=== PATIENT | male | born 1965 | race Caucasian/White ===

== ENCOUNTER 2021-01-23 02:07 | Observation (INO) | payer OTHER, SELFPAY ==
[2021-01-23] VITALS (12 sets, daily range): BP systolic 120–166; BP diastolic 83–97; PULSE 53–78; RESP 15–23; TEMP 36.6–36.9; O2SAT 95–98; BMI 32.9; BMI 31.3
--- NOTE | 2021-01-23 02:13 | RAD_ITS ---
STUDY: X-RAY CHEST REASON FOR EXAM: Male, 55 years old. chest pain TECHNIQUE: 1 view COMPARISON: None. FINDINGS: Cardiomediastinal silhouette is unremarkable. Costophrenic angles are sharp. Lungs are clear. The trachea is midline. There is no pneumothorax. The bones are grossly intact. RAD/Chest 1 View (Portable) IMPRESSION: No acute cardiopulmonary process. Electronically Signed: Chapito Boyer MD at 2:52 EDT Tel , Service support ,
--- NOTE | 2021-01-23 02:13 | EKG12_ITS ---
Test Reason : CP Blood Pressure : / mmHG Vent. Rate : 076 BPM Atrial Rate : 076 BPM P-R Int : 196 ms QRS Dur : 082 ms QT Int : 354 ms P-R-T Axes : 034 -07 000 degrees QTc Int : 398 ms Normal sinus rhythm Normal ECG Confirmed by AMBAR CULLEN MD ([id number]), story editor MIREYA GONZALES ([id number]) on 01/24/2021 7:38:47 AM Referred By: KRISH Confirmed By:AMBAR CULLEN MD
--- NOTE | 2021-01-23 02:22 | EDS_ITS ---
HPI History of Present Illness Chief Complaint: Chest Pain Informant: patient Onset/Context/Timing Onset: Today Activity at onset: gradual Timing: Continuous Quality: Positive for Aching Location: Substernal Current Severity: Mild Maximum Severity: 3/10 Worsened By: Nothing Relieved By: NTG Associated Symptoms: Positive for Nausea, Diaphoresis, Dyspnea and Lightheadedness; Negative for Vomiting Narrative Prior Similar Symptoms: Yes Recent Illness/Hospitalization: Yes CVD Risk Factors: Positive for Hypertension, Diabetes and Hypercholesterolemia PE Risk Factors: Positive for Recent Travel/Surgery and Recent Immobilization; Negative for Prior DVT or PE, Cancer and OCP + Smoking + >/=35 TAD Risk Factors: Negative for Marfan's Syndrome PFSH PFSH Medical History Diabetes Hypertension Myocardial infarct Allergy/AdvReac Type Severity Reaction Status Date / Time bupropion Allergy Other Verified 01/23/21 02:13 hydrochlorothiazide Allergy Other Verified 01/23/21 02:13 [From Hyzaar] losartan [From Hyzaar] Allergy Other Verified 01/23/21 02:13 trandolapril [From Mavik] Allergy Other Verified 01/23/21 02:13 Social History Smoking Status: Current every day smoker tobacco type: smokeless tobacco ROS ROS ED ROS Narrative Denies recent illness. Chest pain. Review of Systems ROS Unobtainable: Denies due to encephalopathy Constitutional Constitutional ED: Denies chills or fever(s) Eyes Eyes: Denies none ENT ENT ED: Denies ear pain Cardiovascular Cardiovascular: Reports as per HPI and chest pain; Denies palpitations Respiratory/Chest Respiratory/Chest: Reports dyspnea; Denies cough Gastrointestinal Gastrointestinal: Reports nausea; Denies abdominal pain or vomiting Genitourinary Genitourinary ED: Denies dysuria Musculoskeletal Musculoskeletal: Denies myalgias Integumentary Denies rash Neurologic Neurologic: Denies headache(s) Psychiatric Psychiatric: Denies depression Endocrine Endocrinology: Denies polyuria Hematologic/Lymphatic Hematologic/Lymphatic: Denies easy bruising Allergic/Immunologic Allergic/Immunologic ED: Denies urticaria EXAM Physical Exam Narrative Exam Narrative: Middle-aged male vital signs stable afebrile pulse ox 97% on room air no signs hypoxia. Exam benign. Lungs are clear. Heart regular rhythm. Chest wall nontender. Abdomen soft nontender. Moving all 4 extremities. Equal symmetrical radial pulses. Calves are nontender without edema or cords. He is awake and alert. Const Vital Signs: 01/23/21 02:08 01/23/21 02:13 01/23/21 02:17 Temperature 98.3 F Temperature Source Temporal Pulse Rate 78 Respiratory Rate 15 Respiratory Effort Normal Non-Labored Blood Pressure 166/95 H Blood Pressure Mean 118 Pulse Ox 96 97 Oxygen Delivery Method Room Air Room Air 01/23/21 02:28 01/23/21 02:31 Temperature Temperature Source Pulse Rate 73 77 Respiratory Rate Respiratory Effort Blood Pressure 137/95 H 123/90 H Blood Pressure Mean Pulse Ox Oxygen Delivery Method Positive well nourished and well developed; Negative for contractures or unkempt General Appearance ED: well developed and NAD; Negative for unkempt or contractures HEENT Reports moist mucous membranes normocephalic and atraumatic; Negative for trauma or tenderness Eyes PERRL and EOMs intact bilaterally Neck no lymphadenopathy, supple and no JVD General: Negative for tenderness Chest Wall inspection of chest normal and palpation of chest normal Resp normal respiratory effort and clear to auscultation bilaterally Effort and Inspection: respiratory distress Auscultation: Negative for rales, rhonchi or wheezes Cardio regular rate, regular rhythm, S1 normal heart sound, S2 normal heart sound and no murmurs Rate: Negative for tachycardic GI normal to inspection, nondistended, normoactive bowel sounds, soft to palpation, non-tender, non-distended and no masses Back/Spine no CVA tenderness Extremity normal to inspection General Extremety ED: Negative for edema or tenderness General Extremity: Negative for edema Neuro oriented x3 Sensorium / Orientation: awake, alert, oriented to person, oriented to place and oriented to time Motor Exam: strength 5/5 throughout Psych mental status grossly normal Appearance: Negative for unkempt Skin no rashes or lesions noted and no wounds Heart Score History: Moderately Suspicious ECG: Normal Age: >45 - <65 years Risk Factors: >/= 3 Risk Factors or History of CAD Score: 4 MDM MDM MDM Narrative Medical decision making narrative: 55-year-old male history of CAD with one cardiac stent 1 prior AR. He had a cath 2 to 3 months ago and a second 1 about a month ago. He is currently on Brilinta. He will undergo cardiac work-up most likely will need to be admitted for further evaluation. Sublingual nitroglycerin x2 resolve the patient's pain per nursing staff around 2:35 AM. Repeat exam at 3:08 AM patient is doing well he is pain-free. I spoke to the hospitalist and the patient will be an observation admission to the PCU. Lab Data Attestation: I reviewed the patient's lab results. Lab results narrative: CBC normal white count of 6. Hemoglobin 13. Electrolytes unremarkable gap 7. Creatinine 1. Troponin VIII. Labs: Laboratory Results - last 24 hr 01/23/21 01/23/21 02:20 02:20 WBC 6.3 RBC 4.52 L Hgb 13.3 Hct 40.1 MCV 88.7 MCH 29.4 MCHC 33.2 RDW Std Deviation 41.1 RDW Coeff of Marguerite 12.7 Plt Count 274 MPV 10.3 Immature Gran % (Auto) 0.300 Neut % (Auto) 57.7 Lymph % (Auto) 28.6 [place] % (Auto) 11.0 H Eos % (Auto) 1.6 Baso % (Auto) 0.8 Absolute Neuts (auto) 3.6 Absolute Lymphs (auto) 1.80 Nucleated RBC % 0 Sodium 141 Potassium 4.2 Chloride 109 H Carbon Dioxide 25.0 Anion Gap 7 BUN 21 H Creatinine 1.04 Estim Creat Clear Calc 73.27 Est GFR (MDRD) Af Amer 96 Est GFR (MDRD) Non-Af 79 BUN/Creatinine Ratio 20.2 H Glucose 247 H Calcium 8.9 Troponin I High Sens 8 Radiography Chest X-Ray - ED: 1 View, Read by ED Physician, Heart, Lungs, Mediastinum, Bony Structures, No Acute Disease and Chronic Changes Diagnostic Testing: Radiology Impression Chest X-Ray 01/23/21 02:13 IMPRESSION: No acute cardiopulmonary process. Electronically Signed: Chapito Boyer MD at 2:52 EDT Tel , Service support , Single view chest x-ray interpreted by myself shows no acute abnormality. Rhythm Strip Rhythm Strip: Sinus Rhythm Rate: 76 Ectopy: None EKG Initial EKG: Attestation: I personally reviewed and interpreted this EKG as follows: Interpretation: Sinus Rhythm and No Acute Injury Pattern Comments: Normal sinus rhythm rate of 76 no signs of acute AR or ischemia. No old EKG available for comparison at this time. Prior EKG tracings: not available for review Discharge Plan Triage Chief Complaint: Chest Pain ED Provider: Glynn Lal
[2021-01-23] MEDS: Nitroglycerin SL (ED/IMG/CATH) 0.4 MG TABLET SL ×2 (02:28→02:31)
[2021-01-23 02:39] LABS: Absolute Neutrophil Count 3.6 X10^3/uL (2.0-7.7); Basophil# 0.05 X10^3/uL; Basophil% 0.8 % (0-1); Eosinophils% 1.6 % (0-5); Hematocrit 40.1 % (40-54); Hemoglobin 13.3 g/dL (13.0-16.5); Lymphocyte % 28.6 % (19-41); Mean Corp Hgb Conc 33.2 g/dL (32-36); Mean Corpuscular Hgb 29.4 pg (27.0-32.0); Mean Corpuscular Volume 88.7 fL (80-94); Mean Platelet Vol. 10.3 fl (6.2-12.0); Monocyte# 0.69 X10^3/uL; NRBC Flagged by Analyzer 0 % (0-5); Neutrophil # 3.64 X10^3/uL (2.7-7.7); Neutrophil % 57.7 % (47-70); Platelet Count 274 K/mm3 (150-450); RBC Distribution Width CV 12.7 % (11.6-14.6); RBC Distribution Width SD 41.1 fl (35.1-43.9); Red Blood Count 4.52 M/mm3 (4.6-6.2); White Blood Count 6.3 K/mm3 (4.4-11.0)
[2021-01-23 02:53] LABS: Anion Gap 7 (5-15); BUN 21 mg/dL (7-18); BUN/Creat Ratio 20.2 RATIO (10-20); Calcium,Total 8.9 mg/dL (8.5-10.1); Chloride 109 mmol/L (98-107); Creatinine, Serum 1.04 mg/dL (0.70-1.30); EST Glomerular Filtration Rate 79 mL/min (>60); Est Glom Filt Rate - Afr Amer 96 mL/min (>60); Estimated Creatinine Clearance 73.27 ml/min; Glucose 247 mg/dL (74-106); Potassium 4.2 mmol/L (3.5-5.1); Sodium Level 141 mmol/L (136-145); Troponin-I HS 8 pg/mL (3.0-78.0)
--- NOTE | 2021-01-23 03:17 | HP.PCM.HOS_ITS ---
HPI - General General Date of Admission: 01/23/21 Date of Service: 01/23/21 Chief Complaint: Chest pain HPI Narrative EDITH STACK, is a 55 M with a significant history of diabetes mellitus; hypertension; CAD status post stents who presents with substernal persistent chest pain that started several hours before presentation. The pain started when patient was at home trying to take a nap. He took 1 nitroglycerin which gave him some mild relief. 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 While at work his chest pain persisted. He took 2 more nitroglycerin without any relief. He denies any aggravating factor to the pain. At the emergent department patient was given additional nitroglycerin sublingual. In November 2020 patient had an MD for which he required stent at [facility] at . In December 2020 he had another chest pain so he went to [facility] at [place] and was transferred to [facility] [place]. At the [facility] [place] he had a cardiac cath. He reports that the cardiac cath in December of this year showed small vessel disease at the posterior side of his heart for which there was no amenable intervention. His father had multiple heart attacks with his first heart attack in his 40s. [facility] Medical History (Updated 01/23/21 @ 04:14 by Natty Camejo) Diabetes Hypertension Myocardial infarct Pancreatitis Sleep apnea Home Medications amlodipine 2.5 mg PO DAILY 01/23/21 [History Last Taken 01/22/21 09:00] aspirin 81 mg PO DAILY 01/23/21 [History Last Taken 01/22/21 09:00] atorvastatin 40 mg PO QHS 01/23/21 [History Last Taken 01/22/21 09:00] cinnamon bark 500 mg PO DAILY 01/23/21 [History Last Taken 01/22/21 09:00] empagliflozin [Jardiance] 10 mg PO DAILY 01/23/21 [History Last Taken 01/22/21 09:00] fluticasone propionate [Flonase] 2 spray INTRANASAL DAILY 01/23/21 [History Last Taken 01/22/21 09:00] insulin glargine 40 unit SUBCUT QPM 01/23/21 [History Last Taken 01/22/21 09:00] isosorbide mononitrate 30 mg PO DAILY 01/23/21 [History Last Taken 01/22/21 09:00] lisinopril 5 mg PO DAILY 01/23/21 [History Last Taken 01/22/21 09:00] loratadine 10 mg PO DAILY 01/23/21 [History Last Taken 01/22/21 09:00] metformin 1,000 mg PO BID 01/23/21 [History Last Taken 01/22/21 09:00] metoprolol succinate 25 mg PO DAILY 01/23/21 [History Last Taken 01/22/21 09:00] nitroglycerin 0.4 mg SUBLINGUAL Q5M PRN 01/23/21 [History Last Taken 01/23/21 02:00] therapeutic multivitamin [Theragran] 1 tab PO DAILY 01/23/21 [History Last Taken 01/22/21 09:00] ticagrelor [Brilinta] 90 mg PO BID 01/23/21 [History Last Taken 01/22/21 09:00] Allergy/AdvReac Type Severity Reaction Status Date / Time bupropion Allergy Other Verified 01/23/21 02:13 hydrochlorothiazide Allergy Other Verified 01/23/21 02:13 [From Hyzaar] losartan [From Hyzaar] Allergy Other Verified 01/23/21 02:13 trandolapril [From Mavik] Allergy Other Verified 01/23/21 02:13 Family History Other Heart disease Surgical History History of carpal tunnel surgery History of tonsillectomy Stented coronary artery Social History (Updated 01/23/21 @ 04:15 by Natty Camejo) household members: spouse and family housing: house current occupational status: employed Smoking Status: Current every day smoker tobacco type: smokeless tobacco Smokeless tobacco user: chewing tobacco ROS ROS Narrative Constitutional: Denies fever, chills, fatigue, anorexia and change in weight Eyes: Denies blurry vision, change in eye color, change in vision, discharge from eye(s), double vision, erythema, eye pain, loss of vision or other HEENT: Denies abnormal hearing, dysphagia, ear pain, epistaxis, headache(s), hearing loss, nasal congestion, nasal discharge, post nasal drip, sinus pressure, sore throat or other Cardiovascular: Reports chest pain. Denies palpitations. Respiratory/Chest: Reports shortness of breath. Denies cough, excessive phlegm production. Gastrointestinal: Reports nausea. Reports abdominal discomfort. Denies coffee ground emesis, constipation, diarrhea, dyspepsia, hematemesis, hematochezia, loose stools, melena, or other Genitourinary: Denies burning urination, difficulty urinating, dysuria, hematuria, nocturia, urinary frequency, urinary hesitancy, urinary incontinence, urinary urgency or other Musculoskeletal: Denies arthralgias, back pain, joint pain, joint stiffness, joint swelling, myalgias, neck pain or other Neurologic: Denies abnormal gait, abnormal speech, confusion, disequilibrium, dizziness, focal weakness, headache(s), numbness, paresthesias, seizure-like activity, seizures, syncope, tingling, tremor(s) or other Psychiatric: Denies anxiety, depression, homicidal ideation, suicidal ideation or other Endocrinology: Denies change in body appearance, cold intolerance, excessive sweating, heat intolerance, polydipsia, polyuria or other Hematologic/Lymphatic: Denies anemia, easy bleeding, easy bruising, lymphadenopathy or other Integumentary: Denies rashes Allergic/Immunologic: Denies rhinitis, hives, eczema, asthma or other Vital Signs Vital Signs Vital Signs: 01/23/21 02:08 01/23/21 02:13 01/23/21 02:17 Temperature 98.3 F Temperature Source Temporal Pulse Rate 78 Respiratory Rate 15 Respiratory Effort Normal Non-Labored Blood Pressure 166/95 H Blood Pressure Mean 118 Pulse Ox 96 97 Oxygen Delivery Method Room Air Room Air 01/23/21 02:28 01/23/21 02:31 Temperature Temperature Source Pulse Rate 73 77 Respiratory Rate Respiratory Effort Blood Pressure 137/95 H 123/90 H Blood Pressure Mean Pulse Ox Oxygen Delivery Method Weight Weight: 92.6 kg Body Mass Index (BMI) 32.9 Physical Exam Narrative Physical exam: General: Well-nourished, well-developed. Head: Normocephalic, atraumatic, no tenderness Eyes: PERRLA, EOMI ENT, no trauma, moist mucous membranes, no rhinorrhea Neck: Nontender, full range of motion, no spinal tenderness, deformities, step- off CVS: Regular rate and rhythm. S1-S2 present. No murmur, gallop or rub. Respiratory : clear to auscultation bilaterally, chest wall nontender, no wheezing Abdomen: Soft, nontender, nondistended, normal bowel sounds, no masses : Deferred Back: Nontender, no CVA tenderness, no midline spinal tenderness, deformities, step-offs Extremities: Nontender full range of motion, no trauma Skin: Normal color, no trauma, abrasions Neuro: Alert, oriented, cranial nerves II through XII grossly intact. Psychiatry: Normal mood. Normal affect. Not depressed. Not anxious. Results Lab / Micro Data Result Diagrams: 01/23/21 02:20 01/23/21 02:20 Labs: Laboratory Results - last 24 hr 01/23/21 02:20: WBC 6.3, RBC 4.52 L, Hgb 13.3, Hct 40.1, MCV 88.7, MCH 29.4, MCHC 33.2, RDW Std Deviation 41.1, RDW Coeff of Marguerite 12.7, Plt Count 274, MPV 10. 3, Immature Gran % (Auto) 0.300, Neut % (Auto) 57.7, Lymph % (Auto) 28.6, [place] % (Auto) 11.0 H, Eos % (Auto) 1.6, Baso % (Auto) 0.8, Absolute Neuts (auto) 3.6, Absolute Lymphs (auto) 1.80, Nucleated RBC % 0 01/23/21 02:20: Sodium 141, Potassium 4.2, Chloride 109 H, Carbon Dioxide 25.0, Anion Gap 7, BUN 21 H, Creatinine 1.04, Estim Creat Clear Calc 73.27, Est GFR (MDRD) Af Amer 96, Est GFR (MDRD) Non-Af 79, BUN/Creatinine Ratio 20.2 H, Glucose 247 H, Calcium 8.9, Troponin I High Sens 8 Rhythm Strip Rhythm Strip: Sinus Rhythm Rate: 76 Ectopy: None Radiology Impression Chest X-Ray 01/23/21 02:13 IMPRESSION: No acute cardiopulmonary process. Electronically Signed: Chapito Boyer MD at 2:52 EDT Tel , Service support , Assessment & Plan Assessment/Plan (1) Chest pain: QUALIFIERS: Chest pain type: unspecified Qualified Code(s): R07.9 - Chest pain, unspecified (2) Diabetes mellitus, type 2: QUALIFIERS: Diabetes mellitus complication status: without complication Diabetes mellitus nursing home insulin use: with nursing home use Qualified Code(s): E11.9 - Type 2 diabetes mellitus without complications; Z79.4 - [facility] (current) use of insulin (3) Hypertension: QUALIFIERS: Hypertension type: primary hypertension Qualified Code(s): I10 - Essential (primary) hypertension PLAN: Chest pain Place on a monitored bed at the progressive care unit Actual CXR image was independently visualized. No acute cardiopulmonary process was noted. Actual EKG tracing was independently visualized. EKG tracing showed sinus rhythm with no ST or T wave abnormalities. Q waves in inferior leads were noted. Received full dose aspirin at emergency department. ASA 81 mg p.o. daily and Brilinta continued SL NTG 0.4 mg prn as needed for chest pain ordered We will check lipid panel. Initial high sensitivity troponin was negative. Serial cardiac enzymes ordered Stat EKG as needed for chest pain Imdur; metoprolol and lisinopril continued. High intensity statin continued Cardiology consult Diabetes mellitus Patient with hyperglycemia on presentation Basal insulin adjusted and continued. Jardiance continued. Metformin held. Accu-Chek QA CHS with correction scale insulin ordered. Hypertension Blood pressure is not within goal Amlodipine; lisinopril; Imdur and metoprolol continued. Trend blood pressure and adjust blood pressure medications. DVT prophylaxis SCD ordered Charges/Coding Visit Charges OBSV E&M: [id number] Initial observation care L3
--- NOTE | 2021-01-23 03:57 | EKG12_ITS ---
Test Reason : AM Blood Pressure : / mmHG Vent. Rate : 057 BPM Atrial Rate : 057 BPM P-R Int : 154 ms QRS Dur : 088 ms QT Int : 404 ms P-R-T Axes : 024 -03 -02 degrees QTc Int : 393 ms Sinus bradycardia Septal infarct , age undetermined Inferior infarct , age undetermined Abnormal ECG No previous ECGs available Confirmed by SUBHASH GUZMAN, AMBAR ([id number]), photographic editor MIREYA GONZALES ([id number]) on 01/23/2021 12:54:26 PM Referred By: FESTUS Confirmed By:AMBAR CULLEN MD
[2021-01-23 05:18] LABS: Troponin-I HS 8 pg/mL (3.0-78.0)
[2021-01-23 07:11] LABS: Bedside Glucose 138 mg/dL (70-110)
[2021-01-23 08:59] LABS: Troponin-I HS 8 pg/mL (3.0-78.0)
[2021-01-23] MEDS: amLODIPine 2.5 MG Tablet PO (09:49)
[2021-01-23] MEDS: Lisinopril 5 MG Tablet PO (09:49)
[2021-01-23] MEDS: Empagliflozin 10 MG Tablet PO (09:49)
[2021-01-23] MEDS: Loratadine 10 MG Tablet PO (09:49)
[2021-01-23] MEDS: TICAGRELOR 90 MG TABLET PO (09:49)
[2021-01-23] MEDS: Isosorbide Mononitrate 30 MG Tablet PO (09:49)
[2021-01-23] MEDS: Metoprolol(XL)Succ 25 MG Tablet PO (09:50)
[2021-01-23] MEDS: Multivitamins,Therapeutic Tablet 1 TABLET PO (09:50)
[2021-01-23] MEDS: Fluticasone 0.05% 1 SPRAY NASAL.SRY 2 SPRAY NASAL (09:51)
[2021-01-23] MEDS: Aspirin E.C. 81 MG Tablet PO (09:54)
--- NOTE | 2021-01-23 11:01 | PCM.CONS.C ---
Assessment & Plan Assessment/Plan (1) Chest pain: QUALIFIERS: Chest pain type: unspecified Qualified Code(s): R07.9 - Chest pain, unspecified PLAN: Patient presents with chest discomfort and angina was suspected. He has no EKG changes his troponins are completely negative and at this time I would recommend that with his recent cardiac catheterization within the last month which did not demonstrate any significant obstructive coronary disease we proceed with medical therapy. I would like to increase his amlodipine to 5 mg a day Patient can continue with outpatient medical therapy and follow-up with his primary meteorology faculty member. No further testing is warranted at this time. (2) Hypertension: QUALIFIERS: Hypertension type: primary hypertension Qualified Code(s): I10 - Essential (primary) hypertension PLAN: His blood pressure medications will be optimized with increasing his amlodipine to 5 mg a day. (3) CAD (coronary artery disease): PLAN: He does have evidence of known coronary artery disease as described above. I would recommend that we continue with maximal medical therapy with aspirin, Brilinta, beta-nicole and calcium channel nicole. Weight loss dietary restriction as well as statin use would also be emphasized. At this juncture I think the patient can be managed medically. Thank you for allowing me to participate in the care of your patient. Please don't hesitate to call if any issues arise. HPI Consult Data Date of Consult: 01/23/21 HPI Narrative HPI Narrative: EDITH STACK, is a 55 M who presents to the emergency room for evaluation of chest discomfort. He apparently underwent an initial cardiac catheterization at [facility] earlier this year after presenting with a non-ST elevation myocardial infarction. He was angioplastied and stented. He then presented to [facility] at the end of November with chest discomfort ruled out for myocardial infarction and underwent a repeat cardiac catheterization. This was on 12/14/2020. It demonstrated a patent stent in the LAD, right coronary artery which was a dominant vessel with no significant stenosis, left circumflex artery with a distal circumflex artery with a 2.5 mm vessel which had a diffuse 80% stenosis and a normal left main coronary artery. Left ventricular ejection fraction was normal by catheterization as well as ejection fraction. Medical therapy was recommended. He presents here with chest discomfort and has no EKG changes and normal cardiac enzymes x3. Cardiology was called to evaluate and treat to the patient. He is currently pain-free at this time. [facility] Medical History Diabetes Hypertension Myocardial infarct Pancreatitis Sleep apnea Home Medications amlodipine 2.5 mg PO DAILY 01/23/21 [History Last Taken 01/22/21 09:00] aspirin 81 mg PO DAILY 01/23/21 [History Last Taken 01/22/21 09:00] atorvastatin 40 mg PO QHS 01/23/21 [History Last Taken 01/22/21 09:00] cinnamon bark 500 mg PO DAILY 01/23/21 [History Last Taken 01/22/21 09:00] empagliflozin [Jardiance] 10 mg PO DAILY 01/23/21 [History Last Taken 01/22/21 09:00] fluticasone propionate [Flonase] 2 spray INTRANASAL DAILY 01/23/21 [History Last Taken 01/22/21 09:00] insulin glargine 40 unit SUBCUT QPM 01/23/21 [History Last Taken 01/22/21 09:00] isosorbide mononitrate 30 mg PO DAILY 01/23/21 [History Last Taken 01/22/21 09:00] lisinopril 5 mg PO DAILY 01/23/21 [History Last Taken 01/22/21 09:00] loratadine 10 mg PO DAILY 01/23/21 [History Last Taken 01/22/21 09:00] metformin 1,000 mg PO BID 01/23/21 [History Last Taken 01/22/21 09:00] metoprolol succinate 25 mg PO DAILY 01/23/21 [History Last Taken 01/22/21 09:00] nitroglycerin 0.4 mg SUBLINGUAL Q5M PRN 01/23/21 [History Last Taken 01/23/21 02:00] therapeutic multivitamin [Theragran] 1 tab PO DAILY 01/23/21 [History Last Taken 01/22/21 09:00] ticagrelor [Brilinta] 90 mg PO BID 01/23/21 [History Last Taken 01/22/21 09:00] Allergy/AdvReac Type Severity Reaction Status Date / Time bupropion Allergy Other Verified 01/23/21 02:13 hydrochlorothiazide Allergy Other Verified 01/23/21 02:13 [From Hyzaar] losartan [From Hyzaar] Allergy Other Verified 01/23/21 02:13 trandolapril [From Mavik] Allergy Other Verified 01/23/21 02:13 Family History Other Heart disease Surgical History History of carpal tunnel surgery History of tonsillectomy Stented coronary artery Social History household members: spouse and family housing: house current occupational status: employed Smoking Status: Current every day smoker tobacco type: smokeless tobacco Smokeless tobacco user: chewing tobacco ROS Constitutional Constitutional: Denies fever(s) or weight loss Eyes Eyes: Reports systems reviewed and no addt'l complaints, except as documented ENT HEENT: Reports systems reviewed and no addt'l complaints, except as documented Cardiovascular Cardiovascular: Reports chest pain at rest and chest pain with activity; Denies dyspnea at rest, dyspnea on exertion, edema, palpitations or paroxysmal nocturnal dyspnea Respiratory/Chest Respiratory/Chest: Denies dyspnea on exertion, productive cough, shortness of breath at rest or shortness of breath with exertion Gastrointestinal Gastrointestinal: Denies change in bowel habits, nausea, vomiting or weight changes Genitourinary Genitourinary: Denies difficulty urinating Musculoskeletal Musculoskeletal: Denies joint stiffness or muscle weakness Integumentary Integumentary: Denies lesions Neurologic Neurologic: Denies dizziness or syncope Psychiatric Psychiatric: Denies anxiety Endocrine Endocrinology: Denies excessive sweating or fatigue Hematologic/Lymphatic Hematologic/Lymphatic: Denies anemia Allergic/Immunologic Allergic/Immunologic: Denies seasonal rhinorrhea Physical Exam Const alert, oriented x3 and no apparent distress General Appearance: cooperative HEENT hearing grossly normal bilaterally Head and Scalp: atraumatic Eyes EOMs intact bilaterally Neck General: normal visual inspection Chest inspection of chest normal and palpation of chest normal Resp normal respiratory effort Auscultation: clear to auscultation bilaterally Cardio regular rate, regular rhythm, S1 normal heart sound and S2 normal heart sound Jugular Venous Distention: JVD GI normal to inspection, nondistended, normoactive bowel sounds Extremity normal capillary refill and no pedal edema Peripheral Pulses: Yes pulses 2+ throughout and femoral pulses present Skin no rashes or lesions noted Neuro oriented x3 and CN's II-XII intact bilaterally Psych Appearance: grossly normal and appropriate Objective Data Vital Signs: Vital Signs Temp Pulse Resp BP Pulse Ox 97.8 F 63 16 140/89 H 97 01/23/21 08:41 01/23/21 09:50 01/23/21 08:41 01/23/21 08:41 01/23/21 08:41 Oxygen Delivery Method Room Air Weight: 194 lb 0.108 oz Body Mass Index (BMI) 31.3 Lab / Micro Data Result Diagrams: 01/23/21 02:20 01/23/21 02:20 Labs: Laboratory Results - last 24 hr 01/23/21 02:20: WBC 6.3, RBC 4.52 L, Hgb 13.3, Hct 40.1, MCV 88.7, MCH 29.4, MCHC 33.2, RDW Std Deviation 41.1, RDW Coeff of Marguerite 12.7, Plt Count 274, MPV 10.3, Immature Gran % (Auto) 0.300, Neut % (Auto) 57.7, Lymph % (Auto) 28.6, [place] % (Auto) 11.0 H, Eos % (Auto) 1.6, Baso % (Auto) 0.8, Absolute Neuts (auto) 3.6, Absolute Lymphs (auto) 1.80, Nucleated RBC % 0 01/23/21 02:20: Sodium 141, Potassium 4.2, Chloride 109 H, Carbon Dioxide 25.0, Anion Gap 7, BUN 21 H, Creatinine 1.04, Estim Creat Clear Calc 73.27, Est GFR (MDRD) Af Amer 96, Est GFR (MDRD) Non-Af 79, BUN/Creatinine Ratio 20.2 H, Glucose 247 H, Calcium 8.9, Troponin I High Sens 8 01/23/21 04:50: Troponin I High Sens 8 01/23/21 06:54: POC Glucose 138 H 01/23/21 08:20: Troponin I High Sens 8 Rhythm Strip Rhythm Strip: Sinus Rhythm Rate: 76 Ectopy: None Cardiology Labs/Tests 01/23/21 02:20: WBC 6.3, RBC 4.52 L, Hgb 13.3, Hct 40.1, MCV 88.7, MCH 29.4, MCHC 33.2, Plt Count 274, MPV 10.3, Immature Gran % (Auto) 0.300, Neut % (Auto) 57.7, Lymph % (Auto) 28.6, [place] % (Auto) 11.0 H, Eos % (Auto) 1.6, Baso % (Auto) 0.8, Absolute Neuts (auto) 3.6, Nucleated RBC % 0 01/23/21 02:20: Sodium 141, Potassium 4.2, Chloride 109 H, Carbon Dioxide 25.0, Anion Gap 7, BUN 21 H, Creatinine 1.04, Est GFR (MDRD) Af Amer 96, Est GFR (MDRD) Non-Af 79, BUN/Creatinine Ratio 20.2 H, Glucose 247 H, Calcium 8.9 Rhythm: EKG: Normal sinus rhythm with no acute changes ECHO: Stress Test: Cardiac Cath: PCI: CT Surgery: Holter monitor: EPS: PPM: CXR: Chest CT Scan: Radiography Diagnostic Testing: Radiology Impression Chest X-Ray 01/23/21 02:13 IMPRESSION: No acute cardiopulmonary process. Electronically Signed: Chapito Boyer MD at 2:52 EDT Tel , Service support ,
[2021-01-23] MEDS: Insulin Lispro 100 UNIT/ML INSULN.PEN SC (11:53)
[2021-01-23 11:56] LABS: Bedside Glucose 186 mg/dL (70-110)
--- NOTE | 2021-01-23 12:14 | PCM.DC ---
Discharge Instructions Diet Discharge Diet: No restrictions Activity Discharge Activity: Return to Normal Activity Weight Bearing Status: Weight bearing as tolerated Dressing / Incision Call your doctor if you observe: Fever of 101 or Higher, Numbness or Tingling, Shortness of breath, Dizziness, Chest pain, Increased palpitations (irregular heartbeat) and Calf discomfort Follow Up Care Please Follow Up With: Primary care provider When: Within the next two weeks. Test Results: Test results from this visit will be discussed in further detail at your follow-up appointment, if applicable. Discharge Plan Admission Admit Date/Time: 01/23/21 03:13 Primary Reason for Your Visit: Chest pain Attending Provider: Morgan Borrego Consulting Providers: Marky Mora Discharge Orders/Prescriptions Prescriptions: New amlodipine 5 mg Tablet 5 mg PO DAILY Qty: 30 RF: 0 Continued isosorbide mononitrate 30 mg Tablet Extended Release 24 Hr 30 mg PO DAILY RF: 0 nitroglycerin 0.4 mg Tablet, Sublingual 0.4 mg SUBLINGUAL Q5M PRN (Reason: Chest Pain) RF: 0 aspirin 81 mg Tablet 81 mg PO DAILY RF: 0 lisinopril 5 mg Tablet 5 mg PO DAILY RF: 0 metoprolol succinate 25 mg Tablet Extended Release 24 Hr 25 mg PO DAILY RF: 0 loratadine 10 mg Tablet 10 mg PO DAILY RF: 0 insulin glargine 100 unit/mL Cartridge 40 unit SUBCUT QPM RF: 0 Brilinta 90 mg Tablet 90 mg PO BID RF: 0 Jardiance 10 mg Tablet 10 mg PO DAILY RF: 0 atorvastatin 40 mg Tablet 40 mg PO QHS RF: 0 therapeutic multivitamin Tablet 1 tab PO DAILY RF: 0 metformin 1,000 mg Tablet 1,000 mg PO BID RF: 0 fluticasone propionate 50 mcg/actuation [place],Suspension 2 spray INTRANASAL DAILY RF: 0 cinnamon bark 500 mg Capsule 500 mg PO DAILY RF: 0 Discontinued amlodipine 2.5 mg Tablet 2.5 mg PO DAILY RF: 0 Referrals / Follow Up: MAGGIE MARQUEZ [Other] - Within 2 Weeks Blaise Collins MD [STAFF PHYSICIAN] - Within 2 Weeks Disposition Disposition (needs filled in before D/C Order can be placed): Home, Self Care
--- NOTE | 2021-01-23 12:49 | EKG12_ITS ---
Test Reason : CP Blood Pressure : / mmHG Vent. Rate : 060 BPM Atrial Rate : 060 BPM P-R Int : 170 ms QRS Dur : 080 ms QT Int : 396 ms P-R-T Axes : 029 -04 -09 degrees QTc Int : 396 ms Normal sinus rhythm Septal infarct , age undetermined Abnormal ECG Confirmed by GRAY GUZMAN, SANJUANITA ([id number]), associate editor MIREYA GONZALES ([id number]) on 01/24/2021 10:08:08 AM Referred By: Confirmed By:SANJUANITA CASTELLANO MD
--- NOTE | 2021-01-23 13:45 | PHA.DC.MR ---
Pharmacy Service has performed discharge medication reconciliation for this patient. The patient's discharge medication list was reviewed for discrepancies and discrepancies were resolved. Home Medications Brilinta 90 mg PO BID 01/23/21 Jardiance 10 mg PO DAILY 01/23/21 amlodipine 5 mg PO DAILY #30 tab 01/23/21 aspirin 81 mg PO DAILY 01/23/21 atorvastatin 40 mg PO QHS 01/23/21 cinnamon bark 500 mg PO DAILY 01/23/21 fluticasone propionate 2 spray INTRANASAL DAILY 01/23/21 insulin glargine 40 unit SUBCUT QPM 01/23/21 isosorbide mononitrate 30 mg PO DAILY 01/23/21 lisinopril 5 mg PO DAILY 01/23/21 loratadine 10 mg PO DAILY 01/23/21 metformin 1,000 mg PO BID 01/23/21 metoprolol succinate 25 mg PO DAILY 01/23/21 nitroglycerin 0.4 mg SUBLINGUAL Q5M PRN 01/23/21 therapeutic multivitamin 1 tab PO DAILY 01/23/21
--- NOTE | 2021-01-23 14:12 | CHAPLAIN ---
Type of Pastoral Visit _x__ Initial Visit ___ Follow-up Visit ___ On-call Visit ___ General Patient Visit ___ Spiritual Assessment ___ Family Conference ___ Bereavement ___ Rapid Response ___ Code Blue ___ Other (describe below) Pastoral Care Referral From _x__ Patient ___ Family ___ Nurse ___ Physician ___ Registered Nurse First Assistant ___ [place] Out Worker ___ Other (describe below) Sacrament/Intervention _x__ Active listening ___ Anointing ___ Yazidism ___ Bereavement ___ Communion ___ [place] exploration ___ ___ Life review _x__ Prayer ___ Reconciliation ___ Sacrament of Sick _x__ Supportive presence ___ Wedding ___ Other (describe below) Pastoral Comments patient had a heart attack recently and came in due to chest pains and need for getting it all checked out; pt expecting to go home today
--- NOTE | 2021-01-23 14:18 | DS.PCM_ITS ---
Documented by User: Chemo VICTORIA 01/23/21 14:25 Providers Date of Admission: 01/23/21 Primary Care Physician: MAGGIE MARQUEZ Consultations 01/23/21 03:57 Consult: Cardiology Routine Consulting Provider: Marky Mora Reason for Consult: chest pain with history of stent EMERGENT Consult: No MD Notified: Yes Date Notified: 01/23/21 Time Notified: 08:18 Method of Notification: Verbal Method of Consult:: In-Person Reason For Visit: CHEST PAIN Diagnosis Discharge Diagnosis (1) Chest pain: Status: Acute Code(s): R07.9 - Chest pain, unspecified Qualifiers: Chest pain type: unspecified Qualified Code(s): R07.9 - Chest pain, unspecified (2) Hypertension: Status: Chronic Code(s): I10 - Essential (primary) hypertension Qualifiers: Hypertension type: primary hypertension Qualified Code(s): I10 - Essential (primary) hypertension (3) CAD (coronary artery disease): Status: Acute Code(s): I25.10 - Atherosclerotic heart disease of [place] coronary artery without angina pectoris Medications at Discharge Home Medications Brilinta 90 mg PO BID 01/23/21 Jardiance 10 mg PO DAILY 01/23/21 amlodipine 5 mg PO DAILY #30 tab 01/23/21 aspirin 81 mg PO DAILY 01/23/21 atorvastatin 40 mg PO QHS 01/23/21 cinnamon bark 500 mg PO DAILY 01/23/21 fluticasone propionate 2 spray INTRANASAL DAILY 01/23/21 insulin glargine 40 unit SUBCUT QPM 01/23/21 isosorbide mononitrate 30 mg PO DAILY 01/23/21 lisinopril 5 mg PO DAILY 01/23/21 loratadine 10 mg PO DAILY 01/23/21 metformin 1,000 mg PO BID 01/23/21 metoprolol succinate 25 mg PO DAILY 01/23/21 nitroglycerin 0.4 mg SUBLINGUAL Q5M PRN 01/23/21 therapeutic multivitamin 1 tab PO DAILY 01/23/21 Hospital Course Summary of Care Provided Minutes Spent on Discharge: 35 Hospital Course: Disposition: Patient to be discharged home. 1) chest pain/ACS rule out Cardiac catheterization completed last month did not reveal any evidence of obstructive coronary disease. High-sensitivity troponins not elevated. EKG or chest x-ray did not reveal any acute findings on admission. Cardiology consult obtained and recommends continuing medical therapy. Plan; continue aspirin, Brilinta, beta-nicole and increase amlodipine to 5 mg daily. Follow-up with cardiology and primary care provider within the next 2 weeks. 2) HTN Continue home BP regimen. 3) CAD Does have evidence of known CAD, continue with medical therapy and follow-ups as above. Patient seen by Chemo Garcia PA-C, under the supervision of Dr. Borrego. Physical Exam Narrative Patient is a 55-year-old male comfortably resting in bed, alert and orient x3. Patient still endorses mild chest discomfort which he reports is variable. Denies development of any other symptoms. Does not appear in acute distress. Const alert, oriented x3 and no apparent distress HEENT normocephalic, head/scalp atraumatic and hearing grossly normal bilaterally Eyes PERRL, EOMs intact bilaterally and conjunctivae normal Neck no lymphadenopathy Resp normal respiratory effort, no retractions, no use of accessory muscles and clear to auscultation bilaterally Cardio regular rate, regular rhythm, no murmurs and no JVD GI normal to inspection, nondistended, normoactive bowel sounds, soft to palpation, non-tender and non-distended Extremity normal to inspection, full ROM and no clubbing, cyanosis or edema Skin no rashes or lesions noted, no wounds and skin turgor normal Neuro CN's II-XII intact bilaterally Psych affect normal Weight / BMI Weight Weight: 194 lb 0.108 oz Body Mass Index (BMI) 31.3 ABG / Lab / Microbiology Data Result Diagrams: 01/23/21 02:20 01/23/21 02:20 Laboratory: Laboratory Results - last 24 hr 01/23/21 02:20: WBC 6.3, RBC 4.52 L, Hgb 13.3, Hct 40.1, MCV 88.7, MCH 29.4, MCHC 33.2, RDW Std Deviation 41.1, RDW Coeff of Marguerite 12.7, Plt Count 274, MPV 10.3, Immature Gran % (Auto) 0.300, Neut % (Auto) 57.7, Lymph % (Auto) 28.6, [place] % (Auto) 11.0 H, Eos % (Auto) 1.6, Baso % (Auto) 0.8, Absolute Neuts (auto) 3.6, Absolute Lymphs (auto) 1.80, Nucleated RBC % 0 01/23/21 02:20: Sodium 141, Potassium 4.2, Chloride 109 H, Carbon Dioxide 25.0, Anion Gap 7, BUN 21 H, Creatinine 1.04, Estim Creat Clear Calc 73.27, Est GFR (MDRD) Af Amer 96, Est GFR (MDRD) Non-Af 79, BUN/Creatinine Ratio 20.2 H, Glucose 247 H, Calcium 8.9, Troponin I High Sens 8 01/23/21 04:50: Troponin I High Sens 8 01/23/21 06:54: POC Glucose 138 H 01/23/21 08:20: Troponin I High Sens 8 01/23/21 11:46: POC Glucose 186 H Radiography Diagnostic Testing: Radiology Impression Chest X-Ray 01/23/21 02:13 IMPRESSION: No acute cardiopulmonary process. Electronically Signed: Chapito Boyer MD at 2:52 EDT Tel , Service support , D/C Instructions Discharge Diet: No restrictions Weight Bearing Status: Weight bearing as tolerated Call your doctor if you observe: Fever of 101 or Higher, Numbness or Tingling, Shortness of breath, Dizziness, Chest pain, Increased palpitations (irregular heartbeat) and Calf discomfort Please Follow Up With: Primary care provider When: Within the next two weeks. Meaningful Use Info Meaningful Use Diagnoses (Choose all that apply): None applicable Discharge Plan Admission Admit Date/Time: 01/23/21 03:13 Primary Reason for Your Visit: Chest pain Attending Provider: Morgan Borrego Consulting Providers: Marky Mora Instructions Forms: Work / School Excuse Discharge Orders/Prescriptions Prescriptions: New amlodipine 5 mg Tablet 5 mg PO DAILY Qty: 30 RF: 0 Continued isosorbide mononitrate 30 mg Tablet Extended Release 24 Hr 30 mg PO DAILY RF: 0 nitroglycerin 0.4 mg Tablet, Sublingual 0.4 mg SUBLINGUAL Q5M PRN (Reason: Chest Pain) RF: 0 aspirin 81 mg Tablet 81 mg PO DAILY RF: 0 lisinopril 5 mg Tablet 5 mg PO DAILY RF: 0 metoprolol succinate 25 mg Tablet Extended Release 24 Hr 25 mg PO DAILY RF: 0 loratadine 10 mg Tablet 10 mg PO DAILY RF: 0 insulin glargine 100 unit/mL Cartridge 40 unit SUBCUT QPM RF: 0 Brilinta 90 mg Tablet 90 mg PO BID RF: 0 Jardiance 10 mg Tablet 10 mg PO DAILY RF: 0 atorvastatin 40 mg Tablet 40 mg PO QHS RF: 0 therapeutic multivitamin Tablet 1 tab PO DAILY RF: 0 metformin 1,000 mg Tablet 1,000 mg PO BID RF: 0 fluticasone propionate 50 mcg/actuation [place],Suspension 2 spray INTRANASAL DAILY RF: 0 cinnamon bark 500 mg Capsule 500 mg PO DAILY RF: 0 Discontinued amlodipine 2.5 mg Tablet 2.5 mg PO DAILY RF: 0 Referrals / Follow Up: MAGGIE MARQUEZ [Other] - Within 2 Weeks Blaise Collins MD [STAFF PHYSICIAN] - Within 2 Weeks Disposition Disposition (needs filled in before D/C Order can be placed): Home, Self Care Documented by User: Dr. Morgan Borrego MD 01/23/21 14:53 Providers Date of Admission: 01/23/21 Reason For Visit: CHEST PAIN Medications at Discharge Home Medications Brilinta 90 mg PO BID 01/23/21 Jardiance 10 mg PO DAILY 01/23/21 amlodipine 5 mg PO DAILY #30 tab 01/23/21 aspirin 81 mg PO DAILY 01/23/21 atorvastatin 40 mg PO QHS 01/23/21 cinnamon bark 500 mg PO DAILY 01/23/21 fluticasone propionate 2 spray INTRANASAL DAILY 01/23/21 insulin glargine 40 unit SUBCUT QPM 01/23/21 isosorbide mononitrate 30 mg PO DAILY 01/23/21 lisinopril 5 mg PO DAILY 01/23/21 loratadine 10 mg PO DAILY 01/23/21 metformin 1,000 mg PO BID 01/23/21 metoprolol succinate 25 mg PO DAILY 01/23/21 nitroglycerin 0.4 mg SUBLINGUAL Q5M PRN 01/23/21 therapeutic multivitamin 1 tab PO DAILY 01/23/21 Hospital Course Summary of Care Provided Hospital Course: This patient was seen in conjunction with Chemo Garcia PA-C. I have independently interviewed and examined the patient and reviewed pertinent historical, laboratory, and other data. Please refer to Chemo Garcia PA-C's note for details of this patient's presentation, findings, and recommendations. I have reviewed Chemo Garcia PA-C's note and concur with documented findings. In brief, patient is a 55-year-old gentleman with past medical history segment for coronary artery disease, diabetes mellitus type 2 essential hypertension who presented with chest pain. Patient was placed in a monitored bed for subsequent evaluation [place] was ruled out with serial cardiac enzymes consult was placed to cardiology patient was seen by Dr. Collins who recommended optimization of medical therapy Hospital course; as above ABG / Lab / Microbiology Data Result Diagrams: 01/23/21 02:20 01/23/21 02:20 Discharge Plan Admission Admit Date/Time: 01/23/21 03:13 Primary Reason for Your Visit: Chest pain Attending Provider: Morgan Borrego Consulting Providers: Marky Mora Instructions Forms: Work / School Excuse Discharge Orders/Prescriptions Prescriptions: New amlodipine 5 mg Tablet 5 mg PO DAILY Qty: 30 RF: 0 Continued isosorbide mononitrate 30 mg Tablet Extended Release 24 Hr 30 mg PO DAILY RF: 0 nitroglycerin 0.4 mg Tablet, Sublingual 0.4 mg SUBLINGUAL Q5M PRN (Reason: Chest Pain) RF: 0 aspirin 81 mg Tablet 81 mg PO DAILY RF: 0 lisinopril 5 mg Tablet 5 mg PO DAILY RF: 0 metoprolol succinate 25 mg Tablet Extended Release 24 Hr 25 mg PO DAILY RF: 0 loratadine 10 mg Tablet 10 mg PO DAILY RF: 0 insulin glargine 100 unit/mL [place] 40 unit SUBCUT QPM RF: 0 Brilinta 90 mg Tablet 90 mg PO BID RF: 0 Jardiance 10 mg Tablet 10 mg PO DAILY RF: 0 atorvastatin 40 mg Tablet 40 mg PO QHS RF: 0 therapeutic multivitamin Tablet 1 tab PO DAILY RF: 0 metformin 1,000 mg Tablet 1,000 mg PO BID RF: 0 fluticasone propionate 50 mcg/actuation [place],Suspension 2 spray INTRANASAL DAILY RF: 0 cinnamon bark 500 mg Capsule 500 mg PO DAILY RF: 0 Discontinued amlodipine 2.5 mg Tablet 2.5 mg PO DAILY RF: 0 Referrals / Follow Up: MAGGIE MARQUEZ [Other] - Within 2 Weeks Blaise Collins MD [STAFF PHYSICIAN] - Within 2 Weeks Disposition Disposition (needs filled in before D/C Order can be placed): Home, Self Care Charges/Coding Visit Charges OBSV E&M: 05959 Observation care discharge Hospital Course Consultations Consultations: Consultations 01/23/21 03:57 Consult: Cardiology Routine Consulting Provider: Marky Mora Reason for Consult: chest pain with history of stent EMERGENT Consult: No MD Notified: Yes Date Notified: 01/23/21 Time Notified: 08:18 Method of Notification: Verbal Method of Consult:: In-Person
--- NOTE | 2021-01-23 14:50 | NURSING ---
This RN reviewed all SN charting and was with SN during all medication administration.
== END 2021-01-23 12:19 | disposition home or self-care (01) ==
LOC: ED 02:45 → PCU 03:55
PROVIDERS: Admitting Provider Hospitalist; Emergency Provider Emergency Medicine; Visit Provider Internal Medicine
DX: R07.89 Other chest pain (principal); Z23 Encounter for immunization; I10 Essential (primary) hypertension; E78.00 Pure hypercholesterolemia, unspecified; E11.65 Type 2 diabetes mellitus with hyperglycemia; I25.2 Old myocardial infarction; G47.30 Sleep apnea, unspecified; F17.220 Nicotine dependence, chewing tobacco, uncomplicated; I25.10 Atherosclerotic heart disease of native coronary artery without angina pectoris; Z79.899 Other long term (current) drug therapy; Z79.82 Long term (current) use of aspirin; Z79.84 Long term (current) use of oral hypoglycemic drugs
CPT/HCPCS: 36415; 71045; 80048; 82962; 84484; 85025; 93005; 99218; 99285; 90686; A4216; G0378

== ENCOUNTER 2023-05-31 17:45 | Emergency (ER) | payer OTHER, BC, SELFPAY ==
[2023-05-31 17:46] VITALS: BP 135/88; PULSE 77; RESP 16; TEMP 36.4; O2SAT 98; BMI 33.0
--- NOTE | 2023-05-31 18:41 | CT_ITS ---
STUDY: CT BRAIN WITHOUT CONTRAST REASON FOR EXAM: Male, 58 years old. head injury RADIATION DOSAGE (If Supplied By Facility): CTDIvol = ( 44.99 ) mGy, DLP = ( 829.85 ) mGycm TECHNIQUE: Transaxial CT imaging of the brain was performed without administration of intravenous contrast material. Individualized dose optimization techniques were used for this CT. COMPARISON: No relevant priors. FINDINGS: Normal soft tissue structures. Normal calvarium. Normal size ventricles and extra-axial spaces for the patient''s age. Normal white matter tracts of the cerebral hemispheres. Normal basal ganglia and thalami. Normal brainstem. Normal cerebellum. There is no intracranial hemorrhage. There are no findings of an acute ischemic infarction. Normal visualized paranasal sinuses. CT/Brain/Head without Contrast IMPRESSION: Normal unenhanced CT scan of the brain. Electronically Signed: Aaron Bahena MD at 19:08 EST ,
--- NOTE | 2023-05-31 18:42 | EDS_ITS ---
<Statement entered by Lucita Miller MD - 05/31/23 23:47> I have personally performed a face to face assessment of the patient and have reviewed the NEYMAR Note. Patient presents secondary to head injury. He was at work today and bent over to pick something up. When he stood up he hit his head on a metal bar. He has an abrasion to the top of his scalp. He did reportedly have some nausea and vomiting after the injury, however states that he had some nausea and felt slightly queasy this morning and is not sure if this is related to the injury. Patient sitting upright in bed no acute distress. He was observed ambulating down the [place] without difficulty. Head and neck examination largely unremarkable. No C-spine tenderness. Heart is regular rate and rhythm. Lung sounds are clear. Abdomen is soft and nontender. Neuro exam is unremarkable. CT scan of the head obtained and unremarkable. Patient reassured with findings. He will use Tylenol or ibuprofen as needed at home. He does not report back to work until Saturday. He will follow-up with corporate care. 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 Around 3:30 PM he was leaning over cleaning something off the floor when he stood up and struck his head on an overhead metal bar. No loss of consciousness. Since then has had a throbbing headache that waxes and wanes and vomited x 1. He still feels nauseated. No visual or focal motor or sensory changes. He is not on blood thinners. [facility] Medical History Diabetes Hypertension Myocardial infarct Pancreatitis Sleep apnea Home Medications amlodipine 5 mg tablet 5 mg PO DAILY #30 tabs 01/23/21 [Rx Last Taken Unknown] aspirin 81 mg tablet 81 mg PO DAILY heart health 01/23/21 [History Last Taken 01/22/21 09:00] atorvastatin 40 mg tablet 40 mg PO QHS cholesterol 01/23/21 [History Last Taken 01/22/21 09:00] cinnamon bark 500 mg capsule 500 mg PO DAILY supplement 01/23/21 [History Last Taken 01/22/21 09:00] empagliflozin 10 mg tablet (Jardiance) 10 mg PO DAILY diabetes 01/23/21 [History Last Taken 01/22/21 09:00] fluticasone propionate 50 mcg/actuation nasal spray,suspension 2 spray intranasal DAILY allergies 01/23/21 [History Last Taken 01/22/21 09:00] insulin glargine 100 unit/mL subcutaneous cartridge 40 unit subcut QPM diabetes 01/23/21 [History Last Taken 01/22/21 09:00] isosorbide mononitrate 30 mg tablet,extended release 24 hr 30 mg PO DAILY heart 01/23/21 [History Last Taken 01/22/21 09:00] lisinopril 5 mg tablet 5 mg PO DAILY blood pressure 01/23/21 [History Last Taken 01/22/21 09:00] loratadine 10 mg tablet 10 mg PO DAILY allergies 01/23/21 [History Last Taken 01/22/21 09:00] metformin 1,000 mg tablet 1,000 mg PO BID diabetes 01/23/21 [History Last Taken 01/22/21 09:00] metoprolol succinate 25 mg tablet,extended release 24 hr 25 mg PO DAILY blood pressure 01/23/21 [History Last Taken 01/22/21 09:00] nitroglycerin 0.4 mg sublingual tablet 0.4 mg sublingual Q5M PRN Chest Pain 01/23/21 [History Last Taken 01/23/21 02:00] therapeutic multivitamin 1 tab PO DAILY vitamin 01/23/21 [History Last Taken 01/22/21 09:00] ticagrelor 90 mg tablet (Brilinta) 90 mg PO BID heart 01/23/21 [History Last Taken 01/22/21 09:00] Allergy/AdvReac Type Severity Reaction Status Date / Time bupropion Allergy Other Verified 05/31/23 17:45 hydrochlorothiazide Allergy Other Verified 05/31/23 17:45 [From Hyzaar] losartan [From Hyzaar] Allergy Other Verified 05/31/23 17:45 trandolapril [From Mavik] Allergy Other Verified 05/31/23 17:45 Family History Other Heart disease Surgical History History of carpal tunnel surgery History of tonsillectomy Stented coronary artery Social History household members: spouse and family housing: house current occupational status: employed Smoking Status: Current every day smoker tobacco type: smokeless tobacco Smokeless tobacco user: chewing tobacco ROS ROS ED ROS Narrative Eyes: Negative for visual change. GI: Positive for nausea, vomiting. Neuro: Positive for headache, negative for motor/sensory dysfunction. EXAM Physical Exam Narrative Exam Narrative: CONST: Patient sitting in no acute distress. EYES: Normal inspection. PERRL, EOMI. ENT: Small linear abrasions on left temporoparietal scalp, no deformity or crepitus, no raccoon eyes or schofield sign, no hemotympanum, no nasal septal hematoma, no CSF otorrhea or rhinorrhea. NECK: Normal inspection. No midline spinal tenderness, no step off or crepitus. RESP: No respiratory distress, CTAB. CVS: Regular rate and rhythm, no murmur, no gallop. SKIN: Color normal, no rash, warm, dry, intact. EXTREMITIES: Normal appearance, no pedal edema. NEURO: Oriented x4. PSYCH: Normal affect. Const Vital Signs: 05/31/23 17:46 Temperature 97.6 F L Temperature Source Temporal Pulse Rate 77 Respiratory Rate 16 Blood Pressure 135/88 H Blood Pressure Mean 103 Pulse Ox 98 Oxygen Delivery Method Room Air MDM MDM MDM Narrative Medical decision making narrative: Patient had a closed head injury at work. No LOC or blood thinners. Complains of headache and vomiting x 1. He is awake alert with GCS 15. Vital signs stable. He has left-sided scalp abrasions but no signs of basilar skull fracture and is neurologically intact. CT brain shows no acute process. He was treated with Advil and Zofran and I discussed symptomatic care at home. He is not scheduled again until 06/03/23 and feels he can go back to work with no restrictions at that time. Return precautions were discussed and he was discharged in stable condition. Radiography Diagnostic Testing: Clinical Impression(s) from Imaging Studies Brain CT 05/31/23 18:41 IMPRESSION: Normal unenhanced CT scan of the brain. Electronically Signed: Aaron Bahena MD at 19:08 EST , Discharge Plan Triage Chief Complaint: Head Injury ED Midlevel Provider: Livia Delvalle ED Provider: Lucita Miller Dx/Rx/DC Orders Clinical Impression: Closed head injury, Abrasion of scalp, Concussion Instructions: After a Concussion Prescriptions: No Action isosorbide mononitrate 30 mg Tablet Extended Release 24 Hr 30 mg PO DAILY nitroglycerin 0.4 mg Tablet, Sublingual 0.4 mg SUBLINGUAL Q5M PRN (Reason: Chest Pain) aspirin 81 mg Tablet 81 mg PO DAILY lisinopril 5 mg Tablet 5 mg PO DAILY metoprolol succinate 25 mg Tablet Extended Release 24 Hr 25 mg PO DAILY loratadine 10 mg Tablet 10 mg PO DAILY insulin glargine 100 unit/mL Cartridge 40 unit SUBCUT QPM Brilinta 90 mg Tablet 90 mg PO BID Jardiance 10 mg Tablet 10 mg PO DAILY atorvastatin 40 mg Tablet 40 mg PO QHS therapeutic multivitamin Tablet 1 tab PO DAILY metformin 1,000 mg Tablet 1,000 mg PO BID fluticasone propionate 50 mcg/actuation [place],Suspension 2 spray INTRANASAL DAILY cinnamon bark 500 mg Capsule 500 mg PO DAILY amlodipine 5 mg Tablet 5 mg PO DAILY Qty: 30 0RF Primary Care Provider: MAGGIE MARQUEZ Referrals: [facility] Doctor,Out of [Non-Staff] - Activity Restrictions/Additional Instructions: Your CT scan showed no evidence of internal injuries. Take Tylenol or Advil as needed. Sometimes phone screens or TVs can aggravate concussion symptoms so avoid this if so. If symptoms worsen please be reevaluated.
--- OUTSIDE RECORDS SUMMARY | 2023-05-31 19:16 | XMS RPT_ITS | CCD ---
Author Name Unknown Address [id number] [place] [address] Organization [facility] Care Team Providers Care Postal Clerk Name Role Phone Chemo Drummond Unavailable Ludy GUZMAN, Rashawn Jernigan Primary Care Provide r Free, Text Entry Unavailable Unavailable Kamar Judd Unavailable Kamar Galindo Unavailable Zafar Espinoza Unavailable Unavailable Maggie Marquez MD Primary Care Pro vider Rashawn Boston MD Unavailable Rashawn Boston MD Unavailable Maggie Marquez MD Unavailable MAGGIE MARQUEZ Primary Care Jerrica vailable ROSA CLAY Referring Unavailable ROSA CLAY Admitting Unavailable Maggie Marquez MD Primary Care Pro vider Maggie Marquez MD Unavailable Maggie Marquez MD Primary Care Pro vider Maggie Marquez MD Unavailable Maggie Marquez MD Unavailable Fouzia Montgomery Unavailable Unavailable JIMMY, MAGGIE PRAVEEN MOUNIR Primary Care Jerrica vailable JACKIE MATA Attending Unavailable JIMMY, MAGGIE PRAVEEN MOUNIR Primary Care Jerrica vailable ANNABELLE SONI Attending Unavailab le JIMMY, MAGGIE PRAVEEN MOUNIR Primary Care Jerrica vailable MINDY BOND Attending Unavailable Jimmy MD, Maggie Praveen Mounir Unavailable JIMMY, MAGGIE PRAVEEN MOUNIR Primary Care Jerrica vailable MAEGAN ROCK Attending Unavailable JIMMY, MAGGIE PRAVEEN MOUNIR Primary Care Jerrica vailable MONICA URBANO Attending Unavailable JIMMY, MAGGIE PRAVEEN MOUNIR Primary Care Jerrica vailable JIMMY, MAGGIE PRAVEEN MOUNIR Attending Jerrica vailable JIMMY, MAGGIE PRAVEEN MOUNIR Primary Care Jerrica vailable ALEJANDRO KEENAN Attending Unavailable JIMMY, MAGGIE PRAVEEN MOUNIR Primary Care Jerrica vailable JIMMY, MAGGIE PRAVEEN MOUNIR Attending Jerrica vailable JIMMY, MAGGIE PRAVEEN MOUNIR Referring Jerrica vailable JIMMY, MAGGIE PRAVENE MOUNIR Admitting Jerrica vailable JIMMY, MAGGIE PRAVEEN MOUNIR Primary Care Jerrica vailable AGUSTÍN KNIGHT Attending Unavailable JIMMY, MAGGIE PRAVEEN MOUNIR Primary Care Jerrica vailable JIMMY, MAGGIE PRAVEEN MOUNIR Attending Jerrica vailable JIMMY, MAGGIE PRAVEEN MOUNIR Referring Jerrica vailable JACKELYN GONZALEZ M. Attending Unavailable JIMMY, MAGGIE PRAVEEN MOUNIR Primary Care Jerrica vailable JIMMY, MAGGIE PRAVEEN MOUNIR Attending Jerrica vailable JIMMY, MAGGIE PRAVEEN MOUNIR Primary Care Jerrica vailable JIMMY, MAGGIE PRAVEEN MOUNIR Attending Jerrica vailable JIMMY, MAGGIE PRAVEEN MOUNIR Primary Care Jerrica vailable YUMIKO GONZALEZNKCLARISSA M. Attending Unavailable JIMMY, MAGGIE PRAVEEN MOUNIR Primary Care Jerrica vailable JIMMY, MAGGIE PRAVEEN MOUNIR Primary Care Jerrica vailable CALLIE LANGSTON Attending Unavailable JIMMY, MAGGIE PRAVEEN MOUNIR Primary Care Jerrica vailable JIMMY, MAGGIE PRAVEEN MOUNIR Attending Jerrica vailable GONZALO, GLEN FLEMING Admitting Unavail able GONZALOGLEN DOAN Attending Unavail able JIMMY, MAGGIE PRAVEEN MOUNIR Primary Care Jerrcia vailable JIMMY, MAGGIE PRAVEEN MOUNIR Referring Jerrica vailable JIMMY, MAGGIE PRAVEEN MOUNIR Primary Care Jerrica vailable JIMMY, MAGGIE PRAVEEN MOUNIR Admitting Jerrica vailable JIMMY, MAGGIE PRAVEEN MOUNIR Primary Care Jerrica vailable JIMMY, MAGGIE PRAVEEN MOUNIR Referring Jerrica vailable JIMMY, MAGGIE PRAVEEN MOUNIR Primary Care Jerrica vailable JIMMY, MAGGIE PRAVEEN MOUNIR Attending Jerrica vailable RAE HARLEY Attending Unavailable JACKIE MATA Referring Unavailable DREWNITHYA BEARD Consulting Unavailable PATRICIA LOUIS Admitting Unavailable JIMMY, MAGGIE RPAVEEN MOUNIR Primary Care Jerrica vailable Allergies Allergy Classification Reported Allergen(s) Phong rgy Type Date of Onset Reaction(s) Facility Aminoketones (1 source) buPROPion Drug Allergy 018 Palpitations [facility] Work Phone: Angiotensin Converting Enzyme (MAYTE) Inhibitors (1 source) trandolapril Drug Allergy 016 [facility] hydroCHLOROthiazide / Losartan (1 source) hydroCHLOROthiazide / Losartan Drug Allergy [facility] (20 sources) buPROPion; Translations: [BUPROPION] Drug Allergy 018 Palpitations [facility] (20 sources) hydroCHLOROthiazide / Losartan; Translations: [LOSARTAN-HYDROCHLORO THIAZIDE] Drug Allergy 016 [facility] (20 sources) trandolapril; Translations: [TRANDOLAPRIL] Drug Allergy 016 [facility] (2 sources) hydroCHLOROthiazide / Losartan Drug Allergy Rash [facility] (2 sources) trandolapril Drug Allergy Hives/Urticari a [facility] (20 sources) hydroCHLOROthiazide; Translations: [HYDROCHLOROTHIAZIDE] Drug Allergy 10-04-2 021 Other (See Comments) [facility] (20 sources) Losartan; Translations: [LOSARTAN] Drug Allergy Other (See Comments) [facility] Medications Current Medications Medication Drug Class(es) Dates Sig (Normalized) Sig (Original) amLODIPine 5 mg oral tablet (20 sources) Dihydropyridine Calcium Channel Nicole Start: 11-14-2021 End: 11-06-2023 take 1 tablet by mouth once daily amLODIPine (NORVASC) 5 MG tablet Indications: Essential hypertension Take 1 (one) tablet (5 mg total) by mouth daily . 90 tablet 3 11/06/2022 11/06/2023 Active Completed/Discontinued Medications Medication Drug Class(es) Dates Sig (Normalized) Sig (Original) acetaminophen 325 mg oral tablet (2 sources) Start: 08-31-2022 End: 09-01-2022 take 1 tablet by mouth every four hours as needed for pain and headache acetaminophen (TYLENOL) tablet 650 mg Problems Active Problems Problem Classification Problem Date Documented Date Episodic/Chronic Acute myocardial infarction (1 source) Myocardial infarction; Translations: [Subendocardial infarction, initial episode of care] 12-08-2020 Chronic Anxiety disorders (20 sources) Generalized anxiety disorder; Translations: [Generalized anxiety disorder] Onset: 11-30-2020 11-30-2020 Chronic Aortic; peripheral; and visceral artery aneurysms (20 sources) Dilatation of aorta; Translations: [Aortic ectasia, unspecified site] Onset: 03-19-2022 Chronic Coronary atherosclerosis and other heart disease (20 sources) Coronary arteriosclerosis in [place] artery; Translations: [Atherosclerotic heart disease of [place] coronary artery with unspecified angina pectoris] Onset: 12-13-2020 Chronic Diabetes mellitus with complications (2 sources) Type 2 diabetes mellitus with other specified complication; Translations: [Type 2 diabetes mellitus with other specified complication] Onset: 08-01-2015 Chronic Diabetes mellitus without complication (20 sources) Type 2 diabetes mellitus; Translations: [Diabetes mellitus] Onset: 08-01-2015 08-01-2015 Chronic Disorders of lipid metabolism (20 sources) Mixed hyperlipidemia; Translations: [Hyperlipidemia] Onset: 08-01-2015 08-01-2015 Chronic Esophageal disorders (20 sources) Gastroesophageal reflux disease; Translations: [Gastro-esophageal reflux disease without esophagitis] Onset: 04-18-2018 04-18-2018 Chronic Essential hypertension (20 sources) Hypertensive disorder; Translations: [Essential hypertension] Onset: 12-16-2020 08-01-2015 Chronic Genitourinary symptoms and ill-defined conditions (3 sources) Urge incontinence of urine; Translations: [Urge incontinence] Onset: 11-29-2022 11-29-2022 Chronic Hyperplasia of prostate (3 sources) Benign prostatic hypertrophy with outflow obstruction; Translations: [Benign prostatic hyperplasia with lower urinary tract symptoms] Onset: 11-29-2022 11-29-2022 Chronic Other aftercare (4 sources) long term care administrator (current) use of insulin; Translations: [long term care administrator (current) use of insulin] Onset: 08-01-2015 Episodic Other male genital disorders (3 sources) Male erectile dysfunction, unspecified; Translations: [Impotence of organic origin] Onset: 11-29-2022 11-29-2022 Chronic Other nervous system disorders (20 sources) Bilateral carpal tunnel syndrome; Translations: [Carpal tunnel syndrome, bilateral upper limbs] Onset: 04-18-2018 04-18-2018 Chronic Other nervous system disorders (2 sources) Carpal tunnel syndrome, bilateral upper limbs; Translations: [Carpal tunnel syndrome, bilateral] Onset: 04-18-2018 04-18-2018 Other nutritional; endocrine; and metabolic disorders (20 sources) Obesity; Translations: [Obesity, unspecified] 04-18-2018 Chronic Other upper respiratory disease (20 sources) Allergic rhinitis; Translations: [Allergic rhinitis, unspecified] Onset: 04-18-2018 04-18-2018 Chronic Other upper respiratory disease (4 sources) Seasonal allergic rhinitis; Translations: [Other seasonal allergic rhinitis] Chronic Other upper respiratory disease (2 sources) Other seasonal allergic rhinitis; Translations: [Other seasonal allergic rhinitis] Onset: 04-18-2018 Chronic Residual codes; unclassified (20 sources) Sleep apnea; Translations: [Sleep apnea, unspecified] Onset: 04-22-2001 Chronic Residual codes; unclassified (2 sources) Obstructive sleep apnea syndrome; Translations: [Obstructive sleep apnea (adult) (pediatric)] Chronic Residual codes; unclassified (1 source) Needs influenza immunization; Translations: [Needs flu shot] Episodic Residual codes; unclassified (20 sources) Tobacco use and exposure - finding; Translations: [Tobacco use] 08-01-2015 Episodic Screening and history of mental health and substance abuse codes (1 source) Tobacco use and exposure - finding; Translations: [Tobacco use] 08-01-2015 Chronic Unclassified (1 source) NSTEMI, initial episode of care 12-08-2020 Unclassified (2 sources) ELEVATED TROPONIN I21.4 12-10-2020 Past or Other Problems Problem Classification Problem Date Documented Date Episodic/Chronic Abdominal pain (17 sources) Epigastric pain; Translations: [Epigastric pain] Onset: 02-12-2022 02-12-2022 Episodic Genitourinary symptoms and ill-defined conditions (3 sources) Increased frequency of urination; Translations: [Frequency of micturition] Onset: 11-29-2022 11-29-2022 Episodic Immunizations and screening for infectious disease (11 sources) Patient encounter status; Translations: [Encounter for screening for human immunodeficiency virus [HIV]] Onset: 01-24-2023 Episodic Nausea and vomiting (20 sources) Nausea; Translations: [Nausea] Onset: 03-14-2022 Episodic Nonspecific chest pain (20 sources) Precordial pain; Translations: [Precordial pain] Onset: 08-01-2015 Resolved: 04-18-2018 04-18-2018 Episodic Results Test Name Value Interpretation Reference Range Facil ity Vital Signs Date Time Vital Sign Value Performing Clinician Trina sandoval 05-07-2023 11:18-0500 Body height 167.6 cm Maggie Marquez MD Work Phone: [facility] 05-07-2023 11:18-0500 Body mass index (BMI) [Ratio] 32.77 kg/m2 Maggie Marquez MD Work Phone: [facility] 05-07-2023 11:18-0500 Body temperature 98.01 [degF] Maggie Marquez MD Work Phone: [facility] 05-07-2023 11:18-0500 Body weight 92.08 kg Maggie Marquez MD Work Phone: [facility] 05-07-2023 11:18-0500 Diastolic blood pressure 81 mm[Hg] Maggie Marquez MD Work Phone: [facility] 01-16-2024 11:18-0500 Heart rate 60 /min Maggie Marquez MD Work Phone: [facility] 05-07-2023 11:18-0500 Respiratory rate 16 /min Maggie Marquez MD Work Phone: [facility] 05-07-2023 11:18-0500 SaO2% (BldA) [Mass fraction] 94 % Maggie Marquez MD Work Phone: [facility] 05-07-2023 11:18-0500 Systolic blood pressure 124 mm[Hg] Maggie Marquez MD Work Phone: [facility] 02-26-2023 14:49-0500 Body height 167.6 cm Jackelyn Gonzalez MD Work Phone: [facility] 02-26-2023 14:49-0500 Body mass index (BMI) [Ratio] 30.88 kg/m2 Jackelyn Gonzalez MD Work Phone: [facility] 02-26-2023 14:49-0500 Body weight 86.77 kg Jackelyn Gonzalez MD Work Phone: [facility] 02-26-2023 14:49-0500 Diastolic blood pressure 71 mm[Hg] Jackelyn Gonzalez MD Work Phone: [facility] 02-26-2023 14:49-0500 Heart rate 48 /min Jackelyn Gonzalez MD Work Phone: [facility] 02-26-2023 14:49-0500 SaO2% (BldA) [Mass fraction] 95 % Jackelyn Gonzalez MD Work Phone: [facility] 02-26-2023 14:49-0500 Systolic blood pressure 120 mm[Hg] Jackelyn Gonzalez MD Work Phone: [facility] 01-24-2023 09:06-0400 Body height 167.6 cm Maggie Marquez MD Work Phone: [facility] 01-24-2023 09:06-0400 Body mass index (BMI) [Ratio] 31.31 kg/m2 Maggie Marquez MD Work Phone: [facility] 01-24-2023 09:06-0400 Body temperature 98.01 [degF] Maggie Marquez MD Work Phone: [facility] 01-24-2023 09:06-0400 Body weight 88 kg Maggie Marquez MD Work Phone: [facility] 01-24-2023 09:06-0400 Diastolic blood pressure 76 mm[Hg] Maggie Marquez MD Work Phone: [facility] 01-24-2023 09:06-0400 Heart rate 59 /min Maggie Marquez MD Work Phone: [facility] 01-24-2023 09:06-0400 Respiratory rate 16 /min Maggie Marquez MD Work Phone: [facility] 01-24-2023 09:06-0400 SaO2% (BldA) [Mass fraction] 95 % Maggie Marquez MD Work Phone: [facility] 01-24-2023 09:06-0400 Systolic blood pressure 123 mm[Hg] Maggie Marquez MD Work Phone: [facility] 11-29-2022 08:35-0400 Body mass index (BMI) [Ratio] 33.41 kg/m2 Agustín Knight MD Work Phone: [facility] 11-29-2022 08:35-0400 Body weight 93.89 kg Agustín Knight MD Work Phone: [facility] 11-29-2022 08:35-0400 Diastolic blood pressure 81 mm[Hg] Agustín Knight MD Work Phone: [facility] 11-29-2022 08:35-0400 Heart rate 52 /min Agustín Knight MD Work Phone: [facility] 11-29-2022 08:35-0400 SaO2% (BldA) [Mass fraction] 96 % Agustín Knight MD Work Phone: [facility] 11-29-2022 08:35-0400 Systolic blood pressure 131 mm[Hg] Agustín Knight MD Work Phone: [facility] 11-06-2022 07:42-0400 Diastolic blood pressure 92 mm[Hg] Maggie Marquez MD Work Phone: [facility] 11-06-2022 07:42-0400 Heart rate 58 /min Maggie Marquez MD Work Phone: [facility] 11-06-2022 07:42-0400 Systolic blood pressure 162 mm[Hg] Maggie Marquez MD Work Phone: [facility] 11-06-2022 07:03-0400 Body height 167.6 cm Maggie Marquez MD Work Phone: [facility] 11-06-2022 07:03-0400 Body mass index (BMI) [Ratio] 34.22 kg/m2 Maggie Marquez MD Work Phone: [facility] 11-06-2022 07:03-0400 Body temperature 98.2 [degF] Maggie Marquez MD Work Phone: [facility] 11-06-2022 07:03-0400 Body weight 96.16 kg Maggie Marquez MD Work Phone: [facility] 11-06-2022 07:03-0400 Respiratory rate 16 /min Maggie Marquez MD Work Phone: [facility] 11-06-2022 07:03-0400 SaO2% (BldA) [Mass fraction] 97 % Maggie Marquez MD Work Phone: [facility] 09-01-2022 07:09-0400 Body temperature 97.2 [degF] Generic [facility] Work Phone: [facility] 09-01-2022 07:09-0400 Diastolic blood pressure 75 mm[Hg] Generic [facility] Work Phone: [facility] 09-01-2022 07:09-0400 Heart rate 51 /min [facility] Work Phone: [facility] 09-01-2022 07:09-0400 Respiratory rate 18 /min [facility] Work Phone: [facility] 09-01-2022 07:09-0400 SaO2% (BldA) [Mass fraction] 96 % [facility] Work Phone: [facility] 09-01-2022 07:09-0400 Systolic blood pressure 123 mm[Hg] [facility] Work Phone: [facility] 08-31-2022 12:34-0400 Body height 167.6 cm [facility] Work Phone: [facility] 08-31-2022 12:34-0400 Body mass index (BMI) [Ratio] 34.73 kg/m2 [facility] Work Phone: [facility] 08-31-2022 12:34-0400 Body weight 97.6 kg [facility] Work Phone: [facility] 08-03-2022 09:04-0400 Body height 167.6 cm Callie eHnrybek SADDLE STITCHING MACHINE OPERATOR Work Phone: [facility] 08-03-2022 09:04-0400 Body mass index (BMI) [Ratio] 33.31 kg/m2 Callie Parobek SADDLE STITCHING MACHINE OPERATOR Work Phone: [facility] 08-03-2022 09:04-0400 Body weight 93.62 kg Callie Parobek SADDLE STITCHING MACHINE OPERATOR Work Phone: [facility] 08-03-2022 09:04-0400 Diastolic blood pressure 88 mm[Hg] Callie Parobek SADDLE STITCHING MACHINE OPERATOR Work Phone: [facility] 08-03-2022 09:04-0400 Heart rate 61 /min Callie Parobek SADDLE STITCHING MACHINE OPERATOR Work Phone: [facility] 08-03-2022 09:04-0400 SaO2% (BldA) [Mass fraction] 95 % Callie Parobek SADDLE STITCHING MACHINE OPERATOR Work Phone: [facility] 08-03-2022 09:04-0400 Systolic blood pressure 153 mm[Hg] Callie Langston CNP Work Phone: [facility] 07-23-2022 08:59-0400 Body height 167.6 cm Jackelyn Gonzalez MD Work Phone: [facility] 07-23-2022 08:59-0400 Body mass index (BMI) [Ratio] 32.6 kg/m2 Jackelyn Gonzalez MD Work Phone: [facility] 07-23-2022 08:59-0400 Body weight 91.63 kg Jackelyn Gonzalez MD Work Phone: [facility] 07-23-2022 08:59-0400 Diastolic blood pressure 84 mm[Hg] Jackelyn Gonzalez MD Work Phone: [facility] Encounters Encounter Date Encounter Type Care Provider Facility Start: 05-07-2023 End: 05-11-2023 ambulatory MAGGIE MARQUEZ [facility] Start: 05-07-2023 End: 05-07-2023 Office outpatient visit 25 minutes Maggie Marquez MD Work Phone: [facility] Procedures Date Procedure Procedure Detail Performing Clinician Start: 05-07-2023 Microalbumin [Mass/v olume] in Urine by Test strip Maggie Marquez MD Work Phone: Start: 01-24-2023 Hemoglobin glycosylated a1c Maggie Marquez MD Work Phone: Start: 11-29-2022 Urnls dip stick/tabl et rgnt auto w/o microscopy Agustín Knight MD Work Phone: Start: 11-29-2022 MEASURE POST VOID RESIDUAL Agustín Knight MD Work Phone: Start: 11-06-2022 3 comp foot exam completed Maggie Marquez MD Work Phone: Start: 09-10-2022 Adult depression scr eening assessment Maggie Marquez MD Work Phone: Start: 09-05-2022 Microalbumin [Mass/v olume] in Urine by Test strip Maggie Marquez MD Work Phone: Start: 09-01-2022 Glucose measurement Gen [facility] Work Phone: Start: 09-01-2022 Basic metabolic pane l calcium total Patricia Louis MD Work Phone: Start: 08-31-2022 Glucose measurement [facility] Work Phone: Start: 08-31-2022 Us abdominal real ti me w/image limited Giselle Winsome Denisse Posadas SADDLE STITCHING MACHINE OPERATOR Work Phone: Start: 08-31-2022 Cardiac catheterization Giselle Salcedo Katharina SADDLE STITCHING MACHINE OPERATOR Work Phone: Start: 08-31-2022 Glucose measurement [facility] Work Phone: Start: 08-31-2022 Hemoglobin glycosylated a1c Patricia Louis MD Work Phone: Start: 08-31-2022 Lipid panel Patricia azul MD Work Phone: Start: 07-27-2022 Colonoscopy Callie hernandez [facility] Work Phone: Start: 03-23-2022 Ophthalmic examinati on and evaluation Jackelyn Gonzalez MD Work Phone: Start: 03-19-2022 Hemoglobin glycosylated a1c Maggie Marquez MD Work Phone: Start: 12-06-2021 Microalbumin [Mass/v olume] in Urine by Test strip Maggie Marquez MD Work Phone: Start: 06-23-2021 3 comp foot exam completed Maggie Marquez MD Work Phone: Start: 03-31-2021 Microalbumin [Mass/v olume] in Urine by Test strip Jd Cabrales MD Work Phone: Start: 03-30-2021 Hemoglobin glycosylated a1c Maggie Marquez MD Work Phone: Start: 02-16-2021 Ophthalmic examinati on and evaluation Maggie Marquez MD Work Phone: Start: 12-16-2020 Adult depression scr eening assessment Rashawn Boston MD Work Phone: Start: 12-15-2020 Glucose measurement Brit Smith MD Work Phone: Start: 12-15-2020 Glucose measurement Brit Smith MD Work Phone: Start: 12-14-2020 Glucose measurement Brit Smith MD Work Phone: Start: 12-14-2020 Glucose measurement Brit Smith MD Work Phone: Start: 12-14-2020 Cardiac catheterization Destiney Emerson [facility] Work Phone: Start: 12-14-2020 Glucose measurement Brit Smith MD Work Phone: Start: 12-14-2020 Basic metabolic pane l calcium total Aguila Ortega MD Work Phone: Start: 12-14-2020 End: 12-14-2020 Glucose measurement Ashish Smith MD Work Phone: Start: 12-13-2020 Glucose measurement Brit Smith MD Work Phone: Start: 12-13-2020 Assay of troponin quantitative Aguila Ortega MD Work Phone: Start: 12-13-2020 Glucose measurement Brit Smith MD Work Phone: Start: 12-13-2020 Echo transthorc r-t 2d w/wo m-mode rec f-up/lmtd Aguila Ortega MD Work Phone: Start: 12-13-2020 Ecg routine ecg w/le ast 12 lds trcg only w/o i&r Aguila Ortega MD Work Phone: Start: 12-13-2020 Assay of troponin quantitative Jackelyn Gonzalez MD Work Phone: Start: 12-13-2020 Basic metabolic pane l calcium total Aguila Ortega MD Work Phone: Start: 12-09-2020 End: 12-09-2020 EKG impression Monique Díaz Start: 12-08-2020 End: 12-08-2020 EKG impression Kamar Judd Start: 12-08-2020 End: 12-08-2020 EKG impression Kamar Judd Start: 12-08-2020 End: 12-08-2020 EKG impression Kamar Judd Start: 04-18-2018 End: 04-18-2018 Urine microalbumin/creatinine ratio measurement Chemo Drummond Work Phone: Start: 04-18-2018 End: 04-18-2018 Urinalysis macro (dipstick) panel - Urine Chemo Drummond Work Phone: Start: 04-18-2018 End: 04-18-2018 Glucose [Mass/volume] in Blood Chemo Drummond Work Phone: Start: 04-18-2018 End: 04-18-2018 Hemoglobin A1c/Hemoglobin.total in Blood Chemo Drummond Work Phone: Start: 04-18-2018 Adult depression scr eening assessment Chemo Drummond MD Work Phone: Start: 04-18-2018 Microalbumin [Mass/v olume] in Urine by Test strip Chemo Drummond Start: 02-20-2018 Ophthalmic examinati on and evaluation Chemo Drummond Start: 05-24-2016 Colonoscopy Maggie modi MD Work Phone: Plan of Treatment Date Care Activity Detail Author Start: 01-24-2033 Tetanus vaccination Tetanus: Every 10yrs [facility] Start: 07-27-2032 Screening for malignant neoplasm of colon [facility] Start: 2031 Pneumococcal Vaccine: Ped or At-Risk (2 of 2 - PPSV23) Pneumococcal Vaccine: Ped or At-Risk (2 of 2 - PPSV23) [facility] Start: 05-24-2026 Screening for malignant neoplasm of colon [facility] Start: 05-07-2024 Urine screening for protein Urine Microalbumin [facility] Start: 11-07-2023 Diabetic foot examination [facility] Start: 09-11-2023 Depression screening using PHQ-9 (Patient Health Questionnaire 9) score Depression Screening (PHQ-2/9) [facility] Start: 09-06-2023 Urine screening for protein Urine Microalbumin [facility] Start: 08-19-2023 End: 08-19-2023 Patient encounter procedure 08/19/2023 9:40 AM EDT Office Visit [facility] [address] [place] [address] Jackelyn Gonzalez MD [address] [place] [address] [facility] Start: 08-08-2023 End: 08-08-2023 Patient encounter procedure 08/08/2023 7:00 AM EDT Office Visit [facility] [address] [place] [address] Maggie Marquez MD [address] [place] [id number] [facility] Start: 08-06-2023 Hemoglobin A1c measurement A1C [facility] Start: 07-26-2023 Hemoglobin A1c measurement A1C [facility] Start: 05-07-2023 End: 05-07-2023 Patient encounter procedure 05/07/2023 11:20 AM EST Office Visit [facility] [address] [place] [address] Maggie Marquez MD [facility] [address] [address] [facility] Start: 04-26-2023 Hemoglobin A1c measurement A1C [facility] Start: 03-31-2023 Prostate specific antigen measurement PSA Level [facility] Start: 03-23-2023 Glaucoma screening [facility] Start: 03-11-2023 End: 03-11-2023 Patient encounter procedure 03/11/2023 8:00 AM EST Appointment [facility] [address] [place] [address] Maggie Marquez MD [address] [address] [facility] Start: 02-26-2023 End: 02-26-2023 Patient encounter procedure 02/26/2023 2:40 PM EST Office Visit [facility] [address] [facility] [place] [address] Jackelyn Gonzalez MD [address] [place] [address] [facility] Start: 01-24-2023 End: 01-24-2023 Patient encounter procedure 01/24/2023 9:20 AM EDT Office Visit [facility] [address] [place] [address] Maggie Marquez MD [address] [address] [facility] Start: 12-21-2022 COVID-19 Vaccine () COVID-19 Vaccine () [facility] Start: 12-21-2022 Influenza vaccination Sequential Influenza Vaccine (#1) [facility] Start: 12-06-2022 Hemoglobin A1c measurement A1C [facility] Start: 12-06-2022 Urine screening for protein Urine Microalbumin [facility] Start: 12-01-2022 Hemoglobin A1c measurement A1C [facility] Start: 11-29-2022 End: 11-29-2022 Patient encounter procedure 11/29/2022 8:30 AM EDT Office Visit [facility] [address] [place] [address] Maggie Marquez MD [address] [address] Agustín Knight MD [address] [place] [address] [facility] Start: 09-16-2022 Hemoglobin A1c measurement A1C [facility] Start: 09-10-2022 End: 09-10-2022 Patient encounter procedure [facility] Start: 08-03-2022 End: 08-03-2022 Patient encounter procedure [facility] G[facility] Start: 07-27-2022 End: 07-27-2022 Admission to same day surgery center [facility] Periop Immunizations Immunization Date Immunization Notes Care Provider Fa [facility] 01-24-2023 diphtheria and tetan us toxoids, adsorbed for pediatric use Maggie Marquez MD Work Phone: [facility] 01-24-2023 influenza, injectabl e, quadrivalent, preservative free Maggie Marquez MD Work Phone: [facility] 01-24-2023 Pneumococcal Conjuga te 20-Valent (Prevnar 20) Maggie Marquez MD Work Phone: [facility] 01-24-2023 tetanus and diphther ia toxoids, adsorbed, preservative free, for adult use (2 Lf of tetanus toxoid and 2 Lf of diphtheria toxoid) Maggie Marquez MD Work Phone: [facility] 01-24-2023 flu vacc [id number] 6 mos up,PF, (FLUZONE QUAD/FLULAVAL QUAD/FLUARIX QUAD) 60 mcg (15 mcg x 4)/0.5 mL Syrg syringe Maggie Marquez MD Work Phone: [facility] 01-24-2023 pneumococcal conj. 2 0-valent (PREVNAR 20) 0.5 mL vaccine Maggie Marquez MD Work Phone: [facility] 01-14-2022 Influenza, injectabl e, Madin Radha Canine Kidney, preservative free, quadrivalent Maggie Marquez MD Work Phone: [facility] 01-30-2021 Seasonal, quadrivale nt, recombinant, injectable influenza vaccine, preservative free Qiana Gooden RN [facility] 01-23-2021 influenza, injectabl e, quadrivalent, contains preservative Maggie Marquez MD Work Phone: [facility] 01-23-2021 influenza, seasonal, injectable, preservative free Maggie Marquez MD Work Phone: [facility] 12-08-2020 pneumococcal polysac charide vaccine, 23 valent Maggie Marquez MD Work Phone: [facility] 07-23-2020 Deanna SARS-CoV-2 Vaccination Maggie Marquez MD Work Phone: [facility] 01-09-2020 influenza, injectabl e, quadrivalent, preservative free Maggie Marquez MD Work Phone: [facility] 01-09-2020 zoster vaccine recombinant D yamilka Marquez MD Work Phone: [facility] 05-18-2019 zoster vaccine recombinant D yamilka Marquez MD Work Phone: [facility] 03-09-2019 influenza virus vacc ine, unspecified formulation Maggie Marquez MD Work Phone: [facility] 04-18-2018 influenza, injectabl e, quadrivalent, preservative free; Translations: [INFLUENZA IIV4 3YO OR > FLUARIX/FLUZONE/AFLURIA 38414] Chemo Hoda [facility] 04-18-2018 influenza, seasonal, injectable Maggie Marquez MD Work Phone: [facility] 04-18-2018 flu vaccine qv 2018, 36mos up,,PF, sdv (FLUZONE QUAD) injection; Translations: [Flu Vaccine [id number] (36 Mos Up)(Pf)60 McG (15 McG X4)/0.5 Ml Im Susp] Chemo Hoda [facility] 04-18-2018 HEMOGLOBIN A1C Chemo Hoda [facility] 07-31-2017 influenza, injectabl e, quadrivalent, preservative free Maggie Marquez MD Work Phone: [facility] 07-31-2017 Influenza, Seasonal, Injectable Chemo Drummond [facility] 01-21-2016 influenza virus vacc ine, unspecified formulation Maggie Marquez MD Work Phone: [facility] 01-21-2016 influenza, seasonal, injectable Chemo Drummond [facility] 04-19-2015 influenza virus vacc ine, unspecified formulation Maggie Marquez MD Work Phone: [facility] 04-19-2015 influenza, seasonal, injectable Chemo Drummond [facility] 04-19-2015 influenza, seasonal, injectable, preservative free Maggie Marquez MD Work Phone: [facility] 01-29-2014 influenza virus vacc ine, unspecified formulation Maggie Marquez MD Work Phone: [facility] 01-29-2014 influenza, injectabl e, quadrivalent, preservative free Chemo Hoda [facility] 01-29-2014 influenza, seasonal, injectable, preservative free Maggie Marquez MD Work Phone: [facility] 07-21-2013 diphtheria, tetanus toxoids and acellular pertussis vaccine Chemo Drummond [facility] 07-21-2013 diphtheria, tetanus toxoids and acellular pertussis vaccine, unspecified formulation Maggie Marquez MD Work Phone: [facility] 06-20-2013 influenza virus vacc ine, unspecified formulation Maggie Marquez MD Work Phone: [facility] 06-20-2013 influenza, injectabl e, quadrivalent, preservative free Cheom Drummond [facility] 06-20-2013 pneumococcal polysac charide vaccine, 23 valent Chemo Drummond [facility] 06-20-2013 pneumococcal vaccine , unspecified formulation Maggie Marquez MD Work Phone: [facility] 03-03-2007 influenza virus vacc ine, unspecified formulation Chemo Drummond MD Work Phone: [facility] Payers Date Payer Category Payer Unknown [id number] 2020 Unknown [id number] 2020 Unknown [id number] 2015 Private Health Insurance [id number] 2015 Unknown [id number] 2015 Unknown 1966 Unknown [id number] 2.16. 840.1.035042.3.579.2.356 1966 Unknown [id number] 2.16. 840.1.241814.3.579.2.356 1966 Unknown [id number] 2.16. 840.1.689334.3.579.2.356 1966 Unknown [id number] 2.16. 840.1.106789.3.579.2.356 1966 Unknown [id number] 2.16. 840.1.713561.3.579.2.900 1966 Unknown [id number] 2.16. 840.1.524425.3.579.2.902 1966 Unknown [id number] 2.16. 840.1.878047.3.579.2.902 1966 Unknown [id number] 2.16. 840.1.259305.3.579.2.902 1966 Unknown [id number] 2.16. 840.1.626786.3.579.2.903 1966 Unknown [id number] 2.16. 840.1.451765.3.579.2.903 1966 Unknown [id number] 2.16. 840.1.517660.3.579.2.903 1966 Unknown [id number] 2.16. 840.1.312728.3.579.2.903 1966 Unknown [id number] 2.16. 840.1.778198.3.579.2.903 1966 Unknown [id number] 2.16. 840.1.363344.3.579.2.903 1966 Unknown [id number] 2.16. 840.1.139807.3.579.2.903 1966 Unknown [id number] 2.16. 840.1.181100.3.579.2.903 1966 Unknown [id number] 2.16. 840.1.628414.3.579.2.903 1966 Unknown [id number] 2.16. 840.1.452706.3.579.2.903 1966 Unknown [id number] 2.16. 840.1.317646.3.579.2.903 1966 Unknown [id number] 2.16. 840.1.252134.3.579.2.903 1966 Unknown [id number] 2.16. 840.1.245282.3.579.2.903 1966 Unknown [id number] 2.16. 840.1.836293.3.579.2.903 1966 Unknown [id number] 2.16. 840.1.634824.3.579.2.903 1966 Unknown [id number] 2.16. 840.1.909477.3.579.2.903 1966 Unknown [id number] 2.16. 840.1.214276.3.579.2.903 1966 Unknown [id number] 2.16. 840.1.719204.3.579.2.903 Social History Date Type Detail Facility Start: 04-20-2018 End: 09-10-2022 Tobacco smoking status IAIS Former smoker [facility] Start: 1965 Sex Assigned At Not on file [facility] End: 04-22-2014 History of tobacco use Current smoker [facility] End: 04-22-2014 History of tobacco use Cigarette Smoker [facility] Start: 11-30-2020 End: 09-10-2022 Tobacco use and exposure Current user [facility] History of tobacco use Chews Tobacco [facility] Start: 11-30-2020 End: 01-24-2023 Alcohol intake Current drinker of alcohol (finding) [facility] Start: 11-30-2020 Alcohol Comment rare [facility] Start: 07-11-2021 End: 09-03-2022 Exposure to SARS-CoV-2 (event) Not sure [facility] Tobacco smoking consumption unknown [facility] Start: 06-13-2021 End: 06-23-2021 Exposure to SARS-CoV-2 (event) Yes [facility] Start: 11-30-2020 End: 09-06-2022 Cigarette pack-years [facility] Start: 10-20-2021 End: 01-16-2022 Exposure to SARS-CoV-2 (event) Unable to assess [facility] Start: 03-14-2022 Tobacco Comment Chewing tobacco [facility] Start: 06-18-2022 End: 09-06-2022 Tobacco use panel [facility] Adult Depression Screening Assessment 0 [facility] Start: 04-18-2018 Gender identity Identifies as male gender (finding) [facility] Start: 04-18-2018 Sexual orientation Heterosexual (finding) [facility] How hard is it for y ou to pay for the very basics like food, housing, medical care, and heating Hard [facility] Start: 02-26-2023 End: 05-07-2023 Alcohol intake Ex-drinker (finding) [facility] Medical Equipment Procedure Code Equipment Code Equipment Origin al Text Equipment Identifier Dates by Miscellaneous route daily . [id number] Start: 06-23-2021 by Miscellaneous route daily . [id number] Start: 10-18-2021 1 application by Miscellaneous route nightly . [id number] Start: 11-30-2021 Functional Status Date Assessment Result Facility Functional observable [facility] Mental Status Date Assessment Result Facility 12-09-2020 Cognitive functions [id number] [facility] Clinical Notes 11-30-2020 to 05-08-2023 Addendum Note - Maggie Marquez MD - 05/08/2023 11:18 PM ESTAddendum Note - Maggie Marquez MD - 05/08/2023 11:18 PM Kimberly Gomez MA - 05/07/2023 12:20 PM EST Note Date & Type Note Facility 05-08-2023 Note Addended by: MAGGIE MARQUEZ on: 05/08/2023 11:18 PM Modules accepted: Orders [facility] 05-08-2023 Miscellaneous Notes Addended by: MAGGIE MARQUEZ on: 05/08/2023 11:18 PM Modules accepted: Orders Associated Problem(s): Diabetes mellitus (HCC) Diagnosed 2011. HgbA1c: pending. Will refer to diabetes eduction if the A1c >8. diet modified and discussed in detail today Last full eye exam: Jayne in May 2022. Normal Regular foot self-exams: done and normal today. Neuropathic symptoms: None Microalbumin: Macroalbuminuria, discussed today Statins: Lipitor 80 mg Medications: Levemir increased to 45 units with close monitoring if getting hypoglycemic episodes then decrease down to 38 units, if fasting blood sugars are above 140, Jardiance 25 mg refilled today and metformin 1000 mg twice daily. Please chck your prescriptions at home, might be running out and doesn't know Please take more ownership of diabetes control Freestyle miko 3, ordered today. Referral to diabetes education team ordered today. Patient is not a good candidate for GLP-1 agonist given recurrent pancreatitis Associated Problem(s): Aortic root dilation (HCC) Echo from January 2022 proximal ascending aorta borderline dilated 4.0 cm, we will repeat echo in February 2023 was stable with no worsening documented in this encounter [facility] 05-07-2023 Evaluation + Plan note Associated Problem(s): Diabetes mellitus (HCC) Diagnosed 2011. HgbA1c: pending. Will refer to diabetes eduction if the A1c >8. diet modified and discussed in detail today Last full eye exam: Jayne in May 2022. Normal Regular foot self-exams: done and normal today. Neuropathic symptoms: None Microalbumin: Macroalbuminuria, discussed today Statins: Lipitor 80 mg Medications: Levemir increased to 45 units with close monitoring if getting hypoglycemic episodes then decrease down to 38 units, if fasting blood sugars are above 140, Jardiance 25 mg refilled today and metformin 1000 mg twice daily. Please chck your prescriptions at home, might be running out and doesn't know Please take more ownership of diabetes control FreeINNOBI miko 3, ordered today. Referral to diabetes education team ordered today. Patient is not a good candidate for GLP-1 agonist given recurrent pancreatitis [facility] 05-07-2023 Evaluation + Plan note Associated Problem(s): Aortic root dilation (HCC) Echo from January 2022 proximal ascending aorta borderline dilated 4.0 cm, we will repeat echo in February 2023 was stable with no worsening [facility] 05-07-2023 History of Present illness Narrative Chief Complaint Patient presents with Follow-up HPI: Frederic Wu' is a 58 y.o. male who is presenting today to follow up for routine check. He has a past medical history of Arthritis, Asthma, DDD (degenerative disc disease), lumbar, Depressed, Diabetes mellitus (HCC), Facet arthropathy, lumbar, Hyperlipidemia, Hypertension indiigestion, Obesity, Pancreatitis, Sleep apnea (2001), and Tobacco use. [facility] [place]. Heartburn concerns were discussed today as well, has been taking Pepcid 40 mg once daily and not Prilosec. DM: Since 2011. A1c is 8.3 on 09/05/2022. Today is down to 6.7 % , made great changes in his diet. Metformin 1000 mg BID and lantus 40 units as well as Jardiance 25 mg. Has not been checking his sugars recently. Last eye exam Jayne in May 2022, normal. Foot exam done 07/21/2021 normal, . Eating lo mein noodles at night with beef sticks and BS spiking overnight. Usually dinner is 11 pm after his second shift. 05/07: has gained 12 lbs since the holidays , states has had 2 lbs lost since then. A1c average on [facility] is 8%, has not been evaluated with diabetes educations. Average BS is 180's. HTN Chronic , current regimen lisinopril and amlodipine uncontrolled today not checking at home. Aortic dilatation Echo from January 2022 proximal ascending aorta borderline dilated 4.0 cm, we will repeat echo in February 2023 was stable with no worsening. Past Medical History: Diagnosis Date Arthritis Back and hips Asthma Coronary artery disease COVID-19 04/12/2021 DDD (degenerative disc disease), lumbar [facility] L5-S1 Depressed 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 Diabetes mellitus, type 2 (HCC) Facet arthropathy, lumbar [facility] Lower History of cardiac cath History of stress test Hyperlipidemia 2014 Hypertension 1990 Indigestion 2005 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 Myocardial infarction (HCC) Obesity Pancreatitis 2017 Sleep apnea 2001 [facility] of 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 Sleep apnea, obstructive Tobacco use Past Surgical History: Procedure Laterality Date CARDIAC CATHETERIZATION N/A 08/31/2022 Procedure: Coronary Angiogram; Surgeon: Jb Trujillo MD; 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; Service: Cardiovascular CARPAL TUNNEL RELEASE Right COLONOSCOPY approximately 2017 COLONOSCOPY N/A 07/27/2022 Procedure: COLONOSCOPY; Surgeon: Glen Wasserman MD; Location: [facility]; Service: Gastroenterology CORONARY STENT PLACEMENT EGD N/A 07/27/2022 Procedure: ESOPHAGOGASTRODUODENOSCOPY with biopsy; Surgeon: Glen Wasserman MD; Location: [facility]; Service: Gastroenterology HC LEFT HEART CATH N/A 12/14/2020 Procedure: Left Heart Cath; Surgeon: Jb Trujillo MD; Location: [facility]; Service: Cardiovascular TONSILLECTOMY Family History Problem Relation Age of Onset Diabetes type II Mother Heart failure Father Heart attack Father Diabetes type II Father Stomach cancer Paternal Aunt Social History Tobacco Use Smoking status: Former Types: Cigarettes Quit date: 04/22/2014 Years since quittin.0 Smokeless tobacco: Current Types: Chew Tobacco comments: Chewing tobacco Vaping Use Vaping Use: Every day Substance Use Topics Alcohol use: Not Currently Comment: rare Drug use: No Review of Systems Vitals: 05/07/23 1118 BP: 124/81 BP Location: Right arm Patient Position: Sitting BP Cuff Size: X-large Adult Pulse: 60 Resp: 16 Temp: 98 F (36.7 C) TempSrc: Temporal SpO2: 94% Weight: 92.1 kg (203 lb) Height: 5' 6 Estimated body mass index is 32.77 kg/m as calculated from the following: Height as of this encounter: 5' 6 . Weight as of this encounter: 92.1 kg (203 lb). Physical Exam Constitutional: General: He is not in acute distress. Appearance: He is not ill-appearing. HENT: Head: Normocephalic and atraumatic. Eyes: Extraocular Movements: Extraocular movements intact. Conjunctiva/sclera: Conjunctivae normal. Pupils: Pupils are equal, round, and reactive to light. Cardiovascular: Rate and Rhythm: Normal rate and regular rhythm. Pulses: Normal pulses. Heart sounds: Murmur (Soft ejection systolic murmur) heard. No gallop. Pulmonary: Effort: Pulmonary effort is normal. Breath sounds: Normal breath sounds. No wheezing, rhonchi or rales. Chest: Chest wall: No tenderness. Abdominal: General: Abdomen is flat. Bowel sounds are normal. There is no distension. Palpations: Abdomen is soft. There is no mass. Tenderness: There is no abdominal tenderness. There is no right CVA tenderness, left CVA tenderness, guarding or rebound. Musculoskeletal: General: No tenderness. Normal range of motion. Cervical back: Normal range of motion and neck supple. No rigidity. No muscular tenderness. Right lower leg: No edema. Left lower leg: No edema. Lymphadenopathy: Cervical: No cervical adenopathy. Skin: General: Skin is warm. Findings: No erythema or rash. Neurological: General: No focal deficit present. Mental Status: He is alert and oriented to person, place, and time. Sensory: No sensory deficit. Motor: No weakness. Gait: Gait normal. Psychiatric: Mood and Affect: Mood normal. Behavior: Behavior normal. Thought Content: Thought content normal. Judgment: Judgment normal. OARRS/NARxCHECK Report Received and Assessed: No data found Date controlled substance agreement signed: No data found Date of last drug screen: No data found Functional Assessment: No data found PHQ9: LYNNE-7 Tobacco Counseling: Ready to quit: Not Answered Counseling given: Not Answered Tobacco comments: Chewing tobacco Patient's Medications New Prescriptions No medications on file Previous Medications ALBUTEROL 90 MCG/ACTUATION INHALER Inhale 2 (two) puffs every 6 (six) hours as needed for wheezing . AMLODIPINE (NORVASC) 5 MG TABLET Take 1 (one) tablet (5 mg total) by mouth daily . ASPIRIN 81 MG EC TABLET Take 1 (one) tablet (81 mg total) by mouth daily . ATORVASTATIN (LIPITOR) 80 MG TABLET Take 1 (one) tablet (80 mg total) by mouth daily . BLOOD SUGAR DIAGNOSTIC STRIPS by Miscellaneous route daily . BLOOD-GLUCOSE METER [facility] BLOOD-GLUCOSE SENSOR (FREESTYLE MIKO 3 SENSOR) DANIELA Continuous glucose monitor . CLOPIDOGREL (PLAVIX) 75 MG TABLET Take 1 (one) tablet (75 mg total) by mouth daily . CYCLOBENZAPRINE (FLEXERIL) 5 MG TABLET Take 1 (one) tablet (5 mg total) by mouth 3 (three) times a day as needed for muscle spasms . EMPAGLIFLOZIN 25 MG TAB Take 1 (one) tablet (25 mg total) by mouth daily . FAMOTIDINE (PEPCID) 40 MG TABLET Take 1 (one) tablet (40 mg total) by mouth daily . FLUTICASONE PROPIONATE (FLONASE) 50 MCG/ACTUATION NASAL SPRAY Instill 2 (two) sprays into each nostril daily . ISOSORBIDE MONONITRATE (IMDUR) 120 MG 24 HR TABLET Take 1 (one) tablet (120 mg total) by mouth daily . LISINOPRIL (PRINIVIL,ZESTRIL) 20 MG TABLET Take 1 (one) tablet (20 mg total) by mouth daily . LORATADINE (CLARITIN) 10 MG TABLET Take 1 (one) tablet (10 mg total) by mouth daily . METFORMIN (GLUCOPHAGE) 1000 MG TABLET Take 1 (one) tablet (1,000 mg total) by mouth 2 (two) times a day with meals . METOPROLOL SUCCINATE (TOPROL-XL) 25 MG 24 HR TABLET Take 1 (one) tablet (25 mg total) by mouth nightly . MULTIVITAMIN (THERAGRAN) PER TABLET Take 1 (one) tablet by mouth daily . NITROGLYCERIN (NITROSTAT) 0.4 MG SL TABLET Take 1 (one) tablet (0.4 mg total) by mouth See Admin Instructions DISSOLVE ONE TABLET UNDER THE TONGUE EVERY 5 MINUTES NEEDED FOR CHEST PAIN. DO NOT EXCEED A TOTAL OF 3 DOSES IN 15 MINUTES NOW . PEN NEEDLE, DIABETIC 32 GAUGE X NDLE 1 application by Miscellaneous route nightly . Modified Medications Modified Medication Previous Medication INSULIN DETEMIR U-100 (LEVEMIR) 100 UNIT/ML (3 ML) INPN insulin detemir U-100 (LEVEMIR) 100 unit/mL (3 mL) InPn Inject 45 (forty five) Units under the skin nightly . Inject 40 (forty) Units under the skin nightly . Discontinued Medications No medications on file Health Maintenance Due Topic Date Due Wellness Visit Never done COVID-19 Vaccine (2022-24 season) 2022 Diabetic Eye Exam 03/23/2023 PSA Level 03/31/2023 Assessment & Plan Problem List Items Addressed This Visit Endocrine Diabetes mellitus (HCC) - Primary Diagnosed 2011. HgbA1c: pending. Will refer to diabetes eduction if the A1c >8. diet modified and discussed in detail today Last full eye exam: Jayne in May 2022. Normal Regular foot self-exams: done and normal today. Neuropathic symptoms: None Microalbumin: Macroalbuminuria, discussed today Statins: Lipitor 80 mg Medications: Levemir increased to 45 units with close monitoring if getting hypoglycemic episodes then decrease down to 38 units, if fasting blood sugars are above 140, Jardiance 25 mg refilled today and metformin 1000 mg twice daily. Please chck your prescriptions at home, might be running out and doesn't know Please take more ownership of diabetes control Freestyle miko 3, ordered today. Referral to diabetes education team ordered today. Patient is not a good candidate for GLP-1 agonist given recurrent pancreatitis Relevant Medications insulin detemir U-100 (LEVEMIR) 100 unit/mL (3 mL) InPn Other Relevant Orders TSH with Reflex Free T4 (Completed) Microalbumin/Creatinine Ratio, UR Random (Completed) Hemoglobin A1c Lipid Panel (Completed) Comprehensive Metabolic Panel (Completed) Cardiovascular and Mediastinum Aortic root dilation (HCC) Echo from January 2022 proximal ascending aorta borderline dilated 4.0 cm, we will repeat echo in February 2023 was stable with no worsening I spent 30 minutes with patient reviewing HPI, coordinating plan of care and educating patient on dietary modifications for cholesterol and diabetes Return in about 3 months (around 08/06/2023) for Follow Up. MAGGIE MARQUEZ MD [facility] [address] [facility] [address] [facility] [id number] Dept: [phone] Images from the original note were not included. Maggie Marquez MD Keck, Michelle, MA Please get records from [facility] eye exam for diabetes in June 2022 Faxed for this. documented in this encounter [facility] 02-26-2023 History of Present illness Narrative Cardiology Clinic Visit Heart & Vascular [facility] 02/26/2023 Jackelyn Gonzalez MD [address] [facility] [id number] Patient: Frederic Stack . Date of : 1965 (57 y.o.) Referring Provider: Maggie Marquez PCP: Maggie Marquez MD Assessment & Plan Frederic Stack is a 57 y.o. man with history of coronary artery disease status post PCI to the proximal LAD in November 2020, hyperlipidemia, JAN, and asthma who presents to clinic for follow-up. Coronary artery disease status post PCI to the proximal LAD in November 2020-he underwent repeat left heart catheterization a few days later at [facility] which revealed distal left circumflex disease with 80% stenosis however this was a small vessel. He has been on medical therapy. He did undergo a nuclear stress test in March 2021 which was negative for ischemia. Since last visit he presented to the hospital with chest pain and underwent repeat left heart catheterization which revealed unchanged CAD. He was medically managed. He has not had further episodes of angina. Discussed reduction stress. Continue amlodipine 5 mg daily, aspirin 81 mg daily, atorvastatin 80 mg daily, isosorbide mononitrate 120 mg daily, metoprolol 25 mg daily. Patient reports that Brilinta is expensive on his insurance. We will switch to Plavix. Hyperlipidemia-LDL is at goal-continue atorvastatin 80 mg daily. HTN -at goal, continue lisinopril 20 mg daily, continue amlodipine 5 mg daily. Aortic dilatation - will monitor on subsequent imaging - BP control as above Return in about 6 months (around 08/27/2023). Jackelyn Gonzalez MD [facility] Non-Invasive Cardiology [facility] Heart and Vascular Chief Complaint: Follow-up (S/p hosp for chest pain/ dizziness ) Jonathan Stack is a 57 y.o. man with history of coronary artery disease status post PCI to the proximal LAD in November 2020, hyperlipidemia, JAN, and asthma who presents to clinic for follow-up. Since last visit the patient presented to the hospital with chest pain. He underwent left heart catheterization given his progressive symptoms. Left heart catheterization revealed diffuse disease in the small AV circumflex vessel that was not amenable to PCI. This was unchanged from the prior catheterization. Patient was medically managed and presents to clinic for follow-up. He reports that he has not had any further episodes of chest pain like he did with his hospitalization but does have episodes of chest pain which lasts for a minute at a time. These episodes do not occur with activity or exertion. He denies having shortness of breath with activity. He denies lower extremity swelling, PND and orthopnea. He denies palpitations. He denies lightheadedness and dizziness. He denies any episodes of syncope. Review of Systems: Constitution: Negative. HENT: Negative. Cardiovascular: As above. Respiratory: As above. Endocrine: Negative. Skin: Negative. Musculoskeletal: Negative. Gastrointestinal: Negative. Genitourinary: Negative. Neurological: Negative. Psychiatric/Behavioral: Negative. Past Medical History: Diagnosis Date Arthritis Back and hips Asthma Coronary artery disease COVID-19 04/12/2021 DDD (degenerative disc disease), lumbar [facility] L5-S1 Depressed 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 Diabetes mellitus, type 2 (HCC) Facet arthropathy, lumbar [facility] Lower History of cardiac cath History of stress test Hyperlipidemia 2015 Hypertension 1990 Indigestion 2005 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 Myocardial infarction (HCC) Obesity Pancreatitis 2017 Sleep apnea 2002 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 Sleep apnea, obstructive Tobacco use Past Surgical History: Procedure Laterality Date CARDIAC CATHETERIZATION N/A 08/31/2022 Procedure: Coronary Angiogram; Surgeon: Jb Trujillo MD; 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; Service: Cardiovascular CARPAL TUNNEL RELEASE Right COLONOSCOPY approximately 2017 COLONOSCOPY N/A 07/27/2022 Procedure: COLONOSCOPY; Surgeon: Glen Wasserman MD; Location: [facility]; Service: Gastroenterology CORONARY STENT PLACEMENT EGD N/A 07/27/2022 Procedure: ESOPHAGOGASTRODUODENOSCOPY with biopsy; Surgeon: Glen Wasserman MD; Location: [facility]; Service: Gastroenterology HC LEFT HEART CATH N/A 12/14/2020 Procedure: Left Heart Cath; Surgeon: Jb Trujillo MD; 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; Service: Cardiovascular TONSILLECTOMY Family History Problem Relation Age of Onset Diabetes type II Mother Heart failure Father Heart attack Father Diabetes type II Father Stomach cancer Paternal Aunt Social History Tobacco Use Smoking Status Former Types: Cigarettes Quit date: 04/22/2014 Years since quittin.8 Smokeless Tobacco Current Types: Chew Tobacco Comments Chewing tobacco Allergies: Hydrochlorothiazide, Losartan, Bupropion, Hyzaar [losartan-hydrochlorothiazide], and Mavik [trandolapril] HOME Medications: Current Outpatient Medications on File Prior to Visit Medication Sig albuterol 90 mcg/actuation inhaler Inhale 2 (two) puffs every 6 (six) hours as needed for wheezing . amLODIPine (NORVASC) 5 MG tablet Take 1 (one) tablet (5 mg total) by mouth daily . aspirin 81 MG EC tablet Take 1 (one) tablet (81 mg total) by mouth daily . atorvastatin (LIPITOR) 80 MG tablet Take 1 (one) tablet (80 mg total) by mouth daily . blood sugar diagnostic strips by Miscellaneous route daily . blood-glucose meter [facility] [place] sensor (FreeStyle Miko 3 Sensor) Daniela Continuous glucose monitor . cyclobenzaprine (FLEXERIL) 5 MG tablet Take 1 (one) tablet (5 mg total) by mouth 3 (three) times a day as needed for muscle spasms . empagliflozin 25 mg Tab Take 1 (one) tablet (25 mg total) by mouth daily . famotidine (PEPCID) 40 MG tablet Take 1 (one) tablet (40 mg total) by mouth daily . fluticasone propionate (FLONASE) 50 mcg/actuation nasal spray Instill 2 (two) sprays into each nostril daily . (Patient taking differently: Instill 2 (two) sprays into each nostril 2 (two) times a day as needed .) insulin detemir U-100 (LEVEMIR) 100 unit/mL (3 mL) InPn Inject 40 (forty) Units under the skin nightly . isosorbide mononitrate (IMDUR) 120 MG 24 hr tablet Take 1 (one) tablet (120 mg total) by mouth daily . lisinopriL (PRINIVIL,ZESTRIL) 20 MG tablet Take 1 (one) tablet (20 mg total) by mouth daily . loratadine (CLARITIN) 10 mg tablet Take 1 (one) tablet (10 mg total) by mouth daily . metFORMIN (GLUCOPHAGE) 1000 MG tablet Take 1 (one) tablet (1,000 mg total) by mouth 2 (two) times a day with meals . metoprolol succinate (TOPROL-XL) 25 MG 24 hr tablet Take 1 (one) tablet (25 mg total) by mouth nightly . multivitamin (THERAGRAN) per tablet Take 1 (one) tablet by mouth daily . nitroGLYCERIN (NITROSTAT) 0.4 MG SL tablet Take 1 (one) tablet (0.4 mg total) by mouth See Admin Instructions DISSOLVE ONE TABLET UNDER THE TONGUE EVERY 5 MINUTES NEEDED FOR CHEST PAIN. DO NOT EXCEED A TOTAL OF 3 DOSES IN 15 MINUTES NOW . pen needle, diabetic 32 gauge x 32 Ndle 1 application by Miscellaneous route nightly . ticagrelor (Brilinta) 90 mg Tab tablet Take 1 (one) tablet (90 mg total) by mouth 2 (two) times a day . No current facility-administered medications on file prior to visit. Physical Examination: BP 120/71 (BP Location: Left arm, Patient Position: Sitting, BP Cuff Size: Adult) Pulse (!) 48 Ht 5' 6 Wt 86.8 kg (191 lb 4.8 oz) SpO2 95% BMI 30.88 kg/m Constitutional: Appears well-developed and well-nourished. No distress. HENT: Head: Normocephalic and atraumatic. Eyes: Conjunctivae and EOM are normal. No scleral icterus. Neck: Normal range of motion. Cardiovascular: Normal rate and regular rhythm. Exam reveals no gallop and no friction rub. No murmur heard. No JVP elevation. No LE edema. Pulmonary/Chest: Effort normal and breath sounds normal. No respiratory distress. No wheezes. No rales. Abdominal: Soft. Bowel sounds are normal. There is no abdominal tenderness. Musculoskeletal: Normal range of motion. Neurological: AOx3, moving all ext. Skin: Skin is warm and dry. No rash noted. Psychiatric: Normal mood and affect. Cardiovascular Studies: [facility] 08/31/22 Left Main The vessel was visualized by angiography, is moderate in size and is angiographically normal. Left Anterior Descending The vessel was visualized by angiography and is moderate in size. There is mild diffuse disease throughout the vessel. Previously placed Prox LAD to Mid LAD stent of unknown type is widely patent. Left Circumflex The vessel is small. Mid Cx to Dist Cx lesion is 70% stenosed. Diffuse disease in small AV circumflex. Unchanged from prior cath First Obtuse Marginal Branch The vessel is large. Right Coronary Artery The vessel was visualized by angiography and is moderate in size. The vessel exhibits minimal luminal irregularities. TTE 02/16/22 Summary 1. Left ventricular systolic function is normal with an ejection fraction by Biplane Method of Discs of 61 %. 2. The left ventricular diastolic function is normal. 3. Right ventricle is normal in size with normal systolic function. 4. No significant valvular heart disease is present. 5. The proximal ascending aorta is borderline dilated measuring 4.0 cm with an index of 1.9 cm/m2. 6. There is no pulmonary hypertension, estimated right ventricle systolic pressure is 28 mmHg. [facility] 12/14/20 Coronary Angiographic Findings: Dominance: right Left Main: 4.5 mm vessel, gives rise to the LAD and LCX Arteries, there was no stenosis. There was KVNG 3 flow. Left Anterior Descending Artery: The LAD measures 4 mm proximally and tapers to a 2.5 mm vessel distally. There is KVNG 3 flow in the body of the LAD. The LAD gives rise to 2 diagonal vessels. The LAD is free of significant disease. There is a patent stent in proximal LAD with no significant ISR Left Circumflex Artery: The LCX measures 3 mm proximally and tapers to small vessel coursing along the AV groove. The LCX gives rise to 2 obtuse marginal branches. The distal LCX is a small 2.5mm vessel which has diffuse 80% stenosis. Right Coronary Artery: RCA is a dominant vessel and measures 3.0 mm proximally and tapers to a 2.5 mm vessel distally prior to giving off the PDA. The RCA is free of significant disease. 03/28/21 Nuclear Stress Test Summary 1. Overall this is a normal pharmacologic stress SPECT myocardial perfusion imaging study. 2. The patient exercised for 4:15 min:ss according to the Cody protocol. He was unable to achieve target HR due to leg pain and fatigue. The test was then converted to a pharmacologic study. He achieved a max of 7.0 METS with exercise which represents below average exercise capacity for age and gender. 3. He had no chest pain with exercise. 4. No ST/T wave changes diagnostic of ischemia with exercise/Lexiscan. 5. SPECT images demonstrate homogeneous tracer distribution throughout the myocardium. Myocardial perfusion imaging is normal. No evidence of ischemia or infarction. 6. Overall left ventricular systolic function was normal without regional wall motion abnormalities. Post stress left ventricular ejection fraction is normal, 57 %. Left ventricular cavity size is normal. 7. Overall low-risk study based on SCAI criteria (<1% predicted annual cardiac mortality). Labs: Lab Results Component Value Date GLUCOSE 172 (H) 09/05/2022 CALCIUM 9.2 09/05/2022 NA 137 09/05/2022 K 3.8 09/05/2022 CL 109 (H) 09/05/2022 BUN 14 09/05/2022 CREATININE 0.89 09/05/2022 Lab Results Component Value Date WBC 7.40 09/01/2022 HGB 13.8 09/01/2022 HCT 42.1 09/01/2022 MCV 90.1 09/01/2022 EXTMCV 85.7 11/08/2017 PLT 257 09/01/2022 RBC 4.67 09/01/2022 Lab Results Component Value Date CHOL 87 (L) 09/05/2022 LDLCALC 32 09/05/2022 TRIG 136 09/05/2022 HDL 28 (L) 09/05/2022 documented in this encounter [facility] 02-26-2023 Instructions Jem Hercules RN - 02/26/2023 2:31 PM EST How to contact your Care Team: Provider: Jackelyn Gonzalez MD Nurse: Jem Hercules RN In case of an emergency please call [phone]. REFILLS: When in need for refills please call your care team or the office at [phone]. Please include medication name, pharmacy name, and specify 30-day or 90-day supply. Please check with your pharmacy within 24 hours of request for your refill. You must follow up as directed to continue current refills. Thank you documented in this encounter [facility] 01-24-2023 Evaluation + Plan note Associated Problem(s): Aortic root dilation (HCC) Echo from January 2022 proximal ascending aorta borderline dilated 4.0 cm, we will repeat echo in January 2023 this month . [facility] 01-24-2023 Miscellaneous Notes Associated Problem(s): Aortic root dilation (HCC) Echo from January 2022 proximal ascending aorta borderline dilated 4.0 cm, we will repeat echo in January 2023 this month . Associated Problem(s): Diabetes mellitus (HCC) Diagnosed 2011. HgbA1c: 8.3 on 08/31/2022, 6.7 % 01/24/23 , diet modified and discussed in detail today Last full eye exam: [facility] in May 2022. Normal Regular foot self-exams: done and normal today. Neuropathic symptoms: None Microalbumin: Macroalbuminuria, discussed today Statins: Lipitor 80 mg Medications: Levemir decreased to 40 units with close monitoring if getting hypoglycemic episodes then decrease down to 38 units, if fasting blood sugars are above 140, Jardiance 25 mg refilled today and metformin 1000 mg twice daily. Please chck your prescriptions at home, might be running out and doesn't know Please take more ownership of diabetes control Freestyle miko 3, ordered today. Referral to diabetes education team ordered today. Patient is not a good candidate for GLP-1 agonist given recurrent pancreatitis documented in this encounter [facility] 01-24-2023 Evaluation + Plan note Associated Problem(s): Diabetes mellitus (HCC) Diagnosed 2011. HgbA1c: 8.3 on 08/31/2022, 6.7 % 01/24/23 , diet modified and discussed in detail today Last full eye exam: [facility] in May 2022. Normal Regular foot self-exams: done and normal today. Neuropathic symptoms: None Microalbumin: Macroalbuminuria, discussed today Statins: Lipitor 80 mg Medications: Levemir decreased to 40 units with close monitoring if getting hypoglycemic episodes then decrease down to 38 units, if fasting blood sugars are above 140, Jardiance 25 mg refilled today and metformin 1000 mg twice daily. Please chck your prescriptions at home, might be running out and doesn't know Please take more ownership of diabetes control Freestyle miko 3, ordered today. Referral to diabetes education team ordered today. Patient is not a good candidate for GLP-1 agonist given recurrent pancreatitis [facility] 01-24-2023 History of Present illness Narrative Chief Complaint Patient presents with Follow-up 2 mon fu Gap Closure (Health Maintenance) A1C due on 12/06/2022 HPI: Frederic Stack (Bill) is a 57 y.o. male who is presenting today to follow up for routine check. He has a past medical history of Arthritis, Asthma, DDD (degenerative disc disease), lumbar, Depressed, Diabetes mellitus (HCC), Facet arthropathy, lumbar, Hyperlipidemia, Hypertension indiigestion, Obesity, Pancreatitis, Sleep apnea (2001), and Tobacco use. [facility] [place]. Heartburn concerns were discussed today as well, has been taking Pepcid 40 mg once daily and not Prilosec. DM: Since 2011. A1c is 8.3 on 09/05/2022. Today is down to 6.7 % , made great changes in his diet. Metformin 1000 mg BID and lantus 40 units as well as Jardiance 25 mg. Has not been checking his sugars recently. Last eye exam [facility] in May 2022, normal. Foot exam done 07/21/2021 normal, . Eating lo mein noodles at night with beef sticks and BS spiking overnight. Usually dinner is 11 pm after his second shift. HTN Chronic , current regimen lisinopril and amlodipine uncontrolled today not checking at home. Aortic dilatation Echo from January 2022 proximal ascending aorta borderline dilated 4.0 cm, we will repeat echo in January 2023. Past Medical History: Diagnosis Date Arthritis Back and hips Asthma Coronary artery disease COVID-19 04/12/2021 DDD (degenerative disc disease), lumbar [facility] [facility] L5-S1 Depressed 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 Diabetes mellitus, type 2 (HCC) Facet arthropathy, lumbar [facility]/[place] Lower History of cardiac cath History of stress test Hyperlipidemia 2015 Hypertension 1990 Indigestion 2005 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 Myocardial infarction (HCC) Obesity Pancreatitis 2017 Sleep apnea 2001 Department 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 Sleep apnea, obstructive Tobacco use Past Surgical History: Procedure Laterality Date CARDIAC CATHETERIZATION N/A 08/31/2022 Procedure: Coronary Angiogram; Surgeon: Jb Trujillo MD; 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; Service: Cardiovascular CARPAL TUNNEL RELEASE Right COLONOSCOPY approximately 2017 COLONOSCOPY N/A 07/27/2022 Procedure: COLONOSCOPY; Surgeon: Glen Wasserman MD; Location: [facility]; Service: Gastroenterology CORONARY STENT PLACEMENT EGD N/A 07/27/2022 Procedure: ESOPHAGOGASTRODUODENOSCOPY with biopsy; Surgeon: Glen Wasserman MD; Location: [facility]; Service: Gastroenterology HC LEFT HEART CATH N/A 12/14/2020 Procedure: Left Heart Cath; Surgeon: Jb Trujillo MD; 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; Service: Cardiovascular TONSILLECTOMY Family History Problem Relation Age of Onset Diabetes type II Mother Heart failure Father Heart attack Father Diabetes type II Father Stomach cancer Paternal Aunt Social History Tobacco Use Smoking status: Former Types: Cigarettes Quit date: 04/22/2014 Years since quittin.7 Smokeless tobacco: Current Types: Chew Tobacco comments: Chewing tobacco Vaping Use Vaping Use: Former Substance Use Topics Alcohol use: Yes Comment: rare Drug use: No Review of Systems Vitals: 01/24/23 0906 BP: 123/76 BP Location: Left arm Patient Position: Sitting BP Cuff Size: X-large Adult Pulse: (!) 59 Resp: 16 Temp: 98 F (36.7 C) TempSrc: Temporal SpO2: 95% Weight: 88 kg (194 lb) Height: 5' 6 Estimated body mass index is 31.31 kg/m as calculated from the following: Height as of this encounter: 5' 6 . Weight as of this encounter: 88 kg (194 lb). Physical Exam Constitutional: General: He is not in acute distress. Appearance: He is not ill-appearing. HENT: Head: Normocephalic and atraumatic. Eyes: Extraocular Movements: Extraocular movements intact. Conjunctiva/sclera: Conjunctivae normal. Pupils: Pupils are equal, round, and reactive to light. Cardiovascular: Rate and Rhythm: Normal rate and regular rhythm. Pulses: Normal pulses. Heart sounds: Murmur (Soft ejection systolic murmur) heard. No gallop. Pulmonary: Effort: Pulmonary effort is normal. Breath sounds: Normal breath sounds. No wheezing, rhonchi or rales. Chest: Chest wall: No tenderness. Abdominal: General: Abdomen is flat. Bowel sounds are normal. There is no distension. Palpations: Abdomen is soft. There is no mass. Tenderness: There is no abdominal tenderness. There is no right CVA tenderness, left CVA tenderness, guarding or rebound. Musculoskeletal: General: No tenderness. Normal range of motion. Cervical back: Normal range of motion and neck supple. No rigidity. No muscular tenderness. Right lower leg: No edema. Left lower leg: No edema. Lymphadenopathy: Cervical: No cervical adenopathy. Skin: General: Skin is warm. Findings: No erythema or rash. Comments: No swelling/edema bilaterally, no abnormal discoloration/erythema or varicosities appreciated. Normal pedal pulses 2/2 bilaterally. Monofilament testing normal bilaterally. Neurological: General: No focal deficit present. Mental Status: He is alert and oriented to person, place, and time. Sensory: No sensory deficit. Motor: No weakness. Gait: Gait normal. Psychiatric: Mood and Affect: Mood normal. Behavior: Behavior normal. Thought Content: Thought content normal. Judgment: Judgment normal. OARRS/NARxCHECK Report Received and Assessed: No data found Date controlled substance agreement signed: No data found Date of last drug screen: No data found Functional Assessment: No data found PHQ9: LYNNE-7 Tobacco Counseling: Ready to quit: Not Answered Counseling given: Not Answered Tobacco comments: Chewing tobacco Patient's Medications New Prescriptions No medications on file Previous Medications ALBUTEROL 90 MCG/ACTUATION INHALER Inhale 2 (two) puffs every 6 (six) hours as needed for wheezing . AMLODIPINE (NORVASC) 5 MG TABLET Take 1 (one) tablet (5 mg total) by mouth daily . ASPIRIN 81 MG EC TABLET Take 1 (one) tablet (81 mg total) by mouth daily . ATORVASTATIN (LIPITOR) 80 MG TABLET Take 1 (one) tablet (80 mg total) by mouth daily . BLOOD SUGAR DIAGNOSTIC STRIPS by Miscellaneous route daily . BLOOD-GLUCOSE METER [facility] [place] CYCLOBENZAPRINE (FLEXERIL) 5 MG TABLET Take 1 (one) tablet (5 mg total) by mouth 3 (three) times a day as needed for muscle spasms . EMPAGLIFLOZIN 25 MG TAB Take 1 (one) tablet (25 mg total) by mouth daily . FLU VACC [id number] 6MOS UP,PF, (FLUZONE QUAD/FLULAVAL QUAD/FLUARIX QUAD) 60 MCG (15 MCG X 4)/0.5 ML SYRG SYRINGE Sign this order in conjunction with the immunization order to satisfy [facility] of Pharmacy Positive ID requirements for immunization orders. . FLUTICASONE PROPIONATE (FLONASE) 50 MCG/ACTUATION NASAL SPRAY Instill 2 (two) sprays into each nostril daily . ISOSORBIDE MONONITRATE (IMDUR) 120 MG 24 HR TABLET Take 1 (one) tablet (120 mg total) by mouth daily . LISINOPRIL (PRINIVIL,ZESTRIL) 20 MG TABLET Take 1 (one) tablet (20 mg total) by mouth daily . METFORMIN (GLUCOPHAGE) 1000 MG TABLET Take 1 (one) tablet (1,000 mg total) by mouth 2 (two) times a day with meals . MULTIVITAMIN (THERAGRAN) PER TABLET Take 1 (one) tablet by mouth daily . NITROGLYCERIN (NITROSTAT) 0.4 MG SL TABLET Take 1 (one) tablet (0.4 mg total) by mouth See Admin Instructions DISSOLVE ONE TABLET UNDER THE TONGUE EVERY 5 MINUTES NEEDED FOR CHEST PAIN. DO NOT EXCEED A TOTAL OF 3 DOSES IN 15 MINUTES NOW . PEN NEEDLE, DIABETIC 32 GAUGE X 5/32 NDLE 1 application by Miscellaneous route nightly . PNEUMOCOCCAL CONJ. 20-VALENT (PREVNAR 20) 0.5 ML VACCINE Inject 0.5 mL into the shoulder, thigh, or buttocks Sign this order in conjunction with the immunization order to satisfy [place] Board of Pharmacy Positive ID requirements for immunization orders . TETANUS-DIPHTHERIA TOXOIDS (DECAVAC 2-2) INJECTION Sign this order in conjunction with the immunization order to satisfy [place] Board of Pharmacy Positive ID requirements for immunization orders . TICAGRELOR (BRILINTA) 90 MG TAB TABLET Take 1 (one) tablet (90 mg total) by mouth 2 (two) times a day . Modified Medications Modified Medication Previous Medication BLOOD-GLUCOSE SENSOR (FREESTYLE MIKO 3 SENSOR) DANIELA blood-glucose sensor (FreeStyle Miko 3 Sensor) Daniela Continuous glucose monitor . Continuous glucose monitor . FAMOTIDINE (PEPCID) 40 MG TABLET famotidine (PEPCID) 40 MG tablet Take 1 (one) tablet (40 mg total) by mouth daily . Take 1 (one) tablet (40 mg total) by mouth daily . INSULIN DETEMIR U-100 (LEVEMIR) 100 UNIT/ML (3 ML) INPN insulin detemir U-100 (LEVEMIR) 100 unit/mL (3 mL) InPn Inject 40 (forty) Units under the skin nightly . Inject 45 (forty five) Units under the skin nightly . LORATADINE (CLARITIN) 10 MG TABLET loratadine (CLARITIN) 10 mg tablet Take 1 (one) tablet (10 mg total) by mouth daily . Take 1 (one) tablet (10 mg total) by mouth daily . METOPROLOL SUCCINATE (TOPROL-XL) 25 MG 24 HR TABLET metoprolol succinate (TOPROL-XL) 25 MG 24 hr tablet Take 1 (one) tablet (25 mg total) by mouth nightly . Take 1 (one) tablet (25 mg total) by mouth nightly . Discontinued Medications OMEPRAZOLE (PRILOSEC) 40 MG CAPSULE Take 1 (one) capsule (40 mg total) by mouth daily . Health Maintenance Due Topic Date Due Wellness Visit Never done Assessment & Plan Problem List Items Addressed This Visit Endocrine Diabetes mellitus (HCC) - Primary Diagnosed 2011. HgbA1c: 8.3 on 08/31/2022, 6.7 % 01/24/23 , diet modified and discussed in detail today Last full eye exam: Jayne in May 2022. Normal Regular foot self-exams: done and normal today. Neuropathic symptoms: None Microalbumin: Macroalbuminuria, discussed today Statins: Lipitor 80 mg Medications: Levemir decreased to 40 units with close monitoring if getting hypoglycemic episodes then decrease down to 38 units, if fasting blood sugars are above 140, Jardiance 25 mg refilled today and metformin 1000 mg twice daily. Please chck your prescriptions at home, might be running out and doesn't know Please take more ownership of diabetes control Freestyle miko 3, ordered today. Referral to diabetes education team ordered today. Patient is not a good candidate for GLP-1 agonist given recurrent pancreatitis Relevant Medications blood-glucose sensor (FreeStyle Miko 3 Sensor) Daniela insulin detemir U-100 (LEVEMIR) 100 unit/mL (3 mL) InPn Other Relevant Orders POC Glycosylated Hemoglobin (Hb A1C) (Completed) Respiratory Allergic rhinitis Relevant Medications loratadine (CLARITIN) 10 mg tablet Cardiovascular and Mediastinum Aortic root dilation (HCC) Echo from January 2022 proximal ascending aorta borderline dilated 4.0 cm, we will repeat echo in January 2023 this month . Relevant Orders Echocardiogram complete Other Chest pain Relevant Medications famotidine (PEPCID) 40 MG tablet Other Visit Diagnoses Encounter for immunization Relevant Medications flu vacc [id number] 6mos up,PF, (FLUZONE QUAD/FLULAVAL QUAD/FLUARIX QUAD) 60 mcg (15 mcg x 4)/0.5 mL Syrg syringe pneumococcal conj. 20-valent (PREVNAR 20) 0.5 mL vaccine tetanus-diphtheria toxoids (DECAVAC 2-2) injection Other Relevant Orders Influenza IIV4 6mo or >,Fluzone Quad (Completed) Pneumococcal conjugate vaccine 20-valent (Completed) Td vaccine greater than or equal to 7yo preservative free IM (Completed) I spent 40 minutes with patient reviewing HPI, coordinating plan of care and educating patient on dietary modifications for cholesterol and diabetes Return in about 3 months (around 04/26/2023) for Follow Up or when availbale . MAGGIE MARQUEZ MD [place] [id number] [facility] [address] [place] [id number] Dept: [phone] documented in this encounter [facility] 01-09-2023 Telephone encounter Note Last OV 11/06/22. Next OV 01/24/23. [facility] 01-09-2023 Miscellaneous Notes Last OV 11/06/22. Next OV 01/24/23. ----- Message from Migdalia Block MA sent at 01/09/2023 11:08 AM EDT ----- Regarding: Rx refill Contact: Natty MEDICATION REFILL REQUEST: PCP: Maggie Marquez MD Natty/spouse called 01/09/23 and is requesting a medication refill for insulin detemir U-100 (LEVEMIR) 100 unit/mL (3 mL) InPn This was confirmed from the current medication list found in the patients chart. Supply Requested: # of days: 90 days Method of receiving: Send to pharmacy Last set of flowsheet rows for OARRS report: OARRS/NARxCHECK Report Received and Assessed: No data found Date controlled substance agreement signed: No data found Date of last drug screen: No data found Functional Assessment: No data found Will this refill be sent to the preferred pharmacy listed below? Yes Preferred pharmacies: [facility]/pharmacy #[id number] [place] [address] Pt Call Back Number Work Phone Not on file. Patient call back message sent to the primary care clinical pool. Migdalia Block documented in this encounter [facility] 01-09-2023 Telephone encounter Note ----- Message from Migdalia Block MA sent at 01/09/2023 11:08 AM EDT ----- Regarding: Rx refill Contact: Natty MEDICATION REFILL REQUEST: PCP: Maggie Marquez MD Natty/spouse called 01/09/23 and is requesting a medication refill for insulin detemir U-100 (LEVEMIR) 100 unit/mL (3 mL) InPn This was confirmed from the current medication list found in the patients chart. Supply Requested: # of days: 90 days Method of receiving: Send to pharmacy Last set of flowsheet rows for OARRS report: OARRS/NARxCHECK Report Received and Assessed: No data found Date controlled substance agreement signed: No data found Date of last drug screen: No data found Functional Assessment: No data found Will this refill be sent to the preferred pharmacy listed below? Yes Preferred pharmacies: [facility]/pharmacy #[id number] - [place] [address] Pt Call Back Number Work Phone Not on file. Patient call back message sent to the primary care clinical pool. Migdalia Block [facility] 11-29-2022 History of Present illness Narrative [facility] Urology [facility] Patient / Consultation Patient Name: Frederic Stack Jr. Admit Date: MR #: [id number] : 1965 Physicians: Maggie Marquez MD (Family); Maggie Marquez (Referring) Chief Complaint/Reason for Visit: ED History of Present Illness: 57 y.o. male referred for ED. Erectile Dysfunction - Onset: few years, worse over the last 6-9mo - Strength of erections: 50 % - Durations of erections: several minutes - Morning erections: occasionally - Penetrative sex: yes but difficult - Orgasm: yes - Ejaculation: yes - Curvature: no - Pain: no - Hx prior sexual dysfunction: no - Preceding trauma: no - Preceding medication changes: dx with DM a few years prior to onset; now insulin dependent - Current medications possibly / suspected to be contributing to symptoms: multiple - Preceding or current relationship changes / conflict: none - Bother: yes - Seeking treatment: yes - Prior treatment: yes, tadalafil - If yes, symptom improvement: yes, but unable to take now due to NTG use - Current treatment: none - Prior evaluation for hypogonadism: yes, [facility], was told testosterone levels were within normal range. - If yes, TRT or other treatment prescribed: N/a, see above. - DARIO 13 - IPSS 9 / QoL 2 / No meds - Some post void dribbling; occasional rare small volume UUI. - No GH. Record Review: - I reviewed patient's records from PCP Maggie Marquez MD. History: Past Medical History: Diagnosis Date Arthritis Back and hips Asthma Coronary artery disease COVID-19 04/12/2021 DDD (degenerative disc disease), lumbar [facility] Chronically Illy L5-S1 Depressed [facility] 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 Diabetes mellitus, type 2 (HCC) Facet arthropathy, lumbar [facility] Lower History of cardiac cath History of stress test Hyperlipidemia 2014 Hypertension 1989 Indigestion 2004 [facility] 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 Myocardial infarction (HCC) Obesity Pancreatitis 2017 Sleep apnea 2001 Department 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 Sleep apnea, obstructive Tobacco use Past Surgical History: Procedure Laterality Date CARDIAC CATHETERIZATION N/A 08/31/2022 Procedure: Coronary Angiogram; Surgeon: bJ Trujillo MD; 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; Service: Cardiovascular CARPAL TUNNEL RELEASE Right COLONOSCOPY approximately 2017 COLONOSCOPY N/A 07/27/2022 Procedure: COLONOSCOPY; Surgeon: Glen Wasserman MD; Location: [facility]; Service: Gastroenterology CORONARY STENT PLACEMENT EGD N/A 07/27/2022 Procedure: ESOPHAGOGASTRODUODENOSCOPY with biopsy; Surgeon: Glen Wasserman MD; Location: [facility]; Service: Gastroenterology HC LEFT HEART CATH N/A 12/14/2020 Procedure: Left Heart Cath; Surgeon: Jb Trujillo MD; 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 Social Determinants of Health Financial Resource Strain: High Risk (09/06/2022) Overall Financial Resource Strain (CARDIA) Difficulty of Paying Living Expenses: Hard Transportation Needs: No Transportation Needs (09/06/2022) PRAPARE - Transportation Lack of Transportation (Medical): No Lack of Transportation (Non-Medical): No Allergies: I have reviewed the patient's allergies. Hydrochlorothiazide, Losartan, Bupropion, Hyzaar [losartan-hydrochlorothiazide], and Mavik [trandolapril] Home Medications: Outpatient Medications as of 11/29/2022 Medication Sig albuterol 90 mcg/actuation inhaler Inhale 2 (two) puffs every 6 (six) hours as needed for wheezing . amLODIPine (NORVASC) 5 MG tablet Take 1 (one) tablet (5 mg total) by mouth daily . aspirin 81 MG EC tablet Take 1 (one) tablet (81 mg total) by mouth daily . atorvastatin (LIPITOR) 80 MG tablet Take 1 (one) tablet (80 mg total) by mouth daily . blood sugar diagnostic strips by Miscellaneous route daily . blood-glucose meter [facility] blood-glucose sensor (FreeStyle Miko 3 Sensor) Daniela Continuous glucose monitor . cyclobenzaprine (FLEXERIL) 5 MG tablet Take 1 (one) tablet (5 mg total) by mouth 3 (three) times a day as needed for muscle spasms . empagliflozin 25 mg Tab Take 1 (one) tablet (25 mg total) by mouth daily . isosorbide mononitrate (IMDUR) 120 MG 24 hr tablet Take 1 (one) tablet (120 mg total) by mouth daily . lisinopriL (PRINIVIL,ZESTRIL) 20 MG tablet Take 1 (one) tablet (20 mg total) by mouth daily . loratadine (CLARITIN) 10 mg tablet Take 1 (one) tablet (10 mg total) by mouth daily . metFORMIN (GLUCOPHAGE) 1000 MG tablet Take 1 (one) tablet (1,000 mg total) by mouth 2 (two) times a day with meals . metoprolol succinate (TOPROL-XL) 25 MG 24 hr tablet Take 1 (one) tablet (25 mg total) by mouth nightly . multivitamin (THERAGRAN) per tablet Take 1 (one) tablet by mouth daily . pen needle, diabetic 32 gauge x 5/32 Ndle 1 application by Miscellaneous route nightly . ticagrelor (Brilinta) 90 mg Tab tablet Take 1 (one) tablet (90 mg total) by mouth 2 (two) times a day . famotidine (PEPCID) 40 MG tablet Take 1 (one) tablet (40 mg total) by mouth daily . fluticasone propionate (FLONASE) 50 mcg/actuation nasal spray Instill 2 (two) sprays into each nostril daily . (Patient taking differently: Instill 2 (two) sprays into each nostril 2 (two) times a day as needed .) insulin detemir U-100 (LEVEMIR) 100 unit/mL (3 mL) InPn Inject 45 (forty five) Units under the skin nightly . nitroGLYCERIN (NITROSTAT) 0.4 MG SL tablet Take 1 (one) tablet (0.4 mg total) by mouth See Admin Instructions DISSOLVE ONE TABLET UNDER THE TONGUE EVERY 5 MINUTES NEEDED FOR CHEST PAIN. DO NOT EXCEED A TOTAL OF 3 DOSES IN 15 MINUTES NOW . omeprazole (PRILOSEC) 40 MG capsule Take 1 (one) capsule (40 mg total) by mouth daily . Review of Systems: The following system(s) were reviewed and pertinent findings noted: Review of Systems Constitutional: Negative for activity change, chills, fever and unexpected weight change. Gastrointestinal: Negative for abdominal pain, diarrhea, nausea and vomiting. Objective: Vital Signs: BP 131/81 (BP Location: Left arm, Patient Position: Sitting, BP Cuff Size: Adult) Pulse (!) 52 Wt 93.9 kg (207 lb) SpO2 96% BMI 33.41 kg/m Physical Exam Vitals reviewed. Constitutional: General: He is not in acute distress. Appearance: He is not diaphoretic. Pulmonary: Effort: Pulmonary effort is normal. No respiratory distress. Abdominal: General: There is no distension. Palpations: Abdomen is soft. Tenderness: There is no abdominal tenderness. Neurological: General: No focal deficit present. Mental Status: He is alert and oriented to person, place, and time. Psychiatric: Mood and Affect: Mood normal. Behavior: Behavior normal. Laboratory Results Reviewed: PSA Date Value Ref Range Status 03/31/2021 0.36 0.00 - 0.99 ng/mL Final No results found for: TESTOSTERONE , E2 Lab Results Component Value Date WBC 7.40 09/01/2022 HGB 13.8 09/01/2022 HCT 42.1 09/01/2022 MCV 90.1 09/01/2022 PLT 257 09/01/2022 Lab Results Component Value Date GLUCOSE 172 (H) 09/05/2022 CALCIUM 9.2 09/05/2022 NA 137 09/05/2022 K 3.8 09/05/2022 CL 109 (H) 09/05/2022 BUN 14 09/05/2022 CREATININE 0.89 09/05/2022 Recent Results (from the past 24 hour(s)) Measure post void residual Collection Time: 11/29/22 8:38 AM Result Value Ref Range Measure Post Void Residual 66 POC Urinalysis Dipstick, Auto Collection Time: 11/29/22 8:38 AM Result Value Ref Range Glucose, UA 1000 (A) Normal, Negative mg/dL Bilirubin, UA Negative Negative Ketones, UA Negative Negative mg/dL Spec Grav, UA 1.030 (A) 1.005 - 1.025 Blood, UA Negative Negative pH, UA 5.5 5.0 - 7.0 Protein, UA Negative Negative mg/dL Urobilinogen, UA 0.2 <2.0, 0.2, Normal, Negative, 1.0, 2.0, <1.0 mg/dL Nitrite, UA Negative Negative Leukocyte Esterase, UA Negative Negative International Prostate Symptom Score (IPSS) Date: 11/29/22 Over the last month: 1. How often have you had a sensation of not emptying your bladder completely after you finish urinating? 3 - About half the time 2. How often have you had to urinate again less than two hours after you finished urinating? 3 - About half the time 3. How often have you found you stopped and started again several times when you urinated? 1 - Less than 1 time in 5 4. How difficult have you found it to postpone urination? 1 - Less than 1 time in 5 5. How often have you had a weak urinary stream? 0 - Not at all 6. How often have you had to push or strain to begin urination? 0 - Not at all 7. How many times did you most typically get up to urinate from the time you went to bed until the time you got up in the morning? 1 - 1 time Total score: - 9 0-7 - Mildly symptomatic 8-19 - Moderately symptomatic 20-35 - Severely symptomatic Bother / Quality of Life: 8. If you were to spend the rest of your life with your urinary condition just the way it is now, how would you feel about that? 2 - Mostly Satisfied Additional Questions: 9a. Have you tried medications to help your symptoms? 9b. Did these medications help your symptoms? (1-10; 1 - no relief, 10 - complete relief) No N/A 10. Would you be interested in learning about a minimally invasive option that could allow you to avoid or discontinue enlarged prostate medications? Yes Trends: Sexual Health Inventory for Men (DARIO) Date: 11/29/22 Over the past 6 months: 1. How do you rate your confidence that you could get and keep an erection? 2 - Low 2. When you had erections with sexual stimulation, how often were your erections hard enough for penetration? 3 - Sometimes (~1/2) 3. During sexual intercourse, how often were you able to maintain your erection after initial penetration? 2 - A few times (much less than 1/2) 4. During sexual intercourse, how difficult was it to maintain your erection to completion of intercourse? 3 - Difficult 5. When you attempted sexual intercourse, how often was it satisfactory for you? 3 - Sometimes (~1/2) Total score: - 13 1-7 - Severe ED 8-11 - Moderate ED 12-16 - Mild to Moderate ED 17-21 - Mild ED Trends: N/a Imaging Reviewed: Images & report independently reviewed; images independently interpreted by me: - Multiple small bilateral renal cortical cysts; no stones; no hydroureteronephrosis; bladder under distended without obvious focal wall abnormality; mild prostatomegaly with estimated volume ~28.15cc CT Dissection With Pelvis 05/31/2022 Status: Final result Study Result Narrative & Impression EXAMINATION: CT DISSECTION WITH PELVIS HISTORY: ORDERING SYSTEM PROVIDED HISTORY: Chest pain and back pain, TECHNOLOGIST PROVIDED HISTORY: Illness/Other Reason for Exam: Right mid back pain Encounter Type: Initial Additional Signs and Symptoms: Back pain ORDERING SYSTEM PROVIDED DIAGNOSIS CODES: COMPARISON: None. TECHNIQUE: Dose reduction techniques were achieved by using automated exposure control and/or adjustment of mA and/or kV according to patient size and/or use of iterative reconstruction technique. Coronal and sagittal MIP (maximum intensity projection) images were performed. Contiguous axial images were obtained through the chest without IV contrast. Subsequent axial images were obtained through the chest, abdomen and pelvis utilizing IV contrast. Multiplanar reconstructions performed. CONTRAST: IOPAMIDOL 370 MG IODINE/ML (76%) INTRAVENOUS SOLUTION - 75 mL FINDINGS: CT CHEST: There are mild pulmonary emphysematous changes. No consolidations or effusions. The heart size is within normal limits and there is no pericardial effusion. There are atherosclerotic vascular calcifications within the coronary arteries. No mediastinal or hilar adenopathy. No aortic aneurysm or dissection. The major takeoff vessels of the aortic arch are patent as are the celiac axis, SMA, renal arteries and AYUSH. CT ABDOMEN: The liver, gallbladder, spleen, pancreas and adrenal glands are normal. Perinephric inflammatory stranding can be seen with underlying medical renal disease. There are small focal regions of bilateral renal cortical scarring. No retroperitoneal adenopathy. CT PELVIS: The bladder is moderately distended, without an intrinsic abnormality. There are small- to moderate-sized fat-containing inguinal hernias, left greater than right. There are multiple colonic diverticula with much of the colon mildly distended with stool. No dilated loops of small bowel, with the appendix visualized and normal. Multilevel [id number] degenerative changes of the spine with mild curvature to the right centered at L2. IMPRESSION: 1. No acute findings within the chest, abdomen or pelvis. No aortic aneurysm or dissection identified. 2. Coronary atherosclerotic vascular disease. 3. Mild pulmonary emphysematous changes. 4. Small focal regions of bilateral renal cortical scarring. 5. Colonic diverticulosis. [employer] Workstation ID: [id number] Signed by Signed Date/Time Phone Pager INO BERGMAN 05/31/2022 9:59 PM [phone] Assessment: Frederic Stack is a 57 y.o. y/o male Diagnoses and all orders for this visit: Erectile dysfunction, unspecified erectile dysfunction type - Ambulatory referral to Urology - POC Urinalysis Dipstick, Auto - Measure post void residual BPH with obstruction/lower urinary tract symptoms Frequency of urination Urge incontinence - UA today shows neg RBC, neg LE, neg nitrite. No further workup today. - PVR today by bladder scan: 66 cc - Discussed dietary & lifestyle changes for overall health & its contribution to erections, including weight loss, increasing / regular physical activity, heart-healthy / low-salt / low-fat diet, adequate glycemic control for diabetics, smoking cessation for smokers. - Discussed the importance of mental / emotional / behavioral health & its contribution to sexual health, confidence & healthy erectile function / sexual performance. - Discussed the negative impacts of stress & anxiety on sexual health. - Discussed that ED is a risk marker for cardiovascular disease among other health conditions that may warrant screening evaluation & workup through primary care. - Discussed the recommendations for screening for hypogonadism in patients with ED as it can be the only presenting symptom of low testosterone & may resolve with TRT. - Discussed risks/benefits/alternatives to oral therapy for ED. - Discussed appropriate dosing / timing of sildenafil allowing at least 30-60 minutes prior to sexual encounter for sildenafil & 1-2 hours for tadalafil, avoiding fatty meal prior to use of sildenafil, possible side affects. - Discussed cost-savings resources for oral medications. - Discussed alternative treatments for ED including ALBA +/- constriction ring, intraurethral medication, ICI, penile prosthesis. - Discussed BPH & associated LUTS, risks/benefits/alternatives to medical management options for symptoms. - Discussed side effects of alpha blockers including but not limited to dizziness / lightheadedness / orthostasis, rhinitis, retrograde ejaculation, floppy iris syndrome. - Discussed side effects of 5aRI including but not limited to decreased libido, ED, ejaculatory dysfunction, gynecomastia. - Discussed the role of additional medical management options including PDE5i, anticholinergics, beta3 agonists based on response to first line medications and/or specific symptomatic scenarios. - Discussed potential additional diagnostic evaluation including CT/US imaging, TRUS for prostate volume, cystoscopy (urethral & bladder neck obstruction, median lobe evaluation, bladder sequelae of longstanding obstruction including trabeculations, diverticula, stones), cystometrics / urodynamics for bladder function - Discussed potential progression / complications of BPH & associated indications for outlet procedures including recurrent UTI, persistent urinary retention, bladder stones, recurrent / refractory hematuria, upper tract deterioration, LUTS refractory to medical management. - Discussed urgency / frequency / urge incontinence & risks/benefits/alternatives to management options. - Discussed the first line treatments including behavioral / dietary modifications, bladder diet / avoiding bladder irritants, double voiding, timed voiding, bladder diary. - Discussed the second line treatments including anticholinergics & beta-3 agonists. - Discussed the third line treatments including sacral neuromodulation & intravesical onabotulinum toxin A injections. - Discussed constipation & how it relates to & typically exacerbates frequency / urgency symptoms. Recommended OTC Miralax 1-2x daily until having at least one soft bowel movement daily. Offered prescription for this if needed. - Discussed potential additional diagnostic evaluation including cystoscopy & urodynamics. - Discussed that in men, these symptoms are often the classic storage symptoms attributed to BPH & that treatment with an alpha nicole often produces significant improvement in both storage & obstructive/voiding symptoms in these patients. - LUTS / frequency mild at this point with minimal bother; prefers observation. Plan: - Trial ICI; Rx faxed to compounding pharmacy; patient to call for appointment for test dose / injection once received. - He will look [facility] online or [facility] - Behavior / dietary / lifestyle modifications for frequency, urge incontinence, and erectile dysfunction. - F/u ~ TBD as above for ICI test dose; sooner if issues / concerns / worsening or new symptoms. - Patient expressed understanding of the above discussion. All questions answered. Assessment Detail: The total time spent for this visit was 50 minutes. Greater than 50% of the time was spent in counseling and coordination of care regarding ED, BPH, OAB, followup plan. Agustín Knight MD [facility] - Urology 9:04 AM 11/29/22 documented in this encounter [facility] 11-06-2022 Instructions Maggie Marquez MD - 11/06/2022 7:45 AM EDT Problem List Items Addressed This Visit Endocrine Diabetes mellitus (HCC) - Primary Diagnosed 2011. HgbA1c: 8.3 on 08/31/2022, diet uncontrolled discussed in detail today Last full eye exam: [facility] in May 2022. Normal Regular foot self-exams: done and normal today. Neuropathic symptoms: None Microalbumin: Macroalbuminuria, discussed today Statins: Lipitor 80 mg Medications: Levemir increased to 42 units with close monitoring, if fasting blood sugars are above 140 will increase to 45 units, Jardiance 25 mg refilled today and metformin 1000 mg twice daily. Please chck your prescriptions at home, might be running out and doesn't know Please take more ownership of diabetes control Freestyle miko 3, ordered today. Referral to diabetes education team ordered today. Patient is not a good candidate for GLP-1 agonist given recurrent pancreatitis. Relevant Medications empagliflozin 25 mg Tab Other Relevant Orders Ambulatory referral to Nutrition Services DIABETES FOOT EXAM (Completed) Ambulatory referral to Diabetic Education Cardiovascular and Mediastinum Essential hypertension Uncontrolled BP , increasing lisinopril 20 mg today refills sent Relevant Medications amLODIPine (NORVASC) 5 MG tablet lisinopriL (PRINIVIL,ZESTRIL) 20 MG tablet If any referrals were placed at the time of your visit please allow 2 weeks for processing. If you haven't heard from anyone within 2 weeks please contact my office so we can look into the status of your referral. If you were given any labs today please ensure they are completed according to the directions given. Once labs are completed please allow 1-2 weeks for us to receive the results, review them, and let you know what steps, if any, are needed next. If you haven't heard from us after that please call to inquire. If labs were ordered to be done PRIOR to your next visit we will discuss the results at the time of your office visit. If any procedures or imaging studies were ordered that must be prior authorized please give us 2 weeks to get them approved. Once approved someone should call you to schedule them or give you a date and time that they were scheduled for. If you haven't heard anything within 2 weeks of the office visit please call the office so we can look into their status. Customer Service/Billing Questions: [phone] MyChart Assistance: [phone] or [phone] Financial Assistance: [phone] or [phone] As of April 27, 2019 my schedule will be changing: Saturday 7 am to 5 pm Saturday 7 am to 5 pm Saturday closed 7 am to 5 pm Saturday 7 am to 1 pm documented in this encounter [facility] 11-06-2022 Evaluation + Plan note Associated Problem(s): Essential hypertension Uncontrolled BP , increasing lisinopril 20 mg today refills sent [facility] 11-06-2022 Miscellaneous Notes Associated Problem(s): Essential hypertension Uncontrolled BP , increasing lisinopril 20 mg today refills sent Associated Problem(s): Diabetes mellitus (HCC) Diagnosed 2011. HgbA1c: 8.3 on 08/31/2022, diet uncontrolled discussed in detail today Last full eye exam: [facility] in May 2022. Normal Regular foot self-exams: done and normal today. Neuropathic symptoms: None Microalbumin: Macroalbuminuria, discussed today Statins: Lipitor 80 mg Medications: Levemir increased to 42 units with close monitoring, if fasting blood sugars are above 140 will increase to 45 units, Jardiance 25 mg refilled today and metformin 1000 mg twice daily. Please chck your prescriptions at home, might be running out and doesn't know Please take more ownership of diabetes control Freestyle miko 3, ordered today. Referral to diabetes education team ordered today. Patient is not a good candidate for GLP-1 agonist given recurrent pancreatitis. documented in this encounter [facility] 11-06-2022 Evaluation + Plan note Associated Problem(s): Diabetes mellitus (HCC) Diagnosed 2011. HgbA1c: 8.3 on 08/31/2022, diet uncontrolled discussed in detail today Last full eye exam: [facility] in May 2022. Normal Regular foot self-exams: done and normal today. Neuropathic symptoms: None Microalbumin: Macroalbuminuria, discussed today Statins: Lipitor 80 mg Medications: Levemir increased to 42 units with close monitoring, if fasting blood sugars are above 140 will increase to 45 units, Jardiance 25 mg refilled today and metformin 1000 mg twice daily. Please chck your prescriptions at home, might be running out and doesn't know Please take more ownership of diabetes control Freestyle miko 3, ordered today. Referral to diabetes education team ordered today. Patient is not a good candidate for GLP-1 agonist given recurrent pancreatitis. [facility] 11-06-2022 History of Present illness Narrative Chief Complaint Patient presents with Follow-up 6 week f/u Gap Closure (Health Maintenance) Foot Exam due on 06/23/2022 HPI: Frederic Stack (Bill) is a 57 y.o. male who is presenting today to follow up for routine check. He has a past medical history of Arthritis, Asthma, DDD (degenerative disc disease), lumbar, Depressed, Diabetes mellitus (HCC), Facet arthropathy, lumbar, Hyperlipidemia, Hypertension indiigestion, Obesity, Pancreatitis, Sleep apnea (2001), and Tobacco use. [facility] [place] No [facility] from the [facility] on [facility]. Heartburn concerns were discussed today as well, has been taking Pepcid 40 mg once daily and not Prilosec. ED: Chronic , struggling and yet to meet with urology. DM: Since 2011. A1c is 8.3 on 09/05/2022. Metformin 1000 mg BID and lantus 40 units as well as Jardiance 25 mg. Has not been checking his sugars recently. Last eye exam [facility] in May 2022, normal. Foot exam done 07/21/2021 normal, . Eating lo mein noodles at night with beef sticks and BS spiking overnight. Usually dinner is 11 pm after his second shift. HTN Chronic , current regimen lisinopril and amlodipine uncontrolled today not checking at home. Aortic dilatation Echo from January 2022 proximal ascending aorta borderline dilated 4.0 cm, we will repeat echo in January 2023. Past Medical History: Diagnosis Date Arthritis Back and hips Asthma Coronary artery disease COVID-19 04/12/2021 DDD (degenerative disc disease), lumbar [facility] L5-S1 Depressed 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 Diabetes mellitus, type 2 (HCC) Facet arthropathy, lumbar [facility] Lower History of cardiac cath History of stress test Hyperlipidemia 2015 Hypertension 1990 Indigestion 2004 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 Myocardial infarction (HCC) Obesity Pancreatitis 2017 Sleep apnea 2001 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 Sleep apnea, obstructive Tobacco use Past Surgical History: Procedure Laterality Date CARDIAC CATHETERIZATION N/A 08/31/2022 Procedure: Coronary Angiogram; Surgeon: Jb Trujillo MD; 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; Service: Cardiovascular CARPAL TUNNEL RELEASE Right COLONOSCOPY approximately 2016 COLONOSCOPY N/A 07/27/2022 Procedure: COLONOSCOPY; Surgeon: Glen Wasserman MD; Location: [facility]; Service: Gastroenterology CORONARY STENT PLACEMENT EGD N/A 07/27/2022 Procedure: ESOPHAGOGASTRODUODENOSCOPY with biopsy; Surgeon: Glen Wasserman MD; Location: [facility]; Service: Gastroenterology HC LEFT HEART CATH N/A 12/14/2020 Procedure: Left Heart Cath; Surgeon: Jb Trujillo MD; 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; Service: Cardiovascular TONSILLECTOMY Family History Problem Relation Age of Onset Diabetes type II Mother Heart failure Father Heart attack Father Diabetes type II Father Stomach cancer Paternal Aunt Social History Tobacco Use Smoking status: Former Types: Cigarettes Quit date: 04/22/2014 Years since quittin.5 Smokeless tobacco: Current Types: Chew Tobacco comments: Chewing tobacco Vaping Use Vaping Use: Former Substance Use Topics Alcohol use: Yes Comment: rare Drug use: No Review of Systems Vitals: 11/06/22 0703 11/06/22 0705 11/06/22 0742 BP: (!) 152/92 (!) 143/88 (!) 162/92 BP Location: Right arm Right arm Right arm Patient Position: Sitting Sitting Sitting BP Cuff Size: X-large Adult X-large Adult X-large Adult Pulse: (!) 59 60 (!) 58 Resp: 16 Temp: 98.2 F (36.8 C) TempSrc: Temporal SpO2: 97% Weight: 96.2 kg (212 lb) Height: 5' 6 Estimated body mass index is 34.22 kg/m as calculated from the following: Height as of this encounter: 5' 6 . Weight as of this encounter: 96.2 kg (212 lb). Physical Exam Constitutional: General: He is not in acute distress. Appearance: He is not ill-appearing. HENT: Head: Normocephalic and atraumatic. Eyes: Extraocular Movements: Extraocular movements intact. Conjunctiva/sclera: Conjunctivae normal. Pupils: Pupils are equal, round, and reactive to light. Cardiovascular: Rate and Rhythm: Normal rate and regular rhythm. Pulses: Normal pulses. Heart sounds: Murmur (Soft ejection systolic murmur) heard. No gallop. Pulmonary: Effort: Pulmonary effort is normal. Breath sounds: Normal breath sounds. No wheezing, rhonchi or rales. Chest: Chest wall: No tenderness. Abdominal: General: Abdomen is flat. Bowel sounds are normal. There is no distension. Palpations: Abdomen is soft. There is no mass. Tenderness: There is no abdominal tenderness. There is no right CVA tenderness, left CVA tenderness, guarding or rebound. Musculoskeletal: General: No tenderness. Normal range of motion. Cervical back: Normal range of motion and neck supple. No rigidity. No muscular tenderness. Right lower leg: No edema. Left lower leg: No edema. Lymphadenopathy: Cervical: No cervical adenopathy. Skin: General: Skin is warm. Findings: No erythema or rash. Comments: No swelling/edema bilaterally, no abnormal discoloration/erythema or varicosities appreciated. Normal pedal pulses 2/2 bilaterally. Monofilament testing normal bilaterally. Neurological: General: No focal deficit present. Mental Status: He is alert and oriented to person, place, and time. Sensory: No sensory deficit. Motor: No weakness. Gait: Gait normal. Psychiatric: Mood and Affect: Mood normal. Behavior: Behavior normal. Thought Content: Thought content normal. Judgment: Judgment normal. OARRS/NARxCHECK Report Received and Assessed: No data found Date controlled substance agreement signed: No data found Date of last drug screen: No data found Functional Assessment: No data found PHQ9: LYNNE-7 Tobacco Counseling: Ready to quit: Not Answered Counseling given: Not Answered Tobacco comments: Chewing tobacco Patient's Medications New Prescriptions No medications on file Previous Medications ALBUTEROL 90 MCG/ACTUATION INHALER Inhale 2 (two) puffs every 6 (six) hours as needed for wheezing . ASPIRIN 81 MG EC TABLET Take 1 (one) tablet (81 mg total) by mouth daily . ATORVASTATIN (LIPITOR) 80 MG TABLET Take 1 (one) tablet (80 mg total) by mouth daily . BLOOD SUGAR DIAGNOSTIC STRIPS by Miscellaneous route daily . BLOOD-GLUCOSE METER [facility] [place]LOOD-GLUCOSE SENSOR (FREESTYLE MIKO 3 SENSOR) DANIELA Continuous glucose monitor . CYCLOBENZAPRINE (FLEXERIL) 5 MG TABLET Take 1 (one) tablet (5 mg total) by mouth 3 (three) times a day as needed for muscle spasms . FAMOTIDINE (PEPCID) 40 MG TABLET Take 1 (one) tablet (40 mg total) by mouth daily . FLUTICASONE PROPIONATE (FLONASE) 50 MCG/ACTUATION NASAL SPRAY Instill 2 (two) sprays into each nostril daily . INSULIN DETEMIR U-100 (LEVEMIR) 100 UNIT/ML (3 ML) INPN Inject 45 (forty five) Units under the skin nightly . ISOSORBIDE MONONITRATE (IMDUR) 120 MG 24 HR TABLET Take 1 (one) tablet (120 mg total) by mouth daily . LORATADINE (CLARITIN) 10 MG TABLET Take 1 (one) tablet (10 mg total) by mouth daily . METFORMIN (GLUCOPHAGE) 1000 MG TABLET Take 1 (one) tablet (1,000 mg total) by mouth 2 (two) times a day with meals . METOPROLOL SUCCINATE (TOPROL-XL) 25 MG 24 HR TABLET Take 1 (one) tablet (25 mg total) by mouth nightly . MULTIVITAMIN (THERAGRAN) PER TABLET Take 1 (one) tablet by mouth daily . NITROGLYCERIN (NITROSTAT) 0.4 MG SL TABLET Take 1 (one) tablet (0.4 mg total) by mouth See Admin Instructions DISSOLVE ONE TABLET UNDER THE TONGUE EVERY 5 MINUTES NEEDED FOR CHEST PAIN. DO NOT EXCEED A TOTAL OF 3 DOSES IN 15 MINUTES NOW . OMEPRAZOLE (PRILOSEC) 40 MG CAPSULE Take 1 (one) capsule (40 mg total) by mouth daily . PEN NEEDLE, DIABETIC 32 GAUGE X 5/32 NDLE 1 application by Miscellaneous route nightly . Modified Medications Modified Medication Previous Medication AMLODIPINE (NORVASC) 5 MG TABLET amLODIPine (NORVASC) 5 MG tablet Take 1 (one) tablet (5 mg total) by mouth daily . Take 1 (one) tablet (5 mg total) by mouth daily . EMPAGLIFLOZIN 25 MG TAB empagliflozin 25 mg Tab Take 1 (one) tablet (25 mg total) by mouth daily . Take 1 (one) tablet (25 mg total) by mouth daily . LISINOPRIL (PRINIVIL,ZESTRIL) 20 MG TABLET lisinopriL (PRINIVIL,ZESTRIL) 10 MG tablet Take 1 (one) tablet (20 mg total) by mouth daily . Take 1 (one) tablet (10 mg total) by mouth daily . TICAGRELOR (BRILINTA) 90 MG TAB TABLET ticagrelor (Brilinta) 90 mg Tab tablet Take 1 (one) tablet (90 mg total) by mouth 2 (two) times a day . Take 1 (one) tablet (90 mg total) by mouth 2 (two) times a day . Discontinued Medications No medications on file Health Maintenance Due Topic Date Due Tetanus: Every 10yrs Never done Wellness Visit Never done Pneumococcal Vaccine: Ped or At-Risk (2 - PCV) 12/08/2021 Assessment & Plan Problem List Items Addressed This Visit Endocrine Diabetes mellitus (HCC) - Primary Diagnosed 2011. HgbA1c: 8.3 on 08/31/2022, diet uncontrolled discussed in detail today Last full eye exam: [facility] in May 2022. Normal Regular foot self-exams: done and normal today. Neuropathic symptoms: None Microalbumin: Macroalbuminuria, discussed today Statins: Lipitor 80 mg Medications: Levemir increased to 42 units with close monitoring, if fasting blood sugars are above 140 will increase to 45 units, Jardiance 25 mg refilled today and metformin 1000 mg twice daily. Please chck your prescriptions at home, might be running out and doesn't know Please take more ownership of diabetes control Freestyle miko 3, ordered today. Referral to diabetes education team ordered today. Patient is not a good candidate for GLP-1 agonist given recurrent pancreatitis. Relevant Medications empagliflozin 25 mg Tab Other Relevant Orders Ambulatory referral to Nutrition Services DIABETES FOOT EXAM (Completed) Ambulatory referral to Diabetic Education Cardiovascular and Mediastinum Essential hypertension Uncontrolled BP , increasing lisinopril 20 mg today refills sent Relevant Medications amLODIPine (NORVASC) 5 MG tablet lisinopriL (PRINIVIL,ZESTRIL) 20 MG tablet I spent 40 minutes with patient reviewing HPI, coordinating plan of care and educating patient on dietary modifications for cholesterol and diabetes Return in about 2 months (around 01/07/2023) for Follow Up. MAGGIE MARQUEZ MD [facility] [address] [facility] [address] [facility] [id number] Dept: [phone] documented in this encounter [facility] 09-01-2022 Note Formatting of this n ote might be different from the original. Problem: Actual or potential alteration in health Goal: Absence of healthcare acquired conditions 09/01/2022 1132 by Renan Rice RN Outcome: Completed 09/01/2022 1130 by Renan Rice RN Outcome: Partially Met Goal: Knowledge of Interdisciplinary Plan of Care 09/01/2022 1132 by Renan Rice RN Outcome: Completed 09/01/2022 1130 by Renan Rice RN Outcome: Partially Met Goal: Knowledge of Enviroment 09/01/2022 1132 by Renan Rice RN Outcome: Completed 09/01/2022 1130 by Renan Rice RN Outcome: Partially Met [facility] 09-01-2022 Miscellaneous Notes Problem: Actual or potential alteration in health Goal: Absence of healthcare acquired conditions 09/01/2022 1132 by Renan Rice RN Outcome: Completed 09/01/2022 1130 by Renan Rice RN Outcome: Partially Met Goal: Knowledge of Interdisciplinary Plan of Care 09/01/2022 1132 by Renan Rice RN Outcome: Completed 09/01/2022 1130 by Renan Rice RN Outcome: Partially Met Goal: Knowledge of Enviroment 09/01/2022 1132 by Renan Rice RN Outcome: Completed 09/01/2022 1130 by Renan Rice RN Outcome: Partially Met Problem: Actual or potential alteration in health Goal: Absence of healthcare acquired conditions Outcome: Partially Met Goal: Knowledge of Interdisciplinary Plan of Care Outcome: Partially Met Goal: Knowledge of Enviroment Outcome: Partially Met Cardiology Progress Note [facility] Cardiology Sign-Off Discharge Medications: Continue aspirin 81 mg daily, Brilinta 90 mg twice daily, atorvastatin 80 mg daily, Norvasc 5 mg daily, Imdur 60 mg daily, lisinopril 10 mg daily, metoprolol succinate 25 mg nightly, nitroglycerin SL as needed Follow-up Imaging, Testing: No additional outpatient testing is recommended at this time. Follow-up Appointments: See AVS Additional Instructions Reviewed with Patient and/or Family: Compliance with follow-up. Compliance with medications. Assessment/Plan: Coronary artery disease status post PCI to the proximal LAD in November 2020 Chest pain -Relook cath November 2020 with patent LAD stent, 80% stenosis to LCx however this was small vessel therefore he was medically managed he has been on medical therapy. -Nuclear stress test in March 2021 was negative for ischemia -Patient transferred here for c/o left chest pain with radiation to L shoulder improved with Nitropaste -Troponins negative -ECHO Feb 10 EF 61% -We proceeded with [facility] yesterday 08/31/2022 which showed patent stent to the LAD, single small vessel coronary artery disease not suitable for intervention, continue medical therapy recommended -Abdominal ultrasound showed normal gallbladder, hepatic steatosis, nonobstructing right renal calculi Plan: Reviewed with Dr. Drew Continue aspirin 81 mg daily, Brilinta 90 mg twice daily, Atorvastatin 80 mg daily Patient bradycardic with heart rate in the 40s this morning we will decrease his metoprolol succinate to 25 mg daily Continue Imdur 60 mg daily If continued complaints with chest discomfort could consider addition of Ranexa to his regimen for small branch vessel disease. Will leave to his primary shoe maker Dr. Gonzalez's discretion Follow-up with Dr. Gonzalez as scheduled From cardiology standpoint patient okay to DC home today Hyperlipidemia -Most recent lipid panel from today showed total cholesterol 91, triglycerides 74, HDL 32, LDL 44 -Continue statin therapy HTN -Goal BP 120/80 -Continue lisinopril and amlodipine, advance as needed for goal BP Aortic dilatation -Per echo from January 2022 proximal ascending aorta borderline dilated 4.0 cm -BP control as above No further suggestions at this time we will sign off. Please call with further questions or concerns Subjective: Mr. Stack denies chest pain, dyspnea, palpitations, peripheral swelling, or dizziness Objective: SB on tele no arrhythmias Vital signs in last 24 hours: Temp: [97.2 F (36.2 C)-98.3 F (36.8 C)] 97.2 F (36.2 C) Heart Rate: [48-59] 51 Resp: [12-18] 18 BP: (115-161)/(73-100) 123/75 Physical Exam: Constitutional: Appears well-developed and well-nourished. No distress. Head: Normocephalic and atraumatic. Eyes: Conjunctivae and EOM are normal. No scleral icterus. Neck: Normal range of motion. Cardiovascular: Normal rate and regular rhythm. Exam reveals no gallop and no friction rub. No murmur heard. No peripheral edema Pulmonary/Chest: Effort normal and breath sounds normal. No respiratory distress. No wheezes. No rales. Room air Abdominal: Soft. Bowel sounds are normal. There is no abdominal tenderness. Musculoskeletal: Normal range of motion. Neurological: AOx3, moving all ext. Skin: Skin is warm and dry. No rash noted. Right wrist without hematoma or neurovascular compromise Psychiatric: Normal mood and affect. Lab Review Today's available lab reviewed. Cardiac Testing: [facility] 08/31/22 Impression: Single small vessel coronary artery disease not for intervention Patent stent in LAD with no significant ISR No bleeding tr band reduced 5 ml No bleeding R wrist TR band reduced by 5 ml POC imitated. Problem: Actual or potential alteration in health Goal: Absence of healthcare acquired conditions Outcome: Partially Met Goal: Knowledge of Interdisciplinary Plan of Care Outcome: Partially Met Goal: Knowledge of Enviroment Outcome: Partially Met documented in this encounter [facility] 09-01-2022 Note Formatting of this n ote might be different from the original. Problem: Actual or potential alteration in health Goal: Absence of healthcare acquired conditions Outcome: Partially Met Goal: Knowledge of Interdisciplinary Plan of Care Outcome: Partially Met Goal: Knowledge of Enviroment Outcome: Partially Met [facility] 09-01-2022 Hospital course Narrative [facility] [place] DIS[place]GE SUMMARY -- [facility] Frederic Stack Admitted: 08/31/2022 Discharge Date: 09/01/22 PCP Handoff Recommended Outpatient Testing none Results Pending At Discharge none Clinical Summary Frederic Stack is a 57 y.o. male patient of Maggie Marquez MD with history of coronary artery disease s/p PCI, proximal LAD in 2020, hyperlipidemia, JAN, asthma, who presented to [place] for chest pain. Midsternal chest pressure that radiates toward the left shoulder started about 3 PM yesterday at work, related to exertion, and subsided with nitroglycerin patch at the emergency room, patient denies cough, shortness of breath, palpitations. Chest pain Coronary artery disease s/p PCI proximal LAD [address] or T wave changes Troponin negative x3, recheck troponin Left cardiac cath in 2020, single-vessel disease s/p PCI stent placement LAD Nuclear stress test in March 2020 negative for ischemia, echocardiogram in 01/2022, normal EF 61%, Consulted cardiology S/p C 08/31/2022 which showed patent stent to the LAD, single small vessel coronary artery disease not suitable for intervention, continue medical therapy recommended -Abdominal ultrasound showed normal gallbladder, hepatic steatosis, nonobstructing right renal calculi -Agree with cardiology decreasing metoprolol to 25mg daily -Continue aspirin 81 mg daily Brilinta 90 mg twice daily atorvastatin 80 mg daily Imdur 60 mg daily -Work with cardiology as an outpatient Asthma, albuterol as needed JAN, CPAP nightly Hyperlipidemia -Most recent lipid panel from today showed total cholesterol 91, triglycerides 74, HDL 32, LDL 44 -Continue statin therapy HTN -Goal BP 120/80 -Continue lisinopril and amlodipine, advance as needed for goal BP Aortic dilatation -Per echo from January 2022 proximal ascending aorta borderline dilated 4.0 cm -BP control as above Discharge Medications Discharge Medications Modified Medications Details metoprolol succinate 25 MG 24 hr tablet Commonly known as: TOPROL-XL What changed: medication strength how much to take Take 1 (one) tablet (25 mg total) by mouth nightly . Quantity: 30 tablet Medications To Continue Details albuterol 90 mcg/actuation inhaler Inhale 2 (two) puffs every 6 (six) hours as needed for wheezing . Quantity: 18 g amLODIPine 5 MG tablet Commonly known as: NORVASC Take 1 (one) tablet (5 mg total) by mouth daily . Quantity: 90 tablet aspirin 81 MG EC tablet Take 1 (one) tablet (81 mg total) by mouth daily . Quantity: 90 tablet atorvastatin 80 MG tablet Commonly known as: LIPITOR Take 1 (one) tablet (80 mg total) by mouth daily . Quantity: 90 tablet blood sugar diagnostic strips by Miscellaneous route daily . Quantity: 100 each blood-[place] [facility] [place]: 1 each cyclobenzaprine 5 MG tablet Commonly known as: FLEXERIL Take 1 (one) tablet (5 mg total) by mouth 3 (three) times a day as needed for muscle spasms . Quantity: 15 tablet empagliflozin 25 mg Tab Take 1 (one) tablet (25 mg total) by mouth daily . Quantity: 90 tablet famotidine 40 MG tablet Commonly known as: PEPCID Take 1 (one) tablet (40 mg total) by mouth daily . Quantity: 90 tablet fluticasone propionate 50 mcg/actuation nasal spray Commonly known as: FLONASE Instill 2 (two) sprays into each nostril daily . Quantity: 48 g insulin detemir U-100 100 unit/mL (3 mL) Inpn Commonly known as: LEVEMIR Inject 40 (forty) Units under the skin nightly . Quantity: 12 mL isosorbide mononitrate 60 MG 24 hr tablet Commonly known as: IMDUR Take 1 (one) tablet (60 mg total) by mouth daily . Quantity: 90 tablet lisinopriL 10 MG tablet Commonly known as: PRINIVIL,ZESTRIL Take 1 (one) tablet (10 mg total) by mouth daily . Quantity: 90 tablet loratadine 10 mg tablet Commonly known as: CLARITIN Take 1 (one) tablet (10 mg total) by mouth daily . Quantity: 90 tablet metFORMIN 1000 MG tablet Commonly known as: GLUCOPHAGE Take 1 (one) tablet (1,000 mg total) by mouth 2 (two) times a day with meals . Quantity: 180 tablet multivitamin per tablet Commonly known as: THERAGRAN Take 1 (one) tablet by mouth daily . nitroGLYCERIN 0.4 MG SL tablet Commonly known as: NITROSTAT Take 1 (one) tablet (0.4 mg total) by mouth See Admin Instructions DISSOLVE ONE TABLET UNDER THE TONGUE EVERY 5 MINUTES NEEDED FOR CHEST PAIN. DO NOT EXCEED A TOTAL OF 3 DOSES IN 15 MINUTES NOW . Quantity: 30 tablet omeprazole 40 MG capsule Commonly known as: PRILOSEC Take 1 (one) capsule (40 mg total) by mouth daily . Quantity: 30 capsule pen needle, diabetic 32 gauge x 5/32 Ndle 1 application by Miscellaneous route nightly . Quantity: 100 each ticagrelor 90 mg Tab tablet Commonly known as: Brilinta Take 1 (one) tablet (90 mg total) by mouth 2 (two) times a day . Quantity: 60 tablet Physician(s) Follow Up: No follow-up provider specified. Condition at Discharge:stable Disposition: Home I reviewed discharge recommendations with the patient in person. Patient instructions, including activity, were given to the patient/family at discharge. On day of discharge I saw Frederic Stack and spent: > 30 minutes on discharge. Completed by: Rae Harley on 09/01/22, 11:18 AM documented in this encounter [facility] 09-01-2022 Hospital Discharge instructions Giselle Posadas CNP - 09/01/2022 10:11 AM EDT Please ensure you are taking your aspirin and Brilinta therapy as prescribed Decrease your metoprolol succinate to 25 mg daily due to heart rate noted to be in the 40 to 50s on telemetry Hold your metformin for 48 hours, can resume on 09/03/2022 [facility] Post Cardiac Catheterization Discharge Instructions Site Care Watch for any bleeding or oozing from the site. If this occurs, lie flat and place direct pressure on the bandage for 20 minutes. If bleeding reoccurs call [facility]. For wrist and arms, remove your bandage with your next shower and apply a band aid or can leave open to air. Soreness and bruising are to be expected. Do not submerge catheterization site in water for 5 to 7 days following the procedure. Examples include bathing, swimming, sitting in a Jacuzzi or dishwashing. You may shower 24 hours after the procedure. Call [facility] at [phone] if you notice any of the following: Bleeding or increased swelling at the puncture site Redness Drainage (either pus or blood) Increased soreness around the wound A fever over 100 F Numbness, coldness, color change, or tingling pain in your arm or leg below the wound Light headedness, dizziness, weakness of arms or legs, or difficulty with speech Chest pain, pressure, tightness or burning in the chest, arm jaw or stomach Activity Limit your activity following the catheterization as follows: No lifting over 10 pounds for 2 days if done by groin No lifting over 5 pounds for 7 days if done by wrist. Do not manipulate the wrist for 24 hours No running, jogging, climbing (more than a few stairs) for 7 days No driving or operating heavy machinery for a minimum of 48 hours Do Not Smoke or use tobacco products for 24 hours after the procedure Discuss any other activity concerns with the nurse or physician Medications Continue taking all the current medications as directed on medication reconciliation record or unless otherwise instructed to by your physician. If you do not have prescription coverage and are in need of prescription assistance, please notify the [facility] nurse or call the office. If you were prescribed Plavix (clopidogrel), Effient (prasugrel), or Brilinta (ticagrelar) after your procedure, DO NOT STOP taking this medication unless told to do so by your [facility] shoe maker. documented in this encounter [facility] 09-01-2022 Note Formatting of this n ote is different from the original. Cardiology Progress Note [facility] Cardiology Sign-Off Discharge Medications: Continue aspirin 81 mg daily, Brilinta 90 mg twice daily, atorvastatin 80 mg daily, Norvasc 5 mg daily, Imdur 60 mg daily, lisinopril 10 mg daily, metoprolol succinate 25 mg nightly, nitroglycerin SL as needed Follow-up Imaging, Testing: No additional outpatient testing is recommended at this time. Follow-up Appointments: See AVS Additional Instructions Reviewed with Patient and/or Family: Compliance with follow-up. Compliance with medications. Assessment/Plan: Coronary artery disease status post PCI to the proximal LAD in November 2020 Chest pain -Relook cath November 2020 with patent LAD stent, 80% stenosis to LCx however this was small vessel therefore he was medically managed he has been on medical therapy. -Nuclear stress test in March 2021 was negative for ischemia -Patient transferred here for c/o left chest pain with radiation to L shoulder improved with Nitropaste -Troponins negative -ECHO Feb 10 EF 61% -We proceeded with [facility] yesterday 08/31/2022 which showed patent stent to the LAD, single small vessel coronary artery disease not suitable for intervention, continue medical therapy recommended -Abdominal ultrasound showed normal gallbladder, hepatic steatosis, nonobstructing right renal calculi Plan: Reviewed with Dr. Drew Continue aspirin 81 mg daily, Brilinta 90 mg twice daily, Atorvastatin 80 mg daily Patient bradycardic with heart rate in the 40s this morning we will decrease his metoprolol succinate to 25 mg daily Continue Imdur 60 mg daily If continued complaints with chest discomfort could consider addition of Ranexa to his regimen for small branch vessel disease. Will leave to his primary shoe maker Dr. Gonzalez's discretion Follow-up with Dr. Gonzalez as scheduled From cardiology standpoint patient okay to [place] home today Hyperlipidemia -Most recent lipid panel from today showed total cholesterol 91, triglycerides 74, HDL 32, LDL 44 -Continue statin therapy HTN -Goal BP 120/80 -Continue lisinopril and amlodipine, advance as needed for goal BP Aortic dilatation -Per echo from January 2022 proximal ascending aorta borderline dilated 4.0 cm -BP control as above No further suggestions at this time we will sign off. Please call with further questions or concerns Subjective: Mr. Stack denies chest pain, dyspnea, palpitations, peripheral swelling, or dizziness Objective: SB on tele no arrhythmias Vital signs in last 24 hours: Temp: [97.2 F (36.2 C)-98.3 F (36.8 C)] 97.2 F (36.2 C) Heart Rate: [48-59] 51 Resp: [12-18] 18 BP: (115-161)/(73-100) 123/75 Physical Exam: Constitutional: Appears well-developed and well-nourished. No distress. Head: Normocephalic and atraumatic. Eyes: Conjunctivae and EOM are normal. No scleral icterus. Neck: Normal range of motion. Cardiovascular: Normal rate and regular rhythm. Exam reveals no gallop and no friction rub. No murmur heard. No peripheral edema Pulmonary/Chest: Effort normal and breath sounds normal. No respiratory distress. No wheezes. No rales. Room air Abdominal: Soft. Bowel sounds are normal. There is no abdominal tenderness. Musculoskeletal: Normal range of motion. Neurological: AOx3, moving all ext. Skin: Skin is warm and dry. No rash noted. Right wrist without hematoma or neurovascular compromise Psychiatric: Normal mood and affect. Lab Review Today's available lab reviewed. Cardiac Testing: [facility] 08/31/22 Impression: Single small vessel coronary artery disease not for intervention Patent stent in LAD with no significant ISR [facility] 08-31-2022 Note Formatting of this n ote might be different from the original. No bleeding tr band reduced 5 ml T [facility] 08-31-2022 Note Formatting of this n ote might be different from the original. No bleeding R wrist TR band reduced by 5 ml T [facility] 08-31-2022 Procedure note Images from the original note were not included. Procedure Laterality Anesthesia Coronary Angiogram N/A PACS Images Show images for Cardiac Catheterization Pre Procedure Diagnosis CP Post Procedure Diagnosis CAD Conclusion Impression: Single small vessel coronary artery disease not for intervention Patent stent in LAD with no significant ISR Recommendations: Continue medical therapy Aggressive GDMT for SIHD Coronary Findings suggestion The vessel findings have changed since the last refresh. Diagnostic Dominance: Right Left Main The vessel was visualized by angiography, is moderate in size and is angiographically normal. Left Anterior Descending The vessel was visualized by angiography and is moderate in size. There is mild diffuse disease throughout the vessel. Previously placed Prox LAD to Mid LAD stent of unknown type is widely patent. Left Circumflex The vessel is small. Mid Cx to Dist Cx lesion is 70% stenosed. Diffuse disease in small AV circumflex. Unchanged from prior cath First Obtuse Marginal Branch The vessel is large. Right Coronary Artery The vessel was visualized by angiography and is moderate in size. The vessel exhibits minimal luminal irregularities. Intervention No interventions have been documented. Complications No complications were associated with this study. Documented by Jb Trujillo MD - 08/31/2022 6:08 PM [employer] Work Phone: 08-31-2022 Procedure note Images from the original note were not included. Procedure Laterality Anesthesia Coronary Angiogram N/A PACS Images Show images for Cardiac Catheterization Pre Procedure Diagnosis CP Post Procedure Diagnosis CAD Conclusion Impression: Single small vessel coronary artery disease not for intervention Patent stent in LAD with no significant ISR Recommendations: Continue medical therapy Aggressive GDMT for SIHD Coronary Findings suggestion The vessel findings have changed since the last refresh. Diagnostic Dominance: Right Left Main The vessel was visualized by angiography, is moderate in size and is angiographically normal. Left Anterior Descending The vessel was visualized by angiography and is moderate in size. There is mild diffuse disease throughout the vessel. Previously placed Prox LAD to Mid LAD stent of unknown type is widely patent. Left Circumflex The vessel is small. Mid Cx to Dist Cx lesion is 70% stenosed. Diffuse disease in small AV circumflex. Unchanged from prior cath First Obtuse Marginal Branch The vessel is large. Right Coronary Artery The vessel was visualized by angiography and is moderate in size. The vessel exhibits minimal luminal irregularities. Intervention No interventions have been documented. Complications No complications were associated with this study. Documented by Jb Trujillo MD - 08/31/2022 6:08 PM documented in this encounter [facility] 08-31-2022 Consult note Formatting of th is note is different from the original. General Cardiology Inpatient Consult Heart & Vascular [facility] 08/31/2022 Giselle Posadas CNP [facility] Patient: Frederic Stack Jr. Date of : 1965 (57 y.o.) Referring Provider: Jackie Mata MD PCP: Maggie Marquez MD Assessment/Plan: Coronary artery disease status post PCI to the proximal LAD in November 2020 Chest pain -Relook cath November 2020 with patent LAD stent, 80% stenosis to LCx however this was small vessel therefore he was medically managed he has been on medical therapy. -Nuclear stress test in March 2021 was negative for ischemia -Patient transferred here for c/o left chest pain with radiation to L shoulder improved with Nitropaste -Troponins negative -ECHO Feb 10 EF 61% Plan: Reviewed with Dr. Gonzalez Will proceed with [facility] to rule out ISR or progression in CAD Continue aspirin 81 mg daily, Brilinta 90 mg twice daily, Atorvastatin 80 mg daily Continue metoprolol succinate 50 mg daily Continue Imdur 60 mg daily Update RUQ US to rule out GB disease Hyperlipidemia -Most recent lipid panel from today showed total cholesterol 91, triglycerides 74, HDL 32, LDL 44 -Continue statin therapy HTN -Goal BP 120/80 -Continue lisinopril and amlodipine, advance as needed for goal BP Aortic dilatation -Per echo from January 2022 proximal ascending aorta borderline dilated 4.0 cm -BP control as above Reason for Consultation: Chest pain, CAD History of Present Illness: Frederic Stack is a 57 y.o. man with history of coronary artery disease status post PCI to the proximal LAD in 2020 at [place], re-look cath November 2020 patent stent, 80% stenosis LCX small vessel disease medically managed negative SPECT Mar 2021. He also has PMH of hyperlipidemia, hypertension, aortic dilatation, JAN, and asthma who presented to [facility] ER with complaints of chest pain. He was transferred over here for cardiology evaluation for he follows with Dr. Gonzalez. Patient states over the last week he has had intermittent chest pain. He states it does not necessarily seem to be with exertion it appears random. He states he was at work yesterday when he developed left chest pain that radiated to his shoulder. He states that the pain was pretty persistent and was relieved after he received Nitropaste in the emergency room. He does have sublingual nitroglycerin at home however he could not find his supply. He denies any worsening shortness of breath, WAYNE, lightheadedness, dizziness, syncope, peripheral edema. He states at times he gets occasional nausea and dry heaves and abdominal pain after eating. He had a gastric emptying study done in March 2022 which was normal. His spouse at the bedside is insistent that she believes he has gallbladder issues for his symptoms mimic hers when she had GB disease. He did have a CT dissection in May 2022 which showed no acute findings and a normal gallbladder. He denies any smoking, alcohol or drug use. Currently he rates his chest pain 1 out of 10 on exam. He has been up ambulating in the room today, does not worsen with exertion. His troponins have been negative. His telemetry is currently on standby The following Vizient risk variables were noted and present on admission: No Vizient risk variables were present on admission Please see assessment and plan for further details. Past Medical History: Diagnosis Date Arthritis Back and hips Asthma Coronary artery disease COVID-19 04/12/2021 DDD (degenerative disc disease), lumbar [facility] L5-S1 Depressed 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 Diabetes mellitus, type 2 (HCC) Facet arthropathy, lumbar [facility] Lower History of cardiac cath History of stress test Hyperlipidemia 2015 Indigestion 2005 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 Obesity Pancreatitis 2017 Sleep apnea 2001 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 Sleep apnea, obstructive Tobacco use Past Surgical History: Procedure Laterality Date CARPAL TUNNEL RELEASE Right COLONOSCOPY approximately 2017 COLONOSCOPY N/A 07/27/2022 Procedure: COLONOSCOPY; Surgeon: Glen Wasserman MD; Location: [facility] [place]; Service: Gastroenterology CORONARY STENT PLACEMENT EGD N/A 07/27/2022 Procedure: ESOPHAGOGASTRODUODENOSCOPY with biopsy; Surgeon: Glen Wasserman MD; Location: [facility] [place] [facility]; Service: Gastroenterology HC LEFT HEART CATH N/A 12/14/2020 Procedure: Left Heart Cath; Surgeon: Jb Trujillo MD; 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 Authorizing Provider amLODIPine (NORVASC) 5 MG tablet Take 1 (one) tablet (5 mg total) by mouth daily . 11/14/21 11/14/22 Yes Jackelyn Gonzalez MD aspirin 81 MG EC tablet Take 1 (one) tablet (81 mg total) by mouth daily . 08/14/21 Yes Maggie Marquez MD atorvastatin (LIPITOR) 80 MG tablet Take 1 (one) tablet (80 mg total) by mouth daily . 07/23/22 07/23/23 Yes Jackelyn Gonzalez MD cyclobenzaprine (FLEXERIL) 5 MG tablet Take 1 (one) tablet (5 mg total) by mouth 3 (three) times a day as needed for muscle spasms . 05/31/22 Yes Mindy Bond MD isosorbide mononitrate (IMDUR) 60 MG 24 hr tablet Take 1 (one) tablet (60 mg total) by mouth daily . 03/12/22 03/12/23 Yes Jackelyn Gonzalez MD lisinopriL (PRINIVIL,ZESTRIL) 10 MG tablet Take 1 (one) tablet (10 mg total) by mouth daily . 09/21/21 09/21/22 Yes Maggie Marquez MD loratadine (CLARITIN) 10 mg tablet Take 1 (one) tablet (10 mg total) by mouth daily . 08/14/21 Yes Maggie Marquez MD metoprolol succinate (TOPROL-XL) 50 MG 24 hr tablet Take 1 (one) tablet (50 mg total) by mouth nightly . 08/14/21 Yes Maggie Marquez MD multivitamin (THERAGRAN) per tablet Take 1 (one) tablet by mouth daily . Yes Historical Provider, ticagrelor (Brilinta) 90 mg Tab tablet Take 1 (one) tablet (90 mg total) by mouth 2 (two) times a day . 10/30/21 Yes Jackelyn Gonzalez MD albuterol 90 mcg/actuation inhaler Inhale 2 (two) puffs every 6 (six) hours as needed for wheezing . Patient not taking: Reported on 08/03/2022 . 06/18/22 06/18/23 Maggie Marquez MD blood sugar diagnostic strips by Miscellaneous route daily . 10/18/21 Maggie Marquez MD blood-glucose [place] [facility] [place] Maggie Marquez MD empagliflozin 25 mg Tab Take 1 (one) tablet (25 mg total) by mouth daily . 08/14/21 08/14/22 Maggie Marquez MD famotidine (PEPCID) 40 MG tablet Take 1 (one) tablet (40 mg total) by mouth daily . 09/20/21 08/03/22 Maggie Marquez MD fluticasone propionate (FLONASE) 50 mcg/actuation nasal spray Instill 2 (two) sprays into each nostril daily . Patient taking differently: Instill 2 (two) sprays into each nostril 2 (two) times a day as needed . 08/14/21 08/14/22 Maggie Marquez MD insulin detemir U-100 (LEVEMIR) 100 unit/mL (3 mL) InPn Inject 30 (thirty) Units under the skin nightly PT REPORTS THAT HE'S BEEN TAKING 40 . Patient taking differently: Inject 40 (forty) Units under the skin nightly . 07/18/22 10/16/22 Maggie Marquez MD metFORMIN (GLUCOPHAGE) 1000 MG tablet Take 1 (one) tablet (1,000 mg total) by mouth 2 (two) times a day with meals . 08/14/21 08/14/22 Maggie Marquez MD nitroGLYCERIN (NITROSTAT) 0.4 MG SL tablet Take 1 (one) tablet (0.4 mg total) by mouth See Admin Instructions DISSOLVE ONE TABLET UNDER THE TONGUE EVERY 5 MINUTES NEEDED FOR CHEST PAIN. DO NOT EXCEED A TOTAL OF 3 DOSES IN 15 MINUTES NOW . 08/14/21 Maggie Marquez MD omeprazole (PRILOSEC) 40 MG capsule Take 1 (one) capsule (40 mg total) by mouth daily . 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 11/30/21 Maggie Marquez MD Current Facility-Administered Medications Medication Dose Route Frequency Provider Last Rate Last Admin acetaminophen (TYLENOL) tablet 650 mg 650 mg Oral Q4H PRN Patricia Louis MD albuterol inhaler 2 puff 2 puff Inhalation Q6H PRN Patricia Louis MD amLODIPine (NORVASC) tablet 5 mg 5 mg Oral Daily Patricia Louis MD aspirin EC tablet 81 mg 81 mg Oral Daily Patricia Louis MD atorvastatin (LIPITOR) tablet 80 mg 80 mg Oral Daily Patricia Louis MD cyclobenzaprine (FLEXERIL) tablet 5 mg 5 mg Oral TID PRN Patricia Louis MD insulin glargine (LANTUS) injection 40 Units 40 Units Subcutaneous Nightly Patricia Louis MD insulin lispro (AdmeLOG,HumaLOG) injection 0-15 Units 0-15 Units Subcutaneous at bedtime Patricia Louis MD insulin lispro (AdmeLOG,HumaLOG) injection 0-30 Units 0-30 Units Subcutaneous TID AC Patricia Louis MD isosorbide mononitrate (IMDUR) 24 hr tablet 60 mg 60 mg Oral Daily Patricia Louis MD lisinopriL (PRINIVIL,ZESTRIL) tablet 10 mg 10 mg Oral Daily Patricia Louis MD metoprolol succinate (TOPROL-XL) 24 hr tablet 50 mg 50 mg Oral Nightly Patricia Louis MD nitroGLYCERIN (NITROSTAT) SL tablet 0.4 mg 0.4 mg Sublingual Q5 Min PRN Patricia Louis MD ondansetron (ZOFRAN) injection 4 mg 4 mg Intravenous Q6H PRN Patricia Louis MD pantoprazole (PROTONIX) EC tablet 40 mg 40 mg Oral Nightly Patricia Louis MD sodium chloride (PF) (NS) flush 5 mL 5 mL Intravenous PRN Patricia Louis MD And sodium chloride (PF) (NS) flush 5 mL 5 mL Intravenous Q8H JARRETT Patricia Louis MD And sodium chloride 0.9% (NS) 0-150 mL/hr Intravenous PRN Patricia Louis MD ticagrelor (BriLINTA) tablet 90 mg 90 mg Oral BID Patricia Louis MD Review of Systems: All systems reviewed and are negative except for the pertinent positives listed above Objective: Vital Signs: BP (!) 152/89 Pulse (!) 50 Temp 97.4 F (36.3 C) (Oral) Resp 18 Ht 5' 6 Wt 97.6 kg (215 lb 2.7 oz) SpO2 96% BMI 34.73 kg/m Physical Examination: Constitutional: Appears well-developed and well-nourished. No distress. Head: Normocephalic and atraumatic. Eyes: Conjunctivae and EOM are normal. No scleral icterus. Neck: Normal range of motion. Cardiovascular: Normal rate and regular rhythm. Exam reveals no gallop and no friction rub. No murmur heard. No lower extremity edema, no JVP Pulmonary/Chest: Effort normal and breath sounds normal. No respiratory distress. No wheezes. No rales. Room air Abdominal: Soft. Bowel sounds are normal. There is no abdominal tenderness. Musculoskeletal: Normal range of motion. Neurological: AOx3, moving all ext. Skin: Skin is warm and dry. No rash noted. Psychiatric: Normal mood and affect. Lab Results Component Value Date WBC 7.36 08/30/2022 HGB 13.7 08/30/2022 HCT 40.7 (L) 08/30/2022 MCV 89.3 08/30/2022 EXTMCV 85.7 11/08/2017 PLT 261 08/30/2022 RBC 4.56 08/30/2022 Lab Results Component Value Date CREATININE 0.90 08/30/2022 BUN 24 08/30/2022 NA 140 12/06/2021 K 4.1 12/06/2021 CL 107 12/06/2021 BICARB 27 12/06/2021 Lab Results Component Value Date NA 140 12/06/2021 K 4.1 12/06/2021 CL 107 12/06/2021 Lab Results Component Value Date TROPONINI 7 08/31/2022 EKG 12-lead Final Result by Interface, Lab Results In [place] [facility] (08/31/2022 1325) Normal sinus rhythm Minimal voltage criteria for LVH, may be normal variant ( R in aVL ) Septal infarct , age undetermined Inferior infarct , age undetermined Abnormal ECG ECG Cart Interpretation - see physician note for interpretation. Confirmed by Shanika Boss ([id number]) on 08/31/2022 1:25:11 PM Giselle Posadas Associated attestation - Jackelyn Gonzalez MD - 08/31/2022 4:39 PM EDT I personally performed a [id number] diagnostic evaluation on this patient on the same calendar day as the NEYMAR's evaluation. I agree with the care plan documented by the NEYMAR with the following additions/comments. Assessment/Plan: Mr. Lobo is a 57-year-old gentleman with history of coronary artery disease status post PCI to proximal LAD in November 2020, hyperlipidemia, JAN and asthma who presented to the hospital with chest pain. He reports that over the last 2 weeks he has had episodes of chest pain which come on with activity exertion. He reports that over the last 2 weeks the chest pain has gotten worse in intensity and frequency. Yesterday he started to have chest pain while at work. He cannot find his sublingual nitroglycerin. He reports that when he got to the emergency room he was given sublingual nitroglycerin which resolved his pain. He denies feeling short of breath. He denies lower extremity swelling, PND and orthopnea. He denies palpitations. He denies lightheadedness. In addition of this he does report abdominal pain after eating which is different than the chest pain. Given his progressive anginal symptoms we did discuss an invasive ischemic evaluation. Patient was agreeable. Plan for left heart catheterization. Continue medical management the time being with aspirin milligrams daily, atorvastatin 80 mg daily, lisinopril 10 mg daily, isosorbide mononitrate 60 mg daily, metoprolol 50 mg daily and ticagrelor 90 mg twice daily. Further management pending left heart catheterization. Jackelyn Gonzalez MD [facility] Non-Invasive Cardiology [facility] Heart and Vascular [facility] 08-31-2022 Consult note Formatting of th is note is different from the original. General Cardiology Inpatient Consult Heart & Vascular [facility] 08/31/2022 Giselle Posadas [facility] Patient: Frederic Stack Jr. Date of : 1965 (57 y.o.) Referring Provider: Jackie Mata MD PCP: Maggie Marquez MD Assessment/Plan: Coronary artery disease status post PCI to the proximal LAD in November 2020 Chest pain -Relook cath November 2020 with patent LAD stent, 80% stenosis to LCx however this was small vessel therefore he was medically managed he has been on medical therapy. -Nuclear stress test in March 2021 was negative for ischemia -Patient transferred here for c/o left chest pain with radiation to L shoulder improved with Nitropaste -Troponins negative -ECHO Feb 10 EF 61% Plan: Reviewed with Dr. Gonzalez Will proceed with [facility] to rule out ISR or progression in CAD Continue aspirin 81 mg daily, Brilinta 90 mg twice daily, Atorvastatin 80 mg daily Continue metoprolol succinate 50 mg daily Continue Imdur 60 mg daily Update RUQ US to rule out GB disease Hyperlipidemia -Most recent lipid panel from today showed total cholesterol 91, triglycerides 74, HDL 32, LDL 44 -Continue statin therapy HTN -Goal BP 120/80 -Continue lisinopril and amlodipine, advance as needed for goal BP Aortic dilatation -Per echo from January 2022 proximal ascending aorta borderline dilated 4.0 cm -BP control as above Reason for Consultation: Chest pain, CAD History of Present Illness: Frederic Stack is a 57 y.o. man with history of coronary artery disease status post PCI to the proximal LAD in 2020 at [place], re-look cath November 2020 patent stent, 80% stenosis LCX small vessel disease medically managed negative SPECT Mar 2021. He also has PMH of hyperlipidemia, hypertension, aortic dilatation, JAN, and asthma who presented to [facility] ER with complaints of chest pain. He was transferred over here for cardiology evaluation for he follows with Dr. Gonzalez. Patient states over the last week he has had intermittent chest pain. He states it does not necessarily seem to be with exertion it appears random. He states he was at work yesterday when he developed left chest pain that radiated to his shoulder. He states that the pain was pretty persistent and was relieved after he received Nitropaste in the emergency room. He does have sublingual nitroglycerin at home however he could not find his supply. He denies any worsening shortness of breath, WAYNE, lightheadedness, dizziness, syncope, peripheral edema. He states at times he gets occasional nausea and dry heaves and abdominal pain after eating. He had a gastric emptying study done in March 2022 which was normal. His spouse at the bedside is insistent that she believes he has gallbladder issues for his symptoms mimic hers when she had GB disease. He did have a CT dissection in May 2022 which showed no acute findings and a normal gallbladder. He denies any smoking, alcohol or drug use. Currently he rates his chest pain 1 out of 10 on exam. He has been up ambulating in the room today, does not worsen with exertion. His troponins have been negative. His telemetry is currently on standby The following Vizient risk variables were noted and present on admission: No Vizient risk variables were present on admission Please see assessment and plan for further details. Past Medical History: Diagnosis Date Arthritis Back and hips Asthma Coronary artery disease COVID-19 04/12/2021 DDD (degenerative disc disease), lumbar [facility] L5-S1 Depressed 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 Diabetes mellitus, type 2 (HCC) Facet arthropathy, lumbar [facility] History of cardiac cath History of stress test Hyperlipidemia 2015 Indigestion 2005 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 Obesity Pancreatitis 2017 Sleep apnea 2001 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 Sleep apnea, obstructive Tobacco use Past Surgical History: Procedure Laterality Date CARPAL TUNNEL RELEASE Right COLONOSCOPY approximately 2017 COLONOSCOPY N/A 07/27/2022 Procedure: COLONOSCOPY; Surgeon: Glen Wasserman MD; Location: [facility]; Service: Gastroenterology CORONARY STENT PLACEMENT EGD N/A 07/27/2022 Procedure: ESOPHAGOGASTRODUODENOSCOPY with biopsy; Surgeon: Glen Wasserman MD; Location: [facility]; Service: Gastroenterology HC LEFT HEART CATH N/A 12/14/2020 Procedure: Left Heart Cath; Surgeon: Jb Trujillo MD; 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 Authorizing Provider amLODIPine (NORVASC) 5 MG tablet Take 1 (one) tablet (5 mg total) by mouth daily . 11/14/21 11/14/22 Yes Jackelyn Gonzalez MD aspirin 81 MG EC tablet Take 1 (one) tablet (81 mg total) by mouth daily . 08/14/21 Yes Maggie Marquez MD atorvastatin (LIPITOR) 80 MG tablet Take 1 (one) tablet (80 mg total) by mouth daily . 07/23/22 07/23/23 Yes Jackelyn Gonzalez MD cyclobenzaprine (FLEXERIL) 5 MG tablet Take 1 (one) tablet (5 mg total) by mouth 3 (three) times a day as needed for muscle spasms . 05/31/22 Yes Mindy Bond MD isosorbide mononitrate (IMDUR) 60 MG 24 hr tablet Take 1 (one) tablet (60 mg total) by mouth daily . 03/12/22 03/12/23 Yes Jackelyn Gonzalez MD lisinopriL (PRINIVIL,ZESTRIL) 10 MG tablet Take 1 (one) tablet (10 mg total) by mouth daily . 09/21/21 09/21/22 Yes Maggie Marquez MD loratadine (CLARITIN) 10 mg tablet Take 1 (one) tablet (10 mg total) by mouth daily . 08/14/21 Yes Maggie Marquez MD metoprolol succinate (TOPROL-XL) 50 MG 24 hr tablet Take 1 (one) tablet (50 mg total) by mouth nightly . 08/14/21 Yes Maggie Marquez MD multivitamin (THERAGRAN) per tablet Take 1 (one) tablet by mouth daily . Yes Sandra Geiger MD ticagrelor (Brilinta) 90 mg Tab tablet Take 1 (one) tablet (90 mg total) by mouth 2 (two) times a day . 10/30/21 Yes Jackelyn Gonzalez MD albuterol 90 mcg/actuation inhaler Inhale 2 (two) puffs every 6 (six) hours as needed for wheezing . Patient not taking: Reported on 08/03/2022 . 06/18/22 06/18/23 Maggie Marquez MD blood sugar diagnostic strips by Miscellaneous route daily . 10/18/21 Maggie Marquez MD blood-glucose meter [facility] [place] Maggie Marquez MD empagliflozin 25 mg Tab Take 1 (one) tablet (25 mg total) by mouth daily . 08/14/21 08/14/22 Maggie Marquez MD famotidine (PEPCID) 40 MG tablet Take 1 (one) tablet (40 mg total) by mouth daily . 09/20/21 08/03/22 Maggie Marquez MD fluticasone propionate (FLONASE) 50 mcg/actuation nasal spray Instill 2 (two) sprays into each nostril daily . Patient taking differently: Instill 2 (two) sprays into each nostril 2 (two) times a day as needed . 08/14/21 08/14/22 Maggie Marquez MD insulin detemir U-100 (LEVEMIR) 100 unit/mL (3 mL) InPn Inject 30 (thirty) Units under the skin nightly PT REPORTS THAT HE'S BEEN TAKING 40 . Patient taking differently: Inject 40 (forty) Units under the skin nightly . 07/18/22 10/16/22 Maggie Marquez MD metFORMIN (GLUCOPHAGE) 1000 MG tablet Take 1 (one) tablet (1,000 mg total) by mouth 2 (two) times a day with meals . 08/14/21 08/14/22 Maggie Marquez MD nitroGLYCERIN (NITROSTAT) 0.4 MG SL tablet Take 1 (one) tablet (0.4 mg total) by mouth See Admin Instructions DISSOLVE ONE TABLET UNDER THE TONGUE EVERY 5 MINUTES NEEDED FOR CHEST PAIN. DO NOT EXCEED A TOTAL OF 3 DOSES IN 15 MINUTES NOW . 08/14/21 Maggie Marquez MD omeprazole (PRILOSEC) 40 MG capsule Take 1 (one) capsule (40 mg total) by mouth daily . 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 11/30/21 Maggie Marquez MD Current Facility-Administered Medications Medication Dose Route Frequency Provider Last Rate Last Admin acetaminophen (TYLENOL) tablet 650 mg 650 mg Oral Q4H PRN Patricia Louis MD albuterol inhaler 2 puff 2 puff Inhalation Q6H PRN Patricia Louis MD amLODIPine (NORVASC) tablet 5 mg 5 mg Oral Daily Patricia Louis MD aspirin EC tablet 81 mg 81 mg Oral Daily Patricia Louis MD atorvastatin (LIPITOR) tablet 80 mg 80 mg Oral Daily Patricia Louis MD cyclobenzaprine (FLEXERIL) tablet 5 mg 5 mg Oral TID PRN Patricia Louis MD insulin glargine (LANTUS) injection 40 Units 40 Units Subcutaneous Nightly Patricia Louis MD insulin lispro (AdmeLOG,HumaLOG) injection 0-15 Units 0-15 Units Subcutaneous at bedtime Patricia Louis MD insulin lispro (AdmeLOG,HumaLOG) injection 0-30 Units 0-30 Units Subcutaneous TID AC Patricia Louis MD isosorbide mononitrate (IMDUR) 24 hr tablet 60 mg 60 mg Oral Daily Patricia Louis MD lisinopriL (PRINIVIL,ZESTRIL) tablet 10 mg 10 mg Oral Daily Patricia Louis MD metoprolol succinate (TOPROL-XL) 24 hr tablet 50 mg 50 mg Oral Nightly Patricia Louis MD nitroGLYCERIN (NITROSTAT) SL tablet 0.4 mg 0.4 mg Sublingual Q5 Min PRN Patricia Louis MD ondansetron (ZOFRAN) injection 4 mg 4 mg Intravenous Q6H PRN Patricia Louis MD pantoprazole (PROTONIX) EC tablet 40 mg 40 mg Oral Nightly Patricia Louis MD sodium chloride (PF) (NS) flush 5 mL 5 mL Intravenous PRN Patricia Louis MD And sodium chloride (PF) (NS) flush 5 mL 5 mL Intravenous Q8H JARRETT Patricia Louis MD And sodium chloride 0.9% (NS) 0-150 mL/hr Intravenous PRN Patricia Louis MD ticagrelor (BriLINTA) tablet 90 mg 90 mg Oral BID Patricia Louis MD Review of Systems: All systems reviewed and are negative except for the pertinent positives listed above Objective: Vital Signs: BP (!) 152/89 Pulse (!) 50 Temp 97.4 F (36.3 C) (Oral) Resp 18 Ht 5' 6 Wt 97.6 kg (215 lb 2.7 oz) SpO2 96% BMI 34.73 kg/m Physical Examination: Constitutional: Appears well-developed and well-nourished. No distress. Head: Normocephalic and atraumatic. Eyes: Conjunctivae and EOM are normal. No scleral icterus. Neck: Normal range of motion. Cardiovascular: Normal rate and regular rhythm. Exam reveals no gallop and no friction rub. No murmur heard. No lower extremity edema, no JVP Pulmonary/Chest: Effort normal and breath sounds normal. No respiratory distress. No wheezes. No rales. Room air Abdominal: Soft. Bowel sounds are normal. There is no abdominal tenderness. Musculoskeletal: Normal range of motion. Neurological: AOx3, moving all ext. Skin: Skin is warm and dry. No rash noted. Psychiatric: Normal mood and affect. Lab Results Component Value Date WBC 7.36 08/30/2022 HGB 13.7 08/30/2022 HCT 40.7 (L) 08/30/2022 MCV 89.3 08/30/2022 EXTMCV 85.7 11/08/2017 PLT 261 08/30/2022 RBC 4.56 08/30/2022 Lab Results Component Value Date CREATININE 0.90 08/30/2022 BUN 24 08/30/2022 NA 140 12/06/2021 K 4.1 12/06/2021 CL 107 12/06/2021 BICARB 27 12/06/2021 Lab Results Component Value Date NA 140 12/06/2021 K 4.1 12/06/2021 CL 107 12/06/2021 Lab Results Component Value Date TROPONINI 7 08/31/2022 EKG 12-lead Final Result by Interface, Lab Results In [place] [facility] (08/31/2022 1325) Normal sinus rhythm Minimal voltage criteria for LVH, may be normal variant ( R in aVL ) Septal infarct , age undetermined Inferior infarct , age undetermined Abnormal ECG ECG Cart Interpretation - see physician note for interpretation. Confirmed by Shanika Boss ([id number]) on 08/31/2022 1:25:11 PM Giselle Posadas Associated attestation - Jackelyn Gonzalez MD - 08/31/2022 4:39 PM EDT I personally performed a [id number] diagnostic evaluation on this patient on the same calendar day as the NEYMAR's evaluation. I agree with the care plan documented by the NEYMAR with the following additions/comments. Assessment/Plan: Mr. Lobo is a 57-year-old gentleman with history of coronary artery disease status post PCI to proximal LAD in November 2020, hyperlipidemia, JAN and asthma who presented to the hospital with chest pain. He reports that over the last 2 weeks he has had episodes of chest pain which come on with activity exertion. He reports that over the last 2 weeks the chest pain has gotten worse in intensity and frequency. Yesterday he started to have chest pain while at work. He cannot find his sublingual nitroglycerin. He reports that when he got to the emergency room he was given sublingual nitroglycerin which resolved his pain. He denies feeling short of breath. He denies lower extremity swelling, PND and orthopnea. He denies palpitations. He denies lightheadedness. In addition of this he does report abdominal pain after eating which is different than the chest pain. Given his progressive anginal symptoms we did discuss an invasive ischemic evaluation. Patient was agreeable. Plan for left heart catheterization. Continue medical management the time being with aspirin milligrams daily, atorvastatin 80 mg daily, lisinopril 10 mg daily, isosorbide mononitrate 60 mg daily, metoprolol 50 mg daily and ticagrelor 90 mg twice daily. Further management pending left heart catheterization. Jackelyn Gonzalez MD [facility] Non-Invasive Cardiology [facility] Heart and Vascular documented in this encounter [facility] 08-31-2022 History and physical note [facility] [place] AND [place]YSICAL -- [facility] Patient Name: Frederic Stack Jr. : 1965 MR #: [id number] Admit Date: 08/31/2022 Physicians: Maggie Marquez MD (Family); Jackie Mata MD (Referring) Frederic Stack is a 57 y.o. male patient of Maggie Marquez MD with history of coronary artery disease s/p PCI, proximal LAD in 2020, hyperlipidemia, JAN, asthma, who presented to [place] for chest pain. Midsternal chest pressure that radiates toward the left shoulder started about 3 PM yesterday at work, related to exertion, and subsided with nitroglycerin patch at the emergency room, patient denies cough, shortness of breath, palpitations. Chest pain Coronary artery disease s/p PCI proximal LAD [address] or T wave changes Troponin negative x3, recheck troponin Left cardiac cath in 2020, single-vessel disease s/p PCI stent placement LAD Nuclear stress test in March 2020 negative for ischemia, echocardiogram in 01/2022, normal EF 61%, Aspirin, Brilinta, metoprolol, statin Consult cardiology Asthma, albuterol as needed JAN, CPAP nightly Residence prior to admission: house or apartment Was patient transferred from outlying hospital or ED no Quality Measures DVT Prophylaxis: lovenox Chambers Catheter: absent Medication Reconciliation: Verified Risk variables present on admission: None. Please see assessment and plan for further details. Code Status Full Code; unverified Chief Complaint midsternal chest pressure History of Present Illness Frederic Stack is a 57 y.o. male patient of Maggie Marquez MD with history of coronary artery disease s/p PCI, proximal LAD in 2020, hyperlipidemia, JAN, asthma, who presented to [place] for chest pain. Midsternal chest pressure that radiates toward the left shoulder started about 3 PM yesterday at work, related to exertion, and subsided with nitroglycerin patch at the emergency room, patient denies cough, shortness of breath, palpitations. Past Medical History Past Medical History: Diagnosis Date Arthritis Back and hips Asthma Coronary artery disease COVID-19 04/12/2021 DDD (degenerative disc disease), lumbar [facility] L5-S1 Depressed 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 Diabetes mellitus, type 2 (HCC) Facet arthropathy, lumbar [facility] Lower History of cardiac cath History of stress test Hyperlipidemia 2015 Indigestion 2005 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 Obesity Pancreatitis 2017 Sleep apnea 2001 [facility] 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 Sleep apnea, obstructive Tobacco use Past Surgical History Past Surgical History: Procedure Laterality Date CARPAL TUNNEL RELEASE Right COLONOSCOPY approximately 2017 COLONOSCOPY N/A 07/27/2022 Procedure: COLONOSCOPY; Surgeon: Glen Wasserman MD; Location: [facility] [facility]; Service: Gastroenterology CORONARY STENT PLACEMENT EGD N/A 07/27/2022 Procedure: ESOPHAGOGASTRODUODENOSCOPY with biopsy; Surgeon: Glen Wasserman MD; Location: [facility]; Service: Gastroenterology HC LEFT HEART CATH N/A 12/14/2020 Procedure: Left Heart Cath; Surgeon: Jb Trujillo MD; 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; Service: Cardiovascular TONSILLECTOMY Family History Family History Problem Relation Age of Onset Diabetes type II Mother Heart failure Father Heart attack Father Diabetes type II Father Stomach cancer Paternal Aunt Social History Social History Tobacco Use Smoking Status Former Types: Cigarettes Quit date: 2014 Years since quittin.3 Smokeless Tobacco Current Types: Chew Tobacco Comments Chewing tobacco Vaping Use Vaping Use: Former Social History Substance and Sexual Activity Alcohol Use Yes Comment: rare Social History Substance and Sexual Activity Drug Use No Allergy Information I have reviewed the patient's allergies. Hydrochlorothiazide, Losartan, Bupropion, Hyzaar [losartan-hydrochlorothiazide], and Mavik [trandolapril] Home Medications Home medications were reviewed. Review Of Systems All relevant systems have been reviewed and are negative except as noted in HPI or below Physical Examination BP (!) 152/89 Pulse (!) 50 Temp 97.4 F (36.3 C) (Oral) Resp 18 Ht 5' 6 Wt 97.6 kg (215 lb 2.7 oz) SpO2 96% BMI 34.73 kg/m General Appearance: alert; well appearing; in no acute distress HEENT: Head- normocephalic; Eyes- EOMI, sclera anicteric; Throat- mucous membranes moist Cardiovascular: regular rate and rhythm; normal S1, S2; no murmurs, rubs, clicks or gallops; peripheral edema absent Respiratory: lungs clear to auscultation; without wheezes, rales or rhonchi; on room air Abdomen: soft, non-tender, non-distended Neurological: oriented x 3; normal speech; no focal findings or movement disorder noted Musculoskeletal: no significant deformity or tenderness to palpation Skin: normal coloration Psych: normal mood and affect [facility] 08-31-2022 History and physical note [facility] [place] AND [place]YSICAL -- [facility] Patient Name: Frederic Stack Jr. : 1965 MR #: [id number] Admit Date: 08/31/2022 Physicians: Maggie Marquez MD (Family); Jackie Mata MD (Referring) Frederic Stack is a 57 y.o. male patient of Maggie Marquez MD with history of coronary artery disease s/p PCI, proximal LAD in 2020, hyperlipidemia, JAN, asthma, who presented to [place] for chest pain. Midsternal chest pressure that radiates toward the left shoulder started about 3 PM yesterday at work, related to exertion, and subsided with nitroglycerin patch at the emergency room, patient denies cough, shortness of breath, palpitations. Chest pain Coronary artery disease s/p PCI proximal LAD [address] or T wave changes Troponin negative x3, recheck troponin Left cardiac cath in 2020, single-vessel disease s/p PCI stent placement LAD Nuclear stress test in March 2020 negative for ischemia, echocardiogram in 01/2022, normal EF 61%, Aspirin, Brilinta, metoprolol, statin Consult cardiology Asthma, albuterol as needed JAN, CPAP nightly Residence prior to admission: house or apartment Was patient transferred from outlying hospital or ED no Quality Measures DVT Prophylaxis: lovenox Chambers Catheter: absent Medication Reconciliation: Verified Risk variables present on admission: None. Please see assessment and plan for further details. Code Status Full Code; unverified Chief Complaint midsternal chest pressure History of Present Illness Frederic Stack is a 57 y.o. male patient of Maggie Marquez MD with history of coronary artery disease s/p PCI, proximal LAD in 2020, hyperlipidemia, JAN, asthma, who presented to [place] for chest pain. Midsternal chest pressure that radiates toward the left shoulder started about 3 PM yesterday at work, related to exertion, and subsided with nitroglycerin patch at the emergency room, patient denies cough, shortness of breath, palpitations. Past Medical History Past Medical History: Diagnosis Date Arthritis Back and hips Asthma Coronary artery disease COVID-19 04/12/2021 DDD (degenerative disc disease), lumbar [facility] L5-S1 Depressed [facility]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 Diabetes mellitus, type 2 (HCC) Facet arthropathy, lumbar [facility] [facility] History of cardiac cath History of stress test Hyperlipidemia 2014 Indigestion 2004 [facility] of [facility]/Livia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 Obesity Pancreatitis 2017 Sleep apnea 2001 [facility] of [facility]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 Sleep apnea, obstructive Tobacco use Past Surgical History Past Surgical History: Procedure Laterality Date CARPAL TUNNEL RELEASE Right COLONOSCOPY approximately 2017 COLONOSCOPY N/A 07/27/2022 Procedure: COLONOSCOPY; Surgeon: Glen Wasserman MD; Location: [facility]; Service: Gastroenterology CORONARY STENT PLACEMENT EGD N/A 07/27/2022 Procedure: ESOPHAGOGASTRODUODENOSCOPY with biopsy; Surgeon: Glen Wasserman MD; Location: [facility]; Service: Gastroenterology HC LEFT HEART CATH N/A 12/14/2020 Procedure: Left Heart Cath; Surgeon: Jb Trujillo MD; 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; Service: Cardiovascular TONSILLECTOMY Family History Family History Problem Relation Age of Onset Diabetes type II Mother Heart failure Father Heart attack Father Diabetes type II Father Stomach cancer Paternal Aunt Social History Social History Tobacco Use Smoking Status Former Types: Cigarettes Quit date: 2014 Years since quittin.3 Smokeless Tobacco Current Types: Chew Tobacco Comments Chewing tobacco Vaping Use Vaping Use: Former Social History Substance and Sexual Activity Alcohol Use Yes Comment: rare Social History Substance and Sexual Activity Drug Use No Allergy Information I have reviewed the patient's allergies. Hydrochlorothiazide, Losartan, Bupropion, Hyzaar [losartan-hydrochlorothiazide], and Mavik [trandolapril] Home Medications Home medications were reviewed. Review Of Systems All relevant systems have been reviewed and are negative except as noted in HPI or below Physical Examination BP (!) 152/89 Pulse (!) 50 Temp 97.4 F (36.3 C) (Oral) Resp 18 Ht 5' 6 Wt 97.6 kg (215 lb 2.7 oz) SpO2 96% BMI 34.73 kg/m General Appearance: alert; well appearing; in no acute distress HEENT: Head- normocephalic; Eyes- EOMI, sclera anicteric; Throat- mucous membranes moist Cardiovascular: regular rate and rhythm; normal S1, S2; no murmurs, rubs, clicks or gallops; peripheral edema absent Respiratory: lungs clear to auscultation; without wheezes, rales or rhonchi; on room air Abdomen: soft, non-tender, non-distended Neurological: oriented x 3; normal speech; no focal findings or movement disorder noted Musculoskeletal: no significant deformity or tenderness to palpation Skin: normal coloration Psych: normal mood and affect documented in this encounter [facility] 08-31-2022 Note Formatting of this n ote might be different from the original. POC imitated. Problem: Actual or potential alteration in health Goal: Absence of healthcare acquired conditions Outcome: Partially Met Goal: Knowledge of Interdisciplinary Plan of Care Outcome: Partially Met Goal: Knowledge of Enviroment Outcome: Partially Met [facility] 08-03-2022 History of Present illness Narrative Frederic Stack Jr. 57 y.o. 1965 male Changes since last visit: Following up after having colonoscopy for colon cancer screening and EGD for nausea and epigastric pain and early satiety. Occasional nausea but has significantly improved. No significant GERD symptoms since started taking omeprazole, denies weight loss, vomiting or change in bowel. Endoscopy reports reviewed, normal colonoscopy. EGD was normal gastric biopsy negative for H. pylori, distal esophageal biopsy showed no evidence of Finley's esophagus or dysphagia only mild reflux type changes. He also had gastric emptying study which was normal. Past Medical History: Past Medical History: Diagnosis Date Arthritis Back and hips Asthma Coronary artery disease COVID-19 04/12/2021 DDD (degenerative disc disease), lumbar [facility] Myles L5-S1 Depressed 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 Diabetes mellitus, type 2 (HCC) Facet arthropathy, lumbar [facility] History of cardiac cath History of stress test Hyperlipidemia 2015 Indigestion 2005 [facility]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 Obesity Pancreatitis 2017 Sleep apnea 2001 [facility] of [facility]/Livia Chavez NP Sleep apnea, obstructive Tobacco use Surgical History & Procedures: Past Surgical History: Procedure Laterality Date CARPAL TUNNEL RELEASE Right COLONOSCOPY approximately 2017 COLONOSCOPY N/A 07/27/2022 Procedure: COLONOSCOPY; Surgeon: Glen Wasserman MD; Location: [facility]; Service: Gastroenterology CORONARY STENT PLACEMENT EGD N/A 07/27/2022 Procedure: ESOPHAGOGASTRODUODENOSCOPY with biopsy; Surgeon: Glen Wasserman MD; Location: [facility]; Service: Gastroenterology HC LEFT HEART CATH N/A 12/14/2020 Procedure: Left Heart Cath; Surgeon: Jb Trujillo MD; 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 Current Medications: Current Outpatient Medications Medication Sig Dispense Refill amLODIPine (NORVASC) 5 MG tablet Take 1 (one) tablet (5 mg total) by mouth daily . 90 tablet 3 aspirin 81 MG EC tablet Take 1 (one) tablet (81 mg total) by mouth daily . 90 tablet 3 atorvastatin (LIPITOR) 80 MG tablet Take 1 (one) tablet (80 mg total) by mouth daily . 90 tablet 3 empagliflozin 25 mg Tab Take 1 (one) tablet (25 mg total) by mouth daily . 90 tablet 3 famotidine (PEPCID) 40 MG tablet Take 1 (one) tablet (40 mg total) by mouth daily . 90 tablet 3 fluticasone propionate (FLONASE) 50 mcg/actuation nasal spray Instill 2 (two) sprays into each nostril daily . (Patient taking differently: Instill 2 (two) sprays into each nostril 2 (two) times a day as needed .) 48 g 3 insulin detemir U-100 (LEVEMIR) 100 unit/mL (3 mL) InPn Inject 30 (thirty) Units under the skin nightly PT REPORTS THAT HE'S BEEN TAKING 40 . (Patient taking differently: Inject 40 (forty) Units under the skin nightly .) 27 mL 1 isosorbide mononitrate (IMDUR) 60 MG 24 hr tablet Take 1 (one) tablet (60 mg total) by mouth daily . 90 tablet 3 lisinopriL (PRINIVIL,ZESTRIL) 10 MG tablet Take 1 (one) tablet (10 mg total) by mouth daily . 90 tablet 3 loratadine (CLARITIN) 10 mg tablet Take 1 (one) tablet (10 mg total) by mouth daily . 90 tablet 3 metFORMIN (GLUCOPHAGE) 1000 MG tablet Take 1 (one) tablet (1,000 mg total) by mouth 2 (two) times a day with meals . 180 tablet 3 metoprolol succinate (TOPROL-XL) 50 MG 24 hr tablet Take 1 (one) tablet (50 mg total) by mouth nightly . 90 tablet 3 nitroGLYCERIN (NITROSTAT) 0.4 MG SL tablet Take 1 (one) tablet (0.4 mg total) by mouth See Admin Instructions DISSOLVE ONE TABLET UNDER THE TONGUE EVERY 5 MINUTES NEEDED FOR CHEST PAIN. DO NOT EXCEED A TOTAL OF 3 DOSES IN 15 MINUTES NOW . 25 tablet 4 omeprazole (PRILOSEC) 40 MG capsule Take 1 (one) capsule (40 mg total) by mouth daily . 30 capsule 0 ticagrelor (Brilinta) 90 mg Tab tablet Take 1 (one) tablet (90 mg total) by mouth 2 (two) times a day . 60 tablet 11 albuterol 90 mcg/actuation inhaler Inhale 2 (two) puffs every 6 (six) hours as needed for wheezing . (Patient not taking: Reported on 08/03/2022 .) 18 g 0 blood sugar diagnostic strips by Miscellaneous route daily . 100 each 1 blood-glucose meter Misc 1 each 0 cyclobenzaprine (FLEXERIL) 5 MG tablet Take 1 (one) tablet (5 mg total) by mouth 3 (three) times a day as needed for muscle spasms . (Patient not taking: Reported on 08/03/2022 .) 15 tablet 0 multivitamin (THERAGRAN) per tablet Take 1 (one) tablet by mouth daily . pen needle, diabetic 32 gauge x 532 Ndle 1 application by Miscellaneous route nightly . 100 each 1 No current facility-administered medications for this visit. Review of Systems Constitutional: Negative for appetite change, fatigue, fever and unexpected weight change. HENT: Negative for mouth sores, trouble swallowing and voice change. Eyes: Negative for redness. Respiratory: Negative for cough, choking and shortness of breath. Cardiovascular: Negative for chest pain and palpitations. Gastrointestinal: Positive for nausea (Occasional, improved from previously). Negative for abdominal pain, blood in stool, constipation, diarrhea and vomiting. Endocrine: Negative. Genitourinary: Negative for difficulty urinating. Musculoskeletal: Negative for arthralgias and joint swelling. Skin: Negative for color change and pallor. Allergic/Immunologic: Negative. Neurological: Negative for dizziness, syncope and light-headedness. Hematological: Negative. Psychiatric/Behavioral: Negative. Physical Exam Constitutional: General: He is not in acute distress. Appearance: Normal appearance. He is not ill-appearing. HENT: Head: Normocephalic and atraumatic. Right Ear: External ear normal. Left Ear: External ear normal. Nose: Nose normal. Mouth/Throat: Mouth: Mucous membranes are moist. Pharynx: No posterior oropharyngeal erythema. Eyes: General: No scleral icterus. Pupils: Pupils are equal, round, and reactive to light. Cardiovascular: Rate and Rhythm: Normal rate and regular rhythm. Heart sounds: No murmur heard. No gallop. Pulmonary: Effort: Pulmonary effort is normal. No respiratory distress. Breath sounds: Normal breath sounds. No wheezing. Abdominal: General: Abdomen is flat. Bowel sounds are normal. There is no distension. Palpations: Abdomen is soft. There is no mass. Tenderness: There is no abdominal tenderness. Musculoskeletal: General: No deformity. Normal range of motion. Cervical back: Normal range of motion and neck supple. Skin: General: Skin is warm and dry. Coloration: Skin is not jaundiced or pale. Neurological: General: No focal deficit present. Mental Status: He is alert and oriented to person, place, and time. Psychiatric: Mood and Affect: Mood normal. Behavior: Behavior normal. Admission on 07/27/2022, Discharged on 07/27/2022 Component Date Value Ref Range Status Glucose 07/27/2022 114 (H) 65 - 99 mg/dL Final Case Report 07/27/2022 Final Value:Surgical Pathology Report Case: [id number] Authorizing Provider: Glen Wasserman, Collected: 07/27/2022 08:59 AM Ordering Location: [facility] Surgery Received: 07/27/2022 09:58 AM Center Periop Pathologist: Casey Paige MD Specimen: Esophagus, distal Final Diagnosis 07/27/2022 Final Value:This result contains rich text formatting which cannot be displayed here. Clinical Information 07/27/2022 Final Value:This result contains rich text formatting which cannot be displayed here. Gross Description 07/27/2022 Final Value:This result contains rich text formatting which cannot be displayed here. Microscopic Description 07/27/2022 Final Value:This result contains rich text formatting which cannot be displayed here. POC H. Pylori 07/27/2022 Negative Negative Final Internal Control 07/27/2022 Pass Final Lot Number 07/27/2022 [id number] Final Assessment & Plan: Colon cancer screening- Colonoscopy normal, no family history of colon cancer. Repeat screening colonoscopy recommended in 10 years. Nausea- GERD- Early satiety- Gastric emptying study within normal limits. EGD normal, no evidence of H. pylori Finley's esophagus or dysplasia on biopsies. Only mild reflux type changes on distal esophageal biopsy. Nausea significantly improved no recent GERD/epigastric pain since starting omeprazole. Continue PPI Can follow-up with PCP Callie Langston CNP documented in this encounter [facility] 07-23-2022 History of Present illness Narrative Cardiology Clinic Visit Heart & Vascular [facility] 07/23/2022 Jackelyn Gonzalez MD [address] [place] [address] [id number] Patient: Frederic Stack Jr. Date of : 1965 (57 y.o.) Referring Provider: No ref. provider found PCP: Maggie Marquez MD Assessment & Plan Frederic Stack is a 57 y.o. man with history of coronary artery disease status post PCI to the proximal LAD in November 2020, hyperlipidemia, JAN, and asthma who presents to clinic for follow-up. Coronary artery disease status post PCI to the proximal LAD in November 2020-he underwent repeat left heart catheterization a few days later at [facility] which revealed distal left circumflex disease with 80% stenosis however this was a small vessel. He has been on medical therapy. He did undergo a nuclear stress test in March 2021 which was negative for ischemia. He denies symptoms of angina. However has had chest pain which is atypical/noncardiac in nature. Continue aspirin 81 mg daily. Continue Brilinta 90 mg twice daily. Continue metoprolol succinate 50 mg daily. Increase atorvastatin to 80 mg daily. Continue amlodipine 5 mg daily. Continue isosorbide mononitrate 60 mg daily Hyperlipidemia-above goal. At the last visit we discussed compliance with atorvastatin and diet. Patient reports that has been hard to be compliant with his diet given his work hours. We will increase atorvastatin to 80 mg daily. Repeat lipid panel at the next visit. HTN -at goal, continue lisinopril 10 mg daily, continue amlodipine 5 mg daily. Aortic dilatation - will monitor on subsequent imaging - BP control as above Return in about 6 months (around 01/22/2023). Jackelyn Gonzalez MD [facility] Non-Invasive Cardiology [facility] Heart and Vascular Chief Complaint: Follow-up (3 mo/no cardiac concerns today) Subjective Frederic Stack is a 57 y.o. man with history of coronary artery disease status post PCI to the proximal LAD in November 2020, hyperlipidemia, JAN, and asthma who presents to clinic for follow-up. Reports that his episodes of back to gastric pain have resolved. He is having episodes of chest pain which are sharp in nature and do not occur with activity or exertion. He reports that these episodes last for 1 to 2 seconds. He reports that he has these episodes about about once a month. He denies other episodes of chest pain or pressure. He denies feeling short of breath. He denies lower extremity swelling, PND and orthopnea. He denies palpitations. He denies lightheadedness and dizziness. He denies any episodes. Review of Systems: Constitution: Negative. HENT: Negative. Cardiovascular: As above. Respiratory: As above. Endocrine: Negative. Skin: Negative. Musculoskeletal: Negative. Gastrointestinal: Negative. Genitourinary: Negative. Neurological: Negative. Psychiatric/Behavioral: Negative. 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; Service: Cardiovascular TONSILLECTOMY Family History Problem Relation Age of Onset Diabetes type II Mother Heart failure Father Heart attack Father Diabetes type II Father Stomach cancer Paternal Aunt Social History Tobacco Use Smoking Status Former Types: Cigarettes Quit date: 2014 Years since quittin.2 Smokeless Tobacco Current Types: Chew Tobacco Comments Chewing tobacco Vaping Use Vaping Status Former Allergies: Hydrochlorothiazide, Losartan, Bupropion, Hyzaar [losartan-hydrochlorothiazide], and Mavik [trandolapril] HOME Medications: Current Outpatient Medications on File Prior to Visit Medication Sig albuterol 90 mcg/actuation inhaler Inhale 2 (two) puffs every 6 (six) hours as needed for wheezing . amLODIPine (NORVASC) 5 MG tablet Take 1 (one) tablet (5 mg total) by mouth daily . aspirin 81 MG EC tablet Take 1 (one) tablet (81 mg total) by mouth daily . atorvastatin (LIPITOR) 40 MG tablet Take 1 (one) tablet (40 mg total) by mouth daily . cyclobenzaprine (FLEXERIL) 5 MG tablet Take 1 (one) tablet (5 mg total) by mouth 3 (three) times a day as needed for muscle spasms . empagliflozin 25 mg Tab Take 1 (one) tablet (25 mg total) by mouth daily . famotidine (PEPCID) 40 MG tablet Take 1 (one) tablet (40 mg total) by mouth daily . fluticasone propionate (FLONASE) 50 mcg/actuation nasal spray Instill 2 (two) sprays into each nostril daily . (Patient taking differently: Instill 2 (two) sprays into each nostril 2 (two) times a day as needed .) insulin detemir U-100 (LEVEMIR) 100 unit/mL (3 mL) InPn Inject 30 (thirty) Units under the skin nightly PT REPORTS THAT HE'S BEEN TAKING 40 . isosorbide mononitrate (IMDUR) 60 MG 24 hr tablet Take 1 (one) tablet (60 mg total) by mouth daily . lisinopriL (PRINIVIL,ZESTRIL) 10 MG tablet Take 1 (one) tablet (10 mg total) by mouth daily . loratadine (CLARITIN) 10 mg tablet Take 1 (one) tablet (10 mg total) by mouth daily . metFORMIN (GLUCOPHAGE) 1000 MG tablet Take 1 (one) tablet (1,000 mg total) by mouth 2 (two) times a day with meals . metoprolol succinate (TOPROL-XL) 50 MG 24 hr tablet Take 1 (one) tablet (50 mg total) by mouth nightly . multivitamin (THERAGRAN) per tablet Take 1 (one) tablet by mouth daily . nitroGLYCERIN (NITROSTAT) 0.4 MG SL tablet Take 1 (one) tablet (0.4 mg total) by mouth See Admin Instructions DISSOLVE ONE TABLET UNDER THE TONGUE EVERY 5 MINUTES NEEDED FOR CHEST PAIN. DO NOT EXCEED A TOTAL OF 3 DOSES IN 15 MINUTES NOW . omeprazole (PRILOSEC) 40 MG capsule Take 1 (one) capsule (40 mg total) by mouth daily . ticagrelor (Brilinta) 90 mg Tab tablet Take 1 (one) tablet (90 mg total) by mouth 2 (two) times a day . blood sugar diagnostic strips by Miscellaneous route daily . blood-glucose meter [facility] pen needle, diabetic 32 gauge x 5/32 Ndle 1 application by Miscellaneous route nightly . No current facility-administered medications on file prior to visit. Physical Examination: BP 120/84 (BP Location: Left arm) Comment: Manual Pulse (!) 59 Ht 5' 6 Wt 91.6 kg (202 lb) SpO2 97% BMI 32.60 kg/m Constitutional: Appears well-developed and well-nourished. No distress. HENT: Head: Normocephalic and atraumatic. Eyes: Conjunctivae and EOM are normal. No scleral icterus. Neck: Normal range of motion. Cardiovascular: Normal rate and regular rhythm. Exam reveals no gallop and no friction rub. No murmur heard. No JVP elevation. No LE edema. Pulmonary/Chest: Effort normal and breath sounds normal. No respiratory distress. No wheezes. No rales. Abdominal: Soft. Bowel sounds are normal. There is no abdominal tenderness. Musculoskeletal: Normal range of motion. Neurological: AOx3, moving all ext. Skin: Skin is warm and dry. No rash noted. Psychiatric: Normal mood and affect. Cardiovascular Studies: TTE 02/16/22 Summary 1. Left ventricular systolic function is normal with an ejection fraction by Biplane Method of Discs of 61 %. 2. The left ventricular diastolic function is normal. 3. Right ventricle is normal in size with normal systolic function. 4. No significant valvular heart disease is present. 5. The proximal ascending aorta is borderline dilated measuring 4.0 cm with an index of 1.9 cm/m2. 6. There is no pulmonary hypertension, estimated right ventricle systolic pressure is 28 mmHg. [facility] 12/14/20 Coronary Angiographic Findings: Dominance: right Left Main: 4.5 mm vessel, gives rise to the LAD and LCX Arteries, there was no stenosis. There was KVNG 3 flow. Left Anterior Descending Artery: The LAD measures 4 mm proximally and tapers to a 2.5 mm vessel distally. There is KVNG 3 flow in the body of the LAD. The LAD gives rise to 2 diagonal vessels. The LAD is free of significant disease. There is a patent stent in proximal LAD with no significant ISR Left Circumflex Artery: The LCX measures 3 mm proximally and tapers to small vessel coursing along the AV groove. The LCX gives rise to 2 obtuse marginal branches. The distal LCX is a small 2.5mm vessel which has diffuse 80% stenosis. Right Coronary Artery: RCA is a dominant vessel and measures 3.0 mm proximally and tapers to a 2.5 mm vessel distally prior to giving off the PDA. The RCA is free of significant disease. 03/28/21 Nuclear Stress Test Summary 1. Overall this is a normal pharmacologic stress SPECT myocardial perfusion imaging study. 2. The patient exercised for 4:15 min:ss according to the [place] protocol. He was unable to achieve target HR due to leg pain and fatigue. The test was then converted to a pharmacologic study. He achieved a max of 7.0 METS with exercise which represents below average exercise capacity for age and gender. 3. He had no chest pain with exercise. 4. No ST/T wave changes diagnostic of ischemia with exercise/Lexiscan. 5. SPECT images demonstrate homogeneous tracer distribution throughout the myocardium. Myocardial perfusion imaging is normal. No evidence of ischemia or infarction. 6. Overall left ventricular systolic function was normal without regional wall motion abnormalities. Post stress left ventricular ejection fraction is normal, 57 %. Left ventricular cavity size is normal. 7. Overall low-risk study based on SCAI criteria (<1% predicted annual cardiac mortality). Labs: Lab Results Component Value Date GLUCOSE 74 12/06/2021 CALCIUM 9.2 12/06/2021 NA 140 12/06/2021 K 4.1 12/06/2021 CL 107 12/06/2021 BUN 14 05/31/2022 CREATININE 0.80 05/31/2022 Lab Results Component Value Date WBC 7.62 05/31/2022 HGB 14.4 05/31/2022 HCT 43.0 05/31/2022 MCV 87.9 05/31/2022 EXTMCV 85.7 11/08/2017 PLT 261 05/31/2022 RBC 4.89 05/31/2022 Lab Results Component Value Date CHOL 136 12/06/2021 LDLCALC 82 12/06/2021 TRIG 99 12/06/2021 HDL 34 (L) 12/06/2021 documented in this encounter [facility] 06-18-2022 Evaluation + Plan note Associated Problem(s): Wheezing Does have emphysematous changes on his CT from the ER visit and is getting over a cold, I believe patient has possible mild COPD changes from history of smoking and currently having reactive airway changes with viral infections. Ordered albuterol inhaler to see if it helps with some of his wheezing symptoms and follow-up as needed. [facility] 06-18-2022 Miscellaneous Notes Associated Problem(s): Wheezing Does have emphysematous changes on his CT from the ER visit and is getting over a cold, I believe patient has possible mild COPD changes from history of smoking and currently having reactive airway changes with viral infections. Ordered albuterol inhaler to see if it helps with some of his wheezing symptoms and follow-up as needed. Associated Problem(s): Mid back pain Most likely related to muscle spasms flaring up with overuse and increased weight gain. Heat , icing and massage Stretching exercises at home Topicals as lidocaine, biofreeze , bengay . Voltaren gel 4 times a day as needed Tylenol 1000 mg every 8 hours , and ibuprofen 600 mg for breakthrough pain Flexeril as needed documented in this encounter [facility] 06-18-2022 Instructions Maggie Marquez MD - 06/18/2022 12:08 PM EST Problem List Items Addressed This Visit Other Mid back pain Most likely related to muscle spasms flaring up with overuse and increased weight gain. Heat , icing and massage Stretching exercises at home Topicals as lidocaine, biofreeze , bengay . Voltaren gel 4 times a day as needed Tylenol 1000 mg every 8 hours , and ibuprofen 600 mg for breakthrough pain Flexeril as needed Other Visit Diagnoses Wheezing - Primary Relevant Medications albuterol 90 mcg/actuation inhaler If any referrals were placed at the time of your visit please allow 2 weeks for processing. If you haven't heard from anyone within 2 weeks please contact my office so we can look into the status of your referral. If you were given any labs today please ensure they are completed according to the directions given. Once labs are completed please allow 1-2 weeks for us to receive the results, review them, and let you know what steps, if any, are needed next. If you haven't heard from us after that please call to inquire. If labs were ordered to be done PRIOR to your next visit we will discuss the results at the time of your office visit. If any procedures or imaging studies were ordered that must be prior authorized please give us 2 weeks to get them approved. Once approved someone should call you to schedule them or give you a date and time that they were scheduled for. If you haven't heard anything within 2 weeks of the office visit please call the office so we can look into their status. Customer Service/Billing Questions: [phone] [facility] Assistance: [phone] or [phone] Financial Assistance: [phone] or [phone] As of April 27, 2019 my schedule will be changing: Saturday 7 am to 5 pm Saturday 7 am to 5 pm Saturday closed 7 am to 5 pm Saturday 7 am to 1 pm documented in this encounter [facility] 06-18-2022 Evaluation + Plan note Associated Problem(s): Mid back pain Most likely related to muscle spasms flaring up with overuse and increased weight gain. Heat , icing and massage Stretching exercises at home Topicals as lidocaine, biofreeze , bengay . Voltaren gel 4 times a day as needed Tylenol 1000 mg every 8 hours , and ibuprofen 600 mg for breakthrough pain Flexeril as needed [facility] 06-18-2022 History of Present illness Narrative Chief Complaint Patient presents with Abdominal Pain Gap Closure (Health Maintenance) Ophthalmology Exam due on 10/04/2021 HPI: Frederic Stack (Bill) is a 57 y.o. male who is presenting today to follow up for back pain. He has a past medical history of Arthritis, Asthma, DDD (degenerative disc disease), lumbar, Depressed, Diabetes mellitus (HCC), Facet arthropathy, lumbar, Hyperlipidemia, Hypertension indiigestion, Obesity, Pancreatitis, Sleep apnea (2001), and Tobacco use. [facility] [place] No [facility] the [facility] on patient[facility]. Back pain: 2 weeks ago , was at work when he started having some right sided mid back pain that was starting to get worse over the week. Denies any trauma Worse with walking that it would be shooting pains down his spine and almost fell. Has been feeling better since then. Patient presented to the ER on 05/31/2021 with the symptoms, cardiac work-up including EKG CBC chemistries troponin and CTA came back negative with no signs of PE. Has been taking meloxicam and cyclobenzaprine, since being on the medications symptoms have been resolving and has been skipping days without meloxicam and not having much of the back pain. URI: Has been getting over a common cold for the past 1 to 2 weeks, having mild wheezing in his chest. Previous CT showed emphysematous changes. Most likely related to previous smoking history. Denies any chest pain or shortness of breath at this time. Past Medical History: Diagnosis Date Arthritis Back and hips Asthma COVID-19 04/12/2021 DDD (degenerative disc disease), lumbar [facility] Shameka L5-S1 Depressed 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 Facet arthropathy, lumbar [facility] Hyperlipidemia 2015 Indigestion 2005 [facility]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 Obesity Pancreatitis 2017 Sleep apnea 2001 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 Tobacco use Past Surgical History: Procedure Laterality Date CARPAL TUNNEL RELEASE Right COLONOSCOPY approximately 2017 CORONARY STENT PLACEMENT HC LEFT HEART CATH N/A 12/14/2020 Procedure: Left Heart Cath; Surgeon: Jb Trujillo MD; 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; Service: Cardiovascular TONSILLECTOMY Family History Problem Relation Age of Onset Diabetes type II Mother Heart failure Father Heart attack Father Diabetes type II Father Stomach cancer Paternal Aunt Social History Tobacco Use Smoking status: Former Types: Cigarettes Quit date: 2014 Years since quittin.1 Smokeless tobacco: Current Types: Chew Tobacco comments: Chewing tobacco Vaping Use Vaping Use: Former Substance Use Topics Alcohol use: Yes Comment: rare Drug use: No Review of Systems Vitals: 06/18/22 1115 06/18/22 1117 BP: (!) 156/90 (!) 146/86 BP Location: Right arm Right arm Patient Position: Sitting Sitting BP Cuff Size: X-large Adult X-large Adult Pulse: 63 61 Resp: 16 Temp: 98 F (36.7 C) TempSrc: Temporal SpO2: 97% Weight: 92.1 kg (203 lb) Height: 5' 6 Estimated body mass index is 32.77 kg/m as calculated from the following: Height as of this encounter: 5' 6 . Weight as of this encounter: 92.1 kg (203 lb). Physical Exam Constitutional: General: He is not in acute distress. Appearance: He is not ill-appearing. HENT: Head: Normocephalic and atraumatic. Eyes: Extraocular Movements: Extraocular movements intact. Conjunctiva/sclera: Conjunctivae normal. Pupils: Pupils are equal, round, and reactive to light. Cardiovascular: Rate and Rhythm: Normal rate and regular rhythm. Pulses: Normal pulses. Heart sounds: Murmur (Soft ejection systolic murmur) heard. No gallop. Pulmonary: Effort: Pulmonary effort is normal. Breath sounds: Normal breath sounds. No wheezing, rhonchi or rales. Chest: Chest wall: No tenderness. Abdominal: General: Abdomen is flat. Bowel sounds are normal. There is no distension. Palpations: Abdomen is soft. There is no mass. Tenderness: There is no abdominal tenderness. There is no right CVA tenderness, left CVA tenderness, guarding or rebound. Musculoskeletal: General: No tenderness. Normal range of motion. Cervical back: Normal range of motion and neck supple. No rigidity. No muscular tenderness. Right lower leg: No edema. Left lower leg: No edema. Comments: Negative straight leg raising test bilaterally. Lymphadenopathy: Cervical: No cervical adenopathy. Skin: General: Skin is warm. Findings: No erythema or rash. Neurological: General: No focal deficit present. Mental Status: He is alert and oriented to person, place, and time. Sensory: No sensory deficit. Motor: No weakness. Gait: Gait normal. Psychiatric: Mood and Affect: Mood normal. Behavior: Behavior normal. Thought Content: Thought content normal. Judgment: Judgment normal. OARRS/NARxCHECK Report Received and Assessed: No data found Date controlled substance agreement signed: No data found Date of last drug screen: No data found Functional Assessment: No data found PHQ9: LYNNE-7 Tobacco Counseling: Ready to quit: Not Answered Counseling given: Not Answered Tobacco comments: Chewing tobacco Patient's Medications New Prescriptions ALBUTEROL 90 MCG/ACTUATION INHALER Inhale 2 (two) puffs every 6 (six) hours as needed for wheezing . Previous Medications AMLODIPINE (NORVASC) 5 MG TABLET Take 1 (one) tablet (5 mg total) by mouth daily . ASPIRIN 81 MG EC TABLET Take 1 (one) tablet (81 mg total) by mouth daily . ATORVASTATIN (LIPITOR) 40 MG TABLET Take 1 (one) tablet (40 mg total) by mouth daily . BLOOD SUGAR DIAGNOSTIC STRIPS by Miscellaneous route daily . BLOOD-GLUCOSE METER MIS CYCLOBENZAPRINE (FLEXERIL) 5 MG TABLET Take 1 (one) tablet (5 mg total) by mouth 3 (three) times a day as needed for muscle spasms . EMPAGLIFLOZIN 25 MG TAB Take 1 (one) tablet (25 mg total) by mouth daily . FAMOTIDINE (PEPCID) 40 MG TABLET Take 1 (one) tablet (40 mg total) by mouth daily . FLUTICASONE PROPIONATE (FLONASE) 50 MCG/ACTUATION NASAL SPRAY Instill 2 (two) sprays into each nostril daily . INSULIN DETEMIR U-100 (LEVEMIR) 100 UNIT/ML (3 ML) INPN Inject 30 (thirty) Units under the skin nightly PT REPORTS THAT HE'S BEEN TAKING 40 . ISOSORBIDE MONONITRATE (IMDUR) 60 MG 24 HR TABLET Take 1 (one) tablet (60 mg total) by mouth daily . LISINOPRIL (PRINIVIL,ZESTRIL) 10 MG TABLET Take 1 (one) tablet (10 mg total) by mouth daily . LORATADINE (CLARITIN) 10 MG TABLET Take 1 (one) tablet (10 mg total) by mouth daily . METFORMIN (GLUCOPHAGE) 1000 MG TABLET Take 1 (one) tablet (1,000 mg total) by mouth 2 (two) times a day with meals . METOPROLOL SUCCINATE (TOPROL-XL) 50 MG 24 HR TABLET Take 1 (one) tablet (50 mg total) by mouth nightly . MULTIVITAMIN (THERAGRAN) PER TABLET Take 1 (one) tablet by mouth daily . NITROGLYCERIN (NITROSTAT) 0.4 MG SL TABLET Take 1 (one) tablet (0.4 mg total) by mouth See Admin Instructions DISSOLVE ONE TABLET UNDER THE TONGUE EVERY 5 MINUTES NEEDED FOR CHEST PAIN. DO NOT EXCEED A TOTAL OF 3 DOSES IN 15 MINUTES NOW . OMEPRAZOLE (PRILOSEC) 40 MG CAPSULE Take 1 (one) capsule (40 mg total) by mouth daily . PEN NEEDLE, DIABETIC 32 GAUGE X 5/32 NDLE 1 application by Miscellaneous route nightly . TICAGRELOR (BRILINTA) 90 MG TAB TABLET Take 1 (one) tablet (90 mg total) by mouth 2 (two) times a day . Modified Medications No medications on file Discontinued Medications BUSPIRONE (BUSPAR) 7.5 MG TABLET Take 1 (one) tablet (7.5 mg total) by mouth 3 (three) times a day . Health Maintenance Due Topic Date Due Tetanus: Every 10yrs Never done Wellness Visit Never done Ophthalmology Exam 10/04/2021 Pneumococcal Vaccine: Ped or At-Risk (2 - PCV) 12/08/2021 Depression Screening (PHQ-2/9) 12/16/2021 Assessment & Plan Problem List Items Addressed This Visit Other Mid back pain Most likely related to muscle spasms flaring up with overuse and increased weight gain. Heat , icing and massage Stretching exercises at home Topicals as lidocaine, biofreeze , bengay . Voltaren gel 4 times a day as needed Tylenol 1000 mg every 8 hours , and ibuprofen 600 mg for breakthrough pain Flexeril as needed Wheezing - Primary Does have emphysematous changes on his CT from the ER visit and is getting over a cold, I believe patient has possible mild COPD changes from history of smoking and currently having reactive airway changes with viral infections. Ordered albuterol inhaler to see if it helps with some of his wheezing symptoms and follow-up as needed. Relevant Medications albuterol 90 mcg/actuation inhaler I spent 20 minutes with patient reviewing HPI, coordinating plan of care and educating patient on dietary modifications for cholesterol and diabetes No follow-ups on file. MAGGIE MARQUEZ MD [facility] [address] [facility] [id number] Dept: [phone] documented in this encounter [facility] 03-27-2022 Note Addended by: CALLIE WILLS on: 03/27/2022 02:46 PM Modules accepted: Orders [facility] 03-27-2022 Note Addended by: CALLIE WILLS on: 03/27/2022 02:46 PM Modules accepted: Orders [facility] 03-27-2022 Miscellaneous Notes Addended by: CALLIE MAXWELL on: 03/27/2022 02:46 PM Modules accepted: Orders documented in this encounter [facility] 03-27-2022 Miscellaneous Notes Addended by: CALLIE MAXWELL on: 03/27/2022 02:46 PM Modules accepted: Orders documented in this encounter [facility] 03-21-2022 Note Addended by: MAGGIE MARQUEZ on: 03/21/2022 08:48 PM Modules accepted: Orders [facility] 03-21-2022 Miscellaneous Notes Addended by: MAGGIE MARQUEZ on: 03/21/2022 08:48 PM Modules accepted: Orders Associated Problem(s): Chest pain due to coronary artery disease (HCC) Imdur has been increased by his shoe maker Dr. Gonzalez to 60 mg. Associated Problem(s): GERD (gastroesophageal reflux disease) Met with GI, given ongoing chest pains is scheduled to have EGD done in May 2022. Continue to follow with GI. Associated Problem(s): Essential hypertension Well-controlled on the current regimen of amlodipine 5 mg and lisinopril 10 mg. Continue the same dose no refills today Blood work prior to next lab check Associated Problem(s): Diabetes mellitus (HCC) Diagnosed 2011. HgbA1c: 6.7 on 03/19 Last full eye exam: Not done this year, [facility] Regular foot self-exams: Done this year normal, new foot concerns: None Neuropathic symptoms: None Microalbumin: Mildly elevated Statins: Lipitor 40 mg Medications: Levemir 40 units, Jardiance 25 mg and metformin 1000 mg twice daily. Associated Problem(s): Aortic root dilation (HCC) proximal ascending aorta is borderline dilated measuring 4.0 cm checked in January 2022 Continue to monitor underlying diabetes control and HTN control. documented in this encounter [facility] 03-19-2022 Evaluation + Plan note Associated Problem(s): Chest pain due to coronary artery disease (HCC) Imdur has been increased by his shoe maker Dr. Gonzalez to 60 mg. [facility] 03-19-2022 Miscellaneous Notes Associated Problem(s): Chest pain due to coronary artery disease (HCC) Imdur has been increased by his shoe maker Dr. Gonzalez to 60 mg. Associated Problem(s): GERD (gastroesophageal reflux disease) Met with GI, given ongoing chest pains is scheduled to have EGD done in May 2022. Continue to follow with GI. Associated Problem(s): Essential hypertension Well-controlled on the current regimen of amlodipine 5 mg and lisinopril 10 mg. Continue the same dose no refills today Blood work prior to next lab check Associated Problem(s): Diabetes mellitus (HCC) Diagnosed 2011. HgbA1c: 6.7 on 03/19 Last full eye exam: Not done this year, encouraged to [facility]. Regular foot self-exams: Done this year normal, new foot concerns: None Neuropathic symptoms: None Microalbumin: Mildly elevated Statins: Lipitor 40 mg Medications: Levemir 40 units, Jardiance 25 mg and metformin 1000 mg twice daily. Associated Problem(s): Aortic root dilation (HCC) proximal ascending aorta is borderline dilated measuring 4.0 cm checked in January 2022 Continue to monitor underlying diabetes control and HTN control. documented in this encounter [facility] 03-19-2022 Evaluation + Plan note Associated Problem(s): GERD (gastroesophageal reflux disease) Met with GI, given ongoing chest pains is scheduled to have EGD done in May 2022. Continue to follow with GI. [facility] 03-19-2022 Evaluation + Plan note Associated Problem(s): Essential hypertension Well-controlled on the current regimen of amlodipine 5 mg and lisinopril 10 mg. Continue the same dose no refills today Blood work prior to next lab check [facility] 03-19-2022 Evaluation + Plan note Associated Problem(s): Diabetes mellitus (HCC) Diagnosed 2011. HgbA1c: 6.7 on 03/19 Last full eye exam: Not done this year, encouraged to [facility]. Regular foot self-exams: Done this year normal, new foot concerns: None Neuropathic symptoms: None Microalbumin: Mildly elevated Statins: Lipitor 40 mg Medications: Levemir 40 units, Jardiance 25 mg and metformin 1000 mg twice daily. [facility] 03-19-2022 Evaluation + Plan note Associated Problem(s): Aortic root dilation (HCC) proximal ascending aorta is borderline dilated measuring 4.0 cm checked in January 2022 Continue to monitor underlying diabetes control and HTN control. [facility] 03-19-2022 History of Present illness Narrative Chief Complaint Patient presents with Follow-up 4 week f/u HPI: Frederic Stack (Bill) is a 55 y.o. male who is presenting today to follow up on his diabetes. He has a past medical history of Arthritis, Asthma, DDD (degenerative disc disease), lumbar, Depressed, Diabetes mellitus (HCC), Facet arthropathy, lumbar, Hyperlipidemia, Hypertension indiigestion, Obesity, Pancreatitis, Sleep apnea (2001), and Tobacco use. [facility] [place]. No records has been sent from the [facility] on patient's behalf. DM: Since 2011. A1c is 8.6 in 07/19. New A1c is 7.1 in 12/06. Metformin 1000 mg BID and lantus 40 units as well as Jardiance 25 mg. Was not taking his lantus for the past month then started taking it again in the last two days. Drinks about 4-5 pop drinks a day not drinking any water. Has had one episode at work where he felt nauseous and shaky that resolved after eating. Has not been checking his sugars recently. Last eye exam in [place] , normal, recommend to get another one this year. [facility]. Foot exam done 07/21/2021 normal. Nausea and chest pain: For the past month has been getting a lot of nausea and forcing himself to eat . Usually happens randomly daily. Not associated with any abdominal pain , heart burn or vomiting. Has had diarrhea but has not changes recently. Not associated with exertion but occasionally getting chest pain anywhere from 2 times per week and then can space out to twice a month. Usually mid sternal and sometimes radiates to the left side and left arm. Feels that he doesn't get hungry 4 hours from getting his first meal which is unsual for him. Patient met with GI, going for EGD in June 06. At this time with his recurrent chest pain his shoe maker Dr. Gonzalez increased his Imdur to 60 mg and he is doing fine with that. Essential hypertension: Chronic, controlled with lisinopril 10 mg and amlodipine 5 mg. Past Medical History: Diagnosis Date Arthritis Back and hips Asthma COVID-19 04/12/2021 DDD (degenerative disc disease), lumbar [facility] Myles L5-S1 Depressed 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 Facet arthropathy, lumbar [facility] Myles Lower Hyperlipidemia 2015 Indigestion 2005 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 Obesity Pancreatitis 2017 Sleep apnea 2002 [facility]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 Tobacco use Past Surgical History: Procedure Laterality Date CARPAL TUNNEL RELEASE Right COLONOSCOPY approximately 2017 CORONARY STENT PLACEMENT HC LEFT HEART CATH N/A 12/14/2020 Procedure: Left Heart Cath; Surgeon: Jb Trujillo MD; 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; Service: Cardiovascular TONSILLECTOMY Family History Problem Relation Age of Onset Diabetes type II Mother Heart failure Father Heart attack Father Diabetes type II Father Stomach cancer Paternal Aunt Social History Tobacco Use Smoking status: Former Types: Cigarettes Quit date: 2014 Years since quittin.9 Smokeless tobacco: Current Types: Chew Tobacco comments: Chewing tobacco Vaping Use Vaping Use: Former Substance Use Topics Alcohol use: Yes Comment: rare Drug use: No Review of Systems Vitals: 03/19/22 0742 BP: 130/83 BP Location: Right arm Patient Position: Sitting BP Cuff Size: X-large Adult Pulse: 66 Resp: 16 Temp: 98 F (36.7 C) TempSrc: Temporal SpO2: 96% Weight: 92.5 kg (204 lb) Height: 5' 6 Estimated body mass index is 32.93 kg/m as calculated from the following: Height as of this encounter: 5' 6 . Weight as of this encounter: 92.5 kg (204 lb). Physical Exam Constitutional: General: He is not in acute distress. Appearance: He is not ill-appearing. HENT: Head: Normocephalic and atraumatic. Eyes: Extraocular Movements: Extraocular movements intact. Conjunctiva/sclera: Conjunctivae normal. Pupils: Pupils are equal, round, and reactive to light. Cardiovascular: Rate and Rhythm: Normal rate and regular rhythm. Pulses: Normal pulses. Heart sounds: Murmur (Soft ejection systolic murmur) heard. No gallop. Pulmonary: Effort: Pulmonary effort is normal. Breath sounds: Normal breath sounds. No wheezing, rhonchi or rales. Chest: Chest wall: No tenderness. Abdominal: General: Abdomen is flat. Bowel sounds are normal. There is no distension. Palpations: Abdomen is soft. There is no mass. Tenderness: There is no abdominal tenderness. There is no right CVA tenderness, left CVA tenderness, guarding or rebound. Musculoskeletal: General: No tenderness. Normal range of motion. Cervical back: Normal range of motion and neck supple. No rigidity. No muscular tenderness. Right lower leg: No edema. Left lower leg: No edema. Lymphadenopathy: Cervical: No cervical adenopathy. Skin: General: Skin is warm. Findings: No erythema or rash. Neurological: General: No focal deficit present. Mental Status: He is alert and oriented to person, place, and time. Sensory: No sensory deficit. Motor: No weakness. Gait: Gait normal. Psychiatric: Mood and Affect: Mood normal. Behavior: Behavior normal. Thought Content: Thought content normal. Judgment: Judgment normal. OARRS/NARxCHECK Report Received and Assessed: No data found Date controlled substance agreement signed: No data found Date of last drug screen: No data found Functional Assessment: No data found PHQ9: LYNNE-7 Tobacco Counseling: Ready to quit: Not Answered Counseling given: Not Answered Tobacco comments: Chewing tobacco Patient's Medications New Prescriptions No medications on file Previous Medications AMLODIPINE (NORVASC) 5 MG TABLET Take 1 (one) tablet (5 mg total) by mouth daily . ASPIRIN 81 MG EC TABLET Take 1 (one) tablet (81 mg total) by mouth daily . ATORVASTATIN (LIPITOR) 40 MG TABLET Take 1 (one) tablet (40 mg total) by mouth daily . BLOOD SUGAR DIAGNOSTIC STRIPS by Miscellaneous route daily . BLOOD-GLUCOSE METER [facility] BUSPIRONE (BUSPAR) 7.5 MG TABLET Take 1 (one) tablet (7.5 mg total) by mouth 3 (three) times a day . EMPAGLIFLOZIN 25 MG TAB Take 1 (one) tablet (25 mg total) by mouth daily . FAMOTIDINE (PEPCID) 40 MG TABLET Take 1 (one) tablet (40 mg total) by mouth daily . FLUTICASONE PROPIONATE (FLONASE) 50 MCG/ACTUATION NASAL SPRAY Instill 2 (two) sprays into each nostril daily . INSULIN DETEMIR U-100 (LEVEMIR) 100 UNIT/ML (3 ML) INPN Inject 30 (thirty) Units under the skin nightly . ISOSORBIDE MONONITRATE (IMDUR) 60 MG 24 HR TABLET Take 1 (one) tablet (60 mg total) by mouth daily . LISINOPRIL (PRINIVIL,ZESTRIL) 10 MG TABLET Take 1 (one) tablet (10 mg total) by mouth daily . LORATADINE (CLARITIN) 10 MG TABLET Take 1 (one) tablet (10 mg total) by mouth daily . METFORMIN (GLUCOPHAGE) 1000 MG TABLET Take 1 (one) tablet (1,000 mg total) by mouth 2 (two) times a day with meals . METOPROLOL SUCCINATE (TOPROL-XL) 50 MG 24 HR TABLET Take 1 (one) tablet (50 mg total) by mouth nightly . MULTIVITAMIN (THERAGRAN) PER TABLET Take 1 (one) tablet by mouth daily . NITROGLYCERIN (NITROSTAT) 0.4 MG SL TABLET Take 1 (one) tablet (0.4 mg total) by mouth See Admin Instructions DISSOLVE ONE TABLET UNDER THE TONGUE EVERY 5 MINUTES NEEDED FOR CHEST PAIN. DO NOT EXCEED A TOTAL OF 3 DOSES IN 15 MINUTES NOW . OMEPRAZOLE (PRILOSEC) 40 MG CAPSULE Take 1 (one) capsule (40 mg total) by mouth daily . PEN NEEDLE, DIABETIC 32 GAUGE X 5/32 NDLE 1 application by Miscellaneous route nightly . TICAGRELOR (BRILINTA) 90 MG TAB TABLET Take 1 (one) tablet (90 mg total) by mouth 2 (two) times a day . Modified Medications No medications on file Discontinued Medications No medications on file Health Maintenance Due Topic Date Due Tetanus: Every 10yrs Never done Colorectal Cancer Screening/Monitoring Never done Wellness Visit Never done Zoster Vaccines (1 of 2) Never done Ophthalmology Exam 10/04/2021 Pneumococcal Vaccine: Ped or At-Risk (2 - PCV) 12/08/2021 Depression Screening (PHQ-2/9) 12/16/2021 Assessment & Plan Problem List Items Addressed This Visit Digestive GERD (gastroesophageal reflux disease) Met with GI, given ongoing chest pains is scheduled to have EGD done in May 2022. Continue to follow with GI. Endocrine Diabetes mellitus (HCC) - Primary Diagnosed 2011. HgbA1c: 6.7 on 03/19 Last full eye exam: Not done this year, [facility] Regular foot self-exams: Done this year normal, new foot concerns: None Neuropathic symptoms: None Microalbumin: Mildly elevated Statins: Lipitor 40 mg Medications: Levemir 40 units, Jardiance 25 mg and metformin 1000 mg twice daily. Relevant Orders Microalbumin/Creatinine Ratio, UR Random Hemoglobin A1c Lipid Panel Comprehensive Metabolic Panel Cardiovascular and Mediastinum Essential hypertension Well-controlled on the current regimen of amlodipine 5 mg and lisinopril 10 mg. Continue the same dose no refills today Blood work prior to next lab check Relevant Orders TSH with Reflex Free T4 Chest pain due to coronary artery disease (HCC) Imdur has been increased by his shoe maker Dr. Gonzalez to 60 mg. Aortic root dilation (HCC) proximal ascending aorta is borderline dilated measuring 4.0 cm checked in January 2022 Continue to monitor underlying diabetes control and HTN control. Other Visit Diagnoses Colon cancer screening Relevant Orders Ambulatory referral to Gastroenterology I spent 35 minutes with patient reviewing HPI, coordinating plan of care and educating patient on dietary modifications for cholesterol and diabetes Return in about 6 months (around 09/16/2022) for Follow Up. MAGGIE MARQUEZ MD [facility] [address] [facility] [id number] Dept: [phone] documented in this encounter [facility] 03-19-2022 History of Present illness Narrative Chief Complaint Patient presents with Follow-up 4 week f/u HPI: Frederic Stack (Bill) is a 55 y.o. male who is presenting today to follow up on his diabetes. He has a past medical history of Arthritis, Asthma, DDD (degenerative disc disease), lumbar, Depressed, Diabetes mellitus (HCC), Facet arthropathy, lumbar, Hyperlipidemia, Hypertension indiigestion, Obesity, Pancreatitis, Sleep apnea (2001), and Tobacco use. [facility] [place] No [facility] has [facility] from the [facility] on patient's behalf. DM: Since 2011. A1c is 8.6 in 07/19. New A1c is 7.1 in 12/06. Metformin 1000 mg BID and lantus 40 units as well as Jardiance 25 mg. Was not taking his lantus for the past month then started taking it again in the last two days. Drinks about 4-5 pop drinks a day not drinking any water. Has had one episode at work where he felt nauseous and shaky that resolved after eating. Has not been checking his sugars recently. Last eye exam in [place] , normal, recommend to get another one this year. Trying to schedule with the [place] for this year. Foot exam done 07/21/2021 normal. Nausea and chest pain: For the past month has been getting a lot of nausea and forcing himself to eat . Usually happens randomly daily. Not associated with any abdominal pain , heart burn or vomiting. Has had diarrhea but has not changes recently. Not associated with exertion but occasionally getting chest pain anywhere from 2 times per week and then can space out to twice a month. Usually mid sternal and sometimes radiates to the left side and left arm. Feels that he doesn't get hungry 4 hours from getting his first meal which is unsual for him. Patient met with GI, going for EGD in June 06. At this time with his recurrent chest pain his shoe maker Dr. Gonzalez increased his Imdur to 60 mg and he is doing fine with that. Essential hypertension: Chronic, controlled with lisinopril 10 mg and amlodipine 5 mg. 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 Tobacco use Past Surgical History: Procedure Laterality Date CARPAL TUNNEL RELEASE Right COLONOSCOPY approximately 2017 CORONARY STENT PLACEMENT HC LEFT HEART CATH N/A 12/14/2020 Procedure: Left Heart Cath; Surgeon: Jb Trujillo MD; 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; Service: Cardiovascular TONSILLECTOMY Family History Problem Relation Age of Onset Diabetes type II Mother Heart failure Father Heart attack Father Diabetes type II Father Stomach cancer Paternal Aunt Social History Tobacco Use Smoking status: Former Types: Cigarettes Quit date: 2014 Years since quittin.9 Smokeless tobacco: Current Types: Chew Tobacco comments: Chewing tobacco Vaping Use Vaping Use: Former Substance Use Topics Alcohol use: Yes Comment: rare Drug use: No Review of Systems Vitals: 03/19/22 0742 BP: 130/83 BP Location: Right arm Patient Position: Sitting BP Cuff Size: X-large Adult Pulse: 66 Resp: 16 Temp: 98 F (36.7 C) TempSrc: Temporal SpO2: 96% Weight: 92.5 kg (204 lb) Height: 5' 6 Estimated body mass index is 32.93 kg/m as calculated from the following: Height as of this encounter: 5' 6 . Weight as of this encounter: 92.5 kg (204 lb). Physical Exam Constitutional: General: He is not in acute distress. Appearance: He is not ill-appearing. HENT: Head: Normocephalic and atraumatic. Eyes: Extraocular Movements: Extraocular movements intact. Conjunctiva/sclera: Conjunctivae normal. Pupils: Pupils are equal, round, and reactive to light. Cardiovascular: Rate and Rhythm: Normal rate and regular rhythm. Pulses: Normal pulses. Heart sounds: Murmur (Soft ejection systolic murmur) heard. No gallop. Pulmonary: Effort: Pulmonary effort is normal. Breath sounds: Normal breath sounds. No wheezing, rhonchi or rales. Chest: Chest wall: No tenderness. Abdominal: General: Abdomen is flat. Bowel sounds are normal. There is no distension. Palpations: Abdomen is soft. There is no mass. Tenderness: There is no abdominal tenderness. There is no right CVA tenderness, left CVA tenderness, guarding or rebound. Musculoskeletal: General: No tenderness. Normal range of motion. Cervical back: Normal range of motion and neck supple. No rigidity. No muscular tenderness. Right lower leg: No edema. Left lower leg: No edema. Lymphadenopathy: Cervical: No cervical adenopathy. Skin: General: Skin is warm. Findings: No erythema or rash. Neurological: General: No focal deficit present. Mental Status: He is alert and oriented to person, place, and time. Sensory: No sensory deficit. Motor: No weakness. Gait: Gait normal. Psychiatric: Mood and Affect: Mood normal. Behavior: Behavior normal. Thought Content: Thought content normal. Judgment: Judgment normal. OARRS/NARxCHECK Report Received and Assessed: No data found Date controlled substance agreement signed: No data found Date of last drug screen: No data found Functional Assessment: No data found PHQ9: LYNNE-7 Tobacco Counseling: Ready to quit: Not Answered Counseling given: Not Answered Tobacco comments: Chewing tobacco Patient's Medications New Prescriptions No medications on file Previous Medications AMLODIPINE (NORVASC) 5 MG TABLET Take 1 (one) tablet (5 mg total) by mouth daily . ASPIRIN 81 MG EC TABLET Take 1 (one) tablet (81 mg total) by mouth daily . ATORVASTATIN (LIPITOR) 40 MG TABLET Take 1 (one) tablet (40 mg total) by mouth daily . BLOOD SUGAR DIAGNOSTIC STRIPS by Miscellaneous route daily . BLOOD-GLUCOSE METER MIS BUSPIRONE (BUSPAR) 7.5 MG TABLET Take 1 (one) tablet (7.5 mg total) by mouth 3 (three) times a day . EMPAGLIFLOZIN 25 MG TAB Take 1 (one) tablet (25 mg total) by mouth daily . FAMOTIDINE (PEPCID) 40 MG TABLET Take 1 (one) tablet (40 mg total) by mouth daily . FLUTICASONE PROPIONATE (FLONASE) 50 MCG/ACTUATION NASAL SPRAY Instill 2 (two) sprays into each nostril daily . INSULIN DETEMIR U-100 (LEVEMIR) 100 UNIT/ML (3 ML) INPN Inject 30 (thirty) Units under the skin nightly . ISOSORBIDE MONONITRATE (IMDUR) 60 MG 24 HR TABLET Take 1 (one) tablet (60 mg total) by mouth daily . LISINOPRIL (PRINIVIL,ZESTRIL) 10 MG TABLET Take 1 (one) tablet (10 mg total) by mouth daily . LORATADINE (CLARITIN) 10 MG TABLET Take 1 (one) tablet (10 mg total) by mouth daily . METFORMIN (GLUCOPHAGE) 1000 MG TABLET Take 1 (one) tablet (1,000 mg total) by mouth 2 (two) times a day with meals . METOPROLOL SUCCINATE (TOPROL-XL) 50 MG 24 HR TABLET Take 1 (one) tablet (50 mg total) by mouth nightly . MULTIVITAMIN (THERAGRAN) PER TABLET Take 1 (one) tablet by mouth daily . NITROGLYCERIN (NITROSTAT) 0.4 MG SL TABLET Take 1 (one) tablet (0.4 mg total) by mouth See Admin Instructions DISSOLVE ONE TABLET UNDER THE TONGUE EVERY 5 MINUTES NEEDED FOR CHEST PAIN. DO NOT EXCEED A TOTAL OF 3 DOSES IN 15 MINUTES NOW . OMEPRAZOLE (PRILOSEC) 40 MG CAPSULE Take 1 (one) capsule (40 mg total) by mouth daily . PEN NEEDLE, DIABETIC 32 GAUGE X 5/32 NDLE 1 application by Miscellaneous route nightly . TICAGRELOR (BRILINTA) 90 MG TAB TABLET Take 1 (one) tablet (90 mg total) by mouth 2 (two) times a day . Modified Medications No medications on file Discontinued Medications No medications on file Health Maintenance Due Topic Date Due Tetanus: Every 10yrs Never done Colorectal Cancer Screening/Monitoring Never done Wellness Visit Never done Zoster Vaccines (1 of 2) Never done Ophthalmology Exam 10/04/2021 Pneumococcal Vaccine: Ped or At-Risk (2 - PCV) 12/08/2021 Depression Screening (PHQ-2/9) 12/16/2021 Assessment & Plan Problem List Items Addressed This Visit Digestive GERD (gastroesophageal reflux disease) Met with GI, given ongoing chest pains is scheduled to have EGD done in May 2022. Continue to follow with GI. Endocrine Diabetes mellitus (HCC) - Primary Diagnosed 2011. HgbA1c: 6.7 on 03/19 Last full eye exam: Not done this year, [facility] Regular foot self-exams: Done this year normal, new foot concerns: None Neuropathic symptoms: None Microalbumin: Mildly elevated Statins: Lipitor 40 mg Medications: Levemir 40 units, Jardiance 25 mg and metformin 1000 mg twice daily. Relevant Orders Microalbumin/Creatinine Ratio, UR Random Hemoglobin A1c Lipid Panel Comprehensive Metabolic Panel Cardiovascular and Mediastinum Essential hypertension Well-controlled on the current regimen of amlodipine 5 mg and lisinopril 10 mg. Continue the same dose no refills today Blood work prior to next lab check Relevant Orders TSH with Reflex Free T4 Chest pain due to coronary artery disease (HCC) Imdur has been increased by his shoe maker Dr. Gonzalez to 60 mg. Aortic root dilation (HCC) proximal ascending aorta is borderline dilated measuring 4.0 cm checked in January 2022 Continue to monitor underlying diabetes control and HTN control. Other Visit Diagnoses Colon cancer screening Relevant Orders Ambulatory referral to Gastroenterology I spent 35 minutes with patient reviewing HPI, coordinating plan of care and educating patient on dietary modifications for cholesterol and diabetes Return in about 6 months (around 09/16/2022) for Follow Up. MAGGIE MARQUEZ MD [facility] [address] [facility] [address] [place] [id number] Dept: [phone] documented in this encounter [facility] 03-14-2022 History of Present illness Narrative Frederic Stack Jr. 56 y.o. 1965 male Reason for Consult: Nausea HPI: 56-year-old male with history of arthritis, asthma, DDD, pancreatitis, DM, HTN, HDL, CAD s/p stent referred by PCP for nausea. Patient reports history of persistent nausea for the past several months. Has had similar bouts of in the past. Wakes up feeling nauseated and forces himself to eat, feels like's food sits in his stomach and reports indigestion. Occasional nonradiating dull epigastric pain, taking Pepcid for a long time but recently started omeprazole around a month ago with mild improvement. Long history of diabetes with suboptimal control, uses smokeless tobacco. No fever, weight loss, vomiting, black tarry stools or blood in the stool. Paternal aunt with stomach cancer, denies family history all other GI associated cancers. 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 Family History Problem Relation Age of Onset Diabetes type II Mother Heart failure Father Heart attack Father Diabetes type II Father Stomach cancer Paternal Aunt Current Medications: Current Outpatient Medications Medication Sig Dispense Refill amLODIPine (NORVASC) 5 MG tablet Take 1 (one) tablet (5 mg total) by mouth daily . 90 tablet 3 aspirin 81 MG EC tablet Take 1 (one) tablet (81 mg total) by mouth daily . 90 tablet 3 atorvastatin (LIPITOR) 40 MG tablet Take 1 (one) tablet (40 mg total) by mouth daily . 90 tablet 3 busPIRone (BUSPAR) 7.5 MG tablet Take 1 (one) tablet (7.5 mg total) by mouth 3 (three) times a day . 90 tablet 0 empagliflozin 25 mg Tab Take 1 (one) tablet (25 mg total) by mouth daily . 90 tablet 3 famotidine (PEPCID) 40 MG tablet Take 1 (one) tablet (40 mg total) by mouth daily . 90 tablet 3 fluticasone propionate (FLONASE) 50 mcg/actuation nasal spray Instill 2 (two) sprays into each nostril daily . (Patient taking differently: Instill 2 (two) sprays into each nostril 2 (two) times a day as needed .) 48 g 3 insulin detemir U-100 (LEVEMIR) 100 unit/mL (3 mL) InPn Inject 30 (thirty) Units under the skin nightly . (Patient taking differently: Inject 30 (thirty) Units under the skin nightly PT REPORTS THAT HE'S BEEN TAKING 40 .) 9 mL 2 isosorbide mononitrate (IMDUR) 60 MG 24 hr tablet Take 1 (one) tablet (60 mg total) by mouth daily . 90 tablet 3 lisinopriL (PRINIVIL,ZESTRIL) 10 MG tablet Take 1 (one) tablet (10 mg total) by mouth daily . 90 tablet 3 loratadine (CLARITIN) 10 mg tablet Take 1 (one) tablet (10 mg total) by mouth daily . 90 tablet 3 metFORMIN (GLUCOPHAGE) 1000 MG tablet Take 1 (one) tablet (1,000 mg total) by mouth 2 (two) times a day with meals . 180 tablet 3 metoprolol succinate (TOPROL-XL) 50 MG 24 hr tablet Take 1 (one) tablet (50 mg total) by mouth nightly . 90 tablet 3 multivitamin (THERAGRAN) per tablet Take 1 (one) tablet by mouth daily . nitroGLYCERIN (NITROSTAT) 0.4 MG SL tablet Take 1 (one) tablet (0.4 mg total) by mouth See Admin Instructions DISSOLVE ONE TABLET UNDER THE TONGUE EVERY 5 MINUTES NEEDED FOR CHEST PAIN. DO NOT EXCEED A TOTAL OF 3 DOSES IN 15 MINUTES NOW . 25 tablet 4 ticagrelor (Brilinta) 90 mg Tab tablet Take 1 (one) tablet (90 mg total) by mouth 2 (two) times a day . 60 tablet 11 blood sugar diagnostic strips by Miscellaneous route daily . 100 each 1 blood-glucose meter Mis 1 each 0 omeprazole (PRILOSEC) 40 MG capsule Take 1 (one) capsule (40 mg total) by mouth daily . 30 capsule 0 pen needle, diabetic 32 gauge x 5/32 Ndle 1 application by Miscellaneous route nightly . 100 each 1 No current facility-administered medications for this visit. Review of Systems Constitutional: Negative for appetite change, fatigue, fever and unexpected weight change. HENT: Negative for mouth sores, trouble swallowing and voice change. Eyes: Negative for redness. Respiratory: Negative for cough, choking and shortness of breath. Cardiovascular: Negative for chest pain and palpitations. Gastrointestinal: Positive for abdominal distention, abdominal pain and nausea. Negative for blood in stool, constipation, diarrhea and vomiting. Endocrine: Negative. Genitourinary: Negative for difficulty urinating. Musculoskeletal: Negative for arthralgias and joint swelling. Skin: Negative for color change and pallor. Allergic/Immunologic: Negative. Neurological: Negative for dizziness, syncope and light-headedness. Hematological: Negative. Psychiatric/Behavioral: Negative. Physical Exam Constitutional: General: He is not in acute distress. Appearance: Normal appearance. He is not ill-appearing or diaphoretic. HENT: Head: Normocephalic and atraumatic. Right Ear: External ear normal. Left Ear: External ear normal. Nose: Nose normal. Mouth/Throat: Mouth: Mucous membranes are moist. Pharynx: No posterior oropharyngeal erythema. Eyes: General: No scleral icterus. Pupils: Pupils are equal, round, and reactive to light. Cardiovascular: Rate and Rhythm: Normal rate and regular rhythm. Heart sounds: No murmur heard. No gallop. Pulmonary: Effort: Pulmonary effort is normal. No respiratory distress. Breath sounds: Normal breath sounds. No wheezing. Abdominal: General: Bowel sounds are normal. There is no distension. Palpations: Abdomen is soft. There is no mass. Tenderness: There is no abdominal tenderness. There is no guarding. Musculoskeletal: General: No deformity. Normal range of motion. Cervical back: Normal range of motion and neck supple. Skin: General: Skin is warm and dry. Coloration: Skin is not jaundiced or pale. Neurological: General: No focal deficit present. Mental Status: He is alert and oriented to person, place, and time. Psychiatric: Mood and Affect: Mood normal. Behavior: Behavior normal. Hospital Outpatient Visit on 02/16/2022 Component Date Value Ref Range Status EF 02/16/2022 60.7989 % Final AV mean gradient 02/16/2022 6 mmHg Final Aortic valve area 02/16/2022 2.106 cm Final Assessment & Plan: GERD- Chronic nausea- Indigestion- Long history of diabetes suboptimal control. Will order gastric emptying study to evaluate for gastroparesis. History of GERD, intermittent epigastric discomfort mild improvement with omeprazole, was on Pepcid for a long time. Uses smokeless tobacco. Has never had EGD. Will refill omeprazole for an additional 30 days and schedule for EGD to rule out any Finley's esophagus, gastritis or H. pylori infection that could be contributing to his chronic symptoms. EGD scheduled with Dr. Wasserman 06/06/2021 at 8:30 AM at surgery center. Schedule follow-up in office after EGD and will call in the meantime for any abnormal gastric emptying study results. Callie Langston CNP documented in this encounter [facility] 03-14-2022 History of Present illness Narrative Frederic Stack Jr. 56 y.o. 1965 male Reason for Consult: Nausea HPI: 56-year-old male with history of arthritis, asthma, DDD, pancreatitis, DM, HTN, HDL, CAD s/p stent referred by PCP for screening colonoscpopy and nausea. Patient reports history of persistent nausea for the past several months. Has had similar bouts of in the past. Wakes up feeling nauseated and forces himself to eat, feels like's food sits in his stomach and reports indigestion. Occasional nonradiating dull epigastric pain, taking Pepcid for a long time but recently started omeprazole around a month ago with mild improvement. Long history of diabetes with suboptimal control, uses smokeless tobacco. No fever, weight loss, vomiting, black tarry stools or blood in the stool. Paternal aunt with stomach cancer, denies family history all other GI associated cancers. Has never had screening colonoscopy. Denies abdominal pain, change of bowel, or blood in the stool. No family history of colon cancer. 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 Family History Problem Relation Age of Onset Diabetes type II Mother Heart failure Father Heart attack Father Diabetes type II Father Stomach cancer Paternal Aunt Current Medications: Current Outpatient Medications Medication Sig Dispense Refill amLODIPine (NORVASC) 5 MG tablet Take 1 (one) tablet (5 mg total) by mouth daily . 90 tablet 3 aspirin 81 MG EC tablet Take 1 (one) tablet (81 mg total) by mouth daily . 90 tablet 3 atorvastatin (LIPITOR) 40 MG tablet Take 1 (one) tablet (40 mg total) by mouth daily . 90 tablet 3 busPIRone (BUSPAR) 7.5 MG tablet Take 1 (one) tablet (7.5 mg total) by mouth 3 (three) times a day . 90 tablet 0 empagliflozin 25 mg Tab Take 1 (one) tablet (25 mg total) by mouth daily . 90 tablet 3 famotidine (PEPCID) 40 MG tablet Take 1 (one) tablet (40 mg total) by mouth daily . 90 tablet 3 fluticasone propionate (FLONASE) 50 mcg/actuation nasal spray Instill 2 (two) sprays into each nostril daily . (Patient taking differently: Instill 2 (two) sprays into each nostril 2 (two) times a day as needed .) 48 g 3 insulin detemir U-100 (LEVEMIR) 100 unit/mL (3 mL) InPn Inject 30 (thirty) Units under the skin nightly . (Patient taking differently: Inject 30 (thirty) Units under the skin nightly PT REPORTS THAT HE'S BEEN TAKING 40 .) 9 mL 2 isosorbide mononitrate (IMDUR) 60 MG 24 hr tablet Take 1 (one) tablet (60 mg total) by mouth daily . 90 tablet 3 lisinopriL (PRINIVIL,ZESTRIL) 10 MG tablet Take 1 (one) tablet (10 mg total) by mouth daily . 90 tablet 3 loratadine (CLARITIN) 10 mg tablet Take 1 (one) tablet (10 mg total) by mouth daily . 90 tablet 3 metFORMIN (GLUCOPHAGE) 1000 MG tablet Take 1 (one) tablet (1,000 mg total) by mouth 2 (two) times a day with meals . 180 tablet 3 metoprolol succinate (TOPROL-XL) 50 MG 24 hr tablet Take 1 (one) tablet (50 mg total) by mouth nightly . 90 tablet 3 multivitamin (THERAGRAN) per tablet Take 1 (one) tablet by mouth daily . nitroGLYCERIN (NITROSTAT) 0.4 MG SL tablet Take 1 (one) tablet (0.4 mg total) by mouth See Admin Instructions DISSOLVE ONE TABLET UNDER THE TONGUE EVERY 5 MINUTES NEEDED FOR CHEST PAIN. DO NOT EXCEED A TOTAL OF 3 DOSES IN 15 MINUTES NOW . 25 tablet 4 ticagrelor (Brilinta) 90 mg Tab tablet Take 1 (one) tablet (90 mg total) by mouth 2 (two) times a day . 60 tablet 11 blood sugar diagnostic strips by Miscellaneous route daily . 100 each 1 blood-glucose meter Mis 1 each 0 omeprazole (PRILOSEC) 40 MG capsule Take 1 (one) capsule (40 mg total) by mouth daily . 30 capsule 0 pen needle, diabetic 32 gauge x Ndle 1 application by Miscellaneous route nightly . 100 each 1 No current facility-administered medications for this visit. Review of Systems Constitutional: Negative for appetite change, fatigue, fever and unexpected weight change. HENT: Negative for mouth sores, trouble swallowing and voice change. Eyes: Negative for redness. Respiratory: Negative for cough, choking and shortness of breath. Cardiovascular: Negative for chest pain and palpitations. Gastrointestinal: Positive for abdominal distention, abdominal pain and nausea. Negative for blood in stool, constipation, diarrhea and vomiting. Endocrine: Negative. Genitourinary: Negative for difficulty urinating. Musculoskeletal: Negative for arthralgias and joint swelling. Skin: Negative for color change and pallor. Allergic/Immunologic: Negative. Neurological: Negative for dizziness, syncope and light-headedness. Hematological: Negative. Psychiatric/Behavioral: Negative. Physical Exam Constitutional: General: He is not in acute distress. Appearance: Normal appearance. He is not ill-appearing or diaphoretic. HENT: Head: Normocephalic and atraumatic. Right Ear: External ear normal. Left Ear: External ear normal. Nose: Nose normal. Mouth/Throat: Mouth: Mucous membranes are moist. Pharynx: No posterior oropharyngeal erythema. Eyes: General: No scleral icterus. Pupils: Pupils are equal, round, and reactive to light. Cardiovascular: Rate and Rhythm: Normal rate and regular rhythm. Heart sounds: No murmur heard. No gallop. Pulmonary: Effort: Pulmonary effort is normal. No respiratory distress. Breath sounds: Normal breath sounds. No wheezing. Abdominal: General: Bowel sounds are normal. There is no distension. Palpations: Abdomen is soft. There is no mass. Tenderness: There is no abdominal tenderness. There is no guarding. Musculoskeletal: General: No deformity. Normal range of motion. Cervical back: Normal range of motion and neck supple. Skin: General: Skin is warm and dry. Coloration: Skin is not jaundiced or pale. Neurological: General: No focal deficit present. Mental Status: He is alert and oriented to person, place, and time. Psychiatric: Mood and Affect: Mood normal. Behavior: Behavior normal. Hospital Outpatient Visit on 02/16/2022 Component Date Value Ref Range Status EF 02/16/2022 60.7989 % Final AV mean gradient 02/16/2022 6 mmHg Final Aortic valve area 02/16/2022 2.106 cm Final Assessment & Plan: Colon cancer screening- Colonoscopy scheduled with Dr. Wasserman on 06/06/21 at 8:30am GERD- Chronic nausea- Indigestion- Long history of diabetes suboptimal control. Will order gastric emptying study to evaluate for gastroparesis. History of GERD, intermittent epigastric discomfort mild improvement with omeprazole, was on Pepcid for a long time. Uses smokeless tobacco. Has never had EGD. Will refill omeprazole for an additional 30 days and schedule for EGD to rule out any Finley's esophagus, gastritis or H. pylori infection that could be contributing to his chronic symptoms. EGD also scheduled with Dr. Wasserman 06/06/2021 at 8:30 AM at surgery center. Schedule follow-up in office after colonoscopy and EGD and will call in the meantime for any abnormal gastric emptying study results. Callie Langston CNP documented in this encounter [facility] 03-14-2022 History of Present illness Narrative Frederic Stack Jr. 56 y.o. 1965 male Reason for Consult: Nausea HPI: 56-year-old male with history of arthritis, asthma, DDD, pancreatitis, DM, HTN, HDL, CAD s/p stent referred by PCP for screening colonoscpopy and nausea. Patient reports history of persistent nausea for the past several months. Has had similar bouts of in the past. Wakes up feeling nauseated and forces himself to eat, feels like's food sits in his stomach and reports indigestion. Occasional nonradiating dull epigastric pain, taking Pepcid for a long time but recently started omeprazole around a month ago with mild improvement. Long history of diabetes with suboptimal control, uses smokeless tobacco. No fever, weight loss, vomiting, black tarry stools or blood in the stool. Paternal aunt with stomach cancer, denies family history all other GI associated cancers. Has never had screening colonoscopy. Denies abdominal pain, change of bowel, or blood in the stool. No family history of colon cancer. Past Medical History: Past Medical History: Diagnosis Date Arthritis Back and hips Asthma COVID-19 04/12/2021 DDD (degenerative disc disease), lumbar [facility] L5-S1 Depressed 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 Facet arthropathy, lumbar [facility] Lower Hyperlipidemia 2015 Indigestion 2005 [facility] NP Obesity Pancreatitis 2017 Sleep apnea 2001 [facility] NP Tobacco use Surgical History & Procedures: Past Surgical History: Procedure Laterality Date CARPAL TUNNEL RELEASE Right COLONOSCOPY approximately 2017 CORONARY STENT PLACEMENT HC LEFT HEART CATH N/A 12/14/2020 Procedure: Left Heart Cath; Surgeon: Jb Trujillo MD; 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; Service: Cardiovascular TONSILLECTOMY Social History: Social History Socioeconomic History Marital status: Spouse name: Natty 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 Family History Problem Relation Age of Onset Diabetes type II Mother Heart failure Father Heart attack Father Diabetes type II Father Stomach cancer Paternal Aunt Current Medications: Current Outpatient Medications Medication Sig Dispense Refill amLODIPine (NORVASC) 5 MG tablet Take 1 (one) tablet (5 mg total) by mouth daily . 90 tablet 3 aspirin 81 MG EC tablet Take 1 (one) tablet (81 mg total) by mouth daily . 90 tablet 3 atorvastatin (LIPITOR) 40 MG tablet Take 1 (one) tablet (40 mg total) by mouth daily . 90 tablet 3 busPIRone (BUSPAR) 7.5 MG tablet Take 1 (one) tablet (7.5 mg total) by mouth 3 (three) times a day . 90 tablet 0 empagliflozin 25 mg Tab Take 1 (one) tablet (25 mg total) by mouth daily . 90 tablet 3 famotidine (PEPCID) 40 MG tablet Take 1 (one) tablet (40 mg total) by mouth daily . 90 tablet 3 fluticasone propionate (FLONASE) 50 mcg/actuation nasal spray Instill 2 (two) sprays into each nostril daily . (Patient taking differently: Instill 2 (two) sprays into each nostril 2 (two) times a day as needed .) 48 g 3 insulin detemir U-100 (LEVEMIR) 100 unit/mL (3 mL) InPn Inject 30 (thirty) Units under the skin nightly . (Patient taking differently: Inject 30 (thirty) Units under the skin nightly PT REPORTS THAT HE'S BEEN TAKING 40 .) 9 mL 2 isosorbide mononitrate (IMDUR) 60 MG 24 hr tablet Take 1 (one) tablet (60 mg total) by mouth daily . 90 tablet 3 lisinopriL (PRINIVIL,ZESTRIL) 10 MG tablet Take 1 (one) tablet (10 mg total) by mouth daily . 90 tablet 3 loratadine (CLARITIN) 10 mg tablet Take 1 (one) tablet (10 mg total) by mouth daily . 90 tablet 3 metFORMIN (GLUCOPHAGE) 1000 MG tablet Take 1 (one) tablet (1,000 mg total) by mouth 2 (two) times a day with meals . 180 tablet 3 metoprolol succinate (TOPROL-XL) 50 MG 24 hr tablet Take 1 (one) tablet (50 mg total) by mouth nightly . 90 tablet 3 multivitamin (THERAGRAN) per tablet Take 1 (one) tablet by mouth daily . nitroGLYCERIN (NITROSTAT) 0.4 MG SL tablet Take 1 (one) tablet (0.4 mg total) by mouth See Admin Instructions DISSOLVE ONE TABLET UNDER THE TONGUE EVERY 5 MINUTES NEEDED FOR CHEST PAIN. DO NOT EXCEED A TOTAL OF 3 DOSES IN 15 MINUTES NOW . 25 tablet 4 ticagrelor (Brilinta) 90 mg Tab tablet Take 1 (one) tablet (90 mg total) by mouth 2 (two) times a day . 60 tablet 11 blood sugar diagnostic strips by Miscellaneous route daily . 100 each 1 blood-glucose meter Misc 1 each 0 omeprazole (PRILOSEC) 40 MG capsule Take 1 (one) capsule (40 mg total) by mouth daily . 30 capsule 0 pen needle, diabetic 32 gauge x 5/32 Ndle 1 application by Miscellaneous route nightly . 100 each 1 No current facility-administered medications for this visit. Review of Systems Constitutional: Negative for appetite change, fatigue, fever and unexpected weight change. HENT: Negative for mouth sores, trouble swallowing and voice change. Eyes: Negative for redness. Respiratory: Negative for cough, choking and shortness of breath. Cardiovascular: Negative for chest pain and palpitations. Gastrointestinal: Positive for abdominal distention, abdominal pain and nausea. Negative for blood in stool, constipation, diarrhea and vomiting. Endocrine: Negative. Genitourinary: Negative for difficulty urinating. Musculoskeletal: Negative for arthralgias and joint swelling. Skin: Negative for color change and pallor. Allergic/Immunologic: Negative. Neurological: Negative for dizziness, syncope and light-headedness. Hematological: Negative. Psychiatric/Behavioral: Negative. Physical Exam Constitutional: General: He is not in acute distress. Appearance: Normal appearance. He is not ill-appearing or diaphoretic. HENT: Head: Normocephalic and atraumatic. Right Ear: External ear normal. Left Ear: External ear normal. Nose: Nose normal. Mouth/Throat: Mouth: Mucous membranes are moist. Pharynx: No posterior oropharyngeal erythema. Eyes: General: No scleral icterus. Pupils: Pupils are equal, round, and reactive to light. Cardiovascular: Rate and Rhythm: Normal rate and regular rhythm. Heart sounds: No murmur heard. No gallop. Pulmonary: Effort: Pulmonary effort is normal. No respiratory distress. Breath sounds: Normal breath sounds. No wheezing. Abdominal: General: Bowel sounds are normal. There is no distension. Palpations: Abdomen is soft. There is no mass. Tenderness: There is no abdominal tenderness. There is no guarding. Musculoskeletal: General: No deformity. Normal range of motion. Cervical back: Normal range of motion and neck supple. Skin: General: Skin is warm and dry. Coloration: Skin is not jaundiced or pale. Neurological: General: No focal deficit present. Mental Status: He is alert and oriented to person, place, and time. Psychiatric: Mood and Affect: Mood normal. Behavior: Behavior normal. Hospital Outpatient Visit on 02/16/2022 Component Date Value Ref Range Status EF 02/16/2022 60.7989 % Final AV mean gradient 02/16/2022 6 mmHg Final Aortic valve area 02/16/2022 2.106 cm Final Assessment & Plan: Colon cancer screening- Colonoscopy scheduled with Dr. Wasserman on 06/06/21 at 8:30am GERD- Chronic nausea- Indigestion- Long history of diabetes suboptimal control. Will order gastric emptying study to evaluate for gastroparesis. History of GERD, intermittent epigastric discomfort mild improvement with omeprazole, was on Pepcid for a long time. Uses smokeless tobacco. Has never had EGD. Will refill omeprazole for an additional 30 days and schedule for EGD to rule out any Finley's esophagus, gastritis or H. pylori infection that could be contributing to his chronic symptoms. EGD also scheduled with Dr. Wasserman 06/06/2021 at 8:30 AM at surgery center. Schedule follow-up in office after colonoscopy and EGD and will call in the meantime for any abnormal gastric emptying study results. Callie Langston CNP documented in this encounter [facility] 03-12-2022 History of Present illness Narrative Cardiology Clinic Visit Heart & Vascular [facility] 03/12/2022 Jackelyn Gonzalez MD [address] [facility] [id number] Patient: Frederic Stack Jr. Date of : 1965 (56 y.o.) Referring Provider: No ref. provider found PCP: Maggie Marquez MD Assessment & Plan Frederic Stack is a 56 y.o. man with history of coronary artery disease status post PCI to the proximal LAD in November 2020, hyperlipidemia, JAN, and asthma who presents to clinic for follow-up. Coronary artery disease status post PCI to the proximal LAD in November 2020-he underwent repeat left heart catheterization a few days later at [facility] which revealed distal left circumflex disease with 80% stenosis however this was a small vessel. He has been on medical therapy. He did undergo a nuclear stress test in March 2021 which was negative for ischemia. He denies symptoms of angina. However has had chest pain which is atypical/noncardiac in nature. Continue aspirin 81 mg daily. Continue Brilinta 90 mg twice daily. Continue atorvastatin 40 mg daily and metoprolol succinate 50 mg daily. Continue amlodipine 5 mg daily. We will increase isosorbide mononitrate to 60 mg daily to see if this helps with his symptoms Hyperlipidemia-previously at goal. We did discuss compliance with atorvastatin. We discussed low-fat diet. -Continue current dose of atorvastatin, will reevaluate at the next visit HTN - improved with amlodipine 5 mg daily. Continue lisinopril 10 mg daily. Aortic dilatation - will monitor on subsequent imaging - BP control as above Return in about 3 months (around 06/12/2022). Jackelyn Gonzalez MD [facility] Non-Invasive Cardiology [facility] Heart and Vascular Chief Complaint: Follow-up (4 mo/no cardiac concerns today) Subjective Frederic Stack is a 56 y.o. man with history of coronary artery disease status post PCI to the proximal LAD in November 2020, hyperlipidemia, JAN, and asthma who presents to clinic for follow-up. The patient was last seen by telehealth visit. Over the past few months he has had episodes of epigastric pain. He reports that these episodes are not exertional. He reports that he can have them while sitting and resting. At times these episodes last for few seconds. However other times they last for hours. Does not seem to be provoked by a particular type of food. They do not come on with activity or exertion. He denies having episodes of chest pain. He denies feeling short of breath. He denies lower extremity swelling, PND and orthopnea. He denies palpitations. He reports that he is to have GI evaluation in the next few days. Review of Systems: Constitution: Negative. HENT: Negative. Cardiovascular: As above. Respiratory: As above. Endocrine: Negative. Skin: Negative. Musculoskeletal: Negative. Gastrointestinal: Negative. Genitourinary: Negative. Neurological: Negative. Psychiatric/Behavioral: Negative. 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 Facet arthropathy, lumbar [facility] Lower Hyperlipidemia 2015 Indigestion 2005 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 Obesity Pancreatitis 2017 Sleep apnea 2001 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 Tobacco use Past Surgical History: Procedure Laterality Date CARPAL TUNNEL RELEASE Right CORONARY STENT PLACEMENT HC LEFT HEART CATH N/A 12/14/2020 Procedure: Left Heart Cath; Surgeon: Jb Trujillo MD; 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; Service: Cardiovascular TONSILLECTOMY Family History Problem Relation Age of Onset Diabetes type II Mother Heart failure Father Heart attack Father Diabetes type II Father Social History Tobacco Use Smoking Status Former Types: Cigarettes Quit date: 2014 Years since quittin.8 Smokeless Tobacco Current Types: Chew Allergies: Hydrochlorothiazide, Losartan, Bupropion, Hyzaar [losartan-hydrochlorothiazide], and Mavik [trandolapril] HOME Medications: Current Outpatient Medications on File Prior to Visit Medication Sig amLODIPine (NORVASC) 5 MG tablet Take 1 (one) tablet (5 mg total) by mouth daily . aspirin 81 MG EC tablet Take 1 (one) tablet (81 mg total) by mouth daily . atorvastatin (LIPITOR) 40 MG tablet Take 1 (one) tablet (40 mg total) by mouth daily . busPIRone (BUSPAR) 7.5 MG tablet Take 1 (one) tablet (7.5 mg total) by mouth 3 (three) times a day . empagliflozin 25 mg Tab Take 1 (one) tablet (25 mg total) by mouth daily . famotidine (PEPCID) 40 MG tablet Take 1 (one) tablet (40 mg total) by mouth daily . fluticasone propionate (FLONASE) 50 mcg/actuation nasal spray Instill 2 (two) sprays into each nostril daily . insulin detemir U-100 (LEVEMIR) 100 unit/mL (3 mL) InPn Inject 30 (thirty) Units under the skin nightly . (Patient taking differently: Inject 30 (thirty) Units under the skin nightly PT REPORTS THAT HE'S BEEN TAKING 40 .) isosorbide mononitrate (IMDUR) 30 MG 24 hr tablet Take 1 (one) tablet (30 mg total) by mouth daily . lisinopriL (PRINIVIL,ZESTRIL) 10 MG tablet Take 1 (one) tablet (10 mg total) by mouth daily . loratadine (CLARITIN) 10 mg tablet Take 1 (one) tablet (10 mg total) by mouth daily . metFORMIN (GLUCOPHAGE) 1000 MG tablet Take 1 (one) tablet (1,000 mg total) by mouth 2 (two) times a day with meals . metoprolol succinate (TOPROL-XL) 50 MG 24 hr tablet Take 1 (one) tablet (50 mg total) by mouth nightly . multivitamin (THERAGRAN) per tablet Take 1 (one) tablet by mouth daily . nitroGLYCERIN (NITROSTAT) 0.4 MG SL tablet Take 1 (one) tablet (0.4 mg total) by mouth See Admin Instructions DISSOLVE ONE TABLET UNDER THE TONGUE EVERY 5 MINUTES NEEDED FOR CHEST PAIN. DO NOT EXCEED A TOTAL OF 3 DOSES IN 15 MINUTES NOW . omeprazole (PRILOSEC) 40 MG capsule Take 1 (one) capsule (40 mg total) by mouth daily . ticagrelor (Brilinta) 90 mg Tab tablet Take 1 (one) tablet (90 mg total) by mouth 2 (two) times a day . blood sugar diagnostic strips by Miscellaneous route daily . blood-glucose meter [facility] [place], diabetic 32 gauge x 5/32 Ndle 1 application by Miscellaneous route nightly . No current facility-administered medications on file prior to visit. Physical Examination: BP 130/86 (BP Location: Right arm) Pulse 68 Ht 5' 6 Wt 91.2 kg (201 lb) SpO2 95% BMI 32.44 kg/m Constitutional: Appears well-developed and well-nourished. No distress. HENT: Head: Normocephalic and atraumatic. Eyes: Conjunctivae and EOM are normal. No scleral icterus. Neck: Normal range of motion. Cardiovascular: Normal rate and regular rhythm. Exam reveals no gallop and no friction rub. No murmur heard. No JVP elevation. No LE edema. Pulmonary/Chest: Effort normal and breath sounds normal. No respiratory distress. No wheezes. No rales. Abdominal: Soft. Bowel sounds are normal. There is no abdominal tenderness. Musculoskeletal: Normal range of motion. Neurological: AOx3, moving all ext. Skin: Skin is warm and dry. No rash noted. Psychiatric: Normal mood and affect. Cardiovascular Studies: TTE 02/16/22 Summary 1. Left ventricular systolic function is normal with an ejection fraction by Biplane Method of Discs of 61 %. 2. The left ventricular diastolic function is normal. 3. Right ventricle is normal in size with normal systolic function. 4. No significant valvular heart disease is present. 5. The proximal ascending aorta is borderline dilated measuring 4.0 cm with an index of 1.9 cm/m2. 6. There is no pulmonary hypertension, estimated right ventricle systolic pressure is 28 mmHg. [facility] 12/14/20 Coronary Angiographic Findings: Dominance: right Left Main: 4.5 mm vessel, gives rise to the LAD and LCX Arteries, there was no stenosis. There was KVNG 3 flow. Left Anterior Descending Artery: The LAD measures 4 mm proximally and tapers to a 2.5 mm vessel distally. There is KVNG 3 flow in the body of the LAD. The LAD gives rise to 2 diagonal vessels. The LAD is free of significant disease. There is a patent stent in proximal LAD with no significant ISR Left Circumflex Artery: The LCX measures 3 mm proximally and tapers to small vessel coursing along the AV groove. The LCX gives rise to 2 obtuse marginal branches. The distal LCX is a small 2.5mm vessel which has diffuse 80% stenosis. Right Coronary Artery: RCA is a dominant vessel and measures 3.0 mm proximally and tapers to a 2.5 mm vessel distally prior to giving off the PDA. The RCA is free of significant disease. 03/28/21 Nuclear Stress Test Summary 1. Overall this is a normal pharmacologic stress SPECT myocardial perfusion imaging study. 2. The patient exercised for 4:15 min:ss according to the [place] protocol. He was unable to achieve target HR due to leg pain and fatigue. The test was then converted to a pharmacologic study. He achieved a max of 7.0 METS with exercise which represents below average exercise capacity for age and gender. 3. He had no chest pain with exercise. 4. No ST/T wave changes diagnostic of ischemia with exercise/Lexiscan. 5. SPECT images demonstrate homogeneous tracer distribution throughout the myocardium. Myocardial perfusion imaging is normal. No evidence of ischemia or infarction. 6. Overall left ventricular systolic function was normal without regional wall motion abnormalities. Post stress left ventricular ejection fraction is normal, 57 %. Left ventricular cavity size is normal. 7. Overall low-risk study based on SCAI criteria (<1% predicted annual cardiac mortality). Labs: Lab Results Component Value Date GLUCOSE 74 12/06/2021 CALCIUM 9.2 12/06/2021 NA 140 12/06/2021 K 4.1 12/06/2021 CL 107 12/06/2021 BUN 24 12/07/2021 CREATININE 1.03 12/07/2021 Lab Results Component Value Date WBC 8.28 12/07/2021 HGB 15.6 12/07/2021 HCT 46.0 12/07/2021 MCV 87.0 12/07/2021 EXTMCV 85.7 11/08/2017 PLT 301 12/07/2021 RBC 5.29 12/07/2021 Lab Results Component Value Date CHOL 136 12/06/2021 LDLCALC 82 12/06/2021 TRIG 99 12/06/2021 HDL 34 (L) 12/06/2021 documented in this encounter [facility] 03-12-2022 Instructions Jem Hercules RN - 03/12/2022 10:20 AM EST How to contact your Care Team: Provider: Jackelyn Gonzalez MD Nurse: Jem Hercules RN In case of an emergency please call 911. REFILLS: When in need for refills please call your care team or the office at [phone]. Please include medication name, pharmacy name, and specify 30-day or 90-day supply. Please check with your pharmacy within 24 hours of request for your refill. You must follow up as directed to continue current refills. Thank you documented in this encounter [facility] 12-29-2021 Telephone encounter Note Last OV 12/07/21. Next OV 01/16/22. [facility] 12-29-2021 Miscellaneous Notes Last OV 12/07/21. Next OV 01/16/22. documented in this encounter [facility] 12-07-2021 Evaluation + Plan note Associated Problem(s): Generalized anxiety disorder Increase stress with his job, currently not on any medication to help with his anxiety symptoms. With the current chest pains that he is getting I believe it is more anxiety driven rather than true anginal symptoms. Treating underlying anxiety with starting on BuSpar 5 mg 3 times daily. If still persistent patient will let me know and we will proceed with further cardiac work-up. [facility] 12-07-2021 Evaluation + Plan note Associated Problem(s): Essential hypertension Well-controlled on the current regimen of amlodipine 5 mg and lisinopril 10 mg. Continue the same dose no refills today [facility] 12-07-2021 Miscellaneous Notes Associated Problem(s): Generalized anxiety disorder Increase stress with his job, currently not on any medication to help with his anxiety symptoms. With the current chest pains that he is getting I believe it is more anxiety driven rather than true anginal symptoms. Treating underlying anxiety with starting on BuSpar 5 mg 3 times daily. If still persistent patient will let me know and we will proceed with further cardiac work-up. Associated Problem(s): Essential hypertension Well-controlled on the current regimen of amlodipine 5 mg and lisinopril 10 mg. Continue the same dose no refills today Associated Problem(s): Sleep apnea Still having disturbed sleep and awaiting CPAP supplies to come Associated Problem(s): Diabetes mellitus (HCC) Diagnosed 2011. HgbA1c: 7.1 on 12/06 which is down from 8.6 last checked in June full eye exam: Not done this year, [facility], any new vision concerns: Regular foot self-exams: Done this year normal, new foot concerns: None Neuropathic symptoms: None Microalbumin: Mildly elevated Statins: Lipitor 40 mg Medications: Levemir 40 units, Jardiance 25 mg and metformin 1000 mg twice daily. documented in this encounter [facility] 12-07-2021 Evaluation + Plan note Associated Problem(s): Sleep apnea Still having disturbed sleep and awaiting CPAP supplies to come [facility] 12-07-2021 Evaluation + Plan note Associated Problem(s): Diabetes mellitus (HCC) Diagnosed 2011. HgbA1c: 7.1 on 12/06 which is down from 8.6 last checked in June full eye exam: Not done this year, encouraged to [facility], any new vision concerns: Regular foot self-exams: Done this year normal, new foot concerns: None Neuropathic symptoms: None Microalbumin: Mildly elevated Statins: Lipitor 40 mg Medications: Levemir 40 units, Jardiance 25 mg and metformin 1000 mg twice daily. [facility] 12-07-2021 History of Present illness Narrative Chief Complaint Patient presents with Follow-up 4 week fu htn, dm review labs HPI: Frederic Stack (Bill) is a 55 y.o. male who is presenting today to follow up on his diabetes. He has a past medical history of Arthritis, Asthma, DDD (degenerative disc disease), lumbar, Depressed, Diabetes mellitus (HCC), Facet arthropathy, lumbar, Hyperlipidemia, Hypertension indiigestion, Obesity, Pancreatitis, Sleep apnea (2001), and Tobacco use. [facility] [place]. No records has been sent from the [facility] on patient's behalf. DM: Since 2011. A1c is 8.6 in 07/19. New A1c is 7.1 in 12/06. Metformin 1000 mg BID and lantus 40 units as well as Jardiance 25 mg. Was not taking his lantus for the past month then started taking it again in the last two days. Drinks about 4-5 pop drinks a day not drinking any water. Has had one episode at work where he felt nauseous and shaky that resolved after eating. Has not been checking his sugars recently. Last eye exam in [place] , normal, recommend to get another one this year. [facility]. Foot exam done 07/21/2021 normal. Sleep apnea: Diagnosed in 2001, has not used CPAP for the past year, reported that it has gotten bad. Severe sleep apnea suggested through sleep study done in May [address] Stephens. Still waiting for recommendations on CPAP supply, still awaiting CPAP supplies from [facility], encouraged to keep following up with them.. Essential hypertension: Chronic, controlled with lisinopril 10 mg and amlodipine 5 mg. Anxiety: Stressed out about his job wanting him to do extra work in a different department which she is not happy about. Whenever he works in the other department he started endorsing chest pains going down to his left shoulder and his back , even thinking about it makes it hurt, his extra work is heavier and more demanding than his usual work and he believes it is all related to stress and not necessarily his heart as it happens even at rest without exertion. Hyperlipidemia: On Lipitor 40 mg. Last checked was in March 2022 showing LDL close to goal at 84 mg for diabetes. 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 Tobacco use Past Surgical History: Procedure Laterality Date CARPAL TUNNEL RELEASE Right CORONARY STENT PLACEMENT HC LEFT HEART CATH N/A 12/14/2020 Procedure: Left Heart Cath; Surgeon: Jb Trujillo MD; 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; Service: Cardiovascular TONSILLECTOMY Family History Problem Relation Age of Onset Diabetes type II Mother Heart failure Father Heart attack Father Diabetes type II Father Social History Tobacco Use Smoking status: Former Types: Cigarettes Quit date: 2014 Years since quittin.6 Smokeless tobacco: Current Types: Chew Vaping Use Vaping Use: Former Substance Use Topics Alcohol use: Yes Comment: rare Drug use: No Review of Systems Vitals: 12/07/21 0747 BP: 118/77 BP Location: Right arm Patient Position: Sitting BP Cuff Size: X-large Adult Pulse: (!) 56 Resp: 16 Temp: 97.6 F (36.4 C) TempSrc: Temporal SpO2: 97% Weight: 89.6 kg (197 lb 9.6 oz) Height: 5' 6 Estimated body mass index is 31.89 kg/m as calculated from the following: Height as of this encounter: 5' 6 . Weight as of this encounter: 89.6 kg (197 lb 9.6 oz). Physical Exam Constitutional: General: He is not in acute distress. Appearance: He is not ill-appearing. HENT: Head: Normocephalic and atraumatic. Eyes: Extraocular Movements: Extraocular movements intact. Conjunctiva/sclera: Conjunctivae normal. Pupils: Pupils are equal, round, and reactive to light. Cardiovascular: Rate and Rhythm: Normal rate and regular rhythm. Pulses: Normal pulses. Heart sounds: Murmur (Soft ejection systolic murmur) heard. No gallop. Pulmonary: Effort: Pulmonary effort is normal. Breath sounds: Normal breath sounds. No wheezing, rhonchi or rales. Chest: Chest wall: No tenderness. Abdominal: General: Abdomen is flat. Bowel sounds are normal. There is no distension. Palpations: Abdomen is soft. There is no mass. Tenderness: There is no abdominal tenderness. There is no right CVA tenderness, left CVA tenderness, guarding or rebound. Musculoskeletal: General: No tenderness. Normal range of motion. Cervical back: Normal range of motion and neck supple. No rigidity. No muscular tenderness. Right lower leg: No edema. Left lower leg: No edema. Lymphadenopathy: Cervical: No cervical adenopathy. Skin: General: Skin is warm. Findings: No erythema or rash. Neurological: General: No focal deficit present. Mental Status: He is alert and oriented to person, place, and time. Sensory: No sensory deficit. Motor: No weakness. Gait: Gait normal. Psychiatric: Mood and Affect: Mood normal. Behavior: Behavior normal. Thought Content: Thought content normal. Judgment: Judgment normal. OARRS/NARxCHECK Report Received and Assessed: No data found Date controlled substance agreement signed: No data found Date of last drug screen: No data found Functional Assessment: No data found PHQ9: LYNNE-7 Tobacco Counseling: Ready to quit: Not Answered Counseling given: Not Answered Patient's Medications New Prescriptions BUSPIRONE (BUSPAR) 5 MG TABLET Take 1 (one) tablet (5 mg total) by mouth 3 (three) times a day . Previous Medications AMLODIPINE (NORVASC) 5 MG TABLET Take 1 (one) tablet (5 mg total) by mouth daily . ASPIRIN 81 MG EC TABLET Take 1 (one) tablet (81 mg total) by mouth daily . ATORVASTATIN (LIPITOR) 40 MG TABLET Take 1 (one) tablet (40 mg total) by mouth daily . BLOOD SUGAR DIAGNOSTIC STRIPS by Miscellaneous route daily . BLOOD-GLUCOSE METER [facility] 25 MG TAB Take 1 (one) tablet (25 mg total) by mouth daily . FAMOTIDINE (PEPCID) 40 MG TABLET Take 1 (one) tablet (40 mg total) by mouth daily . FLUTICASONE PROPIONATE (FLONASE) 50 MCG/ACTUATION NASAL SPRAY Instill 2 (two) sprays into each nostril daily . INSULIN DETEMIR U-100 (LEVEMIR) 100 UNIT/ML (3 ML) INPN Inject 30 (thirty) Units under the skin nightly . ISOSORBIDE MONONITRATE (IMDUR) 30 MG 24 HR TABLET Take 1 (one) tablet (30 mg total) by mouth daily . LISINOPRIL (PRINIVIL,ZESTRIL) 10 MG TABLET Take 1 (one) tablet (10 mg total) by mouth daily . LORATADINE (CLARITIN) 10 MG TABLET Take 1 (one) tablet (10 mg total) by mouth daily . METFORMIN (GLUCOPHAGE) 1000 MG TABLET Take 1 (one) tablet (1,000 mg total) by mouth 2 (two) times a day with meals . METOPROLOL SUCCINATE (TOPROL-XL) 50 MG 24 HR TABLET Take 1 (one) tablet (50 mg total) by mouth nightly . MULTIVITAMIN (THERAGRAN) PER TABLET Take 1 tablet by mouth daily . NITROGLYCERIN (NITROSTAT) 0.4 MG SL TABLET Take 1 (one) tablet (0.4 mg total) by mouth See Admin Instructions DISSOLVE ONE TABLET UNDER THE TONGUE EVERY 5 MINUTES NEEDED FOR CHEST PAIN. DO NOT EXCEED A TOTAL OF 3 DOSES IN 15 MINUTES NOW . PEN NEEDLE, DIABETIC 32 GAUGE X NDLE 1 application by Miscellaneous route nightly . TICAGRELOR (BRILINTA) 90 MG TAB TABLET Take 1 (one) tablet (90 mg total) by mouth 2 (two) times a day . Modified Medications No medications on file Discontinued Medications No medications on file Health Maintenance Due Topic Date Due Tetanus: Every 10yrs Never done Colorectal Cancer Screening Never done Wellness Visit Never done Zoster Vaccines (1 of 2) Never done COVID-19 Vaccine (3 - Booster for Deanna series) 08/26/2021 Ophthalmology Exam 10/04/2021 Pneumococcal Vaccine: Ped or At-Risk (2 - PCV) 12/08/2021 Depression Screening (PHQ-2/9) 12/16/2021 Assessment & Plan Problem List Items Addressed This Visit Endocrine Diabetes mellitus (HCC) Diagnosed 2011. HgbA1c: 7.1 on 12/06 which is down from 8.6 last checked in June Last full eye exam: Not done this year, encouraged to [facility], any new vision concerns: Regular foot self-exams: Done this year normal, new foot concerns: None Neuropathic symptoms: None Microalbumin: Mildly elevated Statins: Lipitor 40 mg Medications: Levemir 40 units, Jardiance 25 mg and metformin 1000 mg twice daily. Respiratory Sleep apnea Still having disturbed sleep and awaiting CPAP supplies to come Cardiovascular and Mediastinum Essential hypertension Well-controlled on the current regimen of amlodipine 5 mg and lisinopril 10 mg. Continue the same dose no refills today Other Generalized anxiety disorder Increase stress with his job, currently not on any medication to help with his anxiety symptoms. With the current chest pains that he is getting I believe it is more anxiety driven rather than true anginal symptoms. Treating underlying anxiety with starting on BuSpar 5 mg 3 times daily. If still persistent patient will let me know and we will proceed with further cardiac work-up. Relevant Medications busPIRone (BUSPAR) 5 MG tablet Other Visit Diagnoses Anxiety - Primary Relevant Medications busPIRone (BUSPAR) 5 MG tablet I spent 35 minutes with patient reviewing HPI, coordinating plan of care and educating patient on dietary modifications for cholesterol and diabetes Return in about 4 weeks (around 01/04/2022) for Follow Up, can be virtual 20 mins . MAGGIE MARQUEZ MD [facility] [address] [facility] [address] [facility] [id number] Dept: [phone] documented in this encounter [facility] 11-14-2021 History of Present illness Narrative Lets increase amlodipine to 5mg daily. Does, he still need a letter, saw he sent a patient message, if so ok to write a letter for him. BP CHECK. PLEASE REVIEW documented in this encounter [facility] 11-05-2021 History of Present illness Narrative Please see office visit note from 10/30/21. documented in this encounter [facility] 10-30-2021 History of Present illness Narrative General Cardiology Virtual Visit Consult -Telephone Heart & Vascular [facility] 10/30/2021 Jackelyn Gonzalez MD [address] [facility] [id number] Patient: Frederic Stack . Date of : 1965 (56 y.o.) Referring Provider: No ref. provider found PCP: Maggie Marquez MD Patient Location: Patient's Home Telephone Visit Consent Statement: I discussed risks, benefits and alternatives of a telemedicine consultation with the patient (and any accompanying persons) including the risks that the patient s personal health details and medical records will be discussed over real-time, synchronous, interactive video/audio/telecommunication technology, the visit will not be recorded without the express consent of both the provider and the patient, and that there are inherent diagnostic limitations compared to [id number] evaluations. We elected to proceed with the telemedicine consultation. Patient was exposed to COVID on Saturday - Daughter tested positive on Saturday. Assessment & Plan Frederic Stack is a 56 y.o. male with history of coronary artery disease status post PCI to the proximal LAD in November 2020, hyperlipidemia, JAN, and asthma who presents to clinic for follow-up. He previously saw Dr. Cabrales. Coronary artery disease status post PCI to the proximal LAD in November 2020-he underwent repeat left heart catheterization a few days later at [facility] which revealed distal left circumflex disease with 80% stenosis however this was a small vessel. He has been on medical therapy. He did undergo a nuclear stress test in March which was negative for ischemia. He denies symptoms of angina. Continue aspirin 81 mg daily. Given that he is less than 1 year from his PCI given the location of his PCI we discussed restarting Brilinta which he was agreeable to. Continue atorvastatin 40 mg daily, isosorbide mononitrate 30 mg daily, and metoprolol succinate 50 mg daily. Hyperlipidemia-LDL at goal -Continue current dose of atorvastatin Visit time - 15mins Follow-up: Return in about 4 months (around 03/02/2022). Chief Complaint: Follow-up (6 mo/ Keron - no new cardiac concerns ) Subjective History of Present Illness: Frederic Stack is a 56 y.o. male with history of coronary artery disease status post PCI to the proximal LAD in November 2020, hyperlipidemia, JAN, and asthma who presents to clinic for follow-up. He previously saw Dr. Cabrales. He reports that he has been feeling well. He denies having chest pain, shortness of breath, lower extremity swelling, PND orthopnea. He denies palpitations. He denies lightheadedness and dizziness. He denies any episodes syncope. He is not having any fevers. He reports that he was taken off of Brilinta by his primary care. He reports that he was not having an issue with the medication. He denies having any bleeding issues Objective TTE 12/13/20 Summary 1. A Limited transthoracic echocardiographic study was performed to reassess LV function. Complete Doppler exam was not performed. 2. Left ventricular systolic function is normal with an ejection fraction by Biplane Method of Discs of 57 %. 3. Normal wall motion. 4. RV not well visualized. Appears grossly normal in size and function based on visual estimate. 5. The left ventricular diastolic function is normal. 6. There is no pulmonary hypertension, estimated right ventricle systolic pressure is 23 mmHg. [facility] 12/14/20 Coronary Angiographic Findings: Dominance: right Left Main: 4.5 mm vessel, gives rise to the LAD and LCX Arteries, there was no stenosis. There was KVNG 3 flow. Left Anterior Descending Artery: The LAD measures 4 mm proximally and tapers to a 2.5 mm vessel distally. There is KVGN 3 flow in the body of the LAD. The LAD gives rise to 2 diagonal vessels. The LAD is free of significant disease. There is a patent stent in proximal LAD with no significant ISR Left Circumflex Artery: The LCX measures 3 mm proximally and tapers to small vessel coursing along the AV groove. The LCX gives rise to 2 obtuse marginal branches. The distal LCX is a small 2.5mm vessel which has diffuse 80% stenosis. Right Coronary Artery: RCA is a dominant vessel and measures 3.0 mm proximally and tapers to a 2.5 mm vessel distally prior to giving off the PDA. The RCA is free of significant disease. 03/28/21 Nuclear Stress Test Summary 1. Overall this is a normal pharmacologic stress SPECT myocardial perfusion imaging study. 2. The patient exercised for 4:15 min:ss according to the [place] protocol. He was unable to achieve target HR due to leg pain and fatigue. The test was then converted to a pharmacologic study. He achieved a max of 7.0 METS with exercise which represents below average exercise capacity for age and gender. 3. He had no chest pain with exercise. 4. No ST/T wave changes diagnostic of ischemia with exercise/Lexiscan. 5. SPECT images demonstrate homogeneous tracer distribution throughout the myocardium. Myocardial perfusion imaging is normal. No evidence of ischemia or infarction. 6. Overall left ventricular systolic function was normal without regional wall motion abnormalities. Post stress left ventricular ejection fraction is normal, 57 %. Left ventricular cavity size is normal. 7. Overall low-risk study based on SCAI criteria (<1% predicted annual cardiac mortality). Review of Systems: Constitution: Negative. HENT: Negative. Cardiovascular: As above. Respiratory: As above. Endocrine: Negative. Skin: Negative. Musculoskeletal: Negative. Gastrointestinal: Negative. Genitourinary: Negative. Neurological: Negative. Psychiatric/Behavioral: Negative. 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 Facet arthropathy, lumbar [facility] Lower Hyperlipidemia 2015 Indigestion 2005 [facility] 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 Obesity Pancreatitis 2017 Sleep apnea 2001 [facility]/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 Tobacco use Past Surgical History: Procedure Laterality Date CARPAL TUNNEL RELEASE Right CORONARY STENT PLACEMENT HC LEFT HEART CATH N/A 12/14/2020 Procedure: Left Heart Cath; Surgeon: Jb Trujillo MD; 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; Service: Cardiovascular TONSILLECTOMY Family History Problem Relation Age of Onset Diabetes type II Mother Heart failure Father Heart attack Father Diabetes type II Father Social History Tobacco Use Smoking Status Former Types: Cigarettes Quit date: 2014 Years since quittin.5 Smokeless Tobacco Current Types: Chew Allergies: Hydrochlorothiazide, Losartan, Bupropion, Hyzaar [losartan-hydrochlorothiazide], and Mavik [trandolapril] HOME Medications: Current Outpatient Medications on File Prior to Visit Medication Sig amLODIPine (NORVASC) 2.5 MG tablet Take 1 (one) tablet (2.5 mg total) by mouth daily . aspirin 81 MG EC tablet Take 1 (one) tablet (81 mg total) by mouth daily . atorvastatin (LIPITOR) 40 MG tablet Take 1 (one) tablet (40 mg total) by mouth daily . blood sugar diagnostic strips by Miscellaneous route daily . blood-glucose meter Misc empagliflozin 25 mg Tab Take 1 (one) tablet (25 mg total) by mouth daily . famotidine (PEPCID) 40 MG tablet Take 1 (one) tablet (40 mg total) by mouth daily . fluticasone propionate (FLONASE) 50 mcg/actuation nasal spray Instill 2 (two) sprays into each nostril daily . insulin detemir U-100 (LEVEMIR) 100 unit/mL (3 mL) InPn Inject 30 (thirty) Units under the skin nightly . isosorbide mononitrate (IMDUR) 30 MG 24 hr tablet Take 1 (one) tablet (30 mg total) by mouth daily . lisinopriL (PRINIVIL,ZESTRIL) 10 MG tablet Take 1 (one) tablet (10 mg total) by mouth daily . loratadine (CLARITIN) 10 mg tablet Take 1 (one) tablet (10 mg total) by mouth daily . metFORMIN (GLUCOPHAGE) 1000 MG tablet Take 1 (one) tablet (1,000 mg total) by mouth 2 (two) times a day with meals . metoprolol succinate (TOPROL-XL) 50 MG 24 hr tablet Take 1 (one) tablet (50 mg total) by mouth nightly . multivitamin (THERAGRAN) per tablet Take 1 tablet by mouth daily . nitroGLYCERIN (NITROSTAT) 0.4 MG SL tablet Take 1 (one) tablet (0.4 mg total) by mouth See Admin Instructions DISSOLVE ONE TABLET UNDER THE TONGUE EVERY 5 MINUTES NEEDED FOR CHEST PAIN. DO NOT EXCEED A TOTAL OF 3 DOSES IN 15 MINUTES NOW . [DISCONTINUED] Brilinta 90 mg Tab tablet Take 1 (one) tablet (90 mg total) by mouth 2 (two) times a day . [DISCONTINUED] cinnamon bark 500 mg capsule Take 500 mg by mouth daily . No current facility-administered medications on file prior to visit. Lab Results Component Value Date GLUCOSE 155 (H) 07/19/2021 CALCIUM 9.7 07/19/2021 NA 138 07/19/2021 K 4.3 07/19/2021 CL 104 07/19/2021 BUN 17 07/19/2021 CREATININE 0.95 07/19/2021 Lab Results Component Value Date WBC 7.34 02/22/2021 HGB 14.4 02/22/2021 HCT 41.1 02/22/2021 MCV 86.3 02/22/2021 EXTMCV 85.7 11/08/2017 PLT 298 02/22/2021 RBC 4.76 02/22/2021 Lab Results Component Value Date CHOL 109 03/31/2021 Lab Results Component Value Date HDL 30 (L) 03/31/2021 Lab Results Component Value Date LDLCALC 40 03/31/2021 Lab Results Component Value Date TRIG 197 (H) 03/31/2021 Lab Results Component Value Date CHOLHDL 3.6 03/31/2021 Lab Results Component Value Date TROPONINI 5 02/22/2021 TROPONINI 5 02/22/2021 TROPONINI 137 (CH) 12/13/2020 No results found for: NTPROBNP documented in this encounter [facility] 10-30-2021 Instructions Jem Hercules RN - 10/30/2021 10:50 AM EDT How to contact your Care Team: Provider: Jackelyn Gonzalez MD Nurse: Jem Hercules RN In case of an emergency please call 911. REFILLS: When in need for refills please call your care team or the office at [phone]. Please include medication name, pharmacy name, and specify 30-day or 90-day supply. Please check with your pharmacy within 24 hours of request for your refill. You must follow up as directed to continue current refills. Thank you documented in this encounter [facility] 09-21-2021 Evaluation + Plan note Associated Problem(s): Essential hypertension Would benefit from further control with increasing lisinopril to 10 mg. Keeping amlodipine at 2.5 mg today. Continue to monitor, repeat blood work with next A1c in 1 month. [facility] 09-21-2021 Miscellaneous Notes Associated Problem(s): Essential hypertension Would benefit from further control with increasing lisinopril to 10 mg. Keeping amlodipine at 2.5 mg today. Continue to monitor, repeat blood work with next A1c in 1 month. Associated Problem(s): Sleep apnea Sent prescription for CPAP supplies to patient. Severe sleep apnea on sleep study testing back in May 2021 Associated Problem(s): Diabetes mellitus (HCC) A1c 8.6 done on 07/17 worsening from previous A1c. Patient has not been taking his Lantus 40 mg. Had 1 episode that most likely related to hypoglycemia. Continue on the current regimen with Metformin 1000 mg twice daily advised to take it with food, decreased Lantus to 30 instead of 40 mg and Jardiance 25 mg. [facility] Continue on atorvastatin 40 mg. LDL at goal at this time Urine microalbumin normal. Recommend to start taking his blood sugars fasting. Recommend to cut back on pop drinks and start replacing some of the drinks with water/Gatorade Foot exam done today and is within normal limits A1c in the next visit. documented in this encounter [facility] 09-21-2021 Evaluation + Plan note Associated Problem(s): Sleep apnea Sent prescription for CPAP supplies to patient. Severe sleep apnea on sleep study testing back in May 2021 T [facility] 09-21-2021 Evaluation + Plan note Associated Problem(s): Diabetes mellitus (HCC) A1c 8.6 done on 07/17 worsening from previous A1c. Patient has not been taking his Lantus 40 mg. Had 1 episode that most likely related to hypoglycemia. Continue on the current regimen with Metformin 1000 mg twice daily advised to take it with food, decreased Lantus to 30 instead of 40 mg and Jardiance 25 mg. [facility] Continue on atorvastatin 40 mg. LDL at goal at this time Urine microalbumin normal. Recommend to start taking his blood sugars fasting. Recommend to cut back on pop drinks and start replacing some of the drinks with water/Gatorade Foot exam done today and is within normal limits A1c in the next visit. T [facility] 09-21-2021 History of Present illness Narrative Chief Complaint Patient presents with Follow-up 2 month f/u HPI: Frederic Stack (Bill) is a 55 y.o. male who is presenting today to follow up on his diabetes. He has a past medical history of Arthritis, Asthma, DDD (degenerative disc disease), lumbar, Depressed, Diabetes mellitus (HCC), Facet arthropathy, lumbar, Hyperlipidemia, Hypertension indiigestion, Obesity, Pancreatitis, Sleep apnea (2001), and Tobacco use. [facility] [place]. DM: Since 2011. A1c is 8.6 in 07/19. Metformin 1000 mg BID and lantus 40 units as well as Jardiance 25 mg. Was not taking his lantus for the past month then started taking it again in the last two days. Drinks about 4-5 pop drinks a day not drinking any water. Has had one episode at work where he felt nauseous and shaky that resolved after eating. Has not been checking his sugars recently. Last eye exam in [place] , normal. Trying to schedule with the [place] for this year. Foot exam done 07/21/2021 normal. Sleep apnea: Diagnosed in 2001, has not used CPAP for the past year, reported that it has gotten bad. Severe sleep apnea suggested through sleep study done in May [address] Stephens. Still waiting for recommendations on CPAP supply, I offered to give it to him and patient was thankful and agreeable. Essential hypertension: Chronic, controlled with lisinopril 5 mg and amlodipine 2.5 mg. Hyperlipidemia: On Lipitor 40 mg. Last checked was in March 2022 showing LDL within goal at 40 mg for diabetes. Past Medical History: Diagnosis Date Arthritis Back and hips Asthma DDD (degenerative disc disease), lumbar Department of [facility] Emergency Department L5-S1 Depressed Department of 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 Facet arthropathy, lumbar Department of [facility] Emergency Department Lower Hyperlipidemia 2015 Indigestion 2005 Department of 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 Obesity Pancreatitis 2017 Sleep apnea 2002 Department of 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 Tobacco use Past Surgical History: Procedure Laterality Date CARPAL TUNNEL RELEASE Right CORONARY STENT PLACEMENT HC LEFT HEART CATH N/A 12/14/2020 Procedure: Left Heart Cath; Surgeon: Jb Trujillo MD; 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; Service: Cardiovascular TONSILLECTOMY Family History Problem Relation Age of Onset Diabetes type II Mother Heart failure Father Heart attack Father Diabetes type II Father Social History Tobacco Use Smoking status: Former Pack years: 0.00 Types: Cigarettes Quit date: 2014 Years since quittin.4 Smokeless tobacco: Current Types: Chew Vaping Use Vaping Use: Former Substance Use Topics Alcohol use: Yes Comment: rare Drug use: No Review of Systems Vitals: 09/21/21 0903 09/21/21 0905 09/21/21 0941 BP: (!) 155/91 (!) 151/92 (!) 145/84 BP Location: Left arm Left arm Patient Position: Sitting Sitting BP Cuff Size: X-large Adult X-large Adult Pulse: (!) 57 62 Resp: 16 Temp: 97.9 F (36.6 C) TempSrc: Temporal SpO2: 95% Weight: 88.5 kg (195 lb) Height: 5' 6 Estimated body mass index is 31.47 kg/m as calculated from the following: Height as of this encounter: 5' 6 . Weight as of this encounter: 88.5 kg (195 lb). Physical Exam Constitutional: General: He is not in acute distress. Appearance: He is not ill-appearing. HENT: Head: Normocephalic and atraumatic. Eyes: Extraocular Movements: Extraocular movements intact. Conjunctiva/sclera: Conjunctivae normal. Pupils: Pupils are equal, round, and reactive to light. Cardiovascular: Rate and Rhythm: Normal rate and regular rhythm. Pulses: Normal pulses. Heart sounds: Normal heart sounds. No murmur heard. No gallop. Pulmonary: Effort: Pulmonary effort is normal. Breath sounds: Normal breath sounds. No wheezing, rhonchi or rales. Chest: Chest wall: No tenderness. Abdominal: General: Abdomen is flat. Bowel sounds are normal. There is no distension. Palpations: Abdomen is soft. There is no mass. Tenderness: There is no abdominal tenderness. There is no right CVA tenderness, left CVA tenderness, guarding or rebound. Musculoskeletal: General: No tenderness. Normal range of motion. Cervical back: Normal range of motion and neck supple. No rigidity. No muscular tenderness. Right lower leg: No edema. Left lower leg: No edema. Lymphadenopathy: Cervical: No cervical adenopathy. Skin: General: Skin is warm. Findings: No erythema or rash. Neurological: General: No focal deficit present. Mental Status: He is alert and oriented to person, place, and time. Sensory: No sensory deficit. Motor: No weakness. Gait: Gait normal. Psychiatric: Mood and Affect: Mood normal. Behavior: Behavior normal. Thought Content: Thought content normal. Judgment: Judgment normal. OARRS/NARxCHECK Report Received and Assessed: No data found Date controlled substance agreement signed: No data found Date of last drug screen: No data found Functional Assessment: No data found PHQ9: LYNNE-7 Tobacco Counseling: Ready to quit: Not Answered Counseling given: Not Answered Patient's Medications New Prescriptions No medications on file Previous Medications AMLODIPINE (NORVASC) 2.5 MG TABLET Take 1 (one) tablet (2.5 mg total) by mouth daily . ASPIRIN 81 MG EC TABLET Take 1 (one) tablet (81 mg total) by mouth daily . ATORVASTATIN (LIPITOR) 40 MG TABLET Take 1 (one) tablet (40 mg total) by mouth daily . BLOOD SUGAR DIAGNOSTIC STRIPS by Miscellaneous route daily . BLOOD-GLUCOSE METER [facility] 90 MG TAB TABLET Take 1 (one) tablet (90 mg total) by mouth 2 (two) times a day . CINNAMON BARK 500 MG CAPSULE Take 500 mg by mouth daily . EMPAGLIFLOZIN 25 MG TAB Take 1 (one) tablet (25 mg total) by mouth daily . FAMOTIDINE (PEPCID) 40 MG TABLET Take 1 (one) tablet (40 mg total) by mouth daily . FLUTICASONE PROPIONATE (FLONASE) 50 MCG/ACTUATION NASAL SPRAY Instill 2 (two) sprays into each nostril daily . INSULIN DETEMIR U-100 (LEVEMIR) 100 UNIT/ML (3 ML) INPN Inject 30 (thirty) Units under the skin nightly . ISOSORBIDE MONONITRATE (IMDUR) 30 MG 24 HR TABLET Take 1 (one) tablet (30 mg total) by mouth daily . LORATADINE (CLARITIN) 10 MG TABLET Take 1 (one) tablet (10 mg total) by mouth daily . METFORMIN (GLUCOPHAGE) 1000 MG TABLET Take 1 (one) tablet (1,000 mg total) by mouth 2 (two) times a day with meals . METOPROLOL SUCCINATE (TOPROL-XL) 50 MG 24 HR TABLET Take 1 (one) tablet (50 mg total) by mouth nightly . MULTIVITAMIN (THERAGRAN) PER TABLET Take 1 tablet by mouth daily . NITROGLYCERIN (NITROSTAT) 0.4 MG SL TABLET Take 1 (one) tablet (0.4 mg total) by mouth See Admin Instructions DISSOLVE ONE TABLET UNDER THE TONGUE EVERY 5 MINUTES NEEDED FOR CHEST PAIN. DO NOT EXCEED A TOTAL OF 3 DOSES IN 15 MINUTES NOW . Modified Medications Modified Medication Previous Medication LISINOPRIL (PRINIVIL,ZESTRIL) 10 MG TABLET lisinopriL (PRINIVIL,ZESTRIL) 5 MG tablet Take 1 (one) tablet (10 mg total) by mouth daily . Take 1 (one) tablet (5 mg total) by mouth daily . Discontinued Medications No medications on file Health Maintenance Due Topic Date Due Tetanus: Every 10yrs Never done Wellness Visit Never done Colorectal Cancer Screening Never done Zoster Vaccines (1 of 2) Never done COVID-19 Vaccine (3 - Booster for Deanna series) 08/26/2021 Pneumococcal Vaccine: Ped or At-Risk (2 - PCV) 12/08/2021 Assessment & Plan Problem List Items Addressed This Visit Endocrine Diabetes mellitus (HCC) A1c 8.6 done on 07/17 worsening from previous A1c. Patient has not been taking his Lantus 40 mg. Had 1 episode that most likely related to hypoglycemia. Continue on the current regimen with Metformin 1000 mg twice daily advised to take it with food, decreased Lantus to 30 instead of 40 mg and Jardiance 25 mg. [facility]. Continue on atorvastatin 40 mg. LDL at goal at this time Urine microalbumin normal. Recommend to start taking his blood sugars fasting. Recommend to cut back on pop drinks and start replacing some of the drinks with water/Gatorade Foot exam done today and is within normal limits A1c in the next visit. Relevant Orders Comprehensive Metabolic Panel Hemoglobin A1c Lipid Panel Microalbumin/Creatinine Ratio, UR Random Respiratory Sleep apnea Sent prescription for CPAP supplies to patient. Severe sleep apnea on sleep study testing back in May 2021 Relevant Orders CPAP Breathing Machine Supplies Cardiovascular and Mediastinum Essential hypertension - Primary Would benefit from further control with increasing lisinopril to 10 mg. Keeping amlodipine at 2.5 mg today. Continue to monitor, repeat blood work with next A1c in 1 month. Relevant Medications lisinopriL (PRINIVIL,ZESTRIL) 10 MG tablet Other Hyperlipidemia I spent 35 minutes with patient reviewing HPI, coordinating plan of care and educating patient on dietary modifications for cholesterol and diabetes Return in about 4 weeks (around 10/19/2021) for Follow Up. MAGGIE MARQUEZ MD [facility] [address] [facility] [address] [facility] [id number] Dept: [phone] documented in this encounter [facility] 07-21-2021 Evaluation + Plan note Associated Problem(s): Diabetes mellitus (HCC) A1c 8.6 done on 07/17 worsening from previous A1c. Patient has not been taking his Lantus 40 mg. Had 1 episode that most likely related to hypoglycemia. Continue on the current regimen with Metformin 1000 mg twice daily advised to take it with food, decreased Lantus to 30 instead of 40 mg and Jardiance 25 mg. [facility]. Continue on atorvastatin 40 mg. LDL at goal at this time Urine microalbumin normal. Recommend to start taking his blood sugars fasting. Recommend to cut back on pop drinks and start replacing some of the drinks with water/Gatorade Foot exam done today and is within normal limits [facility] 07-21-2021 Miscellaneous Notes Associated Problem(s): Diabetes mellitus (HCC) A1c 8.6 done on 07/17 worsening from previous A1c. Patient has not been taking his Lantus 40 mg. Had 1 episode that most likely related to hypoglycemia. Continue on the current regimen with Metformin 1000 mg twice daily advised to take it with food, decreased Lantus to 30 instead of 40 mg and Jardiance 25 mg. [facility]ham. Continue on atorvastatin 40 mg. LDL at goal at this time Urine microalbumin normal. Recommend to start taking his blood sugars fasting. Recommend to cut back on pop drinks and start replacing some of the drinks with water/Gatorade Foot exam done today and is within normal limits documented in this encounter [facility] 07-21-2021 History of Present illness Narrative Chief Complaint Patient presents with Diabetes HPI: Frederic Stack (Bill) is a 55 y.o. male who is presenting today to follow up on his diabetes. He has a past medical history of Arthritis, Asthma, DDD (degenerative disc disease), lumbar, Depressed, Diabetes mellitus (HCC), Facet arthropathy, lumbar, Hyperlipidemia, Hypertension indiigestion, Obesity, Pancreatitis, Sleep apnea (2001), and Tobacco use. [facility] [place] No [facility]. DM: Since 2011. A1c is 8.6 in 07/19. Metformin 1000 mg BID and lantus 40 units as well as Jardiance 25 mg. Was not taking his lantus for the past month then started taking it again in the last two days. Drinks about 4-5 pop drinks a day not drinking any water. Has had one episode at work where he felt nauseous and shaky that resolved after eating. Has not been checking his sugars recently. Last eye exam in [place] , normal. Foot exam done last visit. Past Medical History: Diagnosis Date Arthritis Back and hips Asthma DDD (degenerative disc disease), lumbar Department of [facility] Emergency Department L5-S1 Depressed Department of 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 Facet arthropathy, lumbar Department of [facility] Emergency Department Lower Hyperlipidemia 2015 Indigestion 2005 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 Obesity Pancreatitis 2017 Sleep apnea 2002 [facility] of [facility]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 Tobacco use Past Surgical History: Procedure Laterality Date CARPAL TUNNEL RELEASE Right CORONARY STENT PLACEMENT HC LEFT HEART CATH N/A 12/14/2020 Procedure: Left Heart Cath; Surgeon: Jb Trujillo MD; 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; Service: Cardiovascular TONSILLECTOMY Family History Problem Relation Age of Onset Diabetes type II Mother Heart failure Father Heart attack Father Diabetes type II Father Social History Tobacco Use Smoking status: Former Smoker Types: Cigarettes Quit date: 2014 Years since quittin.2 Smokeless tobacco: Current User Types: Chew Vaping Use Vaping Use: Former Substance Use Topics Alcohol use: Yes Comment: rare Drug use: No Review of Systems Vitals: 07/21/21 1024 07/21/21 1027 BP: (!) 152/91 132/85 BP Location: Right arm Right arm Patient Position: Sitting Sitting BP Cuff Size: Adult Adult Pulse: 81 71 Resp: 16 Temp: 97.1 F (36.2 C) TempSrc: Temporal SpO2: 96% Weight: 85.7 kg (189 lb) Height: 5' 6 Estimated body mass index is 30.51 kg/m as calculated from the following: Height as of this encounter: 5' 6 . Weight as of this encounter: 85.7 kg (189 lb). Physical Exam Constitutional: General: He is not in acute distress. Appearance: He is not ill-appearing. HENT: Head: Normocephalic and atraumatic. Eyes: Extraocular Movements: Extraocular movements intact. Conjunctiva/sclera: Conjunctivae normal. Pupils: Pupils are equal, round, and reactive to light. Cardiovascular: Rate and Rhythm: Normal rate and regular rhythm. Pulses: Normal pulses. Heart sounds: Normal heart sounds. No murmur heard. No gallop. Pulmonary: Effort: Pulmonary effort is normal. Breath sounds: Normal breath sounds. No wheezing, rhonchi or rales. Chest: Chest wall: No tenderness. Abdominal: General: Abdomen is flat. Bowel sounds are normal. There is no distension. Palpations: Abdomen is soft. There is no mass. Tenderness: There is no abdominal tenderness. There is no right CVA tenderness, left CVA tenderness, guarding or rebound. Musculoskeletal: General: No tenderness. Normal range of motion. Cervical back: Normal range of motion and neck supple. No rigidity. No muscular tenderness. Right lower leg: No edema. Left lower leg: No edema. Lymphadenopathy: Cervical: No cervical adenopathy. Skin: General: Skin is warm. Findings: No erythema or rash. Neurological: General: No focal deficit present. Mental Status: He is alert and oriented to person, place, and time. Sensory: No sensory deficit. Motor: No weakness. Gait: Gait normal. Psychiatric: Mood and Affect: Mood normal. Behavior: Behavior normal. Thought Content: Thought content normal. Judgment: Judgment normal. OARRS/NARxCHECK Report Received and Assessed: No data found Date controlled substance agreement signed: No data found Date of last drug screen: No data found Functional Assessment: No data found PHQ9: LYNNE-7 Tobacco Counseling: Ready to quit: Not Answered Counseling given: Not Answered Patient's Medications New Prescriptions No medications on file Previous Medications AMLODIPINE (NORVASC) 2.5 MG TABLET Take 1 (one) tablet (2.5 mg total) by mouth daily . ASPIRIN 81 MG EC TABLET Take 81 mg by mouth daily . ATORVASTATIN (LIPITOR) 40 MG TABLET Take 1 (one) tablet (40 mg total) by mouth daily . BLOOD SUGAR DIAGNOSTIC STRIPS by Miscellaneous route daily . BLOOD-GLUCOSE METER [facility] 90 MG TAB TABLET Take 90 mg by mouth 2 (two) times a day . CINNAMON BARK 500 MG CAPSULE Take 500 mg by mouth daily . EMPAGLIFLOZIN 25 MG TAB Take 1 (one) tablet (25 mg total) by mouth daily . FAMOTIDINE (PEPCID) 40 MG TABLET Take 1 (one) tablet (40 mg total) by mouth daily . FLUTICASONE (FLONASE) 50 MCG/ACTUATION NASAL SPRAY Instill 2 (two) sprays into each nostril daily . ISOSORBIDE MONONITRATE (IMDUR) 30 MG 24 HR TABLET Take 1 (one) tablet (30 mg total) by mouth daily . LISINOPRIL (PRINIVIL,ZESTRIL) 5 MG TABLET Take 1 (one) tablet (5 mg total) by mouth daily . LORATADINE (CLARITIN) 10 MG TABLET Take 1 (one) tablet (10 mg total) by mouth daily . METFORMIN (GLUCOPHAGE) 1000 MG TABLET Take 1 (one) tablet (1,000 mg total) by mouth 2 (two) times a day with meals . METOPROLOL SUCCINATE (TOPROL-XL) 50 MG 24 HR TABLET Take 1 (one) tablet (50 mg total) by mouth nightly . MULTIVITAMIN (THERAGRAN) PER TABLET Take 1 tablet by mouth daily . NITROGLYCERIN (NITROSTAT) 0.4 MG SL TABLET Take 0.4 mg by mouth See Admin Instructions DISSOLVE ONE TABLET UNDER THE TONGUE EVERY 5 MINUTES NEEDED FOR CHEST PAIN. DO NOT EXCEED A TOTAL OF 3 DOSES IN 15 MINUTES NOW . Modified Medications Modified Medication Previous Medication INSULIN GLARGINE (LANTUS SOLOSTAR/BASAGLAR KWIKPEN) 100 UNIT/ML (3 ML) INPN insulin glargine (LANTUS SOLOSTAR/BASAGLAR KWIKPEN) 100 unit/mL (3 mL) InPn Inject 30 (thirty) Units under the skin nightly . Inject 40 (forty) Units under the skin nightly . Discontinued Medications No medications on file Health Maintenance Due Topic Date Due Tetanus: Every 10yrs Never done Wellness Visit Never done Colorectal Cancer Screening Never done Zoster Vaccines (1 of 2) Never done Assessment & Plan Problem List Items Addressed This Visit Endocrine Diabetes mellitus (HCC) - Primary A1c 8.6 done on 07/17 worsening from previous A1c. Patient has not been taking his Lantus 40 mg. Had 1 episode that most likely related to hypoglycemia. Continue on the current regimen with Metformin 1000 mg twice daily advised to take it with food, decreased Lantus to 30 instead of 40 mg and Jardiance 25 mg. [facility] Continue on atorvastatin 40 mg. LDL at goal at this time Urine microalbumin normal. Recommend to start taking his blood sugars fasting. Recommend to cut back on pop drinks and start replacing some of the drinks with water/Gatorade Foot exam done today and is within normal limits Relevant Medications insulin glargine (LANTUS SOLOSTAR/BASAGLAR KWIKPEN) 100 unit/mL (3 mL) InPn I spent 40 minutes with patient reviewing HPI, coordinating plan of care and educating patient on dietary modifications for cholesterol and diabetes Return in about 3 months (around 10/20/2021) for Follow Up. MAGGIE MARQUEZ MD [facility] [address] [facility] [id number] Dept: [phone] documented in this encounter [facility] 06-23-2021 Evaluation + Plan note Associated Problem(s): Sleep apnea Severe sleep apnea based on sleep study done in May 2021. Patient is to follow-up with sleep medicine for CPAP supplies. Settings recommended is 14 cmH2o. [facility] 06-23-2021 Evaluation + Plan note Associated Problem(s): Essential hypertension Controlled on the current regimen with lisinopril 5 mg and amlodipine 2.5 mg. Continue to monitor blood pressure. [facility] 06-23-2021 Miscellaneous Notes Associated Problem(s): Sleep apnea Severe sleep apnea based on sleep study done in May 2021. Patient is to follow-up with sleep medicine for CPAP supplies. Settings recommended is 14 cmH2o. Associated Problem(s): Essential hypertension Controlled on the current regimen with lisinopril 5 mg and amlodipine 2.5 mg. Continue to monitor blood pressure. Associated Problem(s): Diabetes mellitus (HCC) A1c pending labs to be done later this month. Continue on the current regimen with Metformin 1000 mg twice daily, Lantus 40 mg without missing it and Jardiance 25 mg. [facility]. Continue on atorvastatin 40 mg, refill today, unsure if he was taking it in the last 2 to 3 months. Urine microalbumin normal. Foot exam done today and is within normal limits documented in this encounter [facility] 06-23-2021 Evaluation + Plan note Associated Problem(s): Diabetes mellitus (HCC) A1c pending labs to be done later this month. Continue on the current regimen with Metformin 1000 mg twice daily, Lantus 40 mg without missing it and Jardiance 25 mg. [facility]ham. Continue on atorvastatin 40 mg, refill today, unsure if he was taking it in the last 2 to 3 months. Urine microalbumin normal. Foot exam done today and is within normal limits [facility] 06-23-2021 History of Present illness Narrative Chief Complaint Patient presents with Diabetes HPI: Frederic Wu' is a 55 y.o. male who is presenting today to follow up on his diabetes. He has a past medical history of Arthritis, Asthma, DDD (degenerative disc disease), lumbar, Depressed, Diabetes mellitus (HCC), Facet arthropathy, lumbar, Hyperlipidemia, Hypertension indiigestion, Obesity, Pancreatitis, Sleep apnea (2001), and Tobacco use. [facility] [place] No [facility] on [facility]. Sleep apnea: Diagnosed in 2001, has not used CPAP for the past year, reported that it has gotten bad. Severe sleep apnea suggested through sleep study done in [place] [address] Stephens. Still waiting for recommendations on CPAP supply. DM: Since 2011. A1c is 7.6 in 03/2021. Metformin 1000 mg BID and lantus 40 units as well as Jardiance 25 mg. Last eye exam in [place] , normal. Foot exam: Past Medical History: Diagnosis Date Arthritis Back and hips Asthma DDD (degenerative disc disease), lumbar Department of [facility] Emergency Department L5-S1 Depressed Department of 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 Facet arthropathy, lumbar Department [facility] Emergency Department Lower Hyperlipidemia 2015 Indigestion 2005 [facility] of 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 Obesity Pancreatitis 2017 Sleep apnea 2002 Department 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 Tobacco use Past Surgical History: Procedure Laterality Date CARPAL TUNNEL RELEASE Right CORONARY STENT PLACEMENT HC LEFT HEART CATH N/A 12/14/2020 Procedure: Left Heart Cath; Surgeon: Jb rTujillo MD; 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; Service: Cardiovascular TONSILLECTOMY Family History Problem Relation Age of Onset Diabetes type II Mother Heart failure Father Heart attack Father Diabetes type II Father Social History Tobacco Use Smoking status: Former Smoker Types: Cigarettes Quit date: 2014 Years since quittin.1 Smokeless tobacco: Current User Types: Chew Vaping Use Vaping Use: Former Substance Use Topics Alcohol use: Yes Comment: rare Drug use: No Review of Systems Vitals: 06/23/21 0725 BP: 127/82 BP Location: Right arm Patient Position: Sitting BP Cuff Size: X-large Adult Pulse: 77 Resp: 16 Temp: 98 F (36.7 C) TempSrc: Temporal SpO2: 96% Weight: 87.1 kg (192 lb) Height: 5' 6 Estimated body mass index is 30.99 kg/m as calculated from the following: Height as of this encounter: 5' 6 . Weight as of this encounter: 87.1 kg (192 lb). Physical Exam Constitutional: General: He is not in acute distress. Appearance: He is not ill-appearing. HENT: Head: Normocephalic and atraumatic. Eyes: Extraocular Movements: Extraocular movements intact. Conjunctiva/sclera: Conjunctivae normal. Pupils: Pupils are equal, round, and reactive to light. Cardiovascular: Rate and Rhythm: Normal rate and regular rhythm. Pulses: Normal pulses. Heart sounds: Normal heart sounds. No murmur heard. No gallop. Pulmonary: Effort: Pulmonary effort is normal. Breath sounds: Normal breath sounds. No wheezing, rhonchi or rales. Chest: Chest wall: No tenderness. Abdominal: General: Abdomen is flat. Bowel sounds are normal. There is no distension. Palpations: Abdomen is soft. There is no mass. Tenderness: There is no abdominal tenderness. There is no right CVA tenderness, left CVA tenderness, guarding or rebound. Musculoskeletal: General: No tenderness. Normal range of motion. Cervical back: Normal range of motion and neck supple. No rigidity. No muscular tenderness. Right lower leg: No edema. Left lower leg: No edema. Lymphadenopathy: Cervical: No cervical adenopathy. Skin: General: Skin is warm. Findings: No erythema or rash. Comments: Foot exam Normal blood flow and warmth bilaterally, normal pedal pulses 2/2 Monofilament testing within normal limits. Neurological: General: No focal deficit present. Mental Status: He is alert and oriented to person, place, and time. Sensory: No sensory deficit. Motor: No weakness. Gait: Gait normal. Psychiatric: Mood and Affect: Mood normal. Behavior: Behavior normal. Thought Content: Thought content normal. Judgment: Judgment normal. OARRS/NARxCHECK Report Received and Assessed: No data found Date controlled substance agreement signed: No data found Date of last drug screen: No data found Functional Assessment: No data found PHQ9: LYNNE-7 Tobacco Counseling: Ready to quit: Not Answered Counseling given: Not Answered Patient's Medications New Prescriptions BLOOD SUGAR DIAGNOSTIC STRIPS by Miscellaneous route daily . Previous Medications ASPIRIN 81 MG EC TABLET Take 81 mg by mouth daily . BLOOD-GLUCOSE METER MISC BRILINTA 90 MG TAB TABLET Take 90 mg by mouth 2 (two) times a day . CINNAMON BARK 500 MG CAPSULE Take 500 mg by mouth daily . FAMOTIDINE (PEPCID) 40 MG TABLET Take 1 (one) tablet (40 mg total) by mouth daily . FLUTICASONE (FLONASE) 50 MCG/ACTUATION NASAL SPRAY Instill 2 (two) sprays into each nostril daily . INSULIN GLARGINE (LANTUS SOLOSTAR/BASAGLAR KWIKPEN) 100 UNIT/ML (3 ML) INPN Inject 40 (forty) Units under the skin nightly . ISOSORBIDE MONONITRATE (IMDUR) 30 MG 24 HR TABLET Take 1 (one) tablet (30 mg total) by mouth daily . LORATADINE (CLARITIN) 10 MG TABLET Take 1 (one) tablet (10 mg total) by mouth daily . METOPROLOL SUCCINATE (TOPROL-XL) 50 MG 24 HR TABLET Take 1 (one) tablet (50 mg total) by mouth nightly . MULTIVITAMIN (THERAGRAN) PER TABLET Take 1 tablet by mouth daily . NITROGLYCERIN (NITROSTAT) 0.4 MG SL TABLET Take 0.4 mg by mouth See Admin Instructions DISSOLVE ONE TABLET UNDER THE TONGUE EVERY 5 MINUTES NEEDED FOR CHEST PAIN. DO NOT EXCEED A TOTAL OF 3 DOSES IN 15 MINUTES NOW . Modified Medications Modified Medication Previous Medication AMLODIPINE (NORVASC) 2.5 MG TABLET amLODIPine (NORVASC) 2.5 MG tablet Take 1 (one) tablet (2.5 mg total) by mouth daily . Take 1 (one) tablet (2.5 mg total) by mouth daily . ATORVASTATIN (LIPITOR) 40 MG TABLET atorvastatin (LIPITOR) 40 MG tablet Take 1 (one) tablet (40 mg total) by mouth daily . Take 1 (one) tablet (40 mg total) by mouth daily . EMPAGLIFLOZIN 25 MG TAB empagliflozin 25 mg Tab Take 1 (one) tablet (25 mg total) by mouth daily . Take 1 (one) tablet (25 mg total) by mouth daily . LISINOPRIL (PRINIVIL,ZESTRIL) 5 MG TABLET lisinopriL (PRINIVIL,ZESTRIL) 5 MG tablet Take 1 (one) tablet (5 mg total) by mouth daily . Take 1 (one) tablet (5 mg total) by mouth daily . METFORMIN (GLUCOPHAGE) 1000 MG TABLET metFORMIN (GLUCOPHAGE) 1000 MG tablet Take 1 (one) tablet (1,000 mg total) by mouth 2 (two) times a day with meals . Take 1 (one) tablet (1,000 mg total) by mouth 2 (two) times a day with meals . Discontinued Medications No medications on file Health Maintenance Due Topic Date Due Tetanus: Every 10yrs Never done Wellness Visit Never done Colorectal Cancer Screening Never done Zoster Vaccines (1 of 2) Never done Assessment & Plan Problem List Items Addressed This Visit Endocrine Diabetes mellitus (HCC) - Primary A1c pending labs to be done later this month. Continue on the current regimen with Metformin 1000 mg twice daily, Lantus 40 mg without missing it and Jardiance 25 mg. [facility]. Continue on atorvastatin 40 mg, refill today, unsure if he was taking it in the last 2 to 3 months. Urine microalbumin normal. Foot exam done today and is within normal limits Relevant Medications blood sugar diagnostic strips metFORMIN (GLUCOPHAGE) 1000 MG tablet empagliflozin 25 mg Tab Other Relevant Orders Basic Metabolic Panel Hemoglobin A1c HM DIABETES FOOT EXAM (Completed) Respiratory Sleep apnea Severe sleep apnea based on sleep study done in May 2021. Patient is to follow-up with sleep medicine for CPAP supplies. Settings recommended is 14 cmH2o. Cardiovascular and Mediastinum Essential hypertension Controlled on the current regimen with lisinopril 5 mg and amlodipine 2.5 mg. Continue to monitor blood pressure. Relevant Medications lisinopriL (PRINIVIL,ZESTRIL) 5 MG tablet amLODIPine (NORVASC) 2.5 MG tablet Other Hyperlipidemia Relevant Medications atorvastatin (LIPITOR) 40 MG tablet Return in about 4 weeks (around 07/21/2021) for Follow Up. MAGGIE MARQUEZ MD [facility] [address] [facility] [address] [facility] [id number] Dept: [phone] documented in this encounter [facility] 04-19-2021 Instructions Bryant Chopra CNP - 04/19/2021 6:54 PM EST Images from the original note were not included. 9 Things To Do If You've Been Exposed to COVID-19 If you are fully vaccinated or have recently been sick with COVID-19, you may not need to quarantine. But you may need to be tested and wear a mask in public indoor spaces for 14 days or until you test negative for COVID-19. Stay home. If you've been exposed to the virus but don't have symptoms, you may need to stay in quarantine for up to 14 days. In some cases it may be shorter. Ask your doctor when it's safe to end your quarantine. Be sure to follow all instructions from your local health authorities. Don't go to school, work, or public areas. And don't use public transportation, ride-shares, or taxis unless you have no choice. Leave your home only if you need to get medical care. But call the doctor's office first so they know you're coming. Call your doctor. Call your doctor or other health professional to let them know that you've been exposed. They might want you to be tested, or they may have other instructions for you. Wear a mask when you are around other people. It can help stop the spread of the virus. Limit contact with people in your home. If possible, stay in a separate bedroom and use a separate bathroom. Avoid contact with pets and other animals. Cover your mouth and nose with a tissue when you cough or sneeze. Then throw it in the trash right away. Wash your hands often, especially after you cough or sneeze. Use soap and water, and scrub for at least 20 seconds. If soap and water aren't available, use an alcohol-based hand jockey valet. Don't share personal household items. These include bedding, towels, cups and glasses, and eating utensils. Clean and disinfect your home every day. Use household specialty department supervisor or disinfectant wipes or sprays. Current as of: July 15, 2020 Content Version: 13.1 [employer]. Care instructions adapted under license by your healthcare professional. If you have questions about a medical condition or this instruction, always ask your healthcare professional. [employer] disclaims any warranty or liability for your use of this information. documented in this encounter [facility] 04-19-2021 History of Present illness Narrative Video Visit [facility] CALL C[facility] [address] [place] [address] [facility] [id number] Via Real-time Synchronous Audiovisual [facility] 04/19/2021 Bryant Chopra CNP Provider Location: Home Patient Location Volunteer Services Assistant: None Patient Location: Patient's Home Patient: Frederic Stack Jr. Date of : 1965 (55 y.o. male) PCP: Maggie Marquez MD Video Visit Consent Statement: I discussed risks, benefits and alternatives of a real-time synchronous audiovisual consultation with the patient (and any accompanying persons) including the risks that the patient s personal health details and medical records will be discussed over real-time, synchronous, interactive video/audio/telecommunication technology, the visit will not be recorded without the express consent of both the provider and the patient, and that there are some limitations compared to [id number] evaluations. We elected to proceed. Diagnoses and all orders for this visit: COVID-19 OARRS/NARxCHECK Report Received and Assessed: No data found Date controlled substance agreement signed: No data found Date of last drug screen: No data found Functional Assessment: No data found [place] Risk No documentation. There were no vitals filed for this visit. Patient ID: Frederic Stack Jr. is a 55 y.o. male. HPI/Assessment/Plan: HPI Patient presents for work release. He tested positive 04/07/2021. He states symptoms are waxing and waning but for the most part improving. He states he needs a doctors note to go back to work. He denies any shortness of breath or chest pain. 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 Negative for chills, fatigue and fever. Respiratory: Negative for cough, chest tightness and shortness of breath. Cardiovascular: Negative. Negative for chest pain, palpitations and leg swelling. Gastrointestinal: Positive for diarrhea. Negative for constipation, nausea and vomiting. Neurological: Positive for headaches. Negative for dizziness and light-headedness. Psychiatric/Behavioral: Negative for decreased concentration and dysphoric mood. Objective: There were no vitals taken for this visit. Ready to quit: Not Answered Counseling given: Not Answered Physical Exam Constitutional: General: He is not in acute distress. Appearance: Normal appearance. He is not ill-appearing. Pulmonary: Effort: Pulmonary effort is normal. No respiratory distress. Neurological: General: No focal deficit present. Mental Status: He is alert and oriented to person, place, and time. Psychiatric: Mood and Affect: Mood normal. Behavior: Behavior normal. Ortho Exam Ortho Exam Plan: 1. COVID-19 -work excuse given, ok to go back to work. The following portions of the patient's history were reviewed and updated as appropriate: allergies, current medications, past family history, past medical history, past social history, past surgical history and problem list. Continue medications as ordered that were not discontinued, adjusted, or completed by today's visit. Bryant Chopra CNP Family Medicine [facility] documented in this encounter [facility] 04-11-2021 Miscellaneous Notes Associated Problem(s): COVID-19 Plan: -Tylenol prn for pain/fever -Saline nasal rinses BID or nai pod -Antihistamine claritin/zyrtec to help with congestion -Flonase daily - avoid using afrin or sudaphed with nose bleeds -Use mucinex for mucous thinning as needed -Hydration, air humidifier and rest promoted. documented in this encounter [facility] 04-11-2021 History of Present illness Narrative Video Visit Via Phone Call [facility] [address] [facility] [address] [facility] [id number] Video Visit [facility] 04/11/2021 Maggie Marquez MD Provider Location: [address] [place], [place] Patient Location Volunteer Services Assistant: None Patient Location: Patient's Home Patient: Frederic Stack Jr. Date of : 1965 (55 y.o. male) PCP: Maggie Marquez MD I discussed risks, benefits and alternatives of a video visit telemedicine consultation with the patient (and any accompanying persons) including the risks that the patient's personal health details and medical records will be discussed over real-time, synchronous, interactive audio technology, the visit will not be recorded without the express consent of both the provider and the patient, and that there are inherent diagnostic limitations compared to [id number] evaluations. We elected to proceed with the video visit telemedicine consultation. HPI Frederic Stack ' Neftali' is 55-year-old male presenting today via video visit to discuss Covid symptoms. 5 days ago , started getting congested , coughing , got tested on Saturday after getting off work, usrpired it was positive. No fevers, SOB , wheezing, or chest tightness. tested positive too. Have been taking OTC sinus medication, tylenol. Has been blowing blood in the right nostril every time. [facility] Saturday assessed him for double ear infection and is taking amoxicillin. The following portions of the patient's history were reviewed and updated as appropriate: allergies, current medications, past family history, past medical history, past social history, past surgical history and problem list. Review of Systems Patient's Medications New Prescriptions No medications on file Previous Medications AMLODIPINE (NORVASC) 2.5 MG TABLET Take 1 (one) tablet (2.5 mg total) by mouth daily . ASPIRIN 81 MG EC TABLET Take 81 mg by mouth daily . ATORVASTATIN (LIPITOR) 40 MG TABLET Take 1 (one) tablet (40 mg total) by mouth daily . BLOOD-GLUCOSE METER MISC BRILINTA 90 MG TAB TABLET Take 90 mg by mouth 2 (two) times a day . CINNAMON BARK (CINNAMON) 500 MG CAPSULE Take 500 mg by mouth daily . EMPAGLIFLOZIN 25 MG TAB Take 1 (one) tablet (25 mg total) by mouth daily . FAMOTIDINE (PEPCID) 40 MG TABLET Take 1 (one) tablet (40 mg total) by mouth daily . FLUTICASONE (FLONASE) 50 MCG/ACTUATION NASAL SPRAY Instill 2 (two) sprays into each nostril daily . INSULIN GLARGINE (LANTUS SOLOSTAR/BASAGLAR KWIKPEN) 100 UNIT/ML (3 ML) INPN Inject 40 (forty) Units under the skin nightly . ISOSORBIDE MONONITRATE (IMDUR) 30 MG 24 HR TABLET Take 1 (one) tablet (30 mg total) by mouth daily . LISINOPRIL (PRINIVIL,ZESTRIL) 5 MG TABLET Take 1 (one) tablet (5 mg total) by mouth daily . LORATADINE (CLARITIN) 10 MG TABLET Take 1 (one) tablet (10 mg total) by mouth daily . METFORMIN (GLUCOPHAGE) 1000 MG TABLET Take 1 (one) tablet (1,000 mg total) by mouth 2 (two) times a day with meals . METOPROLOL SUCCINATE (TOPROL-XL) 50 MG 24 HR TABLET Take 1 (one) tablet (50 mg total) by mouth nightly . MULTIVITAMIN (THERAGRAN) PER TABLET Take 1 tablet by mouth daily . NITROGLYCERIN (NITROSTAT) 0.4 MG SL TABLET Take 0.4 mg by mouth See Admin Instructions DISSOLVE ONE TABLET UNDER THE TONGUE EVERY 5 MINUTES NEEDED FOR CHEST PAIN. DO NOT EXCEED A TOTAL OF 3 DOSES IN 15 MINUTES NOW . Modified Medications No medications on file Discontinued Medications No medications on file Assessment/Plan: Problem List Items Addressed This Visit Other COVID-19 - Primary Plan: -Tylenol prn for pain/fever -Saline nasal rinses BID or nai pod -Antihistamine claritin/zyrtec to help with congestion -Flonase daily - avoid using afrin or sudaphed with nose bleeds -Use mucinex for mucous thinning as needed -Hydration, air humidifier and rest promoted. I have spent 11 minutes with the patient reviewing the HPI and Plan of Care. MAGGIE MARQUEZ MD Family Medicine Physician [place] [phone] documented in this encounter [facility] 12-17-2021 Miscellaneous Notes Associated Problem(s): Coronary artery disease involving [place] coronary artery of [place] heart with angina pectoris (HCC) Patient has noncardiac sharp chest discomfort been evaluated with repeat left heart cath in late November 2020 and nuclear stress testing in March 2021. No evidence of any obstructive coronary artery disease. Previous stenting the LAD patent non-ST AL treated at [facility] summer 2020. In no uncertain terms discussed the importance of stopping all tobacco abuse. Continues to chew tobacco and described how that works against his medications certainly could cause small vessel spasm and chest pain. Increase metoprolol XL to 50 mg at bedtime pulse 90 and regular today. Continue present medications. See back in 6 months. Continue dual antiplatelet therapy for 1 year. Tobacco user. Diabetes. documented in this encounter [facility] 04-07-2021 History of Present illness Narrative [facility] [address] [facility] [address] [facility] [id number] Subjective: Frederic Stack is a 55 y.o. male seen in the office today for Chief Complaint Patient presents with Follow-up 3 mo -pt states he has a cold, he started coughing last night due to cold which brought on a dull ache across chest, dizziness -ED 02/22/21 chest pain Overview of Problems Addressed: Problem Coronary Artery Disease Involving [place] Coronary Artery of [place] Heart With Angina Pectoris (Hcc) Repeat heart cath at [facility] late November 2020 medical therapy Single small vessel obstructive CAD. Patent stent in LAD Normal Left Heart Filling pressures Nuclear stress test March 2021 normal perfusion normal ejection fraction. Overall low risk study. Medical therapy Diabetic with chewing tobacco use. In summer 2020 non-ST AL treated at [facility] with coronary intervention. Assessment & Plan: Coronary artery disease involving [place] coronary artery of [place] heart with angina pectoris (HCC) Patient has noncardiac sharp chest discomfort been evaluated with repeat left heart cath in late November 2020 and nuclear stress testing in March 2021. No evidence of any obstructive coronary artery disease. Previous stenting the LAD patent non-ST AL treated at [facility] summer 2020. In no uncertain terms discussed the importance of stopping all tobacco abuse. Continues to chew tobacco and described how that works against his medications certainly could cause small vessel spasm and chest pain. Increase metoprolol XL to 50 mg at bedtime pulse 90 and regular today. Continue present medications. See back in 6 months. Continue dual antiplatelet therapy for 1 year. Tobacco user. Diabetes. 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 Diabetes mellitus (HCC) 2012 Facet arthropathy, lumbar [facility] Lower Hyperlipidemia 2015 Hypertension 1990 Indigestion 2004 [facility] 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 Obesity Pancreatitis 2017 Sleep apnea 2001 [facility] 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 Tobacco use Past Surgical History: Procedure Laterality Date CARPAL TUNNEL RELEASE Right CORONARY STENT PLACEMENT HC LEFT HEART CATH N/A 12/14/2020 Procedure: Left Heart Cath; Surgeon: Jb Trujillo MD; 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 ASPIRIN 81 MG EC TABLET Take 81 mg by mouth daily . ATORVASTATIN (LIPITOR) 40 MG TABLET Take 1 (one) tablet (40 mg total) by mouth daily . BLOOD-GLUCOSE METER MISC BRILINTA 90 MG TAB TABLET Take 90 mg by mouth 2 (two) times a day . CINNAMON BARK (CINNAMON) 500 MG CAPSULE Take 500 mg by mouth daily . EMPAGLIFLOZIN 25 MG TAB Take 1 (one) tablet (25 mg total) by mouth daily . FAMOTIDINE (PEPCID) 40 MG TABLET Take 1 (one) tablet (40 mg total) by mouth daily . FLUTICASONE (FLONASE) 50 MCG/ACTUATION NASAL SPRAY Instill 2 (two) sprays into each nostril daily . INSULIN GLARGINE (LANTUS SOLOSTAR/BASAGLAR KWIKPEN) 100 UNIT/ML (3 ML) INPN Inject 40 (forty) Units under the skin nightly . ISOSORBIDE MONONITRATE (IMDUR) 30 MG 24 HR TABLET Take 1 (one) tablet (30 mg total) by mouth daily . LISINOPRIL (PRINIVIL,ZESTRIL) 5 MG TABLET Take 1 (one) tablet (5 mg total) by mouth daily . LORATADINE (CLARITIN) 10 MG TABLET Take 1 (one) tablet (10 mg total) by mouth daily . METFORMIN (GLUCOPHAGE) 1000 MG TABLET Take 1 (one) tablet (1,000 mg total) by mouth 2 (two) times a day with meals . MULTIVITAMIN (THERAGRAN) PER TABLET Take 1 tablet by mouth daily . NITROGLYCERIN (NITROSTAT) 0.4 MG SL TABLET Take 0.4 mg by mouth See Admin Instructions DISSOLVE ONE TABLET UNDER THE TONGUE EVERY 5 MINUTES NEEDED FOR CHEST PAIN. DO NOT EXCEED A TOTAL OF 3 DOSES IN 15 MINUTES NOW . Modified Medications Modified Medication Previous Medication METOPROLOL SUCCINATE (TOPROL-XL) 50 MG 24 HR TABLET metoprolol succinate (TOPROL-XL) 25 MG 24 hr tablet Take 1 (one) tablet (50 mg total) by mouth nightly . Take 25 mg by mouth nightly . Discontinued Medications No medications on file Allergies Allergen Reactions Hydrochlorothiazide Other (See Comments) Losartan Other (See Comments) Bupropion Palpitations Hyzaar [Losartan-Hydrochlorothiazide] Hives Mavik [Trandolapril] Hives Review of Systems Constitutional: Negative for malaise/fatigue. Cardiovascular: Positive for chest pain. Negative for dyspnea on exertion, leg swelling and palpitations. Sharp atypical Neurological: Negative for dizziness. Objective: Physical Exam Vitals and nursing note reviewed. Constitutional: General: He is not in acute distress. Appearance: He is well-developed. He is not diaphoretic. Comments: No acute distress HENT: Head: Normocephalic. Eyes: General: No scleral icterus. Comments: Pupils equal. Neck: Vascular: No JVD. Cardiovascular: Rate and Rhythm: Regular rhythm. Pulses: Radial pulses are 2+ on the right side and 2+ on the left side. Heart sounds: S1 normal and S2 normal. No murmur heard. No gallop. No S3 or S4 sounds. Comments: Feet warm bilateral. Pulmonary: Effort: No respiratory distress. Breath sounds: Normal breath sounds. No stridor. No wheezing or rales. Abdominal: General: There is no distension. Palpations: Abdomen is soft. Tenderness: There is no abdominal tenderness. There is no guarding. Musculoskeletal: General: No tenderness or edema. Skin: General: Skin is warm and dry. Neurological: Mental Status: He is alert and oriented to person, place, and time. Psychiatric: Mood and Affect: Mood and affect normal. Vitals: Vitals: 04/07/21 0809 04/07/21 0816 BP: (!) 155/91 (!) 158/89 BP Location: Right arm Left arm Patient Position: Sitting BP Cuff Size: Adult Pulse: 84 SpO2: 96% Weight: 87.1 kg (192 lb) Height: 5' 6 Body mass index is 30.99 kg/m . No orders of the defined types were placed in this encounter. Follow Up Ordered: Return in about 6 months (around 10/06/2021). Jd Cabrales MD Review of Systems Constitutional: Negative for malaise/fatigue. Cardiovascular: Positive for chest pain. Negative for dyspnea on exertion, leg swelling and palpitations. Neurological: Negative for dizziness. documented in this encounter [facility] 04-07-2021 Instructions Lissette Sánchez MA - 04/07/2021 8:08 AM EST How to Contact your Care Team: Provider: Dr. Jd Cabrales MD Sheet Metal Supervisor: Mavis Carbajal RN REFILLS: When in need for refills please call your care team or the office at [phone]. Please include medication name, pharmacy name, and specify 30-day or 90-day supply. Please check with your pharmacy within 24 hours of request for your refill. You must follow up as directed to continue current refills. Thank you! documented in this encounter [facility] 03-30-2021 Miscellaneous Notes Associated Problem(s): Chest pain Looking into other causes of chest pain including GERD, counseled about using Pepcid and dietary modifications listed in GERD section. Continue to monitor. Associated Problem(s): Coronary artery disease involving [place] coronary artery of [place] heart with angina pectoris (HCC) New episode on 02/22/2021, so far unremarkable work-up with serial troponin negative, no EKG changes and SPECT done 03/28 within normal limits. Following up with cardiology on 04/07. Continues on aspirin 21 mg, Brilinta 90 mg and Lipitor 40 mg. He also continues to take isosorbide mononitrate 30 mg, has not used his nitroglycerin since discharge. Associated Problem(s): Sleep apnea Chronic, under controlled, could be a reason why patient might be having some uncontrolled symptoms of chest pain specially at night given amount of cardiac stress at night. -Referral to sleep medicine made today for possible repeat sleep study. Associated Problem(s): Diabetes mellitus (HCC) A1c today is 7.6 -Continue on current regimen with Metformin 1000 mg twice daily, Lantus 40 units and increasing Jardiance to 25 mg. Last eye exam was 6 months ago, within normal limits. We will continue to monitor and follow-up in 3 months. Continue on atorvastatin 40 mg. Blood work with cholesterol and urine microalbumin to check tomorrow. Associated Problem(s): GERD (gastroesophageal reflux disease) Lifestyle changes: - Elevate the head of the bed if symptoms worsen while laying flat. - Avoid if triggered with: Chocolate, mint, alcohol, fatty foods, caffiene - Avoid if triggered with: Penton , spicy foods, carbonated beverages. -Weight loss for overweight - smoking cessation documented in this encounter [facility] 03-30-2021 History of Present illness Narrative Chief Complaint Patient presents with Follow-up HPI: Frederic Wu' is a 55 y.o. male who is presenting today to follow up on his BP. He has a past medical history of Arthritis, Asthma, DDD (degenerative disc disease), lumbar, Depressed, Diabetes mellitus (HCC), Facet arthropathy, lumbar, Hyperlipidemia, Hypertension indiigestion, Obesity, Pancreatitis, Sleep apnea (2001), and Tobacco use. [facility] [place]. CAD: Previous history of non-STEMI and received a drug-eluting stent to his LAD. Previously underwent heart catheterization showed on 12/14/2020 for chest pain complaints,small single-vessel obstructive coronary artery disease of his distal circumflex with patent stent to the LAD. Normal left heart filling pressures He is on aspirin 81 mg and Brilinta 90 mg therapy as well as Lipitor 40 mg, metoprolol 25 mg , isosorbide mononitrate 30 mg as well as nitroglycerine. Yet to follow up in cardiac rehab in [facility] has not been to cardiac rehab yet given working 3rd shift. Recurrent chest pain in the last episode was in February 2021, discharged from observation after serial troponin negative and no EKG changes. Discharged from observation after serial troponins are negative and no EKG changes, underwent SPECT that showed stress testing with no wall motion abnormalities and LVEF was 57%, following up with cardiology on 04/07. Sleep apnea: Diagnosed in 2001, has not used CPAP for the past year, reported that it has gotten bad. DM: Since 2011. A1c is 11.2 in November 2020, A1c today Metformin 1000 mg BID and lantus 40 units as well as Jardiance. Has not been checking his blood sugars being on 3rd shift. Lost his meter. Past Medical History: Diagnosis Date Arthritis Back and hips Asthma DDD (degenerative disc disease), lumbar [facility] L5-S1 Depressed [facility] of [facility] 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 Diabetes mellitus (HCC) 2012 Facet arthropathy, lumbar [facility] Lower Hyperlipidemia 2015 Hypertension 1990 Indigestion 2004 [facility] of [facility] 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 Obesity Pancreatitis 2017 Sleep apnea 2001 [facility] of [facility] 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 Tobacco use Past Surgical History: Procedure Laterality Date CARPAL TUNNEL RELEASE Right CORONARY STENT PLACEMENT HC LEFT HEART CATH N/A 12/14/2020 Procedure: Left Heart Cath; Surgeon: Jb Trujillo MD; 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; Service: Cardiovascular TONSILLECTOMY Family History Problem Relation Age of Onset Diabetes type II Mother Heart failure Father Heart attack Father Diabetes type II Father Social History Tobacco Use Smoking status: Former Smoker Types: Cigarettes Quit date: 2014 Years since quittin.9 Smokeless tobacco: Current User Types: Chew Vaping Use Vaping Use: Former Substance Use Topics Alcohol use: Yes Comment: rare Drug use: No Review of Systems Vitals: 03/30/21 0728 Resp: 16 Weight: 87.1 kg (192 lb) Height: 5' 6 Estimated body mass index is 30.99 kg/m as calculated from the following: Height as of this encounter: 5' 6 . Weight as of this encounter: 87.1 kg (192 lb). Physical Exam Constitutional: General: He is not in acute distress. Appearance: He is not ill-appearing. HENT: Head: Normocephalic and atraumatic. Eyes: Extraocular Movements: Extraocular movements intact. Conjunctiva/sclera: Conjunctivae normal. Pupils: Pupils are equal, round, and reactive to light. Cardiovascular: Rate and Rhythm: Normal rate and regular rhythm. Pulses: Normal pulses. Heart sounds: Normal heart sounds. No murmur heard. No gallop. Pulmonary: Effort: Pulmonary effort is normal. Breath sounds: Normal breath sounds. No wheezing, rhonchi or rales. Chest: Chest wall: No tenderness. Abdominal: General: Abdomen is flat. Bowel sounds are normal. There is no distension. Palpations: Abdomen is soft. There is no mass. Tenderness: There is no abdominal tenderness. There is no right CVA tenderness, left CVA tenderness, guarding or rebound. Musculoskeletal: General: No tenderness. Normal range of motion. Cervical back: Normal range of motion and neck supple. No rigidity. No muscular tenderness. Right lower leg: No edema. Left lower leg: No edema. Lymphadenopathy: Cervical: No cervical adenopathy. Skin: General: Skin is warm. Findings: No erythema or rash. Neurological: General: No focal deficit present. Mental Status: He is alert and oriented to person, place, and time. Sensory: No sensory deficit. Motor: No weakness. Gait: Gait normal. Psychiatric: Mood and Affect: Mood normal. Behavior: Behavior normal. Thought Content: Thought content normal. Judgment: Judgment normal. OARRS/NARxCHECK Report Received and Assessed: No data found Date controlled substance agreement signed: No data found Date of last drug screen: No data found Functional Assessment: No data found PHQ9: LYNNE-7 Tobacco Counseling: Ready to quit: Not Answered Counseling given: Not Answered Patient's Medications New Prescriptions EMPAGLIFLOZIN 25 MG TAB Take 1 (one) tablet (25 mg total) by mouth daily . Previous Medications AMLODIPINE (NORVASC) 2.5 MG TABLET Take 1 (one) tablet (2.5 mg total) by mouth daily . ASPIRIN 81 MG EC TABLET Take 81 mg by mouth daily . ATORVASTATIN (LIPITOR) 40 MG TABLET Take 1 (one) tablet (40 mg total) by mouth daily . BLOOD-GLUCOSE METER MISC BRILINTA 90 MG TAB TABLET Take 90 mg by mouth 2 (two) times a day . CINNAMON BARK (CINNAMON) 500 MG CAPSULE Take 500 mg by mouth daily . FLUTICASONE (FLONASE) 50 MCG/ACTUATION NASAL SPRAY Instill 2 (two) sprays into each nostril daily . INSULIN GLARGINE (LANTUS SOLOSTAR/BASAGLAR KWIKPEN) 100 UNIT/ML (3 ML) INPN Inject 40 (forty) Units under the skin nightly . ISOSORBIDE MONONITRATE (IMDUR) 30 MG 24 HR TABLET Take 1 (one) tablet (30 mg total) by mouth daily . LISINOPRIL (PRINIVIL,ZESTRIL) 5 MG TABLET Take 1 (one) tablet (5 mg total) by mouth daily . LORATADINE (CLARITIN) 10 MG TABLET Take 1 (one) tablet (10 mg total) by mouth daily . METOPROLOL SUCCINATE (TOPROL-XL) 25 MG 24 HR TABLET Take 25 mg by mouth nightly . MULTIVITAMIN (THERAGRAN) PER TABLET Take 1 tablet by mouth daily . NITROGLYCERIN (NITROSTAT) 0.4 MG SL TABLET Take 0.4 mg by mouth See Admin Instructions DISSOLVE ONE TABLET UNDER THE TONGUE EVERY 5 MINUTES NEEDED FOR CHEST PAIN. DO NOT EXCEED A TOTAL OF 3 DOSES IN 15 MINUTES NOW . Modified Medications Modified Medication Previous Medication FAMOTIDINE (PEPCID) 40 MG TABLET famotidine (PEPCID) 20 MG tablet Take 1 (one) tablet (40 mg total) by mouth daily . Take 1 (one) tablet (20 mg total) by mouth 2 (two) times a day . METFORMIN (GLUCOPHAGE) 1000 MG TABLET metFORMIN (GLUCOPHAGE) 1000 MG tablet Take 1 (one) tablet (1,000 mg total) by mouth 2 (two) times a day with meals . Take 1 (one) tablet (1,000 mg total) by mouth 2 (two) times a day with meals . Discontinued Medications EMPAGLIFLOZIN (JARDIANCE) 10 MG TAB Take 1 (one) tablet (10 mg total) by mouth daily . Health Maintenance Due Topic Date Due Tetanus: Every 10yrs Never done Wellness Visit Never done Foot Exam Never done HIV Screening Never done Hepatitis C Screening Never done Colorectal Cancer Screening Never done Zoster Vaccines (1 of 2) Never done Urine Microalbumin 04/18/2019 PSA Level 11/09/2019 COVID-19 Vaccine (2 - Booster for Deanna series) 09/17/2020 Assessment & Plan Problem List Items Addressed This Visit Digestive GERD (gastroesophageal reflux disease) Lifestyle changes: - Elevate the head of the bed if symptoms worsen while laying flat. - Avoid if triggered with: Chocolate, mint, alcohol, fatty foods, caffiene - Avoid if triggered with: Penton , spicy foods, carbonated beverages. -Weight loss for overweight - smoking cessation Endocrine Diabetes mellitus (HCC) - Primary A1c today is 7.6 -Continue on current regimen with Metformin 1000 mg twice daily, Lantus 40 units and increasing Jardiance to 25 mg. Last eye exam was 6 months ago, within normal limits. We will continue to monitor and follow-up in 3 months. Continue on atorvastatin 40 mg. Blood work with cholesterol and urine microalbumin to check tomorrow. Relevant Medications metFORMIN (GLUCOPHAGE) 1000 MG tablet empagliflozin 25 mg Tab Other Relevant Orders POC Glycosylated Hemoglobin (Hb A1C) (Completed) Lipid Panel Microalbumin, Urine, Random Respiratory Sleep apnea Chronic, under controlled, could be a reason why patient might be having some uncontrolled symptoms of chest pain specially at night given amount of cardiac stress at night. -Referral to sleep medicine made today for possible repeat sleep study. Relevant Orders Ambulatory referral to Sleep Medicine Cardiovascular and Mediastinum Essential hypertension Coronary artery disease involving [place] coronary artery of [place] heart with angina pectoris (HCC) New episode on 02/22/2021, so far unremarkable work-up with serial troponin negative, no EKG changes and SPECT done 03/28 within normal limits. Following up with cardiology on 04/07. Continues on aspirin 21 mg, Brilinta 90 mg and Lipitor 40 mg. He also continues to take isosorbide mononitrate 30 mg, has not used his nitroglycerin since discharge. Other Chest pain Looking into other causes of chest pain including GERD, counseled about using Pepcid and dietary modifications listed in GERD section. Continue to monitor. Relevant Medications famotidine (PEPCID) 40 MG tablet Other Visit Diagnoses Encounter for screening for HIV Relevant Orders HIV Antibody (HIV1/HIV2) Encounter for hepatitis C screening test for low risk patient Relevant Orders Hepatitis C Antibody Encounter for prostate cancer screening Relevant Orders PSA, Screen Return in about 3 months (around 06/28/2021) for Follow Up. MAGGIE MARQUEZ MD [place] [id number] [facility] [address] [place] [id number] Dept: [phone] documented in this encounter [facility] 03-09-2021 History of Present illness Narrative Pt referred for Diabetes Management program with A1C >9%. 3 attempts made to contact patient. No answer or call back. Closed referral. documented in this encounter [facility] 02-11-2021 Miscellaneous Notes Associated Problem(s): Coronary artery disease involving [place] coronary artery of [place] heart with angina pectoris (HCC) New episode of chest pain earlier this week. Previous history of non-STEMI and received a drug-eluting stent to his LAD on 12/14/2020. -Urged to start cardiac rehab which she was hesitant to do with working third shift, advised patient to do it first thing in the morning after he is done with work. Continue on the same regimen with aspirin eighty-one, Brilinta 90 mg, Lipitor 40 mg, metoprolol 25 mg and isosorbide mono nitrate. -If another episodes happens we will contact cardiology and proceed with further cardiac work-up and possible repeat catheterization. Associated Problem(s): Essential hypertension Chronic , lisinopril 10 mg and amlodipine 2.5 mg - BP machine if possible - be mindful of salt intake Please take blood pressure in the same arm In a seated position for at least 5 minutes, and record readings keeping a log. If her blood pressure is at any time over 180/110, please give clinic a call. If high blood pressure with symptoms of headaches, blurry vision or tingling/numbness in extremities, please head to the ED for further management. Our goal blood pressure is below 130/80 for most adults Our goal blood pressure for ages over 65 is below 140/90 Associated Problem(s): Diabetes mellitus (HCC) A1c 11.2 on 12/14/2020. Chronic, poorly controlled not checking his blood sugars at home and lost his machine. Patient remains on Metformin 1000 mg twice daily, Lantus 40 units. -I discussed with patient the importance of compliance on his insulin as well as trying to check his morning sugar. If he has third shifts then he would take it when he comes back home at 6 AM and then checking his sugars after he wakes up. -Should remain on atorvastatin 40 mg. -Started on Jardiance, compliant with it and does not have any side effects. -Had a lengthy discussion with the patient regarding diet controlled which she is poorly compliant on having great appetite for carbohydrates and sweets. -Patient is not a good candidate for GLP-1 agonists given recurrent history of pancreatitis. -Next visit should explore maintenance for diabetes including last ophthalmology appointment, foot exam and immunizations. Urine microalbumin needs to be checked as well -Referring to diabetes education team made today. documented in this encounter [facility] 02-10-2021 History of Present illness Narrative Chief Complaint Patient presents with Hypertension HPI: Frederic Wu' is a 55 y.o. male who is presenting today to follow up on his BP. He has a past medical history of Arthritis, Asthma, DDD (degenerative disc disease), lumbar, Depressed, Diabetes mellitus (HCC), Facet arthropathy, lumbar, Hyperlipidemia, Hypertension indiigestion, Obesity, Pancreatitis, Sleep apnea (2001), and Tobacco use. [facility] [place]. CAD: Previous history of non-STEMI and received a drug-eluting stent to his LAD. Recent admission with chest pain in November 2020 at which heart catheterization showed on 12/14/2020,small single-vessel obstructive coronary artery disease of his distal circumflex with patent stent to the LAD. Normal left heart filling pressures He is on aspirin 81 mg and Brilinta 90 mg therapy as well as Lipitor 40 mg, metoprolol 25 mg , isosorbide mononitrate 30 mg as well as nitroglycerine. Yet to follow up in cardiac rehab in [facility] has not been to cardiac rehab yet given working 3rd shift. Still endorsing chest pain much better with the isosorbide added last week. Patient presented to the ER in [place] with chest pain that was persistent after NG x3, work-up there was negative. No other events since then. HTN: Chronic since 1989. When first established in November was out of his medications and not checking his BP. Started back on lisinopril 10 mg in the last visit. Today is borderline, not checking it at home. Is not willing to bring blood pressure machine. Denies any headaches , blurry vision , tingling/numbness in extremities. DM: Since 2012. A1c is 11.2 Metformin 1000 mg BID and lantus 40 units but unsure of how he should take it, raised from 30 units. Has not been checking his blood sugars being on 3rd shift. Lost his meter. Has been taking Jardiance and tolerating it well. Past Medical History: Diagnosis Date Arthritis Back and hips Asthma DDD (degenerative disc disease), lumbar [facility] of [facility] L5-S1 Depressed [facility] of 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 Diabetes mellitus (HCC) 2012 Facet arthropathy, lumbar [facility] Lower Hyperlipidemia 2015 Hypertension 1990 Indigestion 2005 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 Obesity Pancreatitis 2017 Sleep apnea 2001 [facility] of [facility] 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 Tobacco use Past Surgical History: Procedure Laterality Date CARPAL TUNNEL RELEASE Right CORONARY STENT PLACEMENT HC LEFT HEART CATH N/A 12/14/2020 Procedure: Left Heart Cath; Surgeon: Jb Trujillo MD; 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; Service: Cardiovascular TONSILLECTOMY Family History Problem Relation Age of Onset Diabetes type II Mother Heart failure Father Heart attack Father Diabetes type II Father Social History Tobacco Use Smoking status: Former Smoker Types: Cigarettes Quit date: 2014 Years since quittin.8 Smokeless tobacco: Current User Types: Chew Vaping Use Vaping Use: Former Substance Use Topics Alcohol use: Yes Comment: rare Drug use: No Review of Systems Vitals: 02/10/21 0715 BP: 115/73 BP Location: Right arm Patient Position: Sitting BP Cuff Size: X-large Adult Pulse: 62 Resp: 16 Temp: 98.9 F (37.2 C) TempSrc: Temporal SpO2: 93% Weight: 86.2 kg (190 lb) Height: 5' 6 Estimated body mass index is 30.67 kg/m as calculated from the following: Height as of this encounter: 5' 6 . Weight as of this encounter: 86.2 kg (190 lb). Physical Exam Constitutional: General: He is not in acute distress. Appearance: He is not ill-appearing. HENT: Head: Normocephalic and atraumatic. Eyes: Extraocular Movements: Extraocular movements intact. Conjunctiva/sclera: Conjunctivae normal. Pupils: Pupils are equal, round, and reactive to light. Cardiovascular: Rate and Rhythm: Normal rate and regular rhythm. Pulses: Normal pulses. Heart sounds: Normal heart sounds. No murmur heard. No gallop. Pulmonary: Effort: Pulmonary effort is normal. Breath sounds: Normal breath sounds. No wheezing, rhonchi or rales. Chest: Chest wall: No tenderness. Abdominal: General: Abdomen is flat. Bowel sounds are normal. There is no distension. Palpations: Abdomen is soft. There is no mass. Tenderness: There is no abdominal tenderness. There is no right CVA tenderness, left CVA tenderness, guarding or rebound. Musculoskeletal: General: No tenderness. Normal range of motion. Cervical back: Normal range of motion and neck supple. No rigidity. No muscular tenderness. Right lower leg: No edema. Left lower leg: No edema. Lymphadenopathy: Cervical: No cervical adenopathy. Skin: General: Skin is warm. Findings: No erythema or rash. Neurological: General: No focal deficit present. Mental Status: He is alert and oriented to person, place, and time. Sensory: No sensory deficit. Motor: No weakness. Gait: Gait normal. Psychiatric: Mood and Affect: Mood normal. Behavior: Behavior normal. Thought Content: Thought content normal. Judgment: Judgment normal. OARRS/NARxCHECK Report Received and Assessed: No data found Date controlled substance agreement signed: No data found Date of last drug screen: No data found Functional Assessment: No data found PHQ9: LYNNE-7 Tobacco Counseling: Ready to quit: Not Answered Counseling given: Not Answered Patient's Medications New Prescriptions BLOOD-GLUCOSE METER MISC Previous Medications AMLODIPINE (NORVASC) 2.5 MG TABLET Take 1 (one) tablet (2.5 mg total) by mouth daily . ASPIRIN 81 MG EC TABLET Take 81 mg by mouth daily . ATORVASTATIN (LIPITOR) 40 MG TABLET Take 1 (one) tablet (40 mg total) by mouth daily . BRILINTA 90 MG TAB TABLET Take 90 mg by mouth 2 (two) times a day . CINNAMON BARK (CINNAMON) 500 MG CAPSULE Take 500 mg by mouth daily . EMPAGLIFLOZIN (JARDIANCE) 10 MG TAB Take 1 (one) tablet (10 mg total) by mouth daily . FLUTICASONE (FLONASE) 50 MCG/ACTUATION NASAL SPRAY Instill 2 (two) sprays into each nostril daily . INSULIN GLARGINE (LANTUS SOLOSTAR/BASAGLAR KWIKPEN) 100 UNIT/ML (3 ML) INPN Inject 40 (forty) Units under the skin nightly . ISOSORBIDE MONONITRATE (IMDUR) 30 MG 24 HR TABLET Take 1 (one) tablet (30 mg total) by mouth daily . LISINOPRIL (PRINIVIL,ZESTRIL) 5 MG TABLET Take 1 (one) tablet (5 mg total) by mouth daily . LORATADINE (CLARITIN) 10 MG TABLET Take 1 (one) tablet (10 mg total) by mouth daily . METFORMIN (GLUCOPHAGE) 1000 MG TABLET Take 1 (one) tablet (1,000 mg total) by mouth 2 (two) times a day with meals . METOPROLOL SUCCINATE (TOPROL-XL) 25 MG 24 HR TABLET Take 25 mg by mouth nightly . MULTIVITAMIN (THERAGRAN) PER TABLET Take 1 tablet by mouth daily . NITROGLYCERIN (NITROSTAT) 0.4 MG SL TABLET Take 0.4 mg by mouth See Admin Instructions DISSOLVE ONE TABLET UNDER THE TONGUE EVERY 5 MINUTES NEEDED FOR CHEST PAIN. DO NOT EXCEED A TOTAL OF 3 DOSES IN 15 MINUTES NOW . Modified Medications No medications on file Discontinued Medications No medications on file Health Maintenance Due Topic Date Due Tetanus: Every 10yrs Never done Wellness Visit Never done Foot Exam Never done HIV Screening Never done Hepatitis C Screening Never done Colorectal Cancer Screening Never done Zoster Vaccines (1 of 2) Never done Ophthalmology Exam 02/20/2019 Urine Microalbumin 04/18/2019 PSA Level 11/09/2019 Assessment & Plan Problem List Items Addressed This Visit Endocrine Diabetes mellitus (HCC) - Primary A1c 11.2 on 12/14/2020. Chronic, poorly controlled not checking his blood sugars at home and lost his machine. Patient remains on Metformin 1000 mg twice daily, Lantus 40 units. -I discussed with patient the importance of compliance on his insulin as well as trying to check his morning sugar. If he has third shifts then he would take it when he comes back home at 6 AM and then checking his sugars after he wakes up. -Should remain on atorvastatin 40 mg. -Started on Jardiance, compliant with it and does not have any side effects. -Had a lengthy discussion with the patient regarding diet controlled which she is poorly compliant on having great appetite for carbohydrates and sweets. -Patient is not a good candidate for GLP-1 agonists given recurrent history of pancreatitis. -Next visit should explore maintenance for diabetes including last ophthalmology appointment, foot exam and immunizations. Urine microalbumin needs to be checked as well -Referring to diabetes education team made today. Relevant Medications blood-glucose meter Misc Other Relevant Orders Ambulatory referral to Diabetic Education Cardiovascular and Mediastinum Essential hypertension Chronic , lisinopril 10 mg and amlodipine 2.5 mg - BP machine if possible - be mindful of salt intake Please take blood pressure in the same arm In a seated position for at least 5 minutes, and record readings keeping a log. If her blood pressure is at any time over 180/110, please give clinic a call. If high blood pressure with symptoms of headaches, blurry vision or tingling/numbness in extremities, please head to the ED for further management. Our goal blood pressure is below 130/80 for most adults Our goal blood pressure for ages over 65 is below 140/90 Coronary artery disease involving [place] coronary artery of [place] heart with angina pectoris (HCC) New episode of chest pain earlier this week. Previous history of non-STEMI and received a drug-eluting stent to his LAD on 12/14/2020. -Urged to start cardiac rehab which she was hesitant to do with working third shift, advised patient to do it first thing in the morning after he is done with work. Continue on the same regimen with aspirin eighty-one, Brilinta 90 mg, Lipitor 40 mg, metoprolol 25 mg and isosorbide mono nitrate. -If another episodes happens we will contact cardiology and proceed with further cardiac work-up and possible repeat catheterization. Return in about 4 weeks (around 03/10/2021) for Follow Up CAD, hypertension and diabetes. MAGGIE MARQUEZ MD [facility] [address] [facility] [address] [facility] [id number] Dept: [phone] documented in this encounter [facility] 01-05-2021 Miscellaneous Notes Associated Problem(s): Essential hypertension Chronic , lisinopril 10 mg and amlodipine 2.5 mg - BP machine if possible - be mindful of salt intake Please take blood pressure in the same arm In a seated position for at least 5 minutes, and record readings keeping a log. If her blood pressure is at any time over 180/110, please give clinic a call. If high blood pressure with symptoms of headaches, blurry vision or tingling/numbness in extremities, please head to the ED for further management. Our goal blood pressure is below 130/80 for most adults Our goal blood pressure for ages over 65 is below 140/90 Associated Problem(s): Diabetes mellitus (HCC) A1c 11.2 on 12/14/2020. Patient remains on Metformin 1000 mg twice daily, Lantus was increased from 30 to 40 units. Patient is not compliant on checking his blood sugars. I discussed with patient the importance of compliance on his insulin as well as trying to check his morning sugar. If he has third shifts then he would take it when he comes back home at 6 AM and then checking his sugars after he wakes up. Should remain on atorvastatin 40 mg. Suggested addition of Jardiance for added benefit to prevent CKD as well as cardiac benefit in the setting of his CAD. Patient is not a good candidate for GLP-1 agonists given recurrent history of pancreatitis. Next visit should explore maintenance for diabetes including last ophthalmology appointment, foot exam and immunizations. Urine microalbumin needs to be checked as well -Potentially referring to diabetes education team as well. Associated Problem(s): Coronary artery disease involving [place] coronary artery of [place] heart with angina pectoris (HCC) Previous history of non-STEMI and received a drug-eluting stent to his LAD on 12/14/2020. Currently stable with no new chest pain symptoms. Encouraged to explore cardiac rehab which she has not yet. Continue on the same regimen with aspirin eighty-one, Brilinta 90 mg, Lipitor 40 mg, metoprolol 25 mg and isosorbide mono nitrate. documented in this encounter [facility] 01-05-2021 History of Present illness Narrative Chief Complaint Patient presents with Follow-up pt wants to meet dr marquez and establish care with her HPI: Frederic Stack (Bill) is a 55 y.o. male who is presenting today to follow up on his BP. He has a past medical history of Arthritis, Asthma, DDD (degenerative disc disease), lumbar, Depressed, Diabetes mellitus (HCC), Facet arthropathy, lumbar, Hyperlipidemia, Hypertension indiigestion, Obesity, Pancreatitis, Sleep apnea (2001), and Tobacco use. [facility] [place] CAD: Previous history of non-STEMI and received a drug-eluting stent to his LAD. Recent admission with chest pain in November 2020 at which heart catheterization showed on 12/14/2020,small single-vessel obstructive coronary artery disease of his distal circumflex with patent stent to the LAD. Normal left heart filling pressures He is on aspirin 81 mg and Brilinta 90 mg therapy as well as Lipitor 40 mg, metoprolol 25 mg , isosorbide mononitrate 30 mg as well as nitroglycerine. Yet to follow up in cardiac rehab in [facility]. Still endorsing chest pain much better with the isosorbide added last week. HTN: Chronic since 1989. When first established in November was out of his medications and not checking his BP. Started back on lisinopril 10 mg in the last visit. Today is borderline, not checking it at home. Denies any headaches , blurry vision , tingling/numbness in extremities. DM: Since 2011. A1c is 11.2 Metformin 1000 mg BID and lantus 40 units but unsure of how he should take it, raised from 30 units. Has not been checking his blood sugars being on 3rd shift. 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 Diabetes mellitus (HCC) 2012 Facet arthropathy, lumbar [facility] Lower Hyperlipidemia 2015 Hypertension 1990 Indigestion 2005 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 Obesity Pancreatitis 2017 Sleep apnea 2002 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 Tobacco use Past Surgical History: Procedure Laterality Date CARPAL TUNNEL RELEASE Right CORONARY STENT PLACEMENT HC LEFT HEART CATH N/A 12/14/2020 Procedure: Left Heart Cath; Surgeon: Jb Trujillo MD; 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; Service: Cardiovascular TONSILLECTOMY Family History Problem Relation Age of Onset Diabetes type II Mother Heart failure Father Heart attack Father Diabetes type II Father Social History Tobacco Use Smoking status: Former Smoker Types: Cigarettes Quit date: 2014 Years since quittin.7 Smokeless tobacco: Current User Types: Chew Vaping Use Vaping Use: Former Substance Use Topics Alcohol use: Yes Comment: rare Drug use: No Review of Systems Vitals: 01/05/21 1042 BP: 130/86 BP Location: Right arm Patient Position: Sitting BP Cuff Size: X-large Adult Pulse: 62 Resp: 16 Temp: 98.8 F (37.1 C) TempSrc: Temporal SpO2: (!) 62% Weight: 86.2 kg (190 lb) Height: 5' 6 Estimated body mass index is 30.67 kg/m as calculated from the following: Height as of this encounter: 5' 6 . Weight as of this encounter: 86.2 kg (190 lb). Physical Exam Constitutional: General: He is not in acute distress. Appearance: He is not ill-appearing. HENT: Head: Normocephalic and atraumatic. Eyes: Extraocular Movements: Extraocular movements intact. Conjunctiva/sclera: Conjunctivae normal. Pupils: Pupils are equal, round, and reactive to light. Cardiovascular: Rate and Rhythm: Normal rate and regular rhythm. Pulses: Normal pulses. Heart sounds: Normal heart sounds. No murmur heard. No gallop. Pulmonary: Effort: Pulmonary effort is normal. Breath sounds: Normal breath sounds. No wheezing, rhonchi or rales. Chest: Chest wall: No tenderness. Abdominal: General: Abdomen is flat. Bowel sounds are normal. There is no distension. Palpations: Abdomen is soft. There is no mass. Tenderness: There is no abdominal tenderness. There is no right CVA tenderness, left CVA tenderness, guarding or rebound. Musculoskeletal: General: No tenderness. Normal range of motion. Cervical back: Normal range of motion and neck supple. No rigidity. No muscular tenderness. Right lower leg: No edema. Left lower leg: No edema. Lymphadenopathy: Cervical: No cervical adenopathy. Skin: General: Skin is warm. Findings: No erythema or rash. Neurological: General: No focal deficit present. Mental Status: He is alert and oriented to person, place, and time. Sensory: No sensory deficit. Motor: No weakness. Gait: Gait normal. Psychiatric: Mood and Affect: Mood normal. Behavior: Behavior normal. Thought Content: Thought content normal. Judgment: Judgment normal. OARRS/NARxCHECK Report Received and Assessed: No data found Date controlled substance agreement signed: No data found Date of last drug screen: No data found Functional Assessment: No data found PHQ9: LYNNE-7 Tobacco Counseling: Ready to quit: Not Answered Counseling given: Not Answered Patient's Medications New Prescriptions EMPAGLIFLOZIN (JARDIANCE) 10 MG TAB Take 1 (one) tablet (10 mg total) by mouth daily . Previous Medications AMLODIPINE (NORVASC) 2.5 MG TABLET Take 1 (one) tablet (2.5 mg total) by mouth daily . ASPIRIN 81 MG EC TABLET Take 81 mg by mouth daily . ATORVASTATIN (LIPITOR) 40 MG TABLET Take 1 (one) tablet (40 mg total) by mouth daily . BRILINTA 90 MG TAB TABLET Take 90 mg by mouth 2 (two) times a day . CINNAMON BARK (CINNAMON) 500 MG CAPSULE Take 500 mg by mouth daily . FLUTICASONE (FLONASE) 50 MCG/ACTUATION NASAL SPRAY Instill 2 (two) sprays into each nostril daily . INSULIN GLARGINE (LANTUS SOLOSTAR/BASAGLAR KWIKPEN) 100 UNIT/ML (3 ML) INPN Inject 40 (forty) Units under the skin nightly . ISOSORBIDE MONONITRATE (IMDUR) 30 MG 24 HR TABLET Take 1 (one) tablet (30 mg total) by mouth daily . LISINOPRIL (PRINIVIL,ZESTRIL) 5 MG TABLET Take 1 (one) tablet (5 mg total) by mouth daily . LORATADINE (CLARITIN) 10 MG TABLET Take 1 (one) tablet (10 mg total) by mouth daily . METFORMIN (GLUCOPHAGE) 1000 MG TABLET Take 1 (one) tablet (1,000 mg total) by mouth 2 (two) times a day with meals . METOPROLOL SUCCINATE (TOPROL-XL) 25 MG 24 HR TABLET Take 25 mg by mouth nightly . MULTIVITAMIN (THERAGRAN) PER TABLET Take 1 tablet by mouth daily . NITROGLYCERIN (NITROSTAT) 0.4 MG SL TABLET Take 0.4 mg by mouth See Admin Instructions DISSOLVE ONE TABLET UNDER THE TONGUE EVERY 5 MINUTES NEEDED FOR CHEST PAIN. DO NOT EXCEED A TOTAL OF 3 DOSES IN 15 MINUTES NOW . Modified Medications No medications on file Discontinued Medications No medications on file Health Maintenance Due Topic Date Due Tetanus: Every 10yrs Never done Wellness Visit Never done Foot Exam Never done HIV Screening Never done Hepatitis C Screening Never done Colorectal Cancer Screening Never done Zoster Vaccines (1 of 2) Never done Ophthalmology Exam 02/20/2019 Urine Microalbumin 04/18/2019 PSA Level 11/09/2019 Sequential Influenza Vaccine (1) 12/21/2020 Assessment & Plan Problem List Items Addressed This Visit Endocrine Diabetes mellitus (HCC) A1c 11.2 on 12/14/2020. Patient remains on Metformin 1000 mg twice daily, Lantus was increased from 30 to 40 units. Patient is not compliant on checking his blood sugars. I discussed with patient the importance of compliance on his insulin as well as trying to check his morning sugar. If he has third shifts then he would take it when he comes back home at 6 AM and then checking his sugars after he wakes up. Should remain on atorvastatin 40 mg. Suggested addition of Jardiance for added benefit to prevent CKD as well as cardiac benefit in the setting of his CAD. Patient is not a good candidate for GLP-1 agonists given recurrent history of pancreatitis. Next visit should explore maintenance for diabetes including last ophthalmology appointment, foot exam and immunizations. Urine microalbumin needs to be checked as well -Potentially referring to diabetes education team as well. Relevant Medications empagliflozin (Jardiance) 10 mg Tab Cardiovascular and Mediastinum Essential hypertension Chronic , lisinopril 10 mg and amlodipine 2.5 mg - BP machine if possible - be mindful of salt intake Please take blood pressure in the same arm In a seated position for at least 5 minutes, and record readings keeping a log. If her blood pressure is at any time over 180/110, please give clinic a call. If high blood pressure with symptoms of headaches, blurry vision or tingling/numbness in extremities, please head to the ED for further management. Our goal blood pressure is below 130/80 for most adults Our goal blood pressure for ages over 65 is below 140/90 Coronary artery disease involving [place] coronary artery of [place] heart with angina pectoris (HCC) - Primary Previous history of non-STEMI and received a drug-eluting stent to his LAD on 12/14/2020. Currently stable with no new chest pain symptoms. Encouraged to explore cardiac rehab which she has not yet. Continue on the same regimen with aspirin eighty-one, Brilinta 90 mg, Lipitor 40 mg, metoprolol 25 mg and isosorbide mono nitrate. Return in about 4 weeks (around 02/02/2021) for Hypertension and diabetes, Follow Up. MAGGIE MARQUEZ MD [facility] [address] [facility] [address] [facility] [id number] Dept: [phone] documented in this encounter [facility] 12-27-2020 History of Present illness Narrative [facility] [address] ([address]) [facility] [address] [facility] [id number] Physicians: Rashawn Boston MD (Family); No ref. provider found (Referring) Today's Chief Complaint: Follow-up (s/p PCI, readmission, still with CP and taking NTG) HISTORY: Subjective I had the pleasure of seeing Mr. Stack in follow up today at the [facility] in [place]. is a 55 y.o. male who has a past medical history of Arthritis, Asthma, DDD (degenerative disc disease), lumbar, Depressed, Diabetes mellitus (HCC) (2011), Facet arthropathy, lumbar, Hyperlipidemia (2014), Hypertension (1989), Indigestion (2004), Obesity, Pancreatitis (2016), Sleep apnea (2001), and Tobacco use.Mann Stack is a 55-year-old man who is seen in follow-up status post hospitalization for complaints of chest pain. Prior to this hospitalization the patient had been admitted to [facility] for non-STEMI and received a drug-eluting stent to his LAD. He is on aspirin and Brilinta therapy. He presented to [facility] with complaints of chest pain. He was taken to the heart catheterization lab on 12/14/2020, and was found to have small single-vessel obstructive coronary artery disease of his distal circumflex with patent stent to the LAD. Normal left heart filling pressures. Impression/Plan: Coronary artery disease Continue Lipitor 40 mg daily, Toprol-XL 25 mg daily, aspirin 81 mg daily, and Brilinta 90 mg twice daily The patient has not returned to work at this point, however he states he does a lot of fishing and is returned to his normal activity at home. Patient is given a return to work slip. Angina; patient is using nitoglycerin for chest pain he has only need to use one tablet to obtain relief. however he complains of chest discomfort if he stands too long or gets anxious. We will start isosorbide mononitrate 30 mg daily. Also advised the patient to follow-up with his PCP regarding anxiety. Also rediscussed left heart cath findings with the patient and discussed management of anginal pain caused from microspasms. FOR THE RECORD: Diagnostic Studies/Labs personally reviewed: No problems updated. Allergies: is allergic to bupropion, hyzaar [losartan-hydrochlorothiazide], and mavik [trandolapril]. Medications: (list name, dose, frequency, and last dose taken): Current Outpatient Medications: amLODIPine (NORVASC) 2.5 MG tablet, Take 1 (one) tablet (2.5 mg total) by mouth daily ., Disp: 30 tablet, Rfl: 11 aspirin 81 MG EC tablet, Take 81 mg by mouth daily ., Disp: , Rfl: atorvastatin (LIPITOR) 40 MG tablet, Take 1 (one) tablet (40 mg total) by mouth daily ., Disp: 30 tablet, Rfl: 1 Brilinta 90 mg Tab tablet, Take 90 mg by mouth 2 (two) times a day ., Disp: , Rfl: cinnamon bark (Cinnamon) 500 mg capsule, Take 500 mg by mouth daily ., Disp: , Rfl: fluticasone (FLONASE) 50 mcg/actuation nasal spray, Instill 2 (two) sprays into each nostril daily ., Disp: 48 g, Rfl: 3 insulin glargine (LANTUS SOLOSTAR/BASAGLAR KWIKPEN) 100 unit/mL (3 mL) InPn, Inject 40 (forty) Units under the skin nightly ., Disp: 15 mL, Rfl: 1 lisinopriL (PRINIVIL,ZESTRIL) 5 MG tablet, Take 1 (one) tablet (5 mg total) by mouth daily ., Disp: 30 tablet, Rfl: 11 loratadine (CLARITIN) 10 mg tablet, Take 1 (one) tablet (10 mg total) by mouth daily ., Disp: 90 tablet, Rfl: 3 metFORMIN (GLUCOPHAGE) 1000 MG tablet, Take 1 (one) tablet (1,000 mg total) by mouth 2 (two) times a day with meals ., Disp: 60 tablet, Rfl: 1 metoprolol succinate (TOPROL-XL) 25 MG 24 hr tablet, Take 25 mg by mouth nightly ., Disp: , Rfl: multivitamin (THERAGRAN) per tablet, Take 1 tablet by mouth daily ., Disp: , Rfl: nitroGLYCERIN (NITROSTAT) 0.4 MG SL tablet, Take 0.4 mg by mouth See Admin Instructions DISSOLVE ONE TABLET UNDER THE TONGUE EVERY 5 MINUTES NEEDED FOR CHEST PAIN. DO NOT EXCEED A TOTAL OF 3 DOSES IN 15 MINUTES NOW ., Disp: , Rfl: isosorbide mononitrate (IMDUR) 30 MG 24 hr tablet, Take 1 (one) tablet (30 mg total) by mouth daily ., Disp: 30 tablet, Rfl: 11 Past Medical History: Diagnosis Date Arthritis Back and hips Asthma DDD (degenerative disc disease), lumbar [facility] L5-S1 Depressed [facility] 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 Diabetes mellitus (HCC) 2012 Facet arthropathy, lumbar [facility] Lower Hyperlipidemia 2015 Hypertension 1990 Indigestion 2005 [facility] 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 Obesity Pancreatitis 2017 Sleep apnea 2001 [facility] 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 Tobacco use Past Surgical History: Procedure Laterality Date CARPAL TUNNEL RELEASE Right CORONARY STENT PLACEMENT HC LEFT HEART CATH N/A 12/14/2020 Procedure: Left Heart Cath; Surgeon: Jb Trujillo MD; 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 HENT: Negative for nosebleeds. Eyes: Negative for visual disturbance. Cardiovascular: Positive for chest pain (occastional when standing or anxious). Negative for dyspnea on exertion, irregular heartbeat, leg swelling, near-syncope, orthopnea, palpitations and paroxysmal nocturnal dyspnea. Respiratory: Negative for cough, shortness of breath and sleep disturbances due to breathing. Hematologic/Lymphatic: Does not bruise/bleed easily. Skin: Negative for rash. Musculoskeletal: Negative for back pain, falls, muscle cramps, muscle weakness and myalgias. Gastrointestinal: Negative for bloating, abdominal pain, diarrhea, nausea and vomiting. Genitourinary: Negative for bladder incontinence. Neurological: Negative for dizziness, headaches, light-headedness, loss of balance, tremors, vertigo and weakness. Psychiatric/Behavioral: Negative for depression. The patient is not nervous/anxious. PHYSICAL EXAM Blood pressure 139/88, pulse 64, weight 87.1 kg (192 lb), SpO2 97 %. Wt Readings from Last 3 Encounters: 12/27/20 87.1 kg (192 lb) 12/16/20 83.5 kg (184 lb) 12/13/20 85.9 kg (189 lb 6 oz) Body mass index is 30.99 kg/m . Physical Exam Constitutional: General: He is awake. Appearance: He is obese. HENT: Head: Normocephalic and atraumatic. Nose: Nose normal. Mouth/Throat: Mouth: Mucous membranes are moist. Pharynx: Oropharynx is clear. Eyes: General: No scleral icterus. Extraocular Movements: Extraocular movements intact. Conjunctiva/sclera: Conjunctivae normal. Pupils: Pupils are equal, round, and reactive to light. Neck: Vascular: No JVD. Cardiovascular: Rate and Rhythm: Normal rate and regular rhythm. Pulses: Normal pulses. Heart sounds: Normal heart sounds. No murmur heard. No gallop. Pulmonary: Effort: Pulmonary effort is normal. Breath sounds: Normal breath sounds. No wheezing, rhonchi or rales. Abdominal: General: Bowel sounds are normal. There is no distension. Palpations: Abdomen is soft. Tenderness: There is no abdominal tenderness. Musculoskeletal: General: No swelling, tenderness or deformity. Normal range of motion. Cervical back: Normal range of motion and neck supple. Skin: General: Skin is warm and dry. Capillary Refill: Capillary refill takes less than 2 seconds. Neurological: Mental Status: He is alert and oriented to person, place, and time. Cranial Nerves: Cranial nerves are intact. Psychiatric: Attention and Perception: Attention normal. Mood and Affect: Mood is depressed. Speech: Speech normal. Behavior: Behavior is cooperative. Cognition and Memory: Cognition and memory normal. Judgment: Judgment normal. Destiney Emerson CNP documented in this encounter [facility] 12-16-2020 History of Present illness Narrative Images from the original note were not included. Subjective Patient ID: Frederic Stack Jr. is a 55 y.o. male. [facility] - 12/09/2020 - was feeling pressure in heart at work - pain in shoulder blade - went to ER at [facility] - transported to [place] - put a stent - kept in follow up and was discharged - ?Dr mcfadden - but now followig up with Cardio in [place] on dec 27 - feeling pretty good at this point Really does not have any specific concerns other than when he can go back to work His blood pressure has been under better control but he has only been out of the hospital for 2 days and has not been checking His blood glucose level continues to run high he continues on his 30 units of Lantus The following portions of the patient's history were reviewed and updated as appropriate: allergies, current medications, past family history, past medical history, past social history, past surgical history and problem list. Review of Systems Constitutional: Negative for chills, diaphoresis and fever. HENT: Negative for congestion and sinus pain. Eyes: Negative for redness. Respiratory: Negative for cough, shortness of breath and wheezing. Cardiovascular: Negative for chest pain. Gastrointestinal: Negative for diarrhea, nausea and vomiting. Endocrine: Negative for polydipsia. Genitourinary: Negative for frequency and hematuria. Musculoskeletal: Negative for back pain. Neurological: Negative for weakness and headaches. Psychiatric/Behavioral: Negative for confusion. Objective Physical Exam Vitals reviewed. Constitutional: General: He is awake. Appearance: Normal appearance. He is well-developed. HENT: Head: Normocephalic and atraumatic. Right Ear: Tympanic membrane and ear canal normal. Left Ear: Tympanic membrane and ear canal normal. Nose: Nose normal. Eyes: General: Lids are normal. Extraocular Movements: Extraocular movements intact. Pupils: Pupils are equal, round, and reactive to light. Cardiovascular: Rate and Rhythm: Normal rate and regular rhythm. Heart sounds: S1 normal and S2 normal. No murmur heard. No friction rub. No gallop. Pulmonary: Effort: Pulmonary effort is normal. No tachypnea. Breath sounds: Normal breath sounds. No stridor or decreased air movement. No wheezing, rhonchi or rales. Neurological: Mental Status: He is alert. Gait: Gait is intact. Psychiatric: Behavior: Behavior is cooperative. Assessment/Plan: Diagnoses and all orders for this visit: Type 2 diabetes mellitus without complication, without long-term current use of insulin ([facility]) Discussed need for better glucose control he is continuing to watch his diet and exercise as best he can he is going to increase his Lantus 40 units and he is going to follow-up in 3 months with me for repeat blood work Essential hypertension Blood pressure is doing better is relatively low today he is going to monitor for signs of hypotension and call Coronary artery disease involving [place] coronary artery of [place] heart with angina pectoris ([facility]) Discussed that he will need to have cardiology fill out his FMLA paperwork as I do not know when they are wanting him to go back to activity Rashawn Boston M.D. For any new medications prescribed today, patient was educated about indications for the medication, how to take the medication and potential side effects of the medications. Depression Screening 04/18/2018 12/13/2020 12/14/2020 12/16/2020 Little interest or pleasure in doing things 1 0 0 0 Feeling down, depressed, or hopeless 1 0 0 0 PHQ-2 Total Score 2 0 0 0 Trouble falling or staying asleep, or sleeping too much 1 - - 0 Feeling tired or having little energy 2 - - 0 Poor appetite or overeating 1 - - 0 Feeling bad about yourself - or that you are a failure or have let yourself or your family down 1 - - 0 Trouble concentrating on things, such as reading the newspaper or watching television 0 - - 0 Moving or speaking so slowly that other people could have noticed. Or the opposite - being so fidgety or restless that you have been moving around a lot more than usual 0 - - 0 Thoughts that you would be better off , or of hurting yourself in some way 0 - - 0 PHQ-9 Total Score 7 - - 0 If you checked off any problems, how difficult have these problems made it for you to do your work, take care of things at home, or get along with other people? Somewhat difficult - - Not difficult at all documented in this encounter [facility] 12-15-2020 Miscellaneous Notes Problem: Actual or potential alteration in health Goal: Absence of healthcare acquired conditions Outcome: Met Goal: Knowledge of Interdisciplinary Plan of Care Outcome: Met Goal: Knowledge of Enviroment Outcome: Met Problem: Pain Goal: Manage acute pain Outcome: Met Goal: Manage chronic pain Outcome: Met Goal: Reduced pain sensation Outcome: Met Goal: Achievement of comfort function goal Outcome: Met Problem: Cardiac Output - Decreased Goal: Cardiac output within specified parameters Outcome: Met Associated Problem(s): Chest pain Patient presented with history of chest discomfort. He does have a recent history of percutaneous coronary intervention at [facility] last week for non-STEMI receiving a drug-eluting stent to his LAD. He is on aspirin and Brilinta therapy. Patient did have some chest discomfort and did take a nitroglycerin. He did have hypotension which may be related to his sublingual nitro use. His serial troponins were detectable and was felt most likely related to his recent intervention/non-STEMI. Patient was taken to the heart catheterization lab 12/14/2020 and was found to have small single-vessel obstructive CAD of his distal circumflex with patent stent in the LAD, normal left heart filling pressures. Was recommended ongoing aggressive risk factor modification and continued dual antiplatelet therapy with aspirin and Brilinta uninterrupted for at least 12 months. His lisinopril was decreased to add the addition of amlodipine 2.5 mg daily. He continues on Lipitor 40 mg daily, Toprol-XL 25 mg daily. Today patient is feeling well without any active complaints of chest pain, shortness of breath, orthopnea, PND, dependent edema, lightheadedness or dizziness, palpitations. Pressure is normotensive. Telemetry showing normal sinus rhythm without ectopy. Discussed post cath site care instructions thoroughly with patient. He will remain off work until he is evaluated in our cardiology transitional clinic. Work slip has been provided to patient. Cardiac rehab will be recommended for patient. This 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 discussed Cardiac Rehabilitation with the patient. Subjects covered during this discussion included: The importance and benefits of Cardiac Rehab and exercise upon discharge from the hospital Instructed that a member of the Cardiac Rehab team will contact them to schedule these appointments after discharge Were provided a list of locations to choose for this follow up Cardiac Rehab will occur at to be determined Cardiac Rehab referral placed? YES From a cardiac standpoint patient can be discharged home with the appropriate follow-up in the outpatient setting. We will set patient up to be established with cardiac rehab. He will follow-up with the transitional clinic in the next 1 to 2 weeks and then with a shoe maker in the [place] office location in 4 to 6 weeks. Cardiology Progress Note [facility] Cardiology Sign-Off Discharge Medications: Aspirin EC 81mg daily; Brilinta 90mg twice a day; Amlodipine 2.5mg daily; Lipitor 40mg daily; Lisinopril 5mg daily; Toprol XL 25mg daily; NTG 0.4mg SL as needed for chest pain; in addition to noncardiac medication Follow-up Imaging, Testing: No additional outpatient testing is recommended at this time. Follow-up Appointments: Please see AVS summary for OP details. Additional Instructions Reviewed with Patient and/or Family: Compliance with follow-up. Compliance with medications. Diet Instructions: low fat and low salt diet. Return to Work: off work until evaluated in cardiology office. Return to Normal Activity: Please see post cath/site care instructions.. Assessment/Plan: * Chest pain Assessment & Plan Patient presented with history of chest discomfort. He does have a recent history of percutaneous coronary intervention at [facility] last week for non-STEMI receiving a drug-eluting stent to his LAD. He is on aspirin and Brilinta therapy. Patient did have some chest discomfort and did take a nitroglycerin. He did have hypotension which may be related to his sublingual nitro use. His serial troponins were detectable and was felt most likely related to his recent intervention/non-STEMI. Patient was taken to the heart catheterization lab 12/14/2020 and was found to have small single-vessel obstructive CAD of his distal circumflex with patent stent in the LAD, normal left heart filling pressures. Was recommended ongoing aggressive risk factor modification and continued dual antiplatelet therapy with aspirin and Brilinta uninterrupted for at least 12 months. His lisinopril was decreased to add the addition of amlodipine 2.5 mg daily. He continues on Lipitor 40 mg daily, Toprol-XL 25 mg daily. Today patient is feeling well without any active complaints of chest pain, shortness of breath, orthopnea, PND, dependent edema, lightheadedness or dizziness, palpitations. Pressure is normotensive. Telemetry showing normal sinus rhythm without ectopy. Discussed post cath site care instructions thoroughly with patient. He will remain off work until he is evaluated in our cardiology transitional clinic. Work slip has been provided to patient. Cardiac rehab will be recommended for patient. This 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 discussed Cardiac Rehabilitation with the patient. Subjects covered during this discussion included: The importance and benefits of Cardiac Rehab and exercise upon discharge from the hospital Instructed that a member of the Cardiac Rehab team will contact them to schedule these appointments after discharge Were provided a list of locations to choose for this follow up Cardiac Rehab will occur at to be determined Cardiac Rehab referral placed? YES From a cardiac standpoint patient can be discharged home with the appropriate follow-up in the outpatient setting. We will set patient up to be established with cardiac rehab. He will follow-up with the transitional clinic in the next 1 to 2 weeks and then with a shoe maker in the [place] office location in 4 to 6 weeks. LOS: 0 days Subjective: Mr. Stack denies chest pain, dyspnea, palpitations, pain or swelling in the groin, peripheral swelling or dizziness Objective: Vital signs in last 24 hours: Temp: [97.5 F (36.4 C)-98.4 F (36.9 C)] 98.4 F (36.9 C) Heart Rate: [54-73] 56 Resp: [12-18] 16 BP: (119-155)/(79-92) 119/79 Physical Exam: Alert, no acute distress JVP is not elevated Heart is regular rate and rhythm. No gallop or rub. No murmur Lungs are clear to ausculation bilaterally. Nonlabored respirations. Abdomen soft and nontender Right radial access site with intact bandage. No neurovascular compromise. Lower extremities have no edema. New cardiac test results if any: Imaging: Lab Review Today's available lab reviewed. Problem: Actual or potential alteration in health Goal: Absence of healthcare acquired conditions Outcome: Partially Met Goal: Knowledge of Interdisciplinary Plan of Care Outcome: Partially Met Goal: Knowledge of Enviroment Outcome: Partially Met Problem: Pain Goal: Manage acute pain Outcome: Partially Met Goal: Manage chronic pain Outcome: Partially Met Goal: Reduced pain sensation Outcome: Partially Met Goal: Achievement of comfort function goal Outcome: Partially Met Problem: Cardiac Output - Decreased Goal: Cardiac output within specified parameters Outcome: Partially Met Resting quietly in bed alert and pleasant Skin warm and dry Denies pains or discomfort Drsg to right wrist inner aspect D&I Will continue to monitor this pt. Problem: Pain Goal: Manage acute pain Outcome: Partially Met Problem: Cardiac Output - Decreased Goal: Cardiac output within specified parameters Outcome: Partially Met documented in this encounter [facility] 12-15-2020 Hospital course Narrative DISCHARGE SUMMARY Patient: Frederic Stack Jr. Date of : 1965 Site: [facility] Provider: Rashawn Boston MD Admit Date: 12/13/2020 Discharge Date/Time: 12/15/20 Morning Disposition: Home Clinical Summary Hospital Course: Frederic Stack is a 55 y.o. male patient of Rashawn Boston MD with a history of CAD status post recent PCI at [facility] who presented to the hospital with chest pain. He was monitored for ACS. ACS was ruled out. Cardiology was consulted. They think that he has in-stent thrombosis. He was continued on his medication. Medication were adjusted by shoe maker. Patient was discharged home in stable condition Follow-up with shoe maker at [facility]. Discussed plan of care with patient and verbalized understanding. Discharge Diagnoses: Chest pain CAD status post recent PCI 1 week ago at [facility] Obesity Surgeries: 12/14/20 Left Heart Cath Consults: Procedures Inpatient consult to Cardiology Allergies: Bupropion, Hyzaar [losartan-hydrochlorothiazide], and Mavik [trandolapril] Discharge Diet: Condition: Good Discharge Medications: Discharge Medications New Medications Details amLODIPine 2.5 MG tablet Commonly known as: NORVASC Take 1 (one) tablet (2.5 mg total) by mouth daily . Quantity: 30 tablet Modified Medications Details lisinopriL 5 MG tablet Commonly known as: PRINIVIL,ZESTRIL What changed: medication strength how much to take Take 1 (one) tablet (5 mg total) by mouth daily . Quantity: 30 tablet Medications To Continue Details aspirin 81 MG EC tablet Take 81 mg by mouth daily . atorvastatin 40 MG tablet Commonly known as: LIPITOR Take 1 (one) tablet (40 mg total) by mouth daily . Quantity: 30 tablet Brilinta 90 mg Tab tablet Generic drug: ticagrelor Take 90 mg by mouth 2 (two) times a day . Cinnamon 500 mg capsule Generic drug: cinnamon bark Take 500 mg by mouth daily . fluticasone propionate 50 mcg/actuation nasal spray Commonly known as: FLONASE Instill 2 (two) sprays into each nostril daily . Quantity: 48 g insulin glargine 100 unit/mL (3 mL) Inpn Commonly known as: LANTUS SOLOSTAR/BASAGLAR KWIKPEN Inject under the skin . loratadine 10 mg tablet Commonly known as: CLARITIN Take 1 (one) tablet (10 mg total) by mouth daily . Quantity: 90 tablet metFORMIN 1000 MG tablet Commonly known as: GLUCOPHAGE Take 1 (one) tablet (1,000 mg total) by mouth 2 (two) times a day with meals . Quantity: 60 tablet metoprolol succinate 25 MG 24 hr tablet Commonly known as: TOPROL-XL Take 25 mg by mouth nightly . multivitamin per tablet Commonly known as: THERAGRAN Take 1 tablet by mouth daily . nitroGLYCERIN 0.4 MG SL tablet Commonly known as: NITROSTAT Take 0.4 mg by mouth See Admin Instructions DISSOLVE ONE TABLET UNDER THE TONGUE EVERY 5 MINUTES NEEDED FOR CHEST PAIN. DO NOT EXCEED A TOTAL OF 3 DOSES IN 15 MINUTES NOW . venlafaxine 150 MG 24 hr capsule Commonly known as: EFFEXOR-XR Take 150 mg by mouth daily . Physician(s) Family Provider: Rashawn Boston MD, Address: [address] [place] [address] / [place] [address] Follow Up: Rashawn Boston MD [address] [place] [address] Follow up in 1 week(s) Vitals are stable Generally no distress Heart is regular Lungs are clear Abdomen is soft Neurologically intact Skin is intact Additional Information: Patient instructions, including activity, were given to the patient/family at discharge. Please see the After Visit Summary in the electronic medical record for details. Time spent on discharge: > 30 minutes Completed by: Abimael Larose DO on 12/15/20, 12:16 PM documented in this encounter [facility] 12-14-2020 Note Cardiac Catheterizat ion Procedure Report Date of Service: 12/14/20 Principal Traffic Sign Supervisor and Supervising Physician: Jb Trujillo MD Procedures Performed: Selective left and right coronary angiography Supervision and interpretation of angiographic findings Left heart catheterization Indication for Procedure: Frederic Stack Jr. is a 55 y.o. male with a history of recent percutaneous coronary intervention at [facility] presented to the hospital with non ST elevation myocardial infarction. Patient was then brought for urgent t cardiac catheterization study. Medications: Fentanyl Versed Nitroglycerin 100mcg Verapamil 2.5mg Heparin 5,000units 1% Lidocaine for local infiltration 2cc Description of Procedure: Informed consent was obtained and the patient was brought to the cardiac catheterization laboratory where the right radial was cleaned, prepped, and draped in the usual sterile fashion and infiltrated with 2 cc of 1% lidocaine for local anesthesia. A 6F slender Terumo sheath was introduced in the right radial artery using the true Seldinger technique. A 5F TIG catheter was used to selectively engage the right coronary artery. Selective right coronary angiography was performed in the usual views. A 5F TIG catheter was used to selectively engage the left coronary artery. Selective left coronary angiography was performed in the usual views. A 5F TIG catheter was used to cross AV into LV to record LVEDP and AV gradients. The sheath was flushed between catheter exchanges. After any catheters and wires were removed, the arterial sheath was removed for a TR band using the standard technique to achieve adequate hemostasis. Hemodynamic Findings: Left Heart: Aortic Opening Pressure: 140/70 mmHg Aortic Closing Pressure: 105/68 mmHg LV Pressure: 108 mmHg, LV end diastolic pressure 5 mmHg Systolic LV pressure in LV prior to pullback: 108 mmHg Systolic pressure in aorta after pullback: 108 mmHg, pullback gradient not significant Coronary Angiographic Findings: Dominance: right Left Main: 4.5 mm vessel, gives rise to the LAD and LCX Arteries, there was no stenosis. There was KVNG 3 flow. Left Anterior Descending Artery: The LAD measures 4 mm proximally and tapers to a 2.5 mm vessel distally. There is KVNG 3 flow in the body of the LAD. The LAD gives rise to 2 diagonal vessels. The LAD is free of significant disease. There is a patent stent in proximal LAD with no significant ISR Left Circumflex Artery: The LCX measures 3 mm proximally and tapers to small vessel coursing along the AV groove. The LCX gives rise to 2 obtuse marginal branches. The distal LCX is a small 2.5mm vessel which has diffuse 80% stenosis. Right Coronary Artery: RCA is a dominant vessel and measures 3.0 mm proximally and tapers to a 2.5 mm vessel distally prior to giving off the PDA. The RCA is free of significant disease. Fluoroscopy Time: 3 minutes Contrast Volume: 30 cc of Isovue Complications: None apparent Summary: Single small vessel obstructive CAD. Patent stent in LAD Normal Left Heart Filling pressures Successful TR Band deployment to right RA. Recommendations: Aggressive risk factor modification Continued medical therapy and follow-up with primary shoe maker Aspirin 81 mg daily indefinitely and Ticagrelor 90mg twice daily for ideally 6-12 months, or longer at the discretion of the primary shoe maker Jb Trujillo MD, MPH, MRCP, [facility] Interventional Cardiology/Structural Heart Disease [facility] FUJI SYNAPSE CV 12-14-2020 Hospital Discharge instructions 12/14/2020 [facility] Post Cardiac Catheterization Discharge Instructions Site Care Leave Bandage in place the night of your catheterization. Watch for any bleeding or oozing from the site. If this occurs, lie flat and place direct pressure on the bandage for 20 minutes. If bleeding reoccurs call [facility]. For groins, remove your bandage the following morning and apply a Band-Aid over the site, so it has a complete seal over the area. This is to christina done for 5 days with a new Band-Aid each time. Soreness and bruising are to expected. For wrist and arms, remove your bandage the following morning and apply a Band-Aid over the site, so it has a complete seal over the area. This is to be done for 5 days with a new Band-Aid each time. Soreness and bruising are to be expected. Do not submerge catheterization site in water for 5 to 7 days following the procedure. Examples include bathing, swimming, sitting in a Jacuzzi or dishwashing. You may shower 24 hours after the procedure. Call [facility] at [phone] if you notice any of the following: Bleeding or increased swelling at the puncture site Redness Drainage (either pus or blood) Increased soreness around the wound A fever over 100 F Numbness, coldness, color change, or tingling pain in your arm or leg below the wound Light headedness, dizziness, weakness of arms or legs, or difficulty with speech Chest pain, pressure, tightness or burning in the chest, arm jaw or stomach Activity Limit your activity following the catheterization as follows: No lifting over 10 pounds for 2 days if done by groin No lifting over 5 pounds for 7 days if done by wrist. Do not manipulate the wrist for 24 hours No running, jogging, climbing (more than a few stairs) for 7 days No driving or operating heavy machinery for a minimum of 48 hours Do Not Smoke or use tobacco products for 24 hours after the procedure Discuss any other activity concerns with the nurse or physician Medications Continue taking all the current medications as directed on medication reconciliation record or unless otherwise instructed to by your physician. If you do not have prescription coverage and are in need of prescription assistance, please notify the [facility] nurse or call the office. If you were prescribed Plavix (clopidogrel), Effient (prasugrel), or Brilinta (ticagrelar) after your procedure, DO NOT STOP taking this medication unless told to do so by your [facility] shoe maker. Follow up appointments, tests or procedures will be on your discharge paperwork under What's next. Please call [facility] at [phone] to reschedule any appointments if needed or if you have any questions or concerns. Thank you! documented in this encounter [facility] 12-14-2020 History of Present illness Narrative [facility] Medicine Inpatient H&P 12/14/2020 Harry Marquez MD [facility] Patient: Frederic Stack . Date of : 1965 (55 y.o.) PCP: Rashawn Boston MD Assessment Frederic Stack 55 y.o. male with history of coronary artery disease, diabetes hypertension dyslipidemia Principal Problem: Chest pain Plan: Admit for observation Chest pain Patient status post left heart cath with stent placement at outside hospital a week ago presented to chest pain to outside emergency room 3 troponins been negative so far Patient chest pain subsided now Patient is told that he has to come here to see cardiology. Consult cardiology for evaluation if no further testing is needed we will plan to discharge the patient this afternoon Continue patient on aspirin Brilinta and statin Continue metoprolol and lisinopril Continue patient current home medication 12/14 Patient feeling better denies chest pain shortness of breath dizziness palpitation abdominal pain diarrhea constipation or burning during urination Vital signs stable Continue the current medical management Cardiology on board plan for cardiac cath today SUBJECTIVE: Chief Complaint: Chest pain History of Presenting Illness: Frederic Stack is a 55 y.o. male presenting from from outside emergency room with complaint of chest pain 56-year-old male who presented to outside emergency room was complaining of chest pain patient had heart cath in an area hospital last week with stent placed patient mentioned that he has some chest discomfort yesterday, patient was given Nitropaste in outside emergency room 3 troponins were done and were negative EKG showed no acute changes and patient was transferred here for further evaluation Currently patient feeling well still have mild discomfort Review of Systems: 10 systems reviewed and negative other than noted in HPI History: Past Medical History: Diagnosis Date Arthritis Back and hips Asthma DDD (degenerative disc disease), lumbar Department of [facility] Emergency Department L5-S1 Depressed Department of 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 Diabetes mellitus (HCC) 2012 Facet arthropathy, lumbar Department of [facility] Emergency Department Lower Hyperlipidemia 2015 Hypertension 1990 Indigestion 2005 Department of 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 Obesity Pancreatitis 2017 Sleep apnea 2002 Department of 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 Tobacco use Past Surgical History: Procedure Laterality Date CARPAL TUNNEL RELEASE Right TONSILLECTOMY Family History Problem Relation Age of Onset Diabetes type II Mother Heart failure Father Heart attack Father Diabetes type II Father Social History Tobacco Use Smoking Status Former Smoker Types: Cigarettes Quit date: 2014 Years since quittin.6 Smokeless Tobacco Current User Types: Chew Social History Substance and Sexual Activity Alcohol Use Yes Comment: rare Family and Social History reviewed and non-pertinent to this visit Allergies: Bupropion, Hyzaar [losartan-hydrochlorothiazide], and Mavik [trandolapril] Home Medications: Outpatient Medications as of 12/14/2020 Medication Sig aspirin 81 MG EC tablet Take 81 mg by mouth daily . atorvastatin (LIPITOR) 40 MG tablet Take 1 (one) tablet (40 mg total) by mouth daily . Brilinta 90 mg Tab tablet Take 90 mg by mouth 2 (two) times a day . cinnamon bark (Cinnamon) 500 mg capsule Take 500 mg by mouth daily . lisinopriL (PRINIVIL,ZESTRIL) 10 MG tablet Take 1 (one) tablet (10 mg total) by mouth daily . loratadine (CLARITIN) 10 mg tablet Take 1 (one) tablet (10 mg total) by mouth daily . metFORMIN (GLUCOPHAGE) 1000 MG tablet Take 1 (one) tablet (1,000 mg total) by mouth 2 (two) times a day with meals . metoprolol succinate (TOPROL-XL) 25 MG 24 hr tablet Take 25 mg by mouth nightly . multivitamin (THERAGRAN) per tablet Take 1 tablet by mouth daily . nitroGLYCERIN (NITROSTAT) 0.4 MG SL tablet Take 0.4 mg by mouth See Admin Instructions DISSOLVE ONE TABLET UNDER THE TONGUE EVERY 5 MINUTES NEEDED FOR CHEST PAIN. DO NOT EXCEED A TOTAL OF 3 DOSES IN 15 MINUTES NOW . venlafaxine (EFFEXOR-XR) 150 MG 24 hr capsule Take 150 mg by mouth daily . OBJECTIVE: Physical Examination: BP (!) 162/96 (BP Location: Left arm, Patient Position: Sitting) Pulse 69 Temp 97.7 F (36.5 C) (Oral) Resp 14 Ht 5' 6 Wt 85.9 kg (189 lb 6 oz) SpO2 96% BMI 30.57 kg/m General Appearance: Alert, well appearing, and in no acute distress. HEENT: Head - Normocephalic, atraumatic. Eyes - MARGARETH bilaterally and EOMI. Ears - normal external appearance, hearing intact. Nose - normal, no erythema. Throat - mucous membranes moist, pharynx without lesions. Neck: Supple, trachea midline. Cardiovascular: S1, S2 normal. No murmurs, rubs, clicks or gallops appreciated. No pedal edema. Respiratory: Lungs clear to auscultation, no wheezes, rales or rhonchi heard. Abdomen: Soft, non-tender, normal bowel sounds, non-distended, no masses or organomegaly appreciated. Neurological: Grossly normal motor and sensory exam. No focal deficits. Musculoskeletal: No joint tenderness, deformity or swelling. Skin: Normal coloration and turgor. No rashes. Psych: Alert, oriented x 3. Normal mood and affect. Laboratory and Additional Data Reviewed: Results/Medications Reviewed 12/14/20 11:23 AM: Results from last 7 days Lab Units 12/14/20 0821 12/13/20 1135 12/13/20 1135 12/12/20 1901 SODIUM mmol/L 137 -- 139 -- POTASSIUM mmol/L 4.0 -- 3.9 -- CHLORIDE mmol/L 106 -- 109* -- BUN mg/dL 10 -- 12 -- POC BUN mg/dL -- -- -- 13 CREATININE mg/dL 0.64 -- 0.74 -- POC CREATININE (EPOC) mg/dL -- -- -- 0.76 GLUCOSE mg/dL 138* < > 148* -- CALCIUM mg/dL 9.0 -- 9.0 -- < > = values in this interval not displayed. Results from last 7 days Lab Units 12/14/20 0821 12/12/20 1852 WBC K/mcL 6.17 9.51 HGB g/dL 15.1 15.1 HCT % 44.1 43.8 PLT K/mcL 300 302 Results from last 7 days Lab Units 12/13/20 1655 12/13/20 1357 12/13/20 1135 TROPONIN I ng/L 137* 121* 96* CULTURES: Reviewed 11:23 AM IMAGING: Reviewed 11:23 AM documented in this encounter [facility] 12-13-2020 Consult note Associated Order(s): IP CONSULT TO CARDIOLOGY General Cardiology Inpatient Consult Heart & Vascular [facility] 12/13/2020 Jackelyn Gonzalez MD [facility] Patient: Frederic Stack Jr. Date of : 1965 (55 y.o.) Referring Provider: Refer to consult order in electronic medical record PCP: Rashawn Boston MD Assessment/Plan: Frederic Stack is a 55 y.o. male with history of coronary artery disease with recent PCI on Saturday at [facility], hypertension, hyperlipidemia, JAN, diabetes and asthma who presented to the hospital for chest pain and presyncopal episode. Presyncopal episode the presyncopal episode may been related to sublingual nitroglycerin use and possible hypotension. He reports that when he presented to the [place] emergency room he blood pressure was relatively low. -Avoid nitroglycerin -Discussed adequate hydration -Repeat limited TTE ordered to reevaluate LVEF and wall motion by primary team Chest pain the patient underwent recent PCI on Saturday at [facility]. His slightly elevated troponin is likely related to his recent procedure and possible hypotension as above. It is unlikely that he had in-stent thrombosis. The chest pain he had yesterday was improved from his prior episodes of chest pain and may be related to microvascular disease. -Continue aspirin 81 mg daily -Continue Brilinta 90 mg twice daily -Continue metoprolol 25 mg daily, titration limited by heart rate -Avoid isosorbide mononitrate and nitrates given his possible hypertension as above -We will start amlodipine 2.5 mg daily -We will reduce lisinopril in an effort to start amlodipine as above -TTE ordered as above. -Awaiting records from The patient does not have cardiology follow-up, will help set up. Jackelyn Gonzalez MD [facility] Non-Invasive Cardiology [facility] Heart and Vascular Subjective Reason for Consultation: Chest pain History of Present Illness: Frederic Stack is a 55 y.o. male with history of coronary artery disease with recent PCI on Saturday at [facility], hypertension, hyperlipidemia, JAN, diabetes and asthma who presented to the hospital for chest pain and presyncopal episode. Of note the patient presented to [facility] last week with chest pain. He was transferred to [facility] and underwent left heart catheterization PCI. He was reported to have a normal heart pump He reports that yesterday he started to have chest pressure in the middle of his chest. He reports that at the time he was standing and talking. He reports that he took a sublingual nitroglycerin and after doing this he started to feel lightheaded and felt like he was going to pass out. He did not lose consciousness. He reports that this is the first time that he has taken sublingual nitroglycerin. He denies using Viagra, Cialis or Levitra in the last 72 hours. He reports that the episode of chest pain he had yesterday was milder than the episodes of chest pain that he has been having prior to his left heart catheterization. Initial troponin upon presentation to the [place] ED yesterday was 0.06 and was undetectable after that. Troponin I here is 96 (ULN 45). Imaging: I independently reviewed the EKG and agree with the interpretation(s) with the following comments. ECG 12/12/20 Sinus tachycardia Cannot rule out Anterior infarct , age undetermined Abnormal ECG Review of Systems: Constitution: Negative. HENT: Negative. Cardiovascular: As above. Respiratory: As above. Endocrine: Negative. Skin: Negative. Musculoskeletal: Negative. Gastrointestinal: Negative. Genitourinary: Negative. Neurological: Negative. Psychiatric/Behavioral: Negative. Past Medical History: Diagnosis Date Arthritis Back and hips Asthma DDD (degenerative disc disease), lumbar Department [facility] Emergency Department L5-S1 Depressed Department [facility] 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 Diabetes mellitus (HCC) 2012 Facet arthropathy, lumbar Department [facility] Emergency Department Lower Hyperlipidemia 2015 Hypertension 1990 Indigestion 2005 Department [facility] 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 Obesity Pancreatitis 2017 Sleep apnea 2001 Department 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 Tobacco use Past Surgical History: Procedure Laterality Date CARPAL TUNNEL RELEASE Right TONSILLECTOMY Family History Problem Relation Age of Onset Diabetes type II Mother Heart failure Father Heart attack Father Diabetes type II Father Social History Tobacco Use Smoking Status Former Smoker Types: Cigarettes Quit date: 2014 Years since quittin.6 Smokeless Tobacco Current User Types: Chew Allergies: Bupropion, Hyzaar [losartan-hydrochlorothiazide], and Mavik [trandolapril] Current Facility-Administered Medications Medication Dose Route Frequency Provider Last Rate Last Admin acetaminophen (TYLENOL) tablet 650 mg 650 mg Oral Q4H PRN Aguila Ortega MD aluminum-magnesium hydroxide-simethicone (MAALOX PLUS) 200-200-20 mg/5 mL suspension 30 mL 30 mL Oral Q4H PRN Aguila Ortega MD amLODIPine (NORVASC) tablet 2.5 mg 2.5 mg Oral Daily Jackelyn Gonzalez MD aspirin EC tablet 81 mg 81 mg Oral Daily Aguila Ortega MD atorvastatin (LIPITOR) tablet 40 mg 40 mg Oral Daily Aguila Ortega MD enoxaparin (LOVENOX) syringe 40 mg 40 mg Subcutaneous Daily Aguila Ortega MD [START ON 12/14/2020] lisinopriL (PRINIVIL,ZESTRIL) tablet 5 mg 5 mg Oral Daily Jackelyn Gonzalez MD loratadine (CLARITIN) tablet 10 mg 10 mg Oral Daily Aguila Ortega MD magnesium hydroxide (MOM) 400 mg/5 mL suspension 2,400 mg 30 mL Oral Daily PRN Aguila Ortega MD metoprolol succinate (TOPROL-XL) 24 hr tablet 25 mg 25 mg Oral Nightly Aguila Ortega MD multivitamin (THERAGRAN) per tablet 1 tablet 1 tablet Oral Daily Aguila Ortega MD nitroGLYCERIN (NITROSTAT) SL tablet 0.4 mg 0.4 mg Sublingual Q5 Min PRN Aguila Ortega MD ondansetron (ZOFRAN-ODT) disintegrating tablet 4 mg 4 mg Oral Q6H PRN Aguila Ortega MD perflutren lipid microspheres (DEFINITY) 0.143 mg/mL solution 0-10 mL of mixture 0-10 mL of mixture Intravenous Once in imaging Aguila Ortega MD senna (SENOKOT) tablet 8.6 mg 1 tablet Oral BID PRN Aguila Ortega MD sodium chloride (PF) (NS) flush 5 mL 5 mL Intravenous PRN Aguila Ortega MD And sodium chloride (PF) (NS) flush 5 mL 5 mL Intravenous Q8H JARRETT Aguila Ortega MD And sodium chloride 0.9% (NS) 0-150 mL/hr Intravenous PRN Aguila Ortega MD ticagrelor (BriLINTA) tablet 90 mg 90 mg Oral BID Aguila Ortega MD traZODone (DESYREL) tablet 50 mg 50 mg Oral Nightly PRN Aguila Ortega MD venlafaxine (EFFEXOR-XR) 24 hr capsule 150 mg 150 mg Oral Daily Aguila Ortega MD Objective: Physical Examination: Ht 5' 6 Wt 85.9 kg (189 lb 6 oz) BMI 30.57 kg/m Heart rate 54, blood pressure 125/88, SPO2 96% on room air. Constitutional: Appears well-developed and well-nourished. No distress. HENT: Head: Normocephalic and atraumatic. Eyes: Conjunctivae and EOM are normal. No scleral icterus. Neck: Normal range of motion. Cardiovascular: Normal rate and regular rhythm. Exam reveals no gallop and no friction rub. No murmur heard. Pulmonary/Chest: Effort normal and breath sounds normal. No respiratory distress. No wheezes. No rales. Abdominal: Soft. Bowel sounds are normal. There is no abdominal tenderness. Musculoskeletal: Normal range of motion. General: No edema. Neurological: AOx3, moving all ext. Skin: Skin is warm and dry. No rash noted. Psychiatric: Normal mood and affect. Lab Results Component Value Date GLUCOSE 148 (H) 12/13/2020 CALCIUM 9.0 12/13/2020 NA 139 12/13/2020 K 3.9 12/13/2020 CL 109 (H) 12/13/2020 BUN 12 12/13/2020 CREATININE 0.74 12/13/2020 Lab Results Component Value Date WBC 9.51 12/12/2020 HGB 15.1 12/12/2020 HCT 43.8 12/12/2020 MCV 84.4 12/12/2020 EXTMCV 85.7 11/08/2017 PLT 302 12/12/2020 RBC 5.19 12/12/2020 Lab Results Component Value Date CHOL 133 11/30/2020 Lab Results Component Value Date HDL 30 (L) 11/30/2020 Lab Results Component Value Date LDLCALC 68 11/30/2020 Lab Results Component Value Date TRIG 174 (H) 11/30/2020 Lab Results Component Value Date CHOLHDL 4.4 11/30/2020 Lab Results Component Value Date TROPONINI 96 (CH) 12/13/2020 No results found for: NTPROBNP documented in this encounter [facility] 12-13-2020 History and physical note [facility] Medicine Inpatient H&P 12/13/2020 Aguila Ortega MD [facility] Patient: Frederic Stack . Date of : 1965 (55 y.o.) PCP: Rashawn Boston MD Assessment Frederic Stack 55 y.o. male with history of coronary artery disease, diabetes hypertension dyslipidemia Principal Problem: Chest pain Plan: Admit for observation Chest pain Patient status post left heart cath with stent placement at outside hospital a week ago presented to chest pain to outside emergency room 3 troponins been negative so far Patient chest pain subsided now Patient is told that he has to come here to see cardiology. Consult cardiology for evaluation if no further testing is needed we will plan to discharge the patient this afternoon Continue patient on aspirin Brilinta and statin Continue metoprolol and lisinopril Continue patient current home medication SUBJECTIVE: Chief Complaint: Chest pain History of Presenting Illness: Frederic Stack is a 55 y.o. male presenting from from outside emergency room with complaint of chest pain 56-year-old male who presented to outside emergency room was complaining of chest pain patient had heart cath in an area hospital last week with stent placed patient mentioned that he has some chest discomfort yesterday, patient was given Nitropaste in outside emergency room 3 troponins were done and were negative EKG showed no acute changes and patient was transferred here for further evaluation Currently patient feeling well still have mild discomfort Review of Systems: 10 systems reviewed and negative other than noted in HPI History: Past Medical History: Diagnosis Date Arthritis Back and hips Asthma DDD (degenerative disc disease), lumbar Department of [facility] Emergency Department L5-S1 Depressed Department of 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 Diabetes mellitus (HCC) 2012 Facet arthropathy, lumbar Department of [facility] Emergency Department Lower Hyperlipidemia 2015 Hypertension 1990 Indigestion 2005 Department of 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 Obesity Pancreatitis 2017 Sleep apnea 2002 Department of 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 Tobacco use Past Surgical History: Procedure Laterality Date CARPAL TUNNEL RELEASE Right TONSILLECTOMY Family History Problem Relation Age of Onset Diabetes type II Mother Heart failure Father Heart attack Father Diabetes type II Father Social History Tobacco Use Smoking Status Former Smoker Types: Cigarettes Quit date: 2014 Years since quittin.6 Smokeless Tobacco Current User Types: Chew Social History Substance and Sexual Activity Alcohol Use Yes Comment: rare Family and Social History reviewed and non-pertinent to this visit Allergies: Bupropion, Hyzaar [losartan-hydrochlorothiazide], and Mavik [trandolapril] Home Medications: Outpatient Medications as of 12/13/2020 Medication Sig aspirin 81 MG EC tablet Take 81 mg by mouth daily . atorvastatin (LIPITOR) 40 MG tablet Take 1 (one) tablet (40 mg total) by mouth daily . Brilinta 90 mg Tab tablet Take 90 mg by mouth 2 (two) times a day . cinnamon bark (Cinnamon) 500 mg capsule Take 500 mg by mouth daily . lisinopriL (PRINIVIL,ZESTRIL) 10 MG tablet Take 1 (one) tablet (10 mg total) by mouth daily . loratadine (CLARITIN) 10 mg tablet Take 1 (one) tablet (10 mg total) by mouth daily . metFORMIN (GLUCOPHAGE) 1000 MG tablet Take 1 (one) tablet (1,000 mg total) by mouth 2 (two) times a day with meals . metoprolol succinate (TOPROL-XL) 25 MG 24 hr tablet Take 25 mg by mouth nightly . multivitamin (THERAGRAN) per tablet Take 1 tablet by mouth daily . nitroGLYCERIN (NITROSTAT) 0.4 MG SL tablet Take 0.4 mg by mouth See Admin Instructions DISSOLVE ONE TABLET UNDER THE TONGUE EVERY 5 MINUTES NEEDED FOR CHEST PAIN. DO NOT EXCEED A TOTAL OF 3 DOSES IN 15 MINUTES NOW . venlafaxine (EFFEXOR-XR) 150 MG 24 hr capsule Take 150 mg by mouth daily . OBJECTIVE: Physical Examination: There were no vitals taken for this visit. General Appearance: Alert, well appearing, and in no acute distress. HEENT: Head - Normocephalic, atraumatic. Eyes - MARGARETH bilaterally and EOMI. Ears - normal external appearance, hearing intact. Nose - normal, no erythema. Throat - mucous membranes moist, pharynx without lesions. Neck: Supple, trachea midline. Cardiovascular: S1, S2 normal. No murmurs, rubs, clicks or gallops appreciated. No pedal edema. Respiratory: Lungs clear to auscultation, no wheezes, rales or rhonchi heard. Abdomen: Soft, non-tender, normal bowel sounds, non-distended, no masses or organomegaly appreciated. Neurological: Grossly normal motor and sensory exam. No focal deficits. Musculoskeletal: No joint tenderness, deformity or swelling. Skin: Normal coloration and turgor. No rashes. Psych: Alert, oriented x 3. Normal mood and affect. Laboratory and Additional Data Reviewed: Results/Medications Reviewed 12/13/20 11:36 AM: Results from last 7 days Lab Units 12/12/20 1901 POC BUN mg/dL 13 POC CREATININE (EPOC) mg/dL 0.76 Results from last 7 days Lab Units 12/12/20 1852 WBC K/mcL 9.51 HGB g/dL 15.1 HCT % 43.8 PLT K/mcL 302 CULTURES: Reviewed 11:36 AM IMAGING: Reviewed 11:36 AM documented in this encounter [facility] 12-10-2020 Note Send Summary: Discharge Summary Providers: Provider RoleProvider Name ReferringFree, Text Entry Zafar Mullen ConsultingKamar Galindo PrimaryFree, Text Entry Note Recipients: Free, Text Entry, Kamar Benítez, - [phone] [preferred] Discharge: Summary: Admission Date: .08-Dec-2020 21:31:00 Discharge Date: 10-Dec-2020 Attending Physician at Discharge: Zafar Espinoza Admission Reason: Chest pain(1) Final Discharge Diagnoses: NSTEMI, initial episode of care Procedures: Left Heart catheterization Condition at Discharge: Satisfactory Disposition at Discharge: .Home Vital Signs: T PRBPSpO2 [id number]% Date/Time12/10 8: 8: 8: 8: 8:11 Range(36.2C - 37.6C ) (63 - 75 ) (18 - 20 ) (123 - 141 )/ (66 - 73 ) (94% - 96% ) Highest temp of 37.6 C was recorded at 12/09 22:42 Date: Weight/Scale Type:Height: 08-Dec-2020 21:4997 kg 167.6 cm Hospital Course: 55-year-old gentleman multiple cardiac risk factors new onset of anginal type chest pain over the last week or 2. He ultimately came to the hospital. Thus far he has had a trivial elevation of troponins with no acute EKG changes but due to risk factors and underlying concerns by the patient we have advised heart catheterization. Patient underwent cardiac cath for which no high-grade stenosis was appreciated and patient was stabilized with empiric medical therapy. Plan for outpatient follow-up with Dr. Schreiber on December 13. Discharge Information: and Continuing Care: Lab Results - Pending: None Radiology Results - Pending: None Discharge Instructions: Nutrition/Diet: low fat, diabetic/carbohydrate counted Diabetic/Carbohydrate Counted: 75gram/Carb meal, 45gram/Carb snack (1999-s) Additional Orders: Additional Instructions: You had a heart attack that required a stent to be placed in one of your vessels of heart. It is important you try to reduce your risk factors of this occurring again. Eating healthy, controlling underlying blood pressure, diabetes cholesterol, reducing stress, avoiding drugs or excessive alcohol use are very important. We have provided you with some packets in regards to reducing your risks and information on each. It is VERY IMPORTANT you do not miss the aspirin and Ticagrelor medications every day. This is very important as discussed. If you experience any chest pain, shortness of breath, leg swelling, palpitations or run out of medications, please call your doctor, hospital or come to ED for further evaluation. Below are the medications you will need to take. You would benefit from an Mayte-Inhibitor or ARB medication which are blood pressure lowering agents with other benefits as discussed but you are intolerant to them. Consider trying different brands after discussing with your primary doctor. Aspirin 81 mg Oral Daily , Atorvastatin: 80 mg Oral Daily , Metoprolol Succinate Extended Release: 25 mg Oral At Bedtime Ticagrelor Maintenance Dose: 90 mg Oral 2 Times a Day , Follow-up scheduled with Dr. Galindo December 13, 2020 Follow Up Appointments: Follow-Up Appointment 01: Physician/Dept/Service: Dr. Galindo Reason for Referral: Cardiology Hospital Follow Up Scheduled Date/Time: 13-Dec-2020 14:30 Location: [facility] Office Discharge Medications: Home Medication metFORMIN 1000 mg oral tablet - 1 tab(s) orally 2 times a day (with meals) lisinopril 10 mg oral tablet - 1 tab(s) orally once a day Lantus Solostar Pen 100 units/mL subcutaneous solution - 35 unit(s) subcutaneous once a day (at bedtime) bedtime is am. aspirin 81 mg oral tablet, chewable - 1 tab(s) orally once a day ticagrelor 90 mg oral tablet - 1 tab(s) orally 2 times a day metoprolol succinate 25 mg oral tablet, extended release - 1 tab(s) orally once (at bedtime) atorvastatin 40 mg oral tablet - 1 tab(s) orally once a day (at bedtime) Nitrostat 0.4 mg sublingual tablet - 1 tab sublingually every 5 minutes x 3 doses as needed for chest pain PRN Medication Electronic Signatures: Zafar Espinoza) (Signed 03-Jan-2021 23:29) Authored: Send Summary, Summary Content, Ongoing Care, Note Completion Last Updated: 03-Jan-2021 23:29 by Zafar Espinoza) References: 1. Data Referenced From Consult-Cardiology 09-Dec-2020 08:39 [facility] 12-09-2020 Note History & Physical R eviewed: I have reviewed the History and Physical dated: 09-Dec-2020 History and Physical reviewed and relevant findings noted. Patient examined to review pertinent physical findings.: No significant changes Home Medications Reviewed: no changes noted Allergies Reviewed: no changes noted Airway/Sedation Assessment: Mouth Opening OKyes Neck Flexibility OKyes Loose Teethno Oropharyngeal ClassificationClass I ASA PS ClassificationASA III Sedation Planmoderate sedation ERAS (Enhanced Recovery After Surgery): ERAS Patient: no Consent: COVID-19 Consent: COVID-19 Risk ConsentSurgeon has reviewed ríos risks related to the risk of kimberly COVID-19 and if they contract COVID-19 what the risks are. Electronic Signatures: Kieran Drew) (Signed 09-Dec-2020 12:33) Authored: History & Physical Reviewed, Airway/Sedation, ERAS, Consent, Note Completion Last Updated: 09-Dec-2020 12:33 by Kieran Drew) [facility] 12-08-2020 Note History of Present I llness: HPI: Frederic is a 55 year old male with PMH of DM2, HTN, colonic diverticulosis, and fatty liver who presented to [facility] on for Chest pain. He has had it intermittently for about a week. He has been non-compliant with his medications. The chest pain is in the center of his chest. He denies SOB, nausea, and diaphoresis. He had a nuclear stress test on [address] [facility] that was normal with EF of 48%. At [facility], he was hypertensive with SBP of 182. Glucose 238, Cr 0.93, Troponin 0.06>0.07>0.07. He was COVID19 negative. CXR was negative for acute changes. Past Medical History: - See Above Family History: -No AL's in his family Allergies: - See Above Social History: -1 PPD in his 20's Current Medications: -See Above Review of Systems: - A 12 point ROS was performed with the patient denying any complaints at this time aside from those listed in the HPI above. Vital Signs: - Reviewed & Noted Above Input/Output: - Reviewed & Noted Above Oxygen requirements: - Reviewed & Noted Above Ventilator Information: - Reviewed & Noted Above Physical Exam: GENERAL: Alert, oriented, and in no distress. HEAD: Normocephalic, atraumatic. EYES: Round and reactive. ENT: No nasal discharge, mucous membranes moist and pink. NECK: Atraumatic, no meningismus. CARDIOVASCULAR: Regular rate and rhythm, no murmur, gallop or rubs. RESPIRATORY: Lungs are clear with good air exchange in all lung keene, no wheezes, rales, or rhonchi. ABDOMEN: Soft, no tenderness, nondistended. EXTREMITIES: No peripheral edema, no calf tenderness. SKIN: Warm and dry. NEUROLOGICAL: Cranial nerves intact, no gross motor or sensory deficits Investigations: - Labs, radiological imaging and cardiac work up were reviewed Assessment & Plan: Frederic is a 55 year old male with PMH of DM2, HTN, colonic diverticulosis, and fatty liver who presented to [facility] on for Chest pain. He had a nuclear stress test on [address] [facility] that was normal with EF of 48%. At [facility], he was hypertensive with SBP of 182. Glucose 238, Cr 0.93, Troponin 0.06>0.07>0.07. He was COVID19 negative. CXR was negative for acute changes. Patient was transferred to [facility] for further workup. #Chest pain, R/O ACS #HTN #Hypomagnesemia -Cardio on consult -Trops and EKG trended -Aspirin 81 daily -Statin: Lipitor 80 -ECHO pending -Lipid and Hemoglobin A1C #DM2 -A1C was ~ 10% in 2018 -Repeat A1C pending -Moderate Humalog SSI #DVT prophylaxis -Heparin infusion Allergies: buPROPion: Arrhythmia Hyzaar: Rash Mavik: Hives/Urticaria Medications Prior to Admission: Home meds have been reviewed, but review is not yet complete metFORMIN 1000 mg oral tablet: 1 tab(s) orally 2 times a day (with meals) atorvastatin 40 mg oral tablet: 1 tab(s) orally once a day lisinopril 10 mg oral tablet: 1 tab(s) orally once a day Lantus Solostar Pen 100 units/mL subcutaneous solution: 35 unit(s) subcutaneous once a day (at bedtime) bedtime is am. Objective: Recent Lab Results: Results: CBC: 12/08/2020 08:04 \ Hgb / \ 15.0 / WBC Plt 6.7 270 / Hct \ / 44.8 \ RBC: 5.18 MCV: 86 Neutrophil %: 66.0 BMP: 12/08/2020 08:04 NA+ Cl- BUN / 137 103 18 / Glucose 238 H K+ HCO3- Creat \ 4.0 26 0.93 \ Calcium : 9.3 Anion Gap : 12 Coagulation: 12/08/2020 17:27 PT / / -------< INR < PTT\ \ Heparin Assay: 0.4 Radiology Results: Results: No Results have been selected. Please select Results from the Available Results list before marking as Reviewed. Electronic Signatures: Jan Yancey) (Signed 09-Dec-2020 07:03) Authored: History of Present Illness, Comorbidities, Allergies, Medications Prior to Admission, Objective, Note Completion Last Updated: 09-Dec-2020 07:03 by Jan Yancey) [facility] 11-30-2020 Miscellaneous Notes Refill requested on pended medication. Last OV. [facility] Skin: Warm and dry, no lesions, no rashes.Eyes: PERRL, clear sclera, conjunctiva pinkENMT: mucous membranes moist, no apparent injury, no lesions seenHead/Neck: Neck supple, no apparent injury, thyroid without mass or tenderness, No JVD, trachea midline, no bruitsRespiratory/Thorax: Patent airways,CTAB, normal breath sounds with good chest expansion, thorax symmetricCardiovascular: Regular, rateand rhythm, no murmurs, 2+ equal pulses of the extremities, normal S 1and S 2. PMI is nondisplacedExtremities: normal extremities, no cyanosis edema, contusions or wounds, no clubbingGenitourinary: deferredMusculoskeletal: No apparent injuryNeurological: alert and oriented x3, moves all extremitiesx4 on command with purposeBreast: deferredLymphatic: No significant lymphadenopathyPsychological: Appropriate mood and behaviorGastrointestinal: Nondistended, soft, non-tender, no rebound tenderness or guarding, no masses palpable, no organomegaly, +BS, no bruitsConstitutional: Well developed, awake /alert/oriented x3, no distress, alert and cooperative [facility] Diagnosis Seasonal allergic rhinitis, unspecified trigger [facility]* Diagnosis Chest pain- Primary Unspecified chest pain [facility]* Diagnosis Type 2 diabetes mellitus without complication, without long-term current use of insulin (HCC)- Primary Essential hypertension Unspecified essential hypertension Coronary artery disease involving [place] coronary artery of [place] heart with angina pectoris (HCC) [facility]* Diagnosis Seasonal allergic rhinitis, unspecified trigger [facility]* Diagnosis Coronary artery disease, unspecified vessel or lesion type, unspecified whether angina present, unspecified whether [place] or transplanted heart- Primary Cardiac angina (HCC) Other and unspecified angina pectoris [facility]* Diagnosis Coronary artery disease involving [place] coronary artery of [place] heart with angina pectoris (HCC)- Primary Essential hypertension Unspecified essential hypertension Type 2 diabetes mellitus without complication, without long-term current use of insulin (HCC) [facility] Diagnosis Coronary artery disease involving [place] coronary artery of [place] heart with angina pectoris (HCC)- Primary [facility]* Diagnosis Type 2 diabetes mellitus without complication, without long-term current use of insulin (HCC)- Primary Essential hypertension Unspecified essential hypertension Coronary artery disease involving [place] coronary artery of [place] heart with angina pectoris (HCC) [facility]* Diagnosis Type 2 diabetes mellitus without complication, without long-term current use of insulin (HCC)- Primary Essential hypertension Unspecified essential hypertension Sleep apnea, unspecified type Type 2 diabetes mellitus with other specified complication, with long-term current use of insulin (HCC) Encounter for screening for HIV Encounter for hepatitis C screening test for low risk patient Encounter for prostate cancer screening Other chest pain Gastroesophageal reflux disease, unspecified whether esophagitis present Coronary artery disease involving [place] coronary artery of [place] heart with angina pectoris (HCC) [facility] Diagnosis Coronary artery disease involving [place] coronary artery of [place] heart with angina pectoris (HCC) [facility]* Diagnosis COVID-19- Primary [facility]* Diagnosis JAN (obstructive sleep apnea)- Primary Obstructive sleep apnea (adult) (pediatric) [facility]* Diagnosis JAN (obstructive sleep apnea)- Primary Obstructive sleep apnea (adult) (pediatric) [facility]* Diagnosis Type 2 diabetes mellitus without complication, without long-term current use of insulin (HCC)- Primary Essential hypertension Unspecified essential hypertension Sleep apnea, unspecified type Mixed hyperlipidemia Type 2 diabetes mellitus with other specified complication, with long-term current use of insulin (HCC) [facility]* Diagnosis Type 2 diabetes mellitus without complication, without long-term current use of insulin (HCC)- Primary [facility]* Diagnosis Other chest pain [facility]* Diagnosis Essential hypertension- Primary Unspecified essential hypertension Type 2 diabetes mellitus without complication, without long-term current use of insulin (HCC) Sleep apnea, unspecified type Mixed hyperlipidemia [facility]* Diagnosis Coronary artery disease involving [place] coronary artery of [place] heart without angina pectoris- Primary Mixed hyperlipidemia [facility]* Diagnosis Coronary artery disease involving [place] coronary artery of [place] heart with angina pectoris (HCC)- Primary [facility]* Diagnosis Essential hypertension Unspecified essential hypertension [facility]* Diagnosis Anxiety- Primary Anxiety state, unspecified Type 2 diabetes mellitus without complication, without long-term current use of insulin (HCC) Sleep apnea, unspecified type Essential hypertension Unspecified essential hypertension Generalized anxiety disorder [facility]* Diagnosis Anxiety Anxiety state, unspecified [facility]* Diagnosis Coronary artery disease involving [place] coronary artery of [place] heart without angina pectoris- Primary Mixed hyperlipidemia Hypertension, unspecified type Aortic dilatation (HCC) [facility]* Diagnosis Indigestion- Primary Dyspepsia and other specified disorders of function of stomach Nausea Nausea alone Gastroesophageal reflux disease, unspecified whether esophagitis present Nausea Nausea alone Indigestion Dyspepsia and other specified disorders of function of stomach Nausea Nausea alone Indigestion Dyspepsia and other specified disorders of function of stomach [facility]* Diagnosis Nausea Nausea alone Indigestion Dyspepsia and other specified disorders of function of stomach Type 2 diabetes mellitus without complication, with long-term current use of insulin (HCC)- Primary Colon cancer screening Special screening for malignant neoplasms, colon Essential hypertension Unspecified essential hypertension Aortic root dilation (HCC) Thoracic aneurysm without mention of rupture Gastroesophageal reflux disease, unspecified whether esophagitis present Chest pain due to coronary artery disease (HCC) Nausea Nausea alone Indigestion Dyspepsia and other specified disorders of function of stomach [facility]* Diagnosis Nausea Nausea alone Indigestion Dyspepsia and other specified disorders of function of stomach Type 2 diabetes mellitus without complication, with long-term current use of insulin (HCC)- Primary Colon cancer screening Special screening for malignant neoplasms, colon Essential hypertension Unspecified essential hypertension Aortic root dilation (HCC) Thoracic aneurysm without mention of rupture Gastroesophageal reflux disease, unspecified whether esophagitis present Chest pain due to coronary artery disease (HCC) Nausea Nausea alone Indigestion Dyspepsia and other specified disorders of function of stomach [facility] Diagnosis Indigestion- Primary Dyspepsia and other specified disorders of function of stomach Nausea Nausea alone Gastroesophageal reflux disease, unspecified whether esophagitis present Colon cancer screening Special screening for malignant neoplasms, colon Nausea Nausea alone Indigestion Dyspepsia and other specified disorders of function of stomach Nausea Nausea alone Indigestion Dyspepsia and other specified disorders of function of stomach [facility]* Diagnosis Nausea Nausea alone Indigestion Dyspepsia and other specified disorders of function of stomach Wheezing- Primary Mid back pain Nausea Nausea alone Indigestion Dyspepsia and other specified disorders of function of stomach [facility]* Diagnosis Nausea Nausea alone Indigestion Dyspepsia and other specified disorders of function of stomach Coronary artery disease involving [place] coronary artery of [place] heart without angina pectoris- Primary Mixed hyperlipidemia Hypertension, unspecified type Aortic dilatation (HCC) Nausea Nausea alone Indigestion Dyspepsia and other specified disorders of function of stomach [facility] Diagnosis Indigestion- Primary Dyspepsia and other specified disorders of function of stomach Nausea Nausea alone Gastroesophageal reflux disease, unspecified whether esophagitis present Colon cancer screening Special screening for malignant neoplasms, colon Nausea Nausea alone Indigestion Dyspepsia and other specified disorders of function of stomach Nausea Nausea alone Indigestion Dyspepsia and other specified disorders of function of stomach Nausea Nausea alone Indigestion Dyspepsia and other specified disorders of function of stomach [facility] Diagnosis Nausea- Primary Nausea alone Colon cancer screening Special screening for malignant neoplasms, colon Gastroesophageal reflux disease, unspecified whether esophagitis present [facility] Diagnosis Chest pain- Primary Unspecified chest pain [facility] Diagnosis Type 2 diabetes mellitus without complication, with long-term current use of insulin (HCC)- Primary Type 2 diabetes mellitus with other specified complication, with long-term current use of insulin ([facility]) Essential hypertension Unspecified essential hypertension [facility] Diagnosis Erectile dysfunction, unspecified erectile dysfunction type- Primary BPH with obstruction/lower urinary tract symptoms Frequency of urination Urinary frequency Urge incontinence [facility] Diagnosis Type 2 diabetes mellitus without complication, with long-term current use of insulin (HCC) [facility] Diagnosis Type 2 diabetes mellitus without complication, with long-term current use of insulin ([facility])- Primary Encounter for immunization Other chest pain Seasonal allergic rhinitis, unspecified trigger Aortic root dilation (HCC) Thoracic aneurysm without mention of rupture [facility] Diagnosis Coronary artery disease involving [place] coronary artery of [place] heart without angina pectoris- Primary Mixed hyperlipidemia Hypertension, unspecified type Aortic dilatation (HCC) [facility] Diagnosis Type 2 diabetes mellitus without complication, with long-term current use of insulin (HCC)- Primary Aortic root dilation (HCC) Thoracic aneurysm without mention of rupture [facility] Additional Orders:Additional Instructions: You had a heart attack that required a stent to be placed in one of your vessels of heart. It is important you try to reduce your risk factors of this occurring again. Eating healthy, controlling underlying blood pressure, diabetes cholesterol, reducing stress, avoiding drugs or excessive alcohol use are very important. We have provided you with some packets in regards to reducing your risks and information on each. It is VERY IMPORTANT you do not missthe aspirin and Ticagrelor medications every day. This is very important as discussed. If you experience any chest pain, shortness of breath, leg swelling, palpitations or run out of medications, please call your doctor, hospital or come to ED for further evaluation. Below are the medications you will need to take. You would benefit from an Mayte-Inhibitor or ARB medication which are blood pressurelowering agents with other benefits as discussed but you are intolerant to them. Consider trying different brands after discussing with your primary doctor. Aspirin 81 mg Oral Daily , Atorvastatin: 80 mg Oral Daily , Metoprolol Succinate Extended Release: 25 mg Oral At Bedtime Ticagrelor Maintenance Dose: 90 mg Oral 2 Times a Day , Follow-up scheduled with Dr. Galindo December 13, 2020 * Call Provider If:Breathing faster than normal. Breathing harder than normal or having retractions. Fever of 100.4 F (38 C) or higher. Temperature is greater than 102 degrees. Chills. Drinking less than normal. Not being able to go 4-6 hours between albuterol treatments. Urinating less than normal, over 1 day. Urinating less than 4 times per day. Acting very sleepy and difficult to awaken. Vomiting (throwing up) and not able to eat or drink for 12 hours. 3 or more loose, watery bowel movements in 24 hours (diarrhea). Any new concerning symptoms. * Follow Up Appointment 1:Physician/Dept/Service: Dr. Couch for Referral: Cardiology [facility] UpScheduled Date/Time: 13-Dec-2020 14:30Location: [facility] OfficePhone Number: [phone] [facility] Attachments The following attachments cannot be sent through Care Everywhere. * Gastric Emptying Scan: GI Scintigraphy ([place]wand[place]) documented in [facility]* Attachments The following attachments cannot be sent through Care Everywhere. * Gastric Emptying Scan: GI Scintigraphy ([place]) [facility]* Attachments The following attachments cannot be sent through Care Everywhere. * Gastric Emptying Scan: GI Scintigraphy ([place]) documented in [facility]Inst[facility]* Attachments The following attachments cannot be sent through Care Everywhere. * Erectile Dysfunction ([place]) * BPH (Benign Prostatic Hyperplasia) ([place]) * Bladder Diet ([place]wandan) * Bladder: Training ([place]) [facility] (narrative)* Consultation (Routine) - Authorized Specialty Diagnoses / Procedures Referred By Contac t Referred To Contact Nutrition Diagnoses Type 2 diabetes mellitus without complication, without long-term current use of insulin (HCC) Maggie Marquez MD [address] [place] [id number] Referral ID Status Reason Start Date Expiration Date Visits Requested Visits Authorized [id number] Authorized Specialty Services Required/Pat ient's Best Interest 02/10/2022 7 7 [facility] for referral (narrative)* Consultation (Routine) - Authorized Specialty Diagnoses / Procedures Referred By Contbrennan t Referred To Contact Diabetes Services Diagnoses Type 2 diabetes mellitus with other specified complication, with long-term current use of insulin (HCC) Maggie Marquez MD [facility] [address] [facility] [place] [place] [address] Referral ID Status Reason Start Date Expiration Date V isits Requested Visits Authorized [id number] Authorized 11/06/2022 11/06/2023 1 1 * Evaluate and Treat (Routine) - Authorized Specialty Diagnoses / Procedures Referred By Contac t Referred To Contact Nutrition Diagnoses Type 2 diabetes mellitus without complication, with long-term current use of insulin (HCC) Maggie Marquez MD [address] [address] Nutrition Services [facility] [place] [address] Referral ID Status Reason Start Date Expiration Date V isits Requested Visits Authorized [id number] Authorized 11/06/2022 11/06/2023 1 1 [facility] for referral (narrative)* Consultation (Routine) - Authorized Specialty Diagnoses / Procedures Referred By Contac t Referred To Contact Endocrinology Diagnoses Type 2 diabetes mellitus without complication, with long-term current use of insulin ([facility]) Maggie Marquez MD [facility] [place] [id number] Referral ID Status Reason Start Date Expiration Date V isits Requested Visits Authorized [id number] Authorized 05/08/2023 05/07/2024 1 1 [facility] for visit Narrative* Auth/Cert Specialty Diagnoses / Procedures Referred By Contac t Referred To Contact Diagnoses Chest pain Non-STEMI Referral ID Status Reason Start Date Expiration Date Visits Re quested Visits Authorized [id number] 1 1 [facility] for visit Narrative* Auth/Cert Specialty Diagnoses / Procedures Referred By Contac t Referred To Contact Diagnoses Chest pain Chest pain Referral ID Status Reason Start Date Expiration Date Visits Re quested Visits Authorized [id number] 1 1 [facility] Summary Purpose Family History No Family History Records FoundNo Family History Records FoundNo Family History Records FoundNo Family History Records FoundNo Family History Records FoundNo Family History Records FoundNo Family History Records FoundNo Family History Records FoundNo Family History Records Found Advance Directives No Advanced Directives Records FoundDocuments on File Type Date Recorded Patient Graduate Student Expl anation Advance Directives and Living Will Power of Clerical Stock Inspector 03/29/2018 12:00 AM POA Power of Clerical Stock Inspector 03/29/2018 12:00 AM Gene ral Durable Power Of Clerical Stock Inspector Documents on File Type Date Recorded Patient Graduate Student Expl anation Advance Directives and Living Will 12/12/2020 7:00 PM Power of Clerical Stock Inspector 03/29/2018 12:00 AM POA Power of Clerical Stock Inspector 03/29/2018 12:00 AM Gene ral Durable Power Of Clerical Stock Inspector Latest Code Status on File Code Status Date Activated Date Inactivated Comments Full Code 12/14/2020 3:52 PM 12/15/2020 4:59 PM Full Code 12/13/2020 11:21 AM 12/14/2020 3:52 PM Documents on File Type Date Recorded Patient Graduate Student Expl anation Advance Directives and Living Will 12/12/2020 7:00 PM Power of Clerical Stock Inspector 03/29/2018 12:00 AM POA Power of Clerical Stock Inspector 03/29/2018 12:00 AM Gene ral Durable Power Of Clerical Stock Inspector Latest Code Status on File Code Status Date Activated Date Inactivated Comments Full Code 12/14/2020 3:52 PM 12/15/2020 4:59 PM Full Code 12/13/2020 11:21 AM 12/14/2020 3:52 PM Documents on File Type Date Recorded Patient Graduate Student Expl anation Advance Directives and Living Will 02/22/2021 9:15 AM Power of Clerical Stock Inspector 02/22/2021 9:14 AM POA Power of Clerical Stock Inspector 03/29/2018 12:00 AM Gene ral Durable Power Of Clerical Stock Inspector Latest Code Status on File Code Status Date Activated Date Inactivated Comments Full Code 02/22/2021 2:38 PM 02/22/2021 5:34 PM Full Code 12/14/2020 3:52 PM 12/15/2020 4:59 PM Documents on File Type Date Recorded Patient Graduate Student Expl anation Advance Directives and Living Will 02/22/2021 9:15 AM Power of Clerical Stock Inspector 02/22/2021 9:14 AM POA Power of Clerical Stock Inspector 03/29/2018 12:00 AM Gene ral Durable Power Of Clerical Stock Inspector Latest Code Status on File Code Status Date Activated Date Inactivated Comments Full Code 02/22/2021 2:38 PM 02/22/2021 5:34 PM Full Code 12/14/2020 3:52 PM 12/15/2020 4:59 PM Documents on File Type Date Recorded Patient Graduate Student Expl anation Advance Directives and Living Will 03/28/2021 8:15 AM NO COPY IN SOARIAN Power of Clerical Stock Inspector 02/22/2021 9:14 AM POA Power of Clerical Stock Inspector 03/29/2018 12:00 AM Gene ral Durable Power Of Clerical Stock Inspector Documents on File Type Date Recorded Patient Graduate Student Expl anation Advance Directives and Living Will 03/28/2021 8:15 AM NO COPY IN SOARIAN Power of Clerical Stock Inspector 02/22/2021 9:14 AM POA Power of Clerical Stock Inspector 03/29/2018 12:00 AM Gene ral Durable Power Of Clerical Stock Inspector Documents on File Type Date Recorded Patient Graduate Student Expl anation Power of Clerical Stock Inspector 02/22/2021 9:14 AM POA Power of Clerical Stock Inspector 03/29/2018 General Du rable Power Of Clerical Stock Inspector Latest Code Status on File Date Activated Date Inactivated Comments 02/22/2021 2:38 PM 02/22/2021 5:34 PM Full Code Date Activated Date Inactivated Comments 12/14/2020 3:52 PM 12/15/2020 4:59 PM Full Code Date Activated Date Inactivated Comments 12/13/2020 11:21 AM 12/14/2020 3:52 PM Latest Code Status on File Code Status Date Activated Date Inactivated Comments Full Code 02/22/2021 2:38 PM 02/22/2021 5:34 PM Code Status History Code Status Date Activated Date Inactivated Comments Full Code 12/14/2020 3:52 PM 12/15/2020 4:59 PM Full Code 12/13/2020 11:21 AM 12/14/2020 3:52 PM Documents on File Type Date Recorded Patient Graduate Student Expl anation Power of Clerical Stock Inspector 02/22/2021 9:14 AM POA Power of Clerical Stock Inspector 03/29/2018 General Du rable Power Of Clerical Stock Inspector Latest Code Status on File Code Status Date Activated Date Inactivated Comments Full Code 02/22/2021 2:38 PM 02/22/2021 5:34 PM Code Status History Code Status Date Activated Date Inactivated Comments Full Code 12/14/2020 3:52 PM 12/15/2020 4:59 PM Full Code 12/13/2020 11:21 AM 12/14/2020 3:52 PM Latest Code Status on File Code Status Date Activated Date Inactivated Comments Full Code 08/31/2022 6:05 PM 09/01/2022 2:17 PM Code Status History Code Status Date Activated Date Inactivated Comments Full Code 08/31/2022 1:19 PM 08/31/2022 6:05 PM Full Code 02/22/2021 2:38 PM 02/22/2021 5:34 PM Full Code 12/14/2020 3:52 PM 12/15/2020 4:59 PM Full Code 12/13/2020 11:21 AM 12/14/2020 3:52 PM Latest Code Status on File Code Status Date Activated Date Inactivated Comments Full Code 08/31/2022 6:05 PM 09/01/2022 2:17 PM Code Status History Code Status Date Activated Date Inactivated Comments Full Code 08/31/2022 1:19 PM 08/31/2022 6:05 PM Full Code 02/22/2021 2:38 PM 02/22/2021 5:34 PM Full Code 12/14/2020 3:52 PM 12/15/2020 4:59 PM Full Code 12/13/2020 11:21 AM 12/14/2020 3:52 PM Instructions * Patient Instructions - Chemo Drummond MD - 04/18/2018 9:53 AM EST Formatting of this note may be different from the original. Problem List Items Addressed This Visit Digestive GERD (gastroesophageal reflux disease) Continue the famotidine 40 mg at bedtime. Relevant Medications famotidine (PEPCID) 40 MG tablet Endocrine Diabetes mellitus (HCC) - Primary YOur A1C today is 10.7. This means that the last 130 days you Have been @255. It needs to be closerto 151 Goals for Diabetic care Overview: A= A1C < 7.0 B = BP , 130/70 C = HDL cholesterol > 50 in women and non HDL total < 100 D = diet that allows control of diabetes and a gradual weight loss towards reasonable body weight not to exceed 5 # per month. E= exercise minimum of 150-180 minutes per week at target heart rate F= Function of body to be monitored and result in lower rates of disease burden through monitoring of target organs with annual eye exam, foot care and awareness of risk, review of of kidney functionthrough microabuminuria awareness. Will stop the Glucotrol and add Tradjenta 5 mg once a day as well as increase the long acting insulin to 60 units at bedtime. You must identify the calories that you are eating. Suggest a minimum of blood glucose fasting every day and at least one additional time pre meal. Remember to bring your diabetic log at each and every appointment. From that we get a sense of youraverage fasting and the average 2 hour post meal or immediately pre meal glucose averages. Then youwill be asked if any low blood glucose events since last visit. You will be asked the time of day they occurred, how long and why. Last eye exam, and last A1C, and if you have noticed any change in the feet or if you are checking your feet every day. Relevant Medications insulin aspart protamine-insulin aspart (NOVOLOG 70/30) 100 unit/mL (70-30) injection insulin glargine (LANTUS) 100 unit/mL (3 mL) InPn metFORMIN (GLUCOPHAGE) 1000 MG tablet Other Relevant Orders POC Glycosylated Hemoglobin (Hb A1C) (Completed) POC Glucose Device (Completed) POC Urinalysis Dipstick (Completed) POC Microalbumin/Creatinine Ratio (Completed) Respiratory Allergic rhinitis Continue the flonase and the CLaritin and you are presently doing. Suggest adding Singulair to helpwith the allergies. Relevant Medications loratadine (CLARITIN) 10 mg tablet Cardiovascular and Mediastinum Hypertension Continue the lisinopril but the BP goal should be to be consistently < 130/80. You are slightly above that. Relevant Medications lisinopril (PRINIVIL,ZESTRIL) 10 MG tablet fluticasone (FLONASE) 50 mcg/actuation nasal spray Nervous and Auditory Carpal tunnel syndrome, bilateral The treatment for carpal tunnel syndrome is to identify and control diabetes, thyroid, and repetitive trauma. If not able to control with this then referral is indicated. Relevant Medications thiamine 100 MG tablet Other Hyperlipidemia Control of diet as well as control of diabetes In addition to a minimum of 150- 180 minute per week of exercise is needed to maintain fitness and control cholesterol particularly if diabetic. Your goal is an HDL >45 and a non HDL total which is a combination of the LDL and VLDL < 100.Diabetes tends to raise the Triglycerides which results in the raising of the VLDL. Relevant Medications atorvastatin (LIPITOR) 40 MG tablet Obesity Calorie counting is the basis for all weight loss. Typically weigh or measure everything that you place in your mouth. Pay attention to those things that you think are free. Include the calories associated with anything you drink as well. Most that you can buy is required by law to have informationon it which breaks down the caloric values for serving size. Look at the serving size and then the weight or measure of that serving size is how you calculate the calories. Try to get over half of your daily calories in the first half of the day. Need to find the time for exercise. Activity is great but exercise is activity with a heart rate into the Target Zone (65%-85% of Maximum Heart Rate0. Consider calorie counting. But weight loss is minimal without exercise since the body will turn down the BMI or thermostat over time. Exercise allows you to see the benefit of calorie control. Maximum Heart Rate or MHR is defined by 220 - age. Then Target Heart Rate or THR is 65-85% of MHR. Need to allow warmup slowly over 5- 10 minute to prevent going too fast to reach THR. Then exercise interval at THR and allow cool down until at least correction back to the pre exercise hear rate. Therefore if resting heart rate was 70 and your target heart rate was 120. You need to keep moving and work the muscles until you heart rate is below 95 beats per minute. This reduces cramping and the riskof cardiac irritability post exercise. Most weight loss can be obtained best by cycling your calories. By counting the calories and then setting your intake at the minimum needs to maintain your lean body mass you conventional body not toturn down its basal metabolic rate. 80% or more of your total caloric needs are burned due to your basic metabolic rate. So tell your body that you are dieting and allowing it to turn down your basal metabolic rate sabotages your ability to lose weight. The way to do this and still lose weight his first start a diet at your minimum needs calculated by year estimated lean body mass. Then the first4 days of every week set your caloric intake to 300-400 lauren per day less. The last 3 days of the week your back to the minimum. This will stop your body from turning down the basal metabolic rate. More than 4 days below the basic minium will have your body trending down how you burn calories. 3500 lauren equals 1 pound and 150 lauren over 30 days below your needs will result in 1-1/2 pounds per month of weight loss or almost 20 pounds per year. Other Visit Diagnoses Needs flu shot Relevant Orders Influenza IIV4 3yo or >,Fluzone Quad (Completed) in this encounter History of Present Illness * Chemo Drummond MD - 04/20/2018 12:26 PM EST Formatting of this note may be different from the original. Subjective Patient ID: Frederic Stack Jr. is a 52 y.o. male. [facility] establish care. Patient is new to this provider, and new this practice. Diabetes: Patient diagnosed with diabetes in 2011. Patient is currently on a diabetic low concentrated sweets diet. Patient describes their lifestyle as moderately active. Hereport no hypoglycemic visits since last seen. He is are monitoring hisblood glucose levels at home 1-2 times per week. Average fasting 150-180. Not taking all current medications as prescribed. He has not been giving himselfthe insulin on a regular basis. Last labs: 04/18/2018: [id number] A1c: 10.7. Random nonfasting glucose with PT and barbecued chicken wings an hour prior to appointment 351. [id number]-[id number] urinalysis: Specific gravity: 1.025. Protein, negative. Glucose, 1000 mg/dL. Ketones, trace. Blood, negative.Nitrate, negative. Leukocyte Estrace, negative. Yprzi-[id number] microalbumin: Microalbumin 30 (0-20 mg/dL). Microalbumin/creatinine ratio: 30 (0-30). Hypertension: Patient has a history of hypertension since 1989. Most recently their condition has been stable . They report no angina, anginal equivalent, palpitations or change in exercise tolerance. moderately active. Last lab work obtained was 11/08/2017: Hemoglobin A1c: 11.5. CBC: WBC 6.96. RBC 5.05. Hemoglobin 14.7. Hematocrit 43.3. Platelet count 309,000. White blood cell differential normal. Comprehensive metabolic panel: Sodium 140. Potassium 4.5. Chloride 107. Bicarb 26. Glucose 183. BUN 13. Creatinine 1.00. Estimated GFR 79. Calcium 9.3. AST 40. ALT 53. Lipid panel: Total [id number]. Triglycerides 140. HDL 25. LDL 93. Non-HDL total 118. Current medications include: Lisinopril 10 mg daily. Hyperlipidemia: Patient was first diagnosed in 2014. Currently following a low fat and diabetic diet. Patient describes their lifestyle as moderately active. Taking medications as prescribed. Currently taking atorvastatin 40 mg tablet daily. Denies muscle ache, delay in recovery from exercise or change in color of urine. Last lipid panel 11/08/2017: Total cholesterol 151. Triglycerides 140. HDL 25. LDL 93. Non-HDL total 118.. Gastroesophageal reflux disease: Patient with a history of gastroesophageal reflux disease since 2004. His current symptoms are fullness after meals, abdominal bloating, heartburn, symptoms primarilyrelate to meals, and lying down after meals. Current medications are Pepcid. Overall his condition is stable. The following portions of the patient's history were reviewed and updated as appropriate: allergies, current medications, past family history, past medical history, past social history, past surgicalhistory and problem list. Review of Systems Constitutional: Positive for appetite change, chills, diaphoresis and unexpected weight change. Negative for activity change and fever. HENT: Positive for mouth sores, sinus pain and sinus pressure. Negative for dental problem, hearingloss, postnasal drip, rhinorrhea, tinnitus, trouble swallowing and voice change. Eyes: Negative for pain, discharge and visual disturbance. Respiratory: Positive for apnea and cough. Negative for shortness of breath and wheezing. Cardiovascular: Positive for chest pain. Negative for palpitations and leg swelling. Gastrointestinal: Positive for diarrhea. Negative for abdominal distention, abdominal pain, blood in stool, constipation, nausea and vomiting. Endocrine: Negative for cold intolerance, heat intolerance, polydipsia, polyphagia and polyuria. Genitourinary: Positive for frequency and genital sores. Negative for decreased urine volume, difficulty urinating, dysuria, enuresis, flank pain, hematuria and urgency. Musculoskeletal: Positive for arthralgias, back pain and myalgias. Negative for joint swelling. Skin: Negative for color change and rash. Neurological: Negative for dizziness, tremors, weakness, numbness and headaches. Hematological: Negative for adenopathy. Does not bruise/bleed easily. Psychiatric/Behavioral: Positive for agitation, dysphoric mood and sleep disturbance. Negative for hallucinations. The patient is nervous/anxious. Objective Vitals: 04/18/18 0907 BP: 138/88 BP Location: Left arm Patient Position: Sitting BP Cuff Size: Adult Pulse: 76 Resp: 18 Temp: 98 F (36.7 C) TempSrc: Oral SpO2: 98% Weight: 95.3 kg (210 lb) Height: 5' 6 Estimated body mass index is 33.89 kg/m as calculated from the following: Height as of this encounter: 5' 6 . Weight as of this encounter: 95.3 kg (210 lb). Physical Exam Constitutional: He is oriented to person, place, and time. He appears well- developed and well-nourished. Moderately obese white male in no apparent distress. HENT: Head: Normocephalic. Right Ear: External ear normal. Left Ear: External ear normal. Mouth/Throat: Oropharynx is clear and moist. Extremely poor dental hygiene with multiple obvious caries Eyes: Pupils are equal, round, and reactive to light. Conjunctivae and EOM are normal. Right eye exhibits no discharge. Left eye exhibits no discharge. No scleral icterus. Neck: Normal range of motion. No JVD present. No tracheal deviation present. No thyromegaly present. Cardiovascular: Normal rate and regular rhythm. No murmur heard. Pulmonary/Chest: No stridor. No respiratory distress. He has no wheezes. Abdominal: Soft. He exhibits no distension. There is no tenderness. Musculoskeletal: He exhibits no edema or tenderness. Lymphadenopathy: He has no cervical adenopathy. Neurological: He is alert and oriented to person, place, and time. No cranial nerve deficit. Skin: Skin is warm. No rash noted. Psychiatric: He has a normal mood and affect. His behavior is normal. Judgment and thought content normal. Assessment/Plan: Problem List Items Addressed This Visit Digestive GERD (gastroesophageal reflux disease) Continue the famotidine 40 mg at bedtime. Relevant Medications famotidine (PEPCID) 40 MG tablet Endocrine Diabetes mellitus (HCC) - Primary YOur A1C today is 10.7. This means that the last 130 days you Have been @255. It needs to be closerto 151 Goals for Diabetic care Overview: A= A1C < 7.0 B = BP , 130/70 C = HDL cholesterol > 50 in women and non HDL total < 100 D = diet that allows control of diabetes and a gradual weight loss towards reasonable body weight not to exceed 5 # per month. E= exercise minimum of 150-180 minutes per week at target heart rate F= Function of body to be monitored and result in lower rates of disease burden through monitoring of target organs with annual eye exam, foot care and awareness of risk, review of of kidney functionthrough microabuminuria awareness. Will stop the Glucotrol and add Tradjenta 5 mg once a day as well as increase the long acting insulin to 60 units at bedtime. You must identify the calories that you are eating. Suggest a minimum of blood glucose fasting every day and at least one additional time pre meal. Remember to bring your diabetic log at each and every appointment. From that we get a sense of youraverage fasting and the average 2 hour post meal or immediately pre meal glucose averages. Then youwill be asked if any low blood glucose events since last visit. You will be asked the time of day they occurred, how long and why. Last eye exam, and last A1C, and if you have noticed any change in the feet or if you are checking your feet every day. Relevant Medications insulin aspart protamine-insulin aspart (NOVOLOG 70/30) 100 unit/mL (70-30) injection insulin glargine (LANTUS) 100 unit/mL (3 mL) InPn metFORMIN (GLUCOPHAGE) 1000 MG tablet Other Relevant Orders POC Glycosylated Hemoglobin (Hb A1C) (Completed) POC Glucose Device (Completed) POC Urinalysis Dipstick (Completed) POC Microalbumin/Creatinine Ratio (Completed) Respiratory Allergic rhinitis Continue the flonase and the CLaritin and you are presently doing. Suggest adding Singulair to helpwith the allergies. Relevant Medications loratadine (CLARITIN) 10 mg tablet Cardiovascular and Mediastinum Hypertension Continue the lisinopril but the BP goal should be to be consistently < 130/80. You are slightly above that. Relevant Medications fluticasone (FLONASE) 50 mcg/actuation nasal spray lisinopril (PRINIVIL,ZESTRIL) 10 MG tablet Nervous and Auditory Carpal tunnel syndrome, bilateral The treatment for carpal tunnel syndrome is to identify and control diabetes, thyroid, and repetitive trauma. If not able to control with this then referral is indicated. Relevant Medications thiamine 100 MG tablet Other Hyperlipidemia Control of diet as well as control of diabetes In addition to a minimum of 150- 180 minute per week of exercise is needed to maintain fitness and control cholesterol particularly if diabetic. Your goal is an HDL >45 and a non HDL total which is a combination of the LDL and VLDL < 100.Diabetes tends to raise the Triglycerides which results in the raising of the VLDL. Relevant Medications atorvastatin (LIPITOR) 40 MG tablet Obesity Calorie counting is the basis for all weight loss. Typically weigh or measure everything that you place in your mouth. Pay attention to those things that you think are free. Include the calories associated with anything you drink as well. Most that you can buy is required by law to have informationon it which breaks down the caloric values for serving size. Look at the serving size and then the weight or measure of that serving size is how you calculate the calories. Try to get over half of your daily calories in the first half of the day. Need to find the time for exercise. Activity is great but exercise is activity with a heart rate into the Target Zone (65%-85% of Maximum Heart Rate0. Consider calorie counting. But weight loss is minimal without exercise since the body will turn down the BMI or thermostat over time. Exercise allows you to see the benefit of calorie control. Maximum Heart Rate or MHR is defined by 220 - age. Then Target Heart Rate or THR is 65-85% of MHR. Need to allow warmup slowly over 5- 10 minute to prevent going too fast to reach THR. Then exercise interval at THR and allow cool down until at least correction back to the pre exercise hear rate. Therefore if resting heart rate was 70 and your target heart rate was 120. You need to keep moving and work the muscles until you heart rate is below 95 beats per minute. This reduces cramping and the riskof cardiac irritability post exercise. Most weight loss can be obtained best by cycling your calories. By counting the calories and then setting your intake at the minimum needs to maintain your lean body mass you conventional body not toturn down its basal metabolic rate. 80% or more of your total caloric needs are burned due to your basic metabolic rate. So tell your body that you are dieting and allowing it to turn down your basal metabolic rate sabotages your ability to lose weight. The way to do this and still lose weight his first start a diet at your minimum needs calculated by year estimated lean body mass. Then the first4 days of every week set your caloric intake to 300-400 lauren per day less. The last 3 days of the week your back to the minimum. This will stop your body from turning down the basal metabolic rate. More than 4 days below the basic minium will have your body trending down how you burn calories. 3500 lauren equals 1 pound and 150 lauren over 30 days below your needs will result in 1-1/2 pounds per month of weight loss or almost 20 pounds per year. Other Visit Diagnoses Needs flu shot Relevant Orders Influenza IIV4 3yo or >,Fluzone Quad (Completed) For any new medications prescribed today, patient was educated about indications for the medication, how to take the medication and potential side effects of the medications. Rationale: Overweight (Findings) BMI Discussed elevated Body Mass Index (BMI): Advised regular exercise. Discussed elevated Body Mass Index (BMI): Advised healthy and appropriate diet. * Robert PAUL Davis - 04/18/2018 11:53 AM EST Rooming Documentation How often do you need to have someone help you when you read instructions, pamphlets or other written material from your doctor or pharmacy? Health Literacy Patient Response: Never Are you experiencing any side effects or adverse reactions to your medications? Patient response: No Do you have any problems taking your medications? Patient Response: No Patient states they do understand their medications Are you taking any [id number] medications or supplements? Patient Response: OTC Multivitamins Since last being seen in this office, have you seen another healthcare provider? Patient Response: No in this encounter Assessments Diagnosis Type 2 diabetes mellitus with other specified complication, with long-term current use of insulin (HCC)- Primary Needs flu shot Need for prophylactic vaccination and inoculation against influenza Seasonal allergic rhinitis, unspecified trigger Essential hypertension Unspecified essential hypertension Mixed hyperlipidemia Class 1 obesity due to excess calories with serious comorbidity and body mass index (BMI) of 33.0 to 33.9 in adult Gastroesophageal reflux disease, esophagitis presence not specified Carpal tunnel syndrome, bilateral Carpal tunnel syndrome Reason for Referral Specialty Diagnoses / Procedures Referred By Milena aguilar Referred To Contact Radiology Diagnoses Coronary artery disease involving [place] coronary artery of [place] heart with angina pectoris (HCC) Procedures NM Myocardial Perfusion Multiple SPECT Jd Cabrales MD [address] [address] Referral ID Status Reason Start Date Expiration Date V isits Requested Visits Authorized [id number] New Request 02/22/2021 02/22/2022 4 4 Specialty Diagnoses / Procedures Referred By Milena aguilar Referred To Contact Sleep Disorders Medicine Diagnoses Sleep apnea, unspecified type Maggie Marquez MD [address] [address] Amando Stephens MD [address] [place] [address] Referral ID Status Reason Start Date Expiration Date Visits Requested Visits Authorized [id number] Authorized Service Not Available Internally 03/30/2021 03/30/2022 1 1 Specialty Diagnoses / Procedures Referred By Contac t Referred To Contact Sleep Medicine Diagnoses JAN (obstructive sleep apnea) JAN Procedures POLYSOMNOGRAPHY 4 OR MORE PARAMETERS SPLIT NIGHT IF CRITERIA MET Rosa Clay CNS [address] [place] [address] Sleep Medicine [address] [place] [address] Referral ID Status Reason Start Date Expiration Date V isits Requested Visits Authorized [id number] Authorized 05/05/2021 05/05/2022 1 1 Specialty Diagnoses / Procedures Referred By Contac t Referred To Contact Radiology Diagnoses Nausea Indigestion Procedures NM Gastric Emptying Callie Langston, SADDLE STITCHING MACHINE OPERATOR [address] [place] [address] [address] Referral ID Status Reason Start Date Expiration Date V isits Requested Visits Authorized [id number] New Request 03/14/2022 03/14/2023 4 4 Specialty Diagnoses / Procedures Referred By Contac t Referred To Contact Gastroenterology Diagnoses Colon cancer screening Maggie Marquez MD [address] [address] [facility] [address] [place] [address] Referral ID Status Reason Start Date Expiration Date V isits Requested Visits Authorized [id number] Authorized 03/19/2022 03/19/2023 1 1 Referral ID Status Reason Start Date Expiration Date Visits Re quested Visits Authorized [id number] Closed 03/14/2022 03/14/2023 4 4 Specialty Diagnoses / Procedures Referred By Milena aguilar Referred To Contact Cardiology Diagnoses Aortic root dilation (HCC) Procedures Echocardiogram complete Maggie Marquez MD [address] [place] [id number] Referral ID Status Reason Start Date Expiration Date V isits Requested Visits Authorized [id number] New Request 01/24/2023 01/24/2024 1 1 Additional Source Comments (unrecognized sect ion and content) No Status Records FoundNo Status Records FoundNo Status Records FoundNo Status Records FoundNo Status Records FoundNo Status Records FoundNo Status Records FoundNo Status Records FoundNo Status Records Found INFORMATION SOURCE (unrecogn ized section and content) DATE CREATED AUTHOR AUTHOR'S ORGANIZ ATION 09/24/2018 [facility] DATE CREATED AUTHOR AUTHOR'S ORGANIZ ATION 12/14/2020 [facility] DATE CREATED AUTHOR AUTHOR'S ORGANIZ ATION 01/06/2021 [facility] [facility] DATE CREATED AUTHOR AUTHOR'S ORGANIZ ATION 06/06/2021 [facility] DATE CREATED AUTHOR AUTHOR'S ORGANIZ ATION 07/13/2021 [facility] DATE CREATED AUTHOR AUTHOR'S ORGANIZ ATION 09/05/2022 [facility] DATE CREATED AUTHOR AUTHOR'S ORGANIZ ATION 05/08/2023 [facility] DATE CREATED AUTHOR AUTHOR'S ORGANIZ ATION 05/12/2023 [facility] Reason for Visit (unrecogniz ed section and content) Reason Onset Date Comments Medication Refill 11/30/2020 Reason Onset Date Comments Medication Refill 12/10/2020 Reason Comments Follow-up y-heart cath follow up for fmla Reason Onset Date Comments Medication Refill 12/22/2020 Reason Comments Follow-up s/p PCI, readmission , still with CP and taking NTG Reason Comments Follow-up pt wants to meet dr marquez and establish care with her Reason Comments Hypertension Reason Onset Date Comments Dietitian 03/09/2021 Diabetes Managem ent Outreach Reason Comments Follow-up Reason Comments Follow-up 3 mo -pt states he h as a cold, he started coughing last night due to cold which brought on a dull ache across chest, dizziness -ED 02/22/21 chest pain Reason Comments Diabetes Reason Onset Date Comments Medication Refill 09/20/2021 Reason Comments Follow-up 2 month f/u Reason Comments Follow-up 6 mo/ [place] - no n ew cardiac concerns Reason Comments Follow-up 4 week fu htn, dm re view labs Reason Onset Date Comments Medication Refill 12/29/2021 Reason Comments Follow-up 4 mo/no cardiac conc erns today Specialty Diagnoses / Procedures Referred By Contact Referred To Contact Nurse Practitioner / Gastroenterology Diagnoses Nausea Maggie Marquez MD [address] [address] Callie Langston, [employer]ADDLE [employer]ING MACHINE OPERATOR [address] [place] [address] Referral ID Status Reason Start Date Expiration Date Visits Re quested Visits Authorized [id number] Closed 02/12/2022 02/12/2023 1 1 Reason Comments Follow-up 4 week f/u Reason Comments Follow-up 4 week f/u Reason Comments Abdominal Pain Gap Closure (Health Maintenance) Ophthal mology Exam due on 10/04/2021 Reason Comments Follow-up 3 mo/no cardiac conc erns today Reason Onset Date Comments Transition Of Care 09/04/2022 YANG x 1 unsuc cessful Reason Comments Follow-up 6 week f/u Gap Closure (Health Maintenance) Foot Ex am due on 06/23/2022 Reason Comments Erectile Dysfunction Specialty Diagnoses / Procedures Referred By Contac t Referred To Contact Urology Diagnoses Erectile dysfunction, unspecified erectile dysfunction type Maggie Marquez MD [address] [address] [facility] [address] [place] [address] Referral ID Status Reason Start Date Expiration Date Visits Re quested Visits Authorized [id number] Closed 09/10/2022 09/10/2023 1 1 Reason Onset Date Comments Medication Refill 01/09/2023 Reason Comments Follow-up 2 mon fu Gap Closure (Health Maintenance) A1C due on 12/06/2022 Reason Comments Follow-up S/p hosp for chest p ain/ dizziness Assessment & Plan Note - Chemo Drummond MD - 04/18/2018 10:02 AM ESTAssessment & Plan Note - Chemo Drummond MD - 04/18/2018 10:01 AM EST Miscellaneous Notes (unrecog nized section and content) Associated Problem(s): Carpal tunnel syndrome, bilateral The treatment for carpal tunnel syndrome is to identify and control diabetes, thyroid, and repetitive trauma. If not able to control with this then referral is indicated. Associated Problem(s): GERD (gastroesophageal reflux disease) Continue the famotidine 40 mg at bedtime. Associated Problem(s): Obesity Calorie counting is the basis for all weight loss. Typically weigh or measure everything that you place in your mouth. Pay attention to those things that you think are free. Include the calories associated with anything you drink as well. Most that you can buy is required by law to have information on it which breaks down the caloric values for serving size. Look at the serving size and then the weight or measure of that serving size is how you calculate the calories. Try to get over half of your daily calories in the first half of the day. Need to find the time for exercise. Activity is great but exercise is activity with a heart rate into the Target Zone (65%-85% of Maximum Heart Rate0. Consider calorie counting. But weight loss is minimal without exercise since the body will turn down the BMI or thermostat over time. Exercise allows you to see the benefit of calorie control. Maximum Heart Rate or MHR is defined by 220 - age. Then Target Heart Rate or THR is 65-85% of MHR. Need to allow warmup slowly over 5- 10 minute to prevent going too fast to reach THR. Then exercise interval at THR and allow cool down until at least correction back to the pre exercise hear rate. Therefore if resting heart rate was 70 and your target heart rate was 120. You need to keep moving and work the muscles until you heart rate is below 95 beats per minute. This reduces cramping and the risk of cardiac irritability post exercise. Most weight loss can be obtained best by cycling your calories. By counting the calories and then setting your intake at the minimum needs to maintain your lean body mass you conventional body not to turn down its basal metabolic rate. 80% or more of your total caloric needs are burned due to your basic metabolic rate. So tell your body that you are dieting and allowing it to turn down your basal metabolic rate sabotages your ability to lose weight. The way to do this and still lose weight his first start a diet at your minimum needs calculated by year estimated lean body mass. Then the first 4 days of every week set your caloric intake to 300-400 lauren per day less. The last 3 days of the week your back to the minimum. This will stop your body from turning down the basal metabolic rate. More than 4 days below the basic minium will have your body trending down how you burn calories. 3500 lauren equals 1 pound and 150 lauren over 30 days below your needs will result in 1-1/2 pounds per month of weight loss or almost 20 pounds per year. Associated Problem(s): Hyperlipidemia Control of diet as well as control of diabetes In addition to a minimum of 150- 180 minute per week of exercise is needed to maintain fitness and control cholesterol particularly if diabetic. Your goal is an HDL >45 and a non HDL total which is a combination of the LDL and VLDL < 100. Diabetes tends to raise the Triglycerides which results in the raising of the VLDL. Associated Problem(s): Hypertension Continue the lisinopril but the BP goal should be to be consistently < 130/80. You are slightly above that. Associated Problem(s): Allergic rhinitis Continue the flonase and the CLaritin and you are presently doing. Suggest adding Singulair to help with the allergies. Associated Problem(s): Diabetes mellitus (HCC) YOur A1C today is 10.7. This means that the last 130 days you Have been @255. It needs to be closer to 151 Goals for Diabetic care Overview: A= A1C < 7.0 B = BP , 130/70 C = HDL cholesterol > 50 in women and non HDL total < 100 D = diet that allows control of diabetes and a gradual weight loss towards reasonable body weight not to exceed 5 # per month. E= exercise minimum of 150-180 minutes per week at target heart rate F= Function of body to be monitored and result in lower rates of disease burden through monitoring of target organs with annual eye exam, foot care and awareness of risk, review of of kidney function through microabuminuria awareness. Will stop the Glucotrol and add Tradjenta 5 mg once a day as well as increase the long acting insulin to 60 units at bedtime. You must identify the calories that you are eating. Suggest a minimum of blood glucose fasting every day and at least one additional time pre meal. Remember to bring your diabetic log at each and every appointment. From that we get a sense of your average fasting and the average 2 hour post meal or immediately pre meal glucose averages. Then you will be asked if any low blood glucose events since last visit. You will be asked the time of day they occurred, how long and why. Last eye exam, and last A1C, and if you have noticed any change in the feet or if you are checking your feet every day.in this encounter <item><item> Privacy Markings (unrecogniz ed section and content) Section Author: Migdalia Melendez PROHIBITION ON REDISCLOSURE OF CONFIDENTIAL INFORMATION This notice accompanies a disclosure of information concerning a client made to you with the consent of such client. Section Author: Migdalia Melendez PROHIBITION ON REDISCLOSURE OF CONFIDENTIAL INFORMATION This notice accompanies a disclosure of information concerning a client made to you with the consent of such client. Care Teams (unrecognized sec tion and content) Postal Clerk Relationship Specialty Start Date End Date Rashawn Boston MD [address] [place] [address] PCP - General Family Medicine 11/30/20 Postal Clerk Relationship Specialty Start Date End Date Rashawn Boston MD [address] [place] [id number] PCP - General Family Medicine 11/30/20 Postal Clerk Relationship Specialty Start Date End Date Rashawn Boston MD [address] [place] [id number] PCP - General Family Medicine 11/30/20 Postal Clerk Relationship Specialty Start Date End Date Rashawn Boston MD [facility] [place] [id number] PCP - General Family Medicine 11/30/20 Postal Clerk Relationship Specialty Start Date End Date Maggie Marquez MD [address] [place] [id number] PCP - General Family Medicine 01/05/21 Postal Clerk Relationship Specialty Start Date End Date Maggie Marquez MD [facility] [place] [id number] PCP - General Family Medicine 01/05/21 Rashawn Boston MD [facility] [address] [address] PCP - [facility] Provider - [employer] 01/20/20 04/21/50 Postal Clerk Relationship Specialty Start Date End Date Maggie Marquez MD [facility] [address] [address] PCP - General Family Medicine 01/05/21 Rashawn Boston MD [address] [address] PCP - [place] Attributed Provider - [employer] 01/20/20 04/21/50 Postal Clerk Relationship Specialty Start Date End Date Maggie Marquez MD [address] [address] PCP - General Family Medicine 01/05/21 Rashawn Boston MD [address] [address] PCP - [place] Attributed Provider - [employer] 01/20/20 04/21/50 Postal Clerk Relationship Specialty Start Date End Date Maggie Marquez MD [facility] [address] [address] PCP - General Family Medicine 01/05/21 Rashawn Boston MD [address] [address] PCP - [place] Attributed Provider - [employer] 01/20/20 04/21/50 Postal Clerk Relationship Specialty Start Date End Date Maggie Marquez MD [address] [address] PCP - General Family Medicine 01/05/21 Rashawn Boston MD [address] [address] PCP - [place] Attributed Provider - [employer] 01/20/20 04/21/50 Postal Clerk Relationship Specialty Start Date End Date Maggie Marquez MD [address] [address] PCP - General Family Medicine 01/05/21 Rashawn Boston MD [address] [address] PCP - [place] Attributed Provider - [employer] 01/20/20 04/21/50 Postal Clerk Relationship Specialty Start Date End Date Maggie Marquez MD [address] [place] [id number] PCP - General Family Medicine 01/05/21 Rashawn Boston MD [address] [place] [id number] PCP - [place] Attributed Provider - [employer] 01/20/20 04/21/50 Postal Clerk Relationship Specialty Start Date End Date Maggie Marquez MD [address] [place] [address] PCP - General Family Medicine 01/05/21 Maggie Marquez MD [facility] [place] [address] PCP - AR[place] Attributed Provider - [employer] 01/20/20 04/21/50 Postal Clerk Relationship Specialty Start Date End Date Maggie Marquez MD [address] [place] [phone] PCP - General Family Medicine 01/05/21 Maggie Marquez MD [address] [place] [id number] PCP - AR[place] Attributed Provider - [employer] 01/20/20 04/21/50 Postal Clerk Relationship Specialty Start Date End Date Maggie Marquez MD [address] [place] [phone] PCP - General Family Medicine 01/05/21 Maggie Marquez MD [address] [place], [place] [phone] PCP - [place] Attributed Provider - [employer] 01/20/20 04/21/50 Postal Clerk Relationship Specialty Start Date End Date Maggie Marquez MD [address] [place], [place] [phone] PCP - General Family Medicine 01/05/21 Maggie Marquez MD [address] [place], [place] [phone] PCP - [place] Attributed Provider - [employer] 01/20/20 04/21/50 Postal Clerk Relationship Specialty Start Date End Date Maggie Marquez MD [address] [place], [place] [phone] PCP - General Family Medicine 01/05/21 Maggie Marquez MD [address] [place] [address] PCP - ARAMIS Attributed Provider - [employer] 01/20/20 04/21/50 Postal Clerk Relationship Specialty Start Date End Date Maggie Marquez MD [address] [place] [address] PCP - General Family Medicine 01/05/21 Maggie Marquez MD [address] [place] [address] PCP - ARAM[place] Attributed Provider - [employer] 01/20/20 04/21/50 Postal Clerk Relationship Specialty Start Date End Date JimmyMaggie mcnally MD [address] [address] PCP - General Family Medicine 01/05/21 Maggie Marquez MD [address] [address] PCP - [place] Attributed Provider - [employer] 01/20/20 04/21/50 Postal Clerk Relationship Specialty Start Date End Date Maggie Marquez MD [address] [address] PCP - General Family Medicine 01/05/21 Maggie Marquez MD [address] [address] PCP - [place] Attributed Provider - [employer] 01/20/20 04/21/50 Postal Clerk Relationship Specialty Start Date End Date Maggie Marquez MD [address] [address] PCP - General Family Medicine 01/05/21 Maggie Marquez MD [address] [address] PCP - AR[place] Attributed Provider - [employer] 01/20/20 04/21/50 Postal Clerk Relationship Specialty Start Date End Date Maggie Marquez MD [address] [address] PCP - General Family Medicine 01/05/21 Maggie Marquez MD [address] [address] PCP - [place] Attributed Provider - [employer] 01/20/20 04/21/50 Postal Clerk Relationship Specialty Start Date End Date Maggie Marquez MD [address] [address] PCP - General Family Medicine 01/05/21 Maggie Marquez MD [address] [address] PCP - AR[place] Attributed Provider - [employer] 01/20/20 04/21/50 Postal Clerk Relationship Specialty Start Date End Date aMggie Marquez MD [address] [address] PCP - General Family Medicine 01/05/21 Maggie Marquez MD [facility] [place] [phone] PCP - AR[place] Attributed Provider - [employer] 01/20/20 04/21/50 Maggie Marquez MD [address] [place] [address] PCP - ARAMIS Attributed Provider - C 02/21/20 04/21/50 Postal Clerk Relationship Specialty [place] [address] [place] [address] PCP - General Family Medicine 01/05/21 Maggie Marquez MD [facility] [address] [address] PCP - [place] Attributed Provider - [employer] 01/20/20 04/21/50 Maggie Marquez MD [address] [address] PCP - [place] Attributed Provider - [facility] 02/21/20 04/21/50 Postal Clerk Relationship Specialty Start Date End Date Maggie Marquez MD [address] [address] PCP - General Family Medicine 01/05/21 Maggie Marquez MD [address] [address] PCP - AR[place] Attributed Provider - [employer] 01/20/20 04/21/50 Maggie Marquez MD [facility] [address] [address] PCP - [place] Attributed Provider - [facility] 02/21/20 04/21/50 Postal Clerk Relationship Specialty Start Date End Date Maggie Marquez MD [address] [address] PCP - General Family Medicine 01/05/21 Maggie Marquez MD [facility] [address] [address] PCP - [place] Attributed Provider - [employer] 01/20/20 04/21/50 Maggie Marquez MD [address] [address] PCP - [place] Attributed Provider - [facility] 02/21/20 04/21/50 Postal Clerk Relationship Specialty Start Date End Date Maggie Marquez MD [address] [address] PCP - General Family Medicine 01/05/21 Maggie Marquez MD [address] [address] PCP - [place] Attributed Provider - [employer] 01/20/20 04/21/50 Maggie Marquez MD [address] [address] PCP - [place] Attributed Provider - [facility] 02/21/20 04/21/50 Postal Clerk Relationship Specialty Start Date End Date Maggie Marquez MD [address] [address] PCP - General Family Medicine 01/05/21 Maggie Marquez MD [facility] [place] [phone] PCP - [place] Attributed Provider - [facility] 02/21/20 04/21/50 Postal Clerk Relationship Specialty Start Date End Date Maggie Marquez MD [facility] [address] [address] PCP - General Family Medicine 01/05/21 Maggie Marquez MD [facility] [address] [address] PCP - [place] Attributed Provider - [employer] 01/20/20 06/18/22 Maggie Marquez MD [facility] [address] [address] PCP - [place] Attributed Provider - [facility] 02/21/20 04/21/50 Postal Clerk Relationship Specialty Start Date End Date Maggie Marquez MD [address] [address] PCP - General Family Medicine 01/05/21 Maggie Marquez MD [address] [place] [phone] PCP - [place] Attributed Provider - [facility] 02/21/20 04/21/50 Postal Clerk Relationship Specialty Start Date End Date Maggie Marquez MD [address] [address] PCP - General Family Medicine 01/05/21 Maggie Marquez MD [address] [place] [phone] PCP - [place] Attributed Provider - [facility] 02/21/20 04/21/50 Postal Clerk Relationship Specialty Start Date End Date Maggie Marquez MD [address] [address] PCP - General Family Medicine 01/05/21 Maggie Marquez MD [address] [address] PCP - [place] Attributed Provider - [facility] 02/21/20 04/21/50 [facility] Case Management 09/04/22 Postal Clerk Relationship Specialty Start Date End Date Maggie Marquez MD [address] [address] PCP - General Family Medicine 01/05/21 Maggie Marquez MD [address] [place] [phone] PCP - AR[place] Attributed Provider - [facility] 02/21/20 04/21/50 Postal Clerk Relationship Specialty Start Date End Date Maggie Marquez MD [address] [place] [phone] PCP - General Family Medicine 01/05/21 Maggie Marquez MD [facility] [place] [phone] PCP - AR[place] Attributed Provider - [facility] 02/21/20 04/21/50 Maggie Marquez MD [address] [place] [phone] PCP - [place] Attributed Provider - [facility] 08/20/22 04/21/50 Postal Clerk Relationship Specialty Start Date End Date Maggie Marquez MD [address] [place] [phone] PCP - General Family Medicine 01/05/21 Maggie Marquez MD [address] [address] PCP - [place] Attributed Provider - [facility] 02/21/20 04/21/50 Maggie Marquez MD [address] [place] [phone] PCP - [place] Attributed Provider - [place] [employer] 08/20/22 04/21/50 Postal Clerk Relationship Specialty Start Date End Date Maggie Marquez MD [address] [place] [phone] PCP - General Family Medicine 01/05/21 Maggie Marquez MD [facility] [place] [phone] PCP - [place] Attributed Provider - [facility] 02/21/20 04/21/50 Maggie Marquez MD [address] [place], [place] [phone] PCP - [place] Attributed Provider - [place] [employer] 08/20/22 04/21/50 Postal Clerk Relationship Specialty Start Date End Date Maggie Marquez MD [address] [place], [place] [phone] PCP - General Family Medicine 01/05/21 Maggie Marquze MD [facility] [place] [phone] PCP - [place] Attributed Provider - [facility] 02/21/20 04/21/50 Maggie Marquez MD [facility] [address] [address] PCP - [place] Attributed Provider - [place] [employer] 08/20/22 04/21/50 Postal Clerk Relationship Specialty Start Date End Date Maggie Marquez MD [address] [place] [address], [place] [address] PCP - General Family Medicine 01/05/21 Maggie Marquez MD [address] [address] PCP - [place] Attributed Provider - [facility] 02/21/20 04/21/50 Maggie Marquez MD [address] [address] PCP - [place] Attributed Provider - [place] [employer] 08/20/22 04/21/50 Scheduled Active and Recently Administ ered Medications (unrecognized section and content) Continuous Medication Order 12/13/2020 12/14/2020 12/15/2020 sodium chloride 0.9% (NS) () 75 mL/hr, Intravenous, Continuous, Starting on Sat12/14/20 at 1700, For 6 hours 1621 (Restarted - Provider: Destiney Coleman RN)1622 (Rate/Dose Verify - Provider: Destiney Coleman RN)1700 (Canceled Entry - Provider: Destiney Coleman RN)1842 (Rate/Dose Verify - Provider: Destiney Coleman RN)2100 (Rate/Dose Verify - Provider: Qiana Pinzon RN)2348 (Stopped - Provider: Qiana Pinzon RN) PRN Medication Order 12/13/2020 12/14/2020 12/15/2020 acetaminophen (TYLENOL) tablet 650 mg 650 mg, Oral, Every 4 hours PRN, mild pain, fever 100.4 F or greater, headaches, Starting on Sat12/13/20 at 1120 aluminum-magnesium hydroxide-simethicone (MAALOX PLUS) 200-200-20 mg/5 mL suspension 30 mL 30 mL, Oral, Every 4 hours PRN, indigestion, Starting on Sat12/13/20 at 1120 fentaNYL (SUBLIMAZE) injection (CANCELED) As needed, Starting on Sat12/14/20 at 1532, Intra-Procedure 1532 (Given - Provider: Brenna Pretty RN) heparin (porcine) injection (CANCELED) As needed, Starting on Sat12/14/20 at 1538, Intra-Procedure 1538 (Given - Provider: Brenna Pretty RN) iopamidoL (ISOVUE-370) 76 % injection (CANCELED) As needed, Starting on Sat12/14/20 at 1548, Intra-Procedure 1548 (Given - Provider: Traci Trujillo MD) lidocaine 1% (PF) (XYLOCAINE-MPF) 10 mg/mL (1 %) injection (CANCELED) As needed, Starting on Sat12/14/20 at 1536, Intra-Procedure 1536 (Given - Provider: Traci Trujillo MD) magnesium hydroxide (MOM) 400 mg/5 mL suspension 2,400 mg 2,400 mg (30 mL), Oral, Daily PRN, constipation, Starting on Sat12/13/20 at 1120, If no bowel movement in 24 hours after Sennosides (SENNA) administration. midazolam (VERSED) injection (CANCELED) As needed, Starting on Sat12/14/20 at 1533, Intra-Procedure 1533 (Given - Provider: Brenna Pretty RN) nitroGLYCERIN (NITROSTAT) SL tablet 0.4 mg 0.4 mg, Sublingual, Every 5 min PRN, chest pain, Starting on Sat12/13/20 at 1120, For chest pain. May give up to 3 doses. Call physician for chest pain unrelieved by Nitroglycerin, or recurrent chest pain. DO NOT CRUSH OR CHEW. nitroglycerin (TRIDIL) 50 mcg/ml 10 mL syringe (CANCELED) As needed, Starting on Sat12/14/20 at 1538, Intra-Procedure 1538 (Given - Provider: Traci Trujillo MD) ondansetron (ZOFRAN-ODT) disintegrating tablet 4 mg 4 mg, Oral, Every 6 hours PRN, nausea, vomiting, Starting on Sat12/13/20 at 1120, Orally disintegrating tablet: Open blister pack and place tablet on the tongue; tablet is formulated to dissolve on the tongue without water; do not split tablet. Formulation requires tablet remain in sealed package until immediately prior to dose being administered. 0637 (Given - Provider: Jennifer Ojeda, RN) perflutren lipid microspheres (DEFINITY) 0.143 mg/mL solution 0-10 mL of mixture 0-10 mL of mixture, Intravenous, Once in imaging, contrast, IF suboptimal echo, Starting on Sat12/13/20 at 1318, For 48 hours, Prepare syringe by withdrawing 1.3 mL of perflutren (DEFINITY) from the 2ml vial. Further dilute the 1.3 mL of perflutren with Sodium Chloride (NS) 0.9% to total volume of 10 ml. Chart total ML OF MIXTURE given to patient. senna (SENOKOT) tablet 8.6 mg 8.6 mg (1 tablet), Oral, 2 times daily PRN, constipation, Starting on Sat12/13/20 at 1120 sodium chloride (PF) (NS) flush 5 mL(Linked Group 1) 5 mL, Intravenous, As needed, line care, Starting on Sat12/13/20 at 1120 0923 (Given - Provider: Destiney Coleman, YAN) sodium chloride 0.9% (NS)(Linked Group 1) 0-150 mL/hr, Intravenous, As needed, To flush line after IV infusions when no maintenance IV ordered or a compatibility issue. Infuse 20ml at the same rate as the secondary infusion, Starting on Sat12/13/20 at 1120, Run as Primary IV. NOT intended for KVO. traZODone (DESYREL) tablet 50 mg 50 mg, Oral, Nightly PRN, sleep, Starting on Sat12/13/20 at 1120, May repeat times 1 in 30 minutes if still awake. verapamiL (ISOPTIN) injection (CANCELED) As needed, Starting on Sat12/14/20 at 1538, Intra-Procedure 1538 (Given - Provider: Traci Trujillo MD) Linked Groups Order Group 1: Saline lock IV (CANCELED) Routine, Continuous, Starting on Sat12/13/20 at 1121, Until Specified And sodium chloride (PF) (NS) flush 5 mLJump to med 5 mL, Intravenous, As needed, line care, Starting on Sat12/13/20 at 1120 And sodium chloride (PF) (NS) flush 5 mLJump to med 5 mL, Intravenous, Every 8 hours scheduled, First dose on Sat12/13/20 at 1400
Saline lock
And sodium chloride 0.9% (NS)Jump to med 0-150 mL/hr, Intravenous, As needed, To flush line after IV infusions when no maintenance IV ordered or a compatibility issue. Infuse 20ml at the same rate as the secondary infusion, Starting on Sat12/13/20 at 1120
Run as Primary IV. NOT intended for KVO.
Scheduled Medication Order 08/30/2022 08/31/2022 09/01/2022 amLODIPine (NORVASC) tablet 5 mg 5 mg, Oral, Daily, First dose on Sat08/31/22 at 1530 1530 (Not Given - Provider: Lola Leigh RN - Reason: Other) 0944 (Given - Provider: Renan Rice, YAN) aspirin EC tablet 81 mg 81 mg, Oral, Daily, First dose on Sat08/31/22 at 1530, DO NOT CRUSH OR CHEW. 1540 (Not Given - Provider: Lola Leigh RN - Reason: Other - Comment: Paient going to procedure) 0944 (Given - Provider: Renan Rice, YAN) atorvastatin (LIPITOR) tablet 80 mg 80 mg, Oral, Daily, First dose on Sat08/31/22 at 1530 1540 (Given - Provider: Lola Leigh RN) 0944 (Given - Provider: Renan Rice, YAN) insulin glargine (LANTUS) injection 40 Units 40 Units, Subcutaneous, Nightly, First dose on Sat08/31/22 at 2100, Do not mix with other insulins in a syringe. Do NOT hold basal insulin without notifying physician 2045 (Given - Provider: Aiden Beth RN) insulin lispro (AdmeLOG,HumaLOG) injection 0-15 Units 0-15 Units, Subcutaneous, At bedtime, First dose on Sat08/31/22 at 2100, For Nightly Insulin Dose Coverage, use: CORRECTIVE (Only) for BG greater than 300, Nightly CORRECTIVE Dose Method: Specific Corrective Dose, Nightly Specific CORRECTIVE dose (units of insulin): 2, For Downtime Calculator, use: Insulin SC NIGHTtime 2100 (Not Given - Provider: Aiden Beth RN - Reason: Order parameters not met) insulin lispro (AdmeLOG,HumaLOG) injection 0-30 Units 0-30 Units, Subcutaneous, 3 times daily before meals, First dose on Sat08/31/22 at 1630, Dose should be given 10-15 minutes before a meal. If poor oral intake, nausea or blood glucose value < 80 before meal, give of the dose (rounded up to nearest unit) immediately after meal completed. If patient skipping meal, hold base prandial dose and continue to use corrective insulin as ordered. Once diet resumed, total base prandial + corrective doses may be given., Prandial Insulin Dosing Method: Specific Prandial Doses, Specific Prandial Dose (units of Insulin): 0, Corrective Insulin Regimen (select desired scale to cover BG result): Normal Sensitivity Scale, For Downtime Calculator, use: Insulin SC MEALtime PREprandial 1630 (Not Given - Provider: Lola Leigh RN - Reason: Order parameters not met) 0817 (Not Given - Provider: Renan Rice RN - Reason: Order parameters not met)1130 (Due) isosorbide mononitrate (IMDUR) 24 hr tablet 60 mg 60 mg, Oral, Daily, First dose on Sat08/31/22 at 1530, DO NOT CRUSH OR CHEW. 1530 (Not Given - Provider: Lola Leigh RN - Reason: Other) 0944 (Given - Provider: Renna Rice RN) lisinopriL (PRINIVIL,ZESTRIL) tablet 10 mg 10 mg, Oral, Daily, First dose on Sat08/31/22 at 1530 1530 (Not Given - Provider: Lola Leigh RN - Reason: Order parameters not met) 0944 (Given - Provider: Renan Rice RN) metoprolol succinate (TOPROL-XL) 24 hr tablet 25 mg 25 mg, Oral, Nightly, First dose (after last modification) on Sat09/01/22 at 2100, DO NOT CRUSH OR CHEW. metoprolol succinate (TOPROL-XL) 24 hr tablet 50 mg (CANCELED) 50 mg, Oral, Nightly, First dose on Sat08/31/22 at 2100, DO NOT CRUSH OR CHEW. 2045 (Given - Provider: Aiden Beth, YAN) pantoprazole (PROTONIX) EC tablet 40 mg 40 mg, Oral, Nightly, First dose on Sat08/31/22 at 2100, DO NOT CRUSH OR CHEW. 2045 (Given - Provider: Aiden Beth, RN) sodium chloride (PF) (NS) flush 5 mL(Linked Group 1) 5 mL, Intravenous, Every 8 hours scheduled, First dose on Sat08/31/22 at 1415, Saline lock 1415 (Canceled Entry - Provider: Lola Leigh RN)2200 (Canceled Entry - Provider: Aiden Beth, YAN) 0600 (Canceled Entry - Provider: Aiden Beth, YAN) ticagrelor (BriLINTA) tablet 90 mg 90 mg, Oral, 2 times daily, First dose on Sat08/31/22 at 2100 2045 (Given - Provider: Aiden Beth RN) 0944 (Given - Provider: Renan Rice RN) Continuous Medication Order 08/30/2022 08/31/2022 09/01/2022 sodium chloride 0.9% (NS) 75 mL/hr, Intravenous, Continuous, Starting on Sat08/31/22 at 1915, For 6 hours 1847 (New Bag - Provider: Lola Leigh RN)205 (Restarted - Provider: Aiden Beth, YAN)2257 (Restarted - Provider: Aiden Beth, RN) 0112 (Stopped - Provider: Aiden Beth RN) PRN Medication Order 08/30/2022 08/31/2022 09/01/2022 acetaminophen (TYLENOL) tablet 650 mg 650 mg, Oral, Every 4 hours PRN, mild pain, fever 100.4 F or greater, headaches, Starting on Sat08/31/22 at 1319 albuterol inhaler 2 puff 2 puff, Inhalation, Every 6 hours PRN (RT), wheezing, Starting on Sat08/31/22 at 1326, SPACER REQUIRED FOR ADMINISTRATION cyclobenzaprine (FLEXERIL) tablet 5 mg 5 mg, Oral, 3 times daily PRN, muscle spasms, Starting on Sat08/31/22 at 1319 fentaNYL (SUBLIMAZE) injection (CANCELED) As needed, Starting on Sat08/31/22 at 1750, Intra-Procedure 1750 (Given - Provider: Brenna Pretty RN) heparin (porcine) injection (CANCELED) As needed, Starting on Sat08/31/22 at 1756, Intra-Procedure 1756 (Given - Provider: Brenna Pretty RN) iopamidoL (ISOVUE-370) 370 mg iodine /mL (76 %) injection (CANCELED) As needed, Starting on Sat08/31/22 at 1802, Intra-Procedure 1802 (Given - Provider: Traci Trujillo MD) lidocaine 1% (PF) (XYLOCAINE-MPF) 10 mg/mL (1 %) injection (CANCELED) As needed, Starting on Sat08/31/22 at 1754, Intra-Procedure 1754 (Given - Provider: Traci Trujillo MD) midazolam (VERSED) injection (CANCELED) As needed, Starting on Sat08/31/22 at 1750, Intra-Procedure 1750 (Given - Provider: Brenna Pretty RN) nitroGLYCERIN (NITROSTAT) SL tablet 0.4 mg 0.4 mg, Sublingual, Every 5 min PRN, chest pain, Starting on Sat08/31/22 at 1319, For chest pain. May give up to 3 doses. Call physician for chest pain unrelieved by Nitroglycerin, or recurrent chest pain. DO NOT CRUSH OR CHEW. nitroglycerin (TRIDIL) 50 mcg/ml 10 mL syringe (CANCELED) As needed, Starting on Sat08/31/22 at 1755, Intra-Procedure 1755 (Given - Provider: Traci Trujillo MD) ondansetron (ZOFRAN) injection 4 mg 4 mg, Intravenous, Every 6 hours PRN, nausea, vomiting, Starting on Sat08/31/22 at 1319 sodium chloride (PF) (NS) flush 5 mL(Linked Group 1) 5 mL, Intravenous, As needed, line care, Starting on Sat08/31/22 at 1316 sodium chloride 0.9% (NS)(Linked Group 1) 0-150 mL/hr, Intravenous, As needed, To flush line after IV infusions when no maintenance IV ordered or a compatibility issue. Infuse 20ml at the same rate as the secondary infusion, Starting on Sat08/31/22 at 1316, Run as Primary IV. NOT intended for KVO. verapamiL (ISOPTIN) injection (CANCELED) As needed, Starting on Sat08/31/22 at 1755, Intra-Procedure 1755 (Given - Provider: Traci Trujillo MD) Linked Groups Order Group 1: Saline lock IV (CANCELED) Routine, Continuous, Starting on Sat08/31/22 at 1317, Until Specified And sodium chloride (PF) (NS) flush 5 mLJump to med 5 mL, Intravenous, As needed, line care, Starting on Sat08/31/22 at 1316 And sodium chloride (PF) (NS) flush 5 mLJump to med 5 mL, Intravenous, Every 8 hours scheduled, First dose on Sat08/31/22 at 1415
Saline lock
And sodium chloride 0.9% (NS)Jump to med 0-150 mL/hr, Intravenous, As needed, To flush line after IV infusions when no maintenance IV ordered or a compatibility issue. Infuse 20ml at the same rate as the secondary infusion, Starting on Sat08/31/22 at 1316
Run as Primary IV. NOT intended for KVO.
FOR RECORDS PERTAINING TO PATIENTS WHO ARE OR HAVE BEEN ENROLLED IN A CHEMICAL DEPENDENCY/SUBSTANCEABUSE PROGRAM, SOME INFORMATION MAY BE OMITTED. This clinical summary was aggregated from multiple sources. Caution should be exercised in using it in the provision of clinical care. This summary normalizes information from multiple sources, and as a consequence, information in this document may materially change the coding, format and clinical context of patient data. In addition, data may be omitted in some cases. CLINICAL DECISIONS SHOULD BE BASED ON THE PRIMARY CLINICAL RECORDS. [employer] provides no warranty or guarantee of the accuracy or completeness of information in this document.
== END 2023-05-31 19:54 | disposition home or self-care (01) ==
PROVIDERS: Emergency Provider Emergency Medicine; PCP Family Medicine; Visit Provider Emergency Medicine
DX: S06.0X0A Concussion without loss of consciousness, initial encounter (principal); E11.9 Type 2 diabetes mellitus without complications; S00.01XA Abrasion of scalp, initial encounter; F17.220 Nicotine dependence, chewing tobacco, uncomplicated; I10 Essential (primary) hypertension; W22.09XA Striking against other stationary object, initial encounter
CPT/HCPCS: 70450; 99282